=== PATIENT | female | born 1955 | race Caucasian/White ===

== ENCOUNTER → 2016-10-31 | Outpatient (REF) | payer OTHER ==
[2016-10-31 15:37] LABS: PERCENT SATURATION 25.9 % (13.2-37.4)
== END ==
LOC: M LAB REF 13:13
PROVIDERS: ATTEND Internal Medicine Medical Oncology
DX: D75.1 Secondary polycythemia (principal)

== ENCOUNTER → 2016-12-07 | Outpatient (CLI) | payer OTHER ==
[2016-12-07 09:41] LABS: ALBUMIN 3.9 GM/DL (3.2-5.2); ALBUMIN/GLOBULIN RATIO 1.15 (1.00-1.93); ALKALINE PHOSPHATASE 108 U/L (45-117); ALT/SGPT 27 U/L (12-78); ANION GAP 7 MEQ/L (8-16); AST/SGOT 15 U/L (15-37); BILIRUBIN,TOTAL 0.3 MG/DL (0.2-1.0); BLOOD UREA NITROGEN 10 MG/DL (7-18); CARBON DIOXIDE LEVEL 31 MEQ/L (21-32); CHLORIDE LEVEL 102 MEQ/L (98-107); CHOLESTEROL LEVEL 214 MG/DL (<200); CREATININE FOR GFR 0.57 MG/DL (0.55-1.02); GLOMERULAR FILTRATION RATE > 60.0 (>45); GLUCOSE, FASTING 114 MG/DL (80-110); POTASSIUM SERUM 4.5 MEQ/L (3.5-5.1); SODIUM LEVEL 140 MEQ/L (136-145); TOTAL PROTEIN 7.3 GM/DL (6.4-8.2); TRIGLYCERIDES LEVEL 45 MG/DL (<150)
[2016-12-07 09:43] LABS: MEAN CORPUSCULAR HEMOGLOBIN 29.7 pg (27.0-33.0); MEAN CORPUSCULAR HGB CONC 32.4 g/dl (32.0-36.5); MEAN CORPUSCULAR VOLUME 91.9 fl (80.0-96.0); RED CELL DISTRIBUTION WIDTH 13.2 % (11.5-14.5); WHITE BLOOD COUNT 6.8 K/mm3 (4.0-10.0)
== END ==
LOC: M WUC 08:09
PROVIDERS: ATTEND Nurse Practitioner Family
DX: I10 Essential (primary) hypertension (principal)

== ENCOUNTER → 2017-01-31 | Outpatient (REF) | payer OTHER ==
[2017-01-31 13:59] LABS: PERCENT SATURATION 16.5 % (13.2-37.4)
== END ==
LOC: M LAB REF 13:22
PROVIDERS: ATTEND Internal Medicine Medical Oncology
DX: D75.1 Secondary polycythemia (principal)

== ENCOUNTER → 2017-05-02 | Outpatient (REF) | payer OTHER ==
[2017-05-02 14:05] LABS: PERCENT SATURATION 18.3 % (13.2-45.0)
== END ==
LOC: M LAB REF 10:44
PROVIDERS: ATTEND Internal Medicine Medical Oncology
DX: D75.1 Secondary polycythemia (principal)

== ENCOUNTER → 2017-06-08 | Outpatient (CLI) | payer OTHER ==
[2017-06-08 09:30] LABS: MEAN CORPUSCULAR HEMOGLOBIN 29.5 pg (27.0-33.0); MEAN CORPUSCULAR HGB CONC 32.5 g/dl (32.0-36.5); MEAN CORPUSCULAR VOLUME 90.8 fl (80.0-96.0); RED CELL DISTRIBUTION WIDTH 13.8 % (11.5-14.5); WHITE BLOOD COUNT 7.6 10^3/uL (4.0-10.0)
[2017-06-08 09:47] LABS: ALBUMIN 3.9 GM/DL (3.2-5.2); ALBUMIN/GLOBULIN RATIO 1.15 (1.00-1.93); ALKALINE PHOSPHATASE 87 U/L (45-117); ALT/SGPT 27 U/L (12-78); ANION GAP 5 MEQ/L (8-16); AST/SGOT 18 U/L (15-37); BILIRUBIN,TOTAL 0.4 MG/DL (0.2-1.0); BLOOD UREA NITROGEN 9 MG/DL (7-18); CALCIUM LEVEL 9.5 MG/DL (8.8-10.2); CARBON DIOXIDE LEVEL 33 MEQ/L (21-32); CHLORIDE LEVEL 101 MEQ/L (98-107); CHOLESTEROL LEVEL 226 MG/DL (<200); CREATININE FOR GFR 0.55 MG/DL (0.55-1.02); GLOMERULAR FILTRATION RATE > 60.0 (>45); GLUCOSE, FASTING 115 MG/DL (80-110); POTASSIUM SERUM 4.4 MEQ/L (3.5-5.1); SODIUM LEVEL 139 MEQ/L (136-145); TOTAL PROTEIN 7.3 GM/DL (6.4-8.2); TRIGLYCERIDES LEVEL 59 MG/DL (<150)
== END ==
LOC: M WUC 08:16
PROVIDERS: ATTEND Nurse Practitioner Family
DX: I10 Essential (primary) hypertension (principal)

== ENCOUNTER → 2018-01-18 | Outpatient (CLI) | payer MEDICARE ==
[2018-01-18 12:26] LABS: BASO # 0.1 10^3/uL (0.0-0.2); BASO % 0.8 % (0.0-1.0); EOS # 0.1 10^3/uL (0.0-0.50); EOS % 1.5 % (0.0-3.0); HEMATOCRIT 41.5 % (36.0-47.0); HEMOGLOBIN 13.7 g/dl (12.0-15.5); IMMATURE GRANULOCYTE % 0.4 % (0-3.0); LYMPH # 1.5 10^3/uL (1.5-4.5); LYMPH % 18.8 % (24.0-44.0); MEAN CORPUSCULAR HEMOGLOBIN 29.5 pg (27.0-33.0); MEAN CORPUSCULAR VOLUME 89.2 fl (80.0-96.0); MONO # 0.6 10^3/uL (0.0-0.8); MONO % 7.8 % (0.0-5.0); NEUTROPHILS # 5.5 10^3/uL (1.8-7.7); NEUTROPHILS % 70.7 % (36.0-66.0); PLATELET COUNT, AUTOMATED 245 10^3/uL (150-450); RED BLOOD COUNT 4.65 10^6/uL (4.00-5.40); RED CELL DISTRIBUTION WIDTH 13.7 % (11.5-14.5); WHITE BLOOD COUNT 7.8 10^3/uL (4.0-10.0)
[2018-01-18 12:43] LABS: TOTAL 25(OH) VITAMIN D 15.1 NG/ML (30.0-100.0)
[2018-01-18 13:03] LABS: ALBUMIN 3.8 GM/DL (3.2-5.2); ALBUMIN/GLOBULIN RATIO 0.97 (1.00-1.93); ALKALINE PHOSPHATASE 106 U/L (45-117); ALT/SGPT 40 U/L (12-78); ANION GAP 5 MEQ/L (8-16); AST/SGOT 25 U/L (7-37); BILIRUBIN,TOTAL 0.4 MG/DL (0.2-1.0); BLOOD UREA NITROGEN 8 MG/DL (7-18); CALCIUM LEVEL 9.2 MG/DL (8.8-10.2); CARBON DIOXIDE LEVEL 32 MEQ/L (21-32); CHLORIDE LEVEL 101 MEQ/L (98-107); CHOLESTEROL LEVEL 219 MG/DL (<200); CHOLESTEROL RISK RATIO 1.738 (<5); FREE T4 1.06 NG/DL (0.76-1.46); GLOMERULAR FILTRATION RATE > 60.0 (>45); GLUCOSE, FASTING 129 MG/DL (70-100); HDL CHOLESTEROL 126 MG/DL (>40); LDL CHOLESTEROL 82.2 MG/DL (<100); NON-HDL-C 93 MG/DL; POTASSIUM SERUM 4.5 MEQ/L (3.5-5.1); SODIUM LEVEL 138 MEQ/L (136-145); TOTAL PROTEIN 7.7 GM/DL (6.4-8.2); TRIGLYCERIDES LEVEL 54 MG/DL (<150)
[2018-01-18 13:04] LABS: ESTIMATED AVERAGE GLUCOSE 117 MG/DL (60-110); HEMOGLOBIN A1c 5.7 %
== END ==
LOC: M WUC 08:44
DX: D75.1 Secondary polycythemia (principal); I10 Essential (primary) hypertension; E78.00 Pure hypercholesterolemia, unspecified; R73.9 Hyperglycemia, unspecified; Z99.81 Dependence on supplemental oxygen
CPT/HCPCS: 84443

== ENCOUNTER → 2018-07-20 | Outpatient (CLI) | payer MEDICARE, OTHER ==
[2018-07-20 09:50] LABS: BASO # 0.1 10^3/uL (0.0-0.2); BASO % 0.5 % (0.0-1.0); EOS # 0.1 10^3/uL (0.0-0.50); EOS % 1.5 % (0.0-3.0); HEMATOCRIT 44.1 % (36.0-47.0); HEMOGLOBIN 14.3 g/dl (12.0-15.5); LYMPH # 1.9 10^3/uL (1.5-4.5); LYMPH % 20.2 % (24.0-44.0); MEAN CORPUSCULAR HEMOGLOBIN 29.7 pg (27.0-33.0); MEAN CORPUSCULAR HGB CONC 32.4 g/dl (32.0-36.5); MEAN CORPUSCULAR VOLUME 91.5 fl (80.0-96.0); MONO # 0.8 10^3/uL (0.0-0.8); NEUTROPHILS # 6.6 10^3/uL (1.8-7.7); NEUTROPHILS % 69.6 % (36.0-66.0); PLATELET COUNT, AUTOMATED 248 10^3/uL (150-450); RED BLOOD COUNT 4.82 10^6/uL (4.00-5.40); WHITE BLOOD COUNT 9.5 10^3/uL (4.0-10.0)
[2018-07-20 10:43] LABS: HEMOGLOBIN A1c 5.8 %
[2018-07-20 10:55] LABS: ALBUMIN 3.8 GM/DL (3.2-5.2); ALT/SGPT 28 U/L (12-78); BILIRUBIN,TOTAL 0.4 MG/DL (0.2-1.0); BLOOD UREA NITROGEN 7 MG/DL (7-18); CALCIUM LEVEL 8.8 MG/DL (8.8-10.2); CARBON DIOXIDE LEVEL 31 MEQ/L (21-32); CHLORIDE LEVEL 102 MEQ/L (98-107); CHOLESTEROL LEVEL 211 MG/DL (<200); CHOLESTEROL RISK RATIO 1.701 (<5); CREATININE FOR GFR 0.61 MG/DL (0.55-1.30); FREE T4 1.01 NG/DL (0.76-1.46); GLOMERULAR FILTRATION RATE > 60.0 (>45); GLUCOSE, FASTING 125 MG/DL (70-100); HDL CHOLESTEROL 124 MG/DL (>40); LDL CHOLESTEROL 75 MG/DL (<100); NON-HDL-C 87 MG/DL; POTASSIUM SERUM 4.6 MEQ/L (3.5-5.1); SODIUM LEVEL 140 MEQ/L (136-145); THYROID STIMULATING HORMONE 0.477 uIU/ML (0.358-3.740); TOTAL 25(OH) VITAMIN D 21.6 NG/ML (30.0-100.0); TOTAL PROTEIN 7.6 GM/DL (6.4-8.2); TRIGLYCERIDES LEVEL 61 MG/DL (<150)
== END ==
LOC: M WUC 08:08
PROVIDERS: ATTEND Physician Assistant Medical
DX: Z51.81 Encounter for therapeutic drug level monitoring (principal); Z79.899 Other long term (current) drug therapy; R53.83 Other fatigue; E55.9 Vitamin D deficiency, unspecified; I10 Essential (primary) hypertension; E78.2 Mixed hyperlipidemia; D75.1 Secondary polycythemia

== ENCOUNTER → 2018-11-02 | Outpatient (CLI) | payer MEDICARE, OTHER ==
--- NOTE | 2018-11-02 10:18 | REP ---
Duplex extremity venous ultrasound: Bilateral lower extremity. History: Painful calf swelling bilaterally. Rule out DVT cal Findings: The deep veins are anechoic and fully compressible from the groin to the popliteal fossa in the left and right lower extremity. Color flow imaging is homogeneous. Spectral Doppler interrogation demonstrates intact respiratory variation in flow and normal manual augmentation of flow. There is no evidence of deep vein thrombosis. Impression: Negative bilateral lower extremity duplex venous ultrasound. No evidence of deep vein thrombosis. Electronically Signed by Raymond Hay MD 11/02/2018 10:10 A
== END ==
LOC: M RAD 09:27
PROVIDERS: ATTEND Physician Assistant Medical
DX: M79.89 Other specified soft tissue disorders (principal)

== ENCOUNTER 2019-02-18 02:02 | Inpatient (IN) | payer OTHER ==
[2019-02-18] VITALS (14 sets, daily range): BP systolic 104–138; BP diastolic 56–71
[~2019-02-18] VITALS: Ht 160 cm; Wt 81.7 kg
[2019-02-18] MEDS ORDERED: BISO10TA6 PO (02:27)
[2019-02-18] MEDS ORDERED: ASPI325T22 PO (02:27)
[2019-02-18] MEDS ORDERED: AMLO10TA PO (02:27)
[2019-02-18] MEDS ORDERED: ARNU1INH3 INH (02:27)
[2019-02-18] MEDS ORDERED: ANOR1AER INH (02:27)
[2019-02-18] MEDS ORDERED: PLAV1TAB2 PO (02:27)
[2019-02-18] MEDS ORDERED: CRES20TA2 PO (02:27)
[2019-02-18] MEDS ORDERED: ALBU1.25 INH (02:27)
[2019-02-18] MEDS ORDERED: dexameTHASONE 20 MG/5 ML VIAL (J1100) IV ONE (02:45)
[2019-02-18] MEDS ORDERED: MAG SULF 1GM/100ML (MAG RUN) 1 GM in APPROPRIATE DILUENT 1 EA IV ONE ×6 (02:45)
[2019-02-18 02:58] LABS: BASO # 0.1 10^3/uL (0.0-0.2); BASO % 0.6 % (0.0-1.0); EOS % 0.3 % (0.0-3.0); HEMATOCRIT 38.7 % (36.0-47.0); HEMOGLOBIN 12.6 g/dl (12.0-15.5); LYMPH % 9.5 % (24.0-44.0); MEAN CORPUSCULAR HEMOGLOBIN 27.9 pg (27.0-33.0); MEAN CORPUSCULAR HGB CONC 32.6 g/dl (32.0-36.5); MEAN CORPUSCULAR VOLUME 85.8 fl (80.0-96.0); MONO # 0.7 10^3/uL (0.0-0.8); MONO % 6.8 % (0.0-5.0); NEUTROPHILS # 8.8 10^3/uL (1.8-7.7); NEUTROPHILS % 82.5 % (36.0-66.0); PLATELET COUNT, AUTOMATED 227 10^3/uL (150-450); RED BLOOD COUNT 4.51 10^6/uL (4.00-5.40); VENOUS BASE EXCESS -1.7 (-2.0-2.0); VENOUS HCO3 27.3 MEQ/L (23.0-27.0); VENOUS O2 SATURATION 70.8 % (60.0-80.0); VENOUS PARTIAL PRESSURE CO2 66.4 mmHg (38.0-50.0); VENOUS PARTIAL PRESSURE O2 40.6 mmHg (30.0-50.0); VENOUS PH 7.232 UNITS (7.330-7.430); VENOUS STANDARD HCO3 22.5 MEQ/L; VENOUS TOTAL CO2 29.3 MEQ/L (24.0-28.0); WHITE BLOOD COUNT 10.6 10^3/uL (4.0-10.0)
[2019-02-18] MEDS: IPRATROPIUM 0.5MG/ALBUTEROL 2.5MG INH SOL UD 3ML (DUONEB)(J7620) NEB SCH ×2 (03:11→03:57)
[2019-02-18] MEDS ORDERED: VITA50005 PO (03:14)
[2019-02-18] MEDS ORDERED: cefTRIAXone SOD 1 GM in D5W MINI-BAG PLUS 50 ML IV ONE (03:15)
[2019-02-18] MEDS ORDERED: ONDANSETRON 4MG/2ML VIAL (J2405) IV ONE (03:15)
[2019-02-18] MEDS ORDERED: IPRA0.00 INH (03:15)
[2019-02-18 03:32] LABS: BLOOD UREA NITROGEN 11 MG/DL (7-18); CALCIUM LEVEL 8.6 MG/DL (8.8-10.2); CARBON DIOXIDE LEVEL 29 MEQ/L (21-32); CHLORIDE LEVEL 90 MEQ/L (98-107); CPK CREATINE PHOSPHOKINASE 50 U/L (26-192); CREATININE FOR GFR 0.54 MG/DL (0.55-1.30); GLOMERULAR FILTRATION RATE > 60.0 (>45); GLUCOSE, FASTING 127 MG/DL (70-100); NT-PRO BNP 2810 PG/ML (<125); SODIUM LEVEL 129 MEQ/L (136-145); TROPONIN I < 0.02 NG/ML (< 0.10)
--- NOTE | 2019-02-18 03:58 | REP ---
Clinical: Dyspnea. Technique: Portable upright AP view. Comparison: 12/03/2010. Findings: Cardiomegaly suggested along with bibasilar opacities (right greater than left) and suspected moderate right pleural effusion. Element of pulmonary vascular congestion and interstitial edema cannot be excluded. No pneumothorax. Skeletal structures are intact. Impression: Bibasilar opacities with moderate right pleural effusion. Differential diagnosis includes multifocal pneumonia and pulmonary vascular congestion/edema. Electronically Signed by Beingno Arias MD 02/18/2019 03:49 A
[2019-02-18] MEDS ORDERED: MAGNESIUM SULFATE IV ONE ×2 (04:00)
[2019-02-18] MEDS ORDERED: D5W IV ONE (04:00)
[2019-02-18] MEDS ORDERED: NS IV ONE (04:00)
[2019-02-18] MEDS ORDERED: FUROSEMIDE 100 MG/10 ML VIAL (J1940) IV ONE (04:15)
[2019-02-18] MEDS ORDERED: LORazepam 2 MG/ML VIAL (J2060) IV STA (06:06)
[2019-02-18] MEDS ORDERED: MAALOX 30 ML SUSP *UDC PO PRN (06:15)
[2019-02-18] MEDS ORDERED: MOM 30ML SUSPENSION UDC PO PRN (06:15)
[2019-02-18 06:21] LABS: ETHYL ALCOHOL (ETHANOL) 0.003 % (0.000-0.010)
--- NOTE | 2019-02-18 06:22 | HPEPDOC ---
General Date of Admission 02/18/19 Date of Service: Feb 18, 2019 Chief Complaint The patient is a 63-year-old female admitted with a reason for visit of SOB. Source: Patient, RN/, Old records History of Present Illness 63 year old female with PMH of COPD with chronic respiratory failure with hypoxia, secondary erythrocytosis requiring intermittent phlebotomy, hypertension, hyperlipidemia, smoker presented to the ED with several days h/o increasing shortness of breath and coughing. On arrival to ED she was hypoxic to 82% with 6 liters of oxygen , She was tripoding with silent chest unable to talk, very anxious. She was give nebs, decadron, lasix 100 mg and magnesium. CXR showed Bibasilar opacities with moderate right pleural effusion. Differential diagnosis includes multifocal pneumonia and pulmonary vascular congestion/edema. She was also noted to be in A fib with rvr. On my interview she said she was feeling much better She still continues to have SOB but better than before, she is having persistent coughing with phlegm production and also chest tightness but that is getting better. She denied having any fever or chills at home. She did have one episode of vomiting her in the ed. Home Medications Scheduled Amlodipine Besylate (Norvasc) 10 Mg Tablet, 10 MG PO DAILY, (Reported) Aspirin (Aspirin) 325 Mg Tablet, 325 MG PO DAILY, (Reported) Bisoprolol Fumarate (Bisoprolol Fumarate) 10 Mg Tablet, 10 MG PO DAILY, (Reported) Clopidogrel Bisulfate (Plavix) 75 Mg Tablet, 75 MG PO DAILY, (Reported) Ergocalciferol (Vitamin D2) (Vitamin D2) 50,000 Unit Capsule, 50,000 UNIT PO QWEEK, (Reported) SUNDAYS Fluticasone Furoate (Arnuity Ellipta) 200 Mcg Blst.w.dev, 200 MCG INH QPM, (Reported) Rosuvastatin Calcium (Crestor) 20 Mg Tablet, 20 MG PO QPM, (Reported) Umeclidinium Brm/Vilanterol Tr (Anoro Ellipta 62.5-25 Mcg INH) 1 Each Blst.w.dev, 1 PUFF INH QPM, (Reported) Scheduled PRN Albuterol Sulfate (Albuterol Sulfate) 1.25 Mg/3 Ml Vial.neb, 3 MG INH Q4H PRN for SOB/WHEEZING, (Reported) PT NOT CERTAIN WHICH NEB TREATMENT SHE IS USING Ipratropium/Albuterol Sulfate (Iprat-Albut 0.5-3(2.5) mg/3 ml) 3 Ml Ampul.neb, 3 ML INH Q4H PRN for SOB/WHEEZING, (Reported) PT NOT CERTAIN WHICH NEB TREATMENT SHE IS USING Allergies Coded Allergies: No Known Allergies (Unverified , 02/18/19) Past Medical History Medical History COPD with chronic respiratory failure with hypoxia, secondary polycythemia/ erythrocytosis requiring intermittent phlebotomy, hypertension, hyperlipidemia , atrial fibrillation, h/o ovarian cancer Surgical History Total abdominal hysterectomy Family History Significant Family History: COPD, Hypertension Social History * Smoker: current smoker Alcohol: heavy (drinks about 4 times per week 4 to 5 beers each time) Drugs: denies A-FIB/CHADSVASC A-FIB History Current/History of A-Fib/PAF?: Yes Current PO Anticoag Therapy: No Review of Systems Constitutional: Denies: Chills, Fever, Night Sweats Eyes: Denies: Pain, Vision change ENT: Denies: Head Aches, Ear Pain, Dysphagia Skin: Reports: Itching, Dry Pulmonary: Reports: Dyspnea, Cough Cardiovascular: Reports: Chest Pain, Palpitations, Orthopnea, Edema Gastrointestinal: Reports: Vomiting; Denies: Nausea, Abdominal Pain, Diarrhea, Constipation Genitourinary: Denies: Dysuria, Frequency, Incontinence, Retention Hematologic: Denies: Bruising, Bleeding Excessively Musculoskeletal: Denies: Neck Pain, Back Pain, Joint Pain, Muscle Pain, Spasms Physical Examination General Exam: Positive: Alert, Cooperative, Moderate Distress Eye Exam: Positive: PERRLA, Conjunctiva & lids normal, EOMI; Negative: Sclera icteric ENT Exam: Positive: Atraumatic, Mucous membr. moist/pink, Pharynx Normal Neck Exam: Positive: Supple, JVD; Negative: thyromegaly, Lymphadenopathy Chest Exam: Positive: Rales (at both the bases right > left), Wheezing (on deep expiration), Diminished Heart Exam: Positive: Tachycardic, Irregular Rhythm, Normal S1, Normal S2; Negative: Gallops, Murmurs, Rubs Telemetry: Positive: Atrial fibrillation Abdomen Exam: Positive: Normal bowel sounds, Soft; Negative: Tenderness, Hepatospenomegaly Extremity Exam: Positive: Edema, Swelling Skin Exam: Positive: Other skin issue (chronic venous stasis changes with stasis dermatitis.) Psych Exam: Positive: Anxiety, Memory Intact, Oriented x 3 Vital Signs Vital Signs Date Time Temp Pulse Resp B/P (MAP) Pulse Ox O2 Delivery O2 Flow Rate FiO2 02/18/19 04:37 113 22 122/61 (81) 88 Nasal Cannula 4.0 02/18/19 02:36 98.0 02/18/19 02:09 83 Laboratory Data Labs 24H Laboratory Tests 2 02/18/19 02:50: Immature Granulocyte % (Auto) 0.3, White Blood Count 10.6H, Red Blood Count 4.51, Hemoglobin 12.6, Hematocrit 38.7, Mean Corpuscular Volume 85.8, Mean Corpuscular Hemoglobin 27.9, Mean Corpuscular Hemoglobin Concent 32.6, Red Cell Distribution Width 14.1, Platelet Count 227, Neutrophils (%) (Auto) 82.5H, Lymphocytes (%) (Auto) 9.5L, Monocytes (%) (Auto) 6.8H, Eosinophils (%) (Auto) 0.3, Basophils (%) (Auto) 0.6, Neutrophils # (Auto) 8.8H, Lymphocytes # (Auto) 1.0L, Monocytes # (Auto) 0.7, Eosinophils # (Auto) 0.0, Basophils # (Auto) 0.1, Nucleated Red Blood Cells % (auto) 0.0, Blood Gas Bicarbonate Standard 22.5, Venous Blood pH 7.232L, Venous Blood Partial Pressure CO2 66.4H, Venous Blood Partial Pressure O2 40.6, Venous Blood Total Carbon Dioxide 29.3H, Venous Blood HCO3 27.3H, Venous Blood Oxygen Saturation 70.8, Venous Blood Base Excess -1.7, Anion Gap 10, Glomerular Filtration Rate > 60.0, Blood Urea Nitrogen 11, Creatinine 0.54L, Sodium Level 129L, Potassium Level 4.0, Chloride Level 90L, Carbon Dioxide Level 29, Calcium Level 8.6L, Total Creatine Kinase 50, Creatine Kinase MB 2.0, Creatine Kinase MB Relative Index 4.00, Troponin I < 0.02, ZX-Smu-F-Type Natriuretic Peptide 2810H CBC/BMP Laboratory Tests 02/18/19 02:50 Red Blood Count 4.51, Mean Corpuscular Volume 85.8, Mean Corpuscular Hemoglobin 27.9, Mean Corpuscular Hemoglobin Concent 32.6, Red Cell Distribution Width 14.1, Neutrophils (%) (Auto) 82.5 H, Lymphocytes (%) (Auto) 9.5 L, Monocytes (%) (Auto) 6.8 H, Eosinophils (%) (Auto) 0.3, Basophils (%) (Auto) 0.6, Neutrophils # (Auto) 8.8 H, Lymphocytes # (Auto) 1.0 L, Monocytes # (Auto) 0.7, Eosinophils # (Auto) 0.0, Basophils # (Auto) 0.1, Calcium Level 8.6 L, Total Creatine Kinase 50 Microbiology Microbiology 02/18/19 Blood Culture, Received Pending Assessment/Plan 63 year old female with PMH of COPD with chronic respiratory failure with hypoxia, secondary erythrocytosis requiring intermittent phlebotomy, hypertension, hyperlipidemia, smoker presented to the ED with several days h/o increasing shortness of breath and coughing. On arrival to ED she was hypoxic to 82% with 6 liters of oxygen , She was tripoding with silent chest unable to talk, very anxious. She was give nebs, decadron, lasix 100 mg and magnesium. CXR showed Bibasilar opacities with moderate right pleural effusion. Differential diagnosis includes multifocal pneumonia and pulmonary vascular congestion/edema. She was also noted to be in A fib with rvr. She was admitted for COPD exacerbation with acute on chronic respiratory failure with hypoxia and hypercarbia and CHF exacerbation. Acute on chronic respiratory failure with hypoxia and hypercarbia due to chf exacerbation and COPD exacerbation ABG will manage copd and chf as below COPD exacerbation She gold stage IV COPD with emphysema for several years continues to smoke continue with nebs, steroids, expectorants Possible pneumonia CXR with pleural effusion and possibly infiltrates Will get CT chest without contrast.for better picture Pateint very claustrophobic will give 0.5 mg of ativan prior to the test will give ceftriaxone and azithromycin. CHF exacerbation unknown type possibly has severe pulmonary hypertension and corpulmonale will get echo Lasix bid Afib with rvr newly diagnosed no h/o of a fib before probably due to copd exacerbation will have to discuss about anticoagulation. continue betablocker. Secondary Polycythemia due to COPD , smoking Used to need phlebotomy last one more than year ago. Now HH in good range. Smoker counselled abot quitting says has some down to about 5 cigarettes / day. nicotine patch if requested. Hyponatremia due to lung disease and beer drinking possibly has SIADH Lasix should improve. along with fluid restriction. Hypertension continue amlodipine and bisoprolol. Plan / VTE VTE Prophylaxis Ordered?: Yes DELMA CROWE MD Feb 18, 2019 05:10
[2019-02-18 06:38] LABS: ABG BASE EXCESS -2.3 (-2.0-2.0); ABG O2 SATURATION 90.4 % (95.0-99.0); ABG PARTIAL PRESSURE O2 70.7 mmHg (75.0-100.0); ABG STANDARD HCO3 22.4 MEQ/L (22.0-26.0)
[2019-02-18 06:46] LABS: ABG PARTIAL PRESSURE CO2 68.3 mmHg (35.0-45.0); ABG pH (ARTERIAL) 7.214 UNITS (7.350-7.450)
--- NOTE | 2019-02-18 07:13 | ECGEPIP ---
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
[2019-02-18] MEDS: SYMBICORT 160/4.5MCG INHALER 6GM INH SCH ×2 (07:42→21:51)
--- NOTE | 2019-02-18 08:28 | REPVR ---
EXAM: CT Chest Without Contrast EXAM DATE/TIME: 02/18/2019 6:38 AM CLINICAL HISTORY: 63 years old, female; Dyspnea; Additional info: Dysp TECHNIQUE: Imaging protocol: Axial computed tomography images of the chest without intravenous contrast. Coronal and sagittal reformatted images were created and reviewed. 3D rendering: MIP reconstructed images were created and reviewed. Radiation optimization: All CT scans at this facility use at least one of these dose optimization techniques: automated exposure control; mA and/or kV adjustment per patient size (includes targeted exams where dose is matched to clinical indication); or iterative reconstruction. COMPARISON: CT ANGIO CHEST 11/04/2015 3:16 PM FINDINGS: Thyroid: Stable coarse calcification within the left lobe of the thyroid gland. Lungs: The central airways are patent. There is diffuse interstitial prominence with peripheral septal thickening and heterogeneous attenuation of the lung parenchyma, consistent with interstitial edema. There is underlying centrilobular emphysema. There are patchy airspace opacities and consolidation within the right lower lobe as well as consolidation within the inferior right middle lobe. There are mild patchy airspace opacities and consolidation within the anterobasal right upper lobe as well as within the lingula and left lower lobe. Pleural space: Moderate right and small left pleural effusions. No pneumothorax. Heart: Cardiomegaly with biatrial dilatation. Coronary artery calcification. No pericardial effusion. Aorta: Atherosclerosis of the thoracic aorta. No evidence of aneurysm. There is atherosclerosis of the great vessels, upper abdominal aorta and its branches. Lymph nodes: Few small mediastinal lymph nodes. No significant adenopathy. Bones/joints: No acute bony abnormalities. Osteopenia and degenerative changes. Soft tissues: Posterior dependent soft tissue edema and along the lateral right flank. Intraperitoneal space: Small amount of perihepatic free fluid within the upper abdomen. IMPRESSION: 1. Cardiomegaly and interstitial edema consistent with CHF. 2. Moderate right and small left pleural effusions. 3. Multifocal patchy airspace opacities and consolidation, most pronounced involving the right lower lobe, likely secondary to compressive and subsegmental atelectasis. Superimposed pneumonia cannot be excluded. 4. Small amount of perihepatic free fluid within the upper abdomen. 5. Additional non-emergent findings, as discussed above. Electronically signed by: Benigno Flanagan On 02/18/2019 08:27:39 AM
[2019-02-18] MEDS: IPRATROPIUM 0.5MG/ALBUTEROL 2.5MG INH SOL UD 3ML (DUONEB)(J7620) NEB PRN ×2 (08:34→12:27)
[2019-02-18] MEDS: FUROSEMIDE 40 MG/4 ML VIAL (J1940) IV SCH ×2 (09:00→17:25)
[2019-02-18 09:42] LABS: ABG STANDARD HCO3 24.3 MEQ/L (22.0-26.0)
[2019-02-18 09:43] LABS: ABG HCO3 29.1 MEQ/L (22.0-26.0); ABG O2 SATURATION 88.4 % (95.0-99.0); ABG PARTIAL PRESSURE O2 63.2 mmHg (75.0-100.0); ABG TOTAL CO2 31.2 MEQ/L (23.0-31.0)
[2019-02-18 09:46] LABS: ABG PARTIAL PRESSURE CO2 69.1 mmHg (35.0-45.0); ABG pH (ARTERIAL) 7.242 UNITS (7.350-7.450)
[2019-02-18] MEDS: CLOPIDOGREL 75 MG TAB PO SCH (09:56)
[2019-02-18] MEDS: DOCUSATE SODIUM 100 MG CAP PO SCH ×2 (09:56→20:11)
[2019-02-18] MEDS: ENOXAPARIN 40 MG/0.4 ML SYRINGE (J1650) SC SCH (09:56)
[2019-02-18] MEDS: AZITHROMYCIN 250 MG TAB PO SCH (09:56)
[2019-02-18] MEDS: ASPIRIN 325 MG TAB PO SCH (09:56)
[2019-02-18] MEDS: amLODIPine 10 MG TAB PO SCH (09:57)
[2019-02-18] MEDS: methylPREDNISolone INJ 125 MG/2 ML VIAL (J2930) IV SCH ×2 (09:57→17:24)
[2019-02-18] MEDS: BISOPROLOL FUMARATE 10 MG TAB PO SCH (12:48)
[2019-02-18 16:15] LABS: ABG BASE EXCESS 5.4 (-2.0-2.0); ABG O2 SATURATION 88.9 % (95.0-99.0); ABG PARTIAL PRESSURE CO2 62.9 mmHg (35.0-45.0); ABG PARTIAL PRESSURE O2 61.6 mmHg (75.0-100.0); ABG STANDARD HCO3 29.1 MEQ/L (22.0-26.0); ABG pH (ARTERIAL) 7.338 UNITS (7.350-7.450)
[2019-02-18] MEDS: cefTRIAXone SOD 1 GM in D5W MINI-BAG PLUS 50 ML IV SCH (17:25)
[2019-02-18] MEDS: ROSUVASTATIN 10 MG TAB (CRESTOR) PO SCH (20:11)
--- NOTE | 2019-02-18 21:22 | ECHO ---
DATE OF PROCEDURE: 02/18/2019 REFERRING PHYSICIAN: Dr. Emily Baker INDICATION: Heart failure unspecified. HEIGHT: 160 cm WEIGHT: 83 kg 2D MEASUREMENTS: Left atrium: 4.5 cm Left atrial volume index: 47 Aortic annulus: 2.0 cm Aortic root: 2.8 cm Left ventricle diastole: 4.8 cm Ventricular septum: 0.96 cm Posterior wall: 0.98 cm Inferior vena cava: 2.5 cm DOPPLER MEASUREMENTS: No aortic stenosis. No aortic regurgitation. Aortic valve velocity: 125 cm/s LVOT velocity: 105 cm/s LVOT VTI: 18.1 cm Very mild mitral regurgitation. No mitral stenosis. Moderate tricuspid regurgitation. Estimated right ventricle systolic pressure: 62 mmHg assuming a pressure of 20 mmHg. DESCRIPTION: Rhythm was atrial fibrillation with rapid ventricular response. This was a moderately technically difficult echocardiogram. This was a 2D, M-mode, color flow Doppler and pulse wave Doppler examination and included mitral annular tissue Doppler. CONCLUSIONS: 1. Normal left ventricle internal dimensions and wall thickness. Hyperdynamic left ventricular (LV) systolic function. Left ventricular ejection fraction (LVEF) 75% by visual estimate. Unable to determine LV diastolic function in the setting of atrial fibrillation with rapid ventricular response. 2. Severe left atrial dilatation by left atrial volume index. 3. Moderate aortic valve sclerosis of a 3-cusp aortic valve. No aortic stenosis or regurgitation. 4. Moderate mitral annular calcification. No mitral stenosis. Very mild mitral regurgitation. 5. Suggestive of severe elevation of estimated right ventricle systolic pressure (at least 62 mmHg) assuming a right atrial pressure of at least 20 mmHg. Normal right ventricle size with presence of right ventricle hypertrophy. Prominent moderator band of the right ventricle. Moderate tricuspid regurgitation. Moderate right atrial dilatation. 6. 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 Suggestive of elevated central venous pressure of at least 20 mmHg. 7. No pericardial effusion.
[2019-02-18] MEDS ORDERED: LORazepam 0.5 MG TAB PO PRN (22:45)
[2019-02-19] VITALS (14 sets, daily range): BP systolic 100–121; BP diastolic 56–74
[2019-02-19] MEDS: methylPREDNISolone INJ 125 MG/2 ML VIAL (J2930) IV SCH ×3 (02:15→17:21)
[2019-02-19] MEDS: cefTRIAXone SOD 1 GM in D5W MINI-BAG PLUS 50 ML IV SCH ×2 (04:21→16:43)
[2019-02-19 05:03] LABS: EOS % 0.2 % (0.0-3.0); HEMATOCRIT 36.3 % (36.0-47.0); HEMOGLOBIN 11.8 g/dl (12.0-15.5); LYMPH # 0.3 10^3/uL (1.5-4.5); LYMPH % 4.1 % (24.0-44.0); MEAN CORPUSCULAR HGB CONC 32.5 g/dl (32.0-36.5); MEAN CORPUSCULAR VOLUME 86.2 fl (80.0-96.0); MONO # 0.1 10^3/uL (0.0-0.8); NEUTROPHILS % 93.4 % (36.0-66.0); PLATELET COUNT, AUTOMATED 176 10^3/uL (150-450); RED BLOOD COUNT 4.21 10^6/uL (4.00-5.40); WHITE BLOOD COUNT 6.4 10^3/uL (4.0-10.0)
[2019-02-19 05:25] LABS: BLOOD UREA NITROGEN 18 MG/DL (7-18); CALCIUM LEVEL 8.4 MG/DL (8.8-10.2); CARBON DIOXIDE LEVEL 33 MEQ/L (21-32); CHLORIDE LEVEL 93 MEQ/L (98-107); CREATININE FOR GFR 0.56 MG/DL (0.55-1.30); GLOMERULAR FILTRATION RATE > 60.0 (>45); GLUCOSE, FASTING 171 MG/DL (70-100); POTASSIUM SERUM 4.4 MEQ/L (3.5-5.1); SODIUM LEVEL 131 MEQ/L (136-145)
[2019-02-19] MEDS: SYMBICORT 160/4.5MCG INHALER 6GM INH SCH ×2 (07:59→20:02)
[2019-02-19] MEDS: DOCUSATE SODIUM 100 MG CAP PO SCH ×2 (09:00→20:05)
[2019-02-19] MEDS: amLODIPine 10 MG TAB PO SCH (09:27)
[2019-02-19] MEDS: CLOPIDOGREL 75 MG TAB PO SCH (09:27)
[2019-02-19] MEDS: ASPIRIN 325 MG TAB PO SCH (09:28)
[2019-02-19] MEDS: BISOPROLOL FUMARATE 10 MG TAB PO SCH (09:28)
[2019-02-19] MEDS: AZITHROMYCIN 250 MG TAB PO SCH (09:29)
[2019-02-19] MEDS: ENOXAPARIN 40 MG/0.4 ML SYRINGE (J1650) SC SCH (09:30)
[2019-02-19] MEDS: FUROSEMIDE 40 MG/4 ML VIAL (J1940) IV SCH ×2 (09:30→16:42)
--- NOTE | 2019-02-19 10:14 | IPNPDOC ---
Subjective Date Seen The patient was seen on 02/19/19. Subjective Chief Complaint/HPI Patient feels better, is able to able to breathe without any severe shortness of breath sitting by age of the bed with oxygen support . No chest pain, no nausea, vomiting, no fever, etc. but still has shortness of breath on minimal exertion General: Denies: ROS Unobtainable, Chills, Night Sweats, Fatigue, Malaise, Normal Appetite, Other Symptoms Constitutional: Denies: Chills, Fever, Malaise, Night Sweats, Weakness, Fatigue, Weight Loss, Lethargy, Other Eyes: Denies: Pain, Vision change, Conjunctivae inflammation, Eyelid inflammation, Redness, Other ENT: Denies: Head Aches, Ear Pain, Dysphagia, Sinus Congestion, Post Nasal Drip, Sore Throat, Epistaxis, Other Symptoms Skin: Denies: Rash, Lesions, Jaundice, Bruising, Itching, Dry, Breakdown, Nail Changes, Other Pulmonary: Reports: Dyspnea Cardiovascular: Denies: Chest Pain, Palpitations, Orthopnea, Paroxysmal Noc. Dyspnea, Edema, Lt Headedness, Other Symptoms Gastrointestinal: Denies: Nausea, Vomiting, Abdominal Pain, Diarrhea, Constipation, Melena, Hematochezia, Other Symptoms Genitourinary: Denies: Dysuria, Frequency, Incontinence, Hematuria, Retention, Other Symptoms Hematologic: Denies: Bruising, Bleeding Excessively, Petecchia, Purpura, Enlarged Lymph Nodes, Other Hematologic Endocrine: Denies: Polydipsia, Polyphagia, Polyuria, Heat Intolerance, Cold Intolerance, Other Endocrine Sx Musculoskeletal: Denies: Neck Pain, Back Pain, Shoulder Pain, Arm Pain, Hand Pain, Leg Pain, Foot Pain, Joint Pain, Muscle Pain, Spasms, Other Symptoms Neurological: Denies: Weakness, Numbness, Incoordination, Change in speech, Confusion, Seizures, Other Symptoms Psych: Denies: Mood Normal, Anxiety, Depression, Memory Issues, Thoughts of Self Harm, Anger, Thoughts of Harming Other, Other Psych Objective Physical Examination General Exam: Positive: Alert, Cooperative, Moderate Distress Eye Exam: Positive: PERRLA, Conjunctiva & lids normal, EOMI; Negative: Sclera icteric ENT Exam: Positive: Atraumatic, Mucous membr. moist/pink, Pharynx Normal Neck Exam: Positive: Supple, JVD; Negative: thyromegaly, Lymphadenopathy Chest Exam: Positive: Rales (at both the bases right > left), Wheezing (on deep expiration), Diminished Heart Exam: Positive: Tachycardic, Irregular Rhythm, Normal S1, Normal S2; Negative: Gallops, Murmurs, Rubs Telemetry: Positive: Atrial fibrillation Abdomen Exam: Positive: Normal bowel sounds, Soft; Negative: Tenderness, Hepatospenomegaly Extremity Exam: Positive: Edema, Swelling Skin Exam: Positive: Other skin issue (chronic venous stasis changes with stasis dermatitis.) Psych Exam: Positive: Anxiety, Memory Intact, Oriented x 3 Assessment /Plan Problems (1) Cor pulmonale Status: Chronic Response to Treatment: Improving, Controlled Problem Text: Patient diuresed very well about 1 L last night Continue IV diuresis with Lasix Strict I and O's Echo report: 1. Normal left ventricle internal dimensions and wall thickness. Hyperdynamic left ventricular (LV) systolic function. Left ventricular ejection fraction (LVEF) 75% by visual estimate. Unable to determine LV diastolic function in the setting of atrial fibrillation with rapid ventricular response. 2. Severe left atrial dilatation by left atrial volume index. 3. Moderate aortic valve sclerosis of a 3-cusp aortic valve. No aortic stenosis or regurgitation. 4. Moderate mitral annular calcification. No mitral stenosis. Very mild mitral regurgitation. 5. Suggestive of severe elevation of estimated right ventricle systolic pressure (at least 62 mmHg) assuming a right atrial pressure of at least 20 mmHg. Normal right ventricle size with presence of right ventricle hypertrophy. Prominent moderator band of the right ventricle. Moderate tricuspid regurgitation. Moderate right atrial dilatation. 6. 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 Suggestive of elevated central venous pressure of at least 20 mmHg. 7. No pericardial effusion. (2) Acute respiratory failure with hypoxia and hypercapnia Status: Acute Response to Treatment: Improving Problem Text: Multi-factorial in nature secondary to congestive heart failure secondary to cor pulmonale and exacerbation of COPD secondary to active smoking. Also possibility of community-acquired pneumonia Continue oxygen support with Vapotherm Continue IV steroids such as Solu-Medrol as per orders Continue nebulizer treatment as per orders Continue IV Rocephin and by mouth Zithromax as per orders A.m. level work Continue care in ICU. In the meantime for close observation (3) Afib Status: Chronic Problem Text: Ventricular rate is under control Continue home meds (4) Pneumonia Status: Acute Problem Text: As above Plan/VTE VTE Prophylaxis Ordered?: Yes VS, I&O, 24H, Fishbone Vital Signs/I&O Vital Signs Date Time Temp Pulse Resp B/P (MAP) Pulse Ox O2 Delivery O2 Flow Rate FiO2 02/19/19 09:28 104 118/63 02/19/19 08:06 94 28.0 60 02/19/19 04:00 97.9 20 02/18/19 08:29 Nasal Cannula I&O- Last 24 Hours up to 6 AM 02/19/19 06:00 Intake Total 440 ml Output Total 1560 ml Balance -1120 ml Laboratory Data 24H LABS Laboratory Tests 2 02/18/19 16:00: Blood Gas Bicarbonate Standard 29.1H, Arterial Blood pH 7.338L, Arterial Blood Partial Pressure CO2 62.9*H, Arterial Blood Partial Pressure O2 61.6L, Arterial Blood Total CO2 35.0H, Arterial Blood HCO3 33.0H, Arterial Blood Base Excess 5.4H, Arterial Blood Oxygen Saturation 88.9L 02/19/19 04:52: Immature Granulocyte % (Auto) 0.3, White Blood Count 6.4, Red Blood Count 4.21, Hemoglobin 11.8L, Hematocrit 36.3, Mean Corpuscular Volume 86.2, Mean Corpuscular Hemoglobin 28.0, Mean Corpuscular Hemoglobin Concent 32.5, Red Cell Distribution Width 14.4, Platelet Count 176, Neutrophils (%) (Auto) 93.4H, Lymphocytes (%) (Auto) 4.1L, Monocytes (%) (Auto) 2.0, Eosinophils (%) (Auto) 0.2, Basophils (%) (Auto) 0.0, Neutrophils # (Auto) 6.0, Lymphocytes # (Auto) 0.3L, Monocytes # (Auto) 0.1, Eosinophils # (Auto) 0.0, Basophils # (Auto) 0.0, Nucleated Red Blood Cells % (auto) 0.0, Anion Gap 5L, Glomerular Filtration Rate > 60.0, Blood Urea Nitrogen 18#, Creatinine 0.56, Sodium Level 131L, Potassium Level 4.4, Chloride Level 93L, Carbon Dioxide Level 33H, Calcium Level 8.4L CBC/BMP Laboratory Tests 02/19/19 04:52 Red Blood Count 4.21, Mean Corpuscular Volume 86.2, Mean Corpuscular Hemoglobin 28.0, Mean Corpuscular Hemoglobin Concent 32.5, Red Cell Distribution Width 14.4, Neutrophils (%) (Auto) 93.4 H, Lymphocytes (%) (Auto) 4.1 L, Monocytes (%) (Auto) 2.0, Eosinophils (%) (Auto) 0.2, Basophils (%) (Auto) 0.0, Neutrophils # (Auto) 6.0, Lymphocytes # (Auto) 0.3 L, Monocytes # (Auto) 0.1, Eosinophils # (Auto) 0.0, Basophils # (Auto) 0.0, Calcium Level 8.4 L Microbiology Microbiology 02/18/19 Blood Culture - Preliminary, Resulted No growth after 24 hours . All specim... CHERRY BERGMAN MD Feb 19, 2019 10:14
[2019-02-19] MEDS: ACETAMINOPHEN TAB 650MG DOSE (2X325MG) PO PRN ×2 (16:04→22:11)
--- NOTE | 2019-02-19 16:15 | REP ---
Clinical: CHF. Comparison: 02/18/2019. Findings: Large right pleural effusion along with cephalization, indistinct pulmonary vasculature and increased interstitial markings consistent with CHF. Lower lobe atelectasis cannot be excluded. No pneumothorax. Stable cardiomegaly. Impression: CHF including large right pleural effusion and lower lobe atelectasis. Electronically Signed by Benigno Arias MD 02/19/2019 04:07 P
[2019-02-19] MEDS: ROSUVASTATIN 10 MG TAB (CRESTOR) PO SCH (20:05)
[2019-02-20] VITALS (7 sets, daily range): BP systolic 104–118; BP diastolic 54–64
[2019-02-20] MEDS: IPRATROPIUM 0.5MG/ALBUTEROL 2.5MG INH SOL UD 3ML (DUONEB)(J7620) NEB PRN (00:35)
[2019-02-20] MEDS: methylPREDNISolone INJ 125 MG/2 ML VIAL (J2930) IV SCH ×3 (01:42→17:30)
[2019-02-20 04:20] LABS: HEMATOCRIT 32.7 % (36.0-47.0); HEMOGLOBIN 10.8 g/dl (12.0-15.5); LYMPH # 0.3 10^3/uL (1.5-4.5); LYMPH % 2.3 % (24.0-44.0); MEAN CORPUSCULAR HEMOGLOBIN 27.9 pg (27.0-33.0); MEAN CORPUSCULAR VOLUME 84.5 fl (80.0-96.0); MONO # 0.3 10^3/uL (0.0-0.8); MONO % 2.9 % (0.0-5.0); NEUTROPHILS # 10.3 10^3/uL (1.8-7.7); NEUTROPHILS % 94.4 % (36.0-66.0); PLATELET COUNT, AUTOMATED 192 10^3/uL (150-450); RED BLOOD COUNT 3.87 10^6/uL (4.00-5.40); WHITE BLOOD COUNT 10.9 10^3/uL (4.0-10.0)
[2019-02-20] MEDS: cefTRIAXone SOD 1 GM in D5W MINI-BAG PLUS 50 ML IV SCH ×2 (04:23→17:29)
[2019-02-20] MEDS: ACETAMINOPHEN TAB 650MG DOSE (2X325MG) PO PRN ×3 (04:24→21:25)
[2019-02-20 04:50] LABS: ALBUMIN 3.1 GM/DL (3.2-5.2); ALT/SGPT 41 U/L (12-78); BILIRUBIN,TOTAL 0.3 MG/DL (0.2-1.0); BLOOD UREA NITROGEN 28 MG/DL (7-18); CALCIUM LEVEL 8.2 MG/DL (8.8-10.2); CARBON DIOXIDE LEVEL 39 MEQ/L (21-32); CHLORIDE LEVEL 93 MEQ/L (98-107); CREATININE FOR GFR 0.53 MG/DL (0.55-1.30); GLOMERULAR FILTRATION RATE > 60.0 (>45); GLUCOSE, FASTING 159 MG/DL (70-100); POTASSIUM SERUM 3.7 MEQ/L (3.5-5.1); SODIUM LEVEL 136 MEQ/L (136-145); TOTAL PROTEIN 6.6 GM/DL (6.4-8.2)
[2019-02-20] MEDS: SYMBICORT 160/4.5MCG INHALER 6GM INH SCH ×2 (07:54→19:40)
[2019-02-20] MEDS: ASPIRIN 325 MG TAB PO SCH (08:10)
[2019-02-20] MEDS: AZITHROMYCIN 250 MG TAB PO SCH (08:10)
[2019-02-20] MEDS: DOCUSATE SODIUM 100 MG CAP PO SCH ×2 (08:11→21:24)
[2019-02-20] MEDS: CLOPIDOGREL 75 MG TAB PO SCH (08:11)
[2019-02-20] MEDS: amLODIPine 10 MG TAB PO SCH (08:12)
[2019-02-20] MEDS: BISOPROLOL FUMARATE 10 MG TAB PO SCH (08:12)
[2019-02-20] MEDS: ENOXAPARIN 40 MG/0.4 ML SYRINGE (J1650) SC SCH (08:13)
[2019-02-20] MEDS: FUROSEMIDE 40 MG/4 ML VIAL (J1940) IV SCH ×2 (08:14→17:30)
[2019-02-20] MEDS: ROSUVASTATIN 10 MG TAB (CRESTOR) PO SCH (21:24)
[2019-02-21] VITALS (8 sets, daily range): BP systolic 104–143; BP diastolic 55–82; O2SAT 93
[2019-02-21] MEDS: methylPREDNISolone INJ 125 MG/2 ML VIAL (J2930) IV SCH ×3 (01:14→19:41)
[2019-02-21] MEDS: cefTRIAXone SOD 1 GM in D5W MINI-BAG PLUS 50 ML IV SCH (04:19)
[2019-02-21 05:22] LABS: EOS % 0.1 % (0.0-3.0); HEMATOCRIT 32.7 % (36.0-47.0); HEMOGLOBIN 10.7 g/dl (12.0-15.5); LYMPH # 0.3 10^3/uL (1.5-4.5); LYMPH % 2.8 % (24.0-44.0); MEAN CORPUSCULAR HGB CONC 32.7 g/dl (32.0-36.5); MEAN CORPUSCULAR VOLUME 82.6 fl (80.0-96.0); MONO # 0.3 10^3/uL (0.0-0.8); MONO % 2.8 % (0.0-5.0); NEUTROPHILS # 8.6 10^3/uL (1.8-7.7); NEUTROPHILS % 93.5 % (36.0-66.0); PLATELET COUNT, AUTOMATED 203 10^3/uL (150-450); RED BLOOD COUNT 3.96 10^6/uL (4.00-5.40); WHITE BLOOD COUNT 9.2 10^3/uL (4.0-10.0)
[2019-02-21 05:57] LABS: BLOOD UREA NITROGEN 26 MG/DL (7-18); CALCIUM LEVEL 7.9 MG/DL (8.8-10.2); CARBON DIOXIDE LEVEL 41 MEQ/L (21-32); CHLORIDE LEVEL 90 MEQ/L (98-107); CREATININE FOR GFR 0.54 MG/DL (0.55-1.30); GLOMERULAR FILTRATION RATE > 60.0 (>45); GLUCOSE, FASTING 153 MG/DL (70-100); POTASSIUM SERUM 2.8 MEQ/L (3.5-5.1); SODIUM LEVEL 135 MEQ/L (136-145)
[2019-02-21 06:32] LABS: MAGNESIUM LEVEL 2.5 MG/DL (1.8-2.4)
[2019-02-21] MEDS: POTASSIUM CHLORIDE 10 MEQ SR TABLET PO SCH ×2 (07:35→20:46)
[2019-02-21] MEDS: ACETAMINOPHEN TAB 650MG DOSE (2X325MG) PO PRN (07:36)
[2019-02-21] MEDS: DOCUSATE SODIUM 100 MG CAP PO SCH (08:28)
[2019-02-21] MEDS: CLOPIDOGREL 75 MG TAB PO SCH (08:28)
[2019-02-21] MEDS: ASPIRIN 325 MG TAB PO SCH (08:28)
[2019-02-21] MEDS: BISOPROLOL FUMARATE 10 MG TAB PO SCH (08:29)
[2019-02-21] MEDS: ENOXAPARIN 40 MG/0.4 ML SYRINGE (J1650) SC SCH (08:30)
[2019-02-21] MEDS: FUROSEMIDE 40 MG/4 ML VIAL (J1940) IV SCH (08:30)
[2019-02-21] MEDS: amLODIPine 10 MG TAB PO SCH (08:32)
[2019-02-21] MEDS: SYMBICORT 160/4.5MCG INHALER 6GM INH SCH ×2 (09:00→20:11)
--- NOTE | 2019-02-21 10:48 | IPNPDOC ---
Subjective Date Seen The patient was seen on 02/21/19. Subjective Chief Complaint/HPI Patient feels much better, able to ambulate without shortness of breath, no chest pains, no nausea, vomiting General: Denies: ROS Unobtainable, Chills, Night Sweats, Fatigue, Malaise, Normal Appetite, Other Symptoms Constitutional: Denies: Chills, Fever, Malaise, Night Sweats, Weakness, Fatigue, Weight Loss, Lethargy, Other Eyes: Denies: Pain, Vision change, Conjunctivae inflammation, Eyelid inflammation, Redness, Other ENT: Denies: Head Aches, Ear Pain, Dysphagia, Sinus Congestion, Post Nasal Drip, Sore Throat, Epistaxis, Other Symptoms Skin: Denies: Rash, Lesions, Jaundice, Bruising, Itching, Dry, Breakdown, Nail Changes, Other Pulmonary: Reports: Dyspnea; Denies: Cough, Pleuritic Chest Pain, Other Symptoms Cardiovascular: Denies: Chest Pain, Palpitations, Orthopnea, Paroxysmal Noc. Dyspnea, Edema, Lt Headedness, Other Symptoms Gastrointestinal: Denies: Nausea, Vomiting, Abdominal Pain, Diarrhea, Constipation, Melena, Hematochezia, Other Symptoms Musculoskeletal: Denies: Neck Pain, Back Pain, Shoulder Pain, Arm Pain, Hand Pain, Leg Pain, Foot Pain, Joint Pain, Muscle Pain, Spasms, Other Symptoms Neurological: Denies: Weakness, Numbness, Incoordination, Change in speech, Confusion, Seizures, Other Symptoms Psych: Denies: Mood Normal, Anxiety, Depression, Memory Issues, Thoughts of Self Harm, Anger, Thoughts of Harming Other, Other Psych Objective Physical Examination General Exam: Positive: Alert, Cooperative, Moderate Distress Eye Exam: Positive: PERRLA, Conjunctiva & lids normal, EOMI; Negative: Sclera icteric ENT Exam: Positive: Atraumatic, Mucous membr. moist/pink, Pharynx Normal Neck Exam: Positive: Supple, JVD; Negative: thyromegaly, Lymphadenopathy Chest Exam: Positive: Diminished, Other (. Bilateral basal crackles but no r honchi or wheezing) Heart Exam: Positive: Tachycardic, Irregular Rhythm, Normal S1, Normal S2; Negative: Gallops, Murmurs, Rubs Telemetry: Positive: Atrial fibrillation Abdomen Exam: Positive: Normal bowel sounds, Soft; Negative: Tenderness, Hepatospenomegaly Extremity Exam: Positive: Edema, Swelling Skin Exam: Positive: Other skin issue (chronic venous stasis changes with stasis dermatitis.) Psych Exam: Positive: Anxiety, Memory Intact, Oriented x 3 Assessment /Plan Problems (1) Cor pulmonale Status: Chronic Response to Treatment: Improving, Controlled Problem Text: Total diagnoses about 6 L since admission Will change Lasix to by mouth Continue intake and output Potassium supplementation for hypokalemia DC Love catheter as patient is ambulatory now and does not get short of breath on ambulation Repeat chest x-ray in a.m. Repeat level work in a.m. Continue oxygen support and slowly titrated to decrease O2 need Echo report: 1. Normal left ventricle internal dimensions and wall thickness. Hyperdynamic left ventricular (LV) systolic function. Left ventricular ejection fraction (LVEF) 75% by visual estimate. Unable to determine LV diastolic function in the setting of atrial fibrillation with rapid ventricular response. 2. Severe left atrial dilatation by left atrial volume index. 3. Moderate aortic valve sclerosis of a 3-cusp aortic valve. No aortic stenosis or regurgitation. 4. Moderate mitral annular calcification. No mitral stenosis. Very mild mitral regurgitation. 5. Suggestive of severe elevation of estimated right ventricle systolic pressure (at least 62 mmHg) assuming a right atrial pressure of at least 20 mmHg. Normal right ventricle size with presence of right ventricle hypertrophy. Prominent moderator band of the right ventricle. Moderate tricuspid regurgitation. Moderate right atrial dilatation. 6. 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 Suggestive of elevated central venous pressure of at least 20 mmHg. 7. No pericardial effusion. (2) Acute respiratory failure with hypoxia and hypercapnia Status: Acute Response to Treatment: Improving Problem Text: Multi-factorial in nature secondary to congestive heart failure secondary to cor pulmonale and exacerbation of COPD secondary to active smoking. Also possibility of community-acquired pneumonia Continue oxygen support with Vapotherm Continue IV steroids such as Solu-Medrol as per orders Continue nebulizer treatment as per orders IV Zithromax and Rocephin will be DC'd as there is no evidence of infection and pro calcitonin is essentially within normal limits. Patient is afebrile without any Can be transferred to medical floor with telemetry monitoring (3) Afib Status: Chronic Problem Text: Ventricular rate is mostly under control but sometimes fluctuates to rapid ventricular rate Continue gambling monitor Continue home meds (4) Pneumonia Status: Acute Problem Text: Pneumonia has ruled out as there is no clinical evidence of infection WBC count is normal, so is a pro-calcitonin level Patient is clinically does not show any significant symptoms of pneumonia IV antibiotics has been DC'd and will monitor closely Plan/VTE VTE Prophylaxis Ordered?: Yes VS, I&O, 24H, Fishbone Vital Signs/I&O Vital Signs Date Time Temp Pulse Resp B/P (MAP) Pulse Ox O2 Delivery O2 Flow Rate FiO2 02/21/19 10:11 93 18.0 40 02/21/19 08:32 115 118/64 02/21/19 08:00 98.7 20 02/18/19 08:29 Nasal Cannula I&O- Last 24 Hours up to 6 AM 02/21/19 06:00 Intake Total 1195 ml Output Total 4200 ml Balance -3005 ml Laboratory Data 24H LABS Laboratory Tests 2 02/21/19 04:47: Immature Granulocyte % (Auto) 0.8, White Blood Count 9.2, Red Blood Count 3.96L, Hemoglobin 10.7L, Hematocrit 32.7L, Mean Corpuscular Volume 82.6, Mean Corpuscular Hemoglobin 27.0, Mean Corpuscular Hemoglobin Concent 32.7, Red Cell Distribution Width 14.3, Platelet Count 203, Neutrophils (%) (Auto) 93.5H, Lymphocytes (%) (Auto) 2.8L, Monocytes (%) (Auto) 2.8, Eosinophils (%) (Auto) 0.1, Basophils (%) (Auto) 0.0, Neutrophils # (Auto) 8.6H, Lymphocytes # (Auto) 0.3L, Monocytes # (Auto) 0.3, Eosinophils # (Auto) 0.0, Basophils # (Auto) 0.0, Nucleated Red Blood Cells % (auto) 0.0, Anion Gap 4L, Glomerular Filtration Rate > 60.0, Blood Urea Nitrogen 26H, Creatinine 0.54L, Sodium Level 135L, Potassium Level 2.8#*L, Chloride Level 90L, Carbon Dioxide Level 41H, Calcium Level 7.9L, Magnesium Level 2.5H CBC/BMP Laboratory Tests 02/21/19 04:47 Red Blood Count 3.96 L, Mean Corpuscular Volume 82.6, Mean Corpuscular Hemoglobin 27.0, Mean Corpuscular Hemoglobin Concent 32.7, Red Cell Distribution Width 14.3, Neutrophils (%) (Auto) 93.5 H, Lymphocytes (%) (Auto) 2.8 L, Monoc ytes (%) (Auto) 2.8, Eosinophils (%) (Auto) 0.1, Basophils (%) (Auto) 0.0, Neutrophils # (Auto) 8.6 H, Lymphocytes # (Auto) 0.3 L, Monocytes # (Auto) 0.3, Eosinophils # (Auto) 0.0, Basophils # (Auto) 0.0, Calcium Level 7.9 L Microbiology Microbiology 02/18/19 Blood Culture - Preliminary, Resulted No Growth after 72 hours. All specime... CHERRY BERGMAN MD Feb 21, 2019 10:48
[2019-02-21] MEDS ORDERED: POTASSIUM CHLORIDE 10 MEQ SR TABLET PO ONE (11:15)
[2019-02-21] MEDS: PANTOPRAZOLE 40MG TAB (PROTONIX) PO SCH (13:35)
[2019-02-21] MEDS ORDERED: LOPERAMIDE 2 MG CAP PO ONE (15:00)
[2019-02-21] MEDS: FUROSEMIDE 40 MG TAB PO SCH (16:00)
[2019-02-21] MEDS: ROSUVASTATIN 10 MG TAB (CRESTOR) PO SCH (20:45)
[2019-02-22] MEDS: methylPREDNISolone INJ 125 MG/2 ML VIAL (J2930) IV SCH ×2 (02:30→09:09)
[2019-02-22 06:00] VITALS: BP 115/61
[2019-02-22 06:51] LABS: HEMOGLOBIN 10.5 g/dl (12.0-15.5); LYMPH # 0.4 10^3/uL (1.5-4.5); LYMPH % 4.3 % (24.0-44.0); MEAN CORPUSCULAR HEMOGLOBIN 27.3 pg (27.0-33.0); MEAN CORPUSCULAR HGB CONC 32.8 g/dl (32.0-36.5); MEAN CORPUSCULAR VOLUME 83.1 fl (80.0-96.0); MONO # 0.4 10^3/uL (0.0-0.8); MONO % 4.2 % (0.0-5.0); NEUTROPHILS # 8.3 10^3/uL (1.8-7.7); NEUTROPHILS % 91.1 % (36.0-66.0); PLATELET COUNT, AUTOMATED 225 10^3/uL (150-450); RED BLOOD COUNT 3.85 10^6/uL (4.00-5.40); WHITE BLOOD COUNT 9.1 10^3/uL (4.0-10.0)
[2019-02-22 07:17] LABS: BLOOD UREA NITROGEN 28 MG/DL (7-18); CALCIUM LEVEL 8.3 MG/DL (8.8-10.2); CARBON DIOXIDE LEVEL 40 MEQ/L (21-32); CHLORIDE LEVEL 94 MEQ/L (98-107); CREATININE FOR GFR 0.58 MG/DL (0.55-1.30); GLOMERULAR FILTRATION RATE > 60.0 (>45); GLUCOSE, FASTING 123 MG/DL (70-100); POTASSIUM SERUM 3.4 MEQ/L (3.5-5.1); SODIUM LEVEL 139 MEQ/L (136-145)
[2019-02-22] MEDS: SYMBICORT 160/4.5MCG INHALER 6GM INH SCH ×2 (08:07→20:33)
[2019-02-22] MEDS: predniSONE 20 MG TAB PO SCH (09:00)
[2019-02-22] MEDS: BISOPROLOL FUMARATE 10 MG TAB PO SCH (09:13)
[2019-02-22] MEDS: amLODIPine 10 MG TAB PO SCH (09:13)
[2019-02-22] MEDS: FUROSEMIDE 40 MG TAB PO SCH ×2 (09:14→16:46)
[2019-02-22] MEDS: PANTOPRAZOLE 40MG TAB (PROTONIX) PO SCH (09:14)
[2019-02-22] MEDS ORDERED: POTASSIUM CHLORIDE 10 MEQ SR TABLET PO ONE (11:00)
--- NOTE | 2019-02-22 11:10 | IPNPDOC ---
Subjective Date Seen The patient was seen on 02/22/19. Subjective Chief Complaint/HPI Patient is clinically improved a lot, decreased shortness of breath. Offers no new complaints General: Denies: ROS Unobtainable, Chills, Night Sweats, Fatigue, Malaise, Normal Appetite, Other Symptoms Eyes: Denies: Pain, Vision change, Conjunctivae inflammation, Eyelid inflammation, Redness, Other ENT: Denies: Head Aches, Ear Pain, Dysphagia, Sinus Congestion, Post Nasal Drip, Sore Throat, Epistaxis, Other Symptoms Skin: Denies: Rash, Lesions, Jaundice, Bruising, Itching, Dry, Breakdown, Nail Changes, Other Pulmonary: Reports: Dyspnea Cardiovascular: Denies: Chest Pain, Palpitations, Orthopnea, Paroxysmal Noc. Dyspnea, Edema, Lt Headedness, Other Symptoms Gastrointestinal: Denies: Nausea, Vomiting, Abdominal Pain, Diarrhea, Constipation, Melena, Hematochezia, Other Symptoms Musculoskeletal: Denies: Neck Pain, Back Pain, Shoulder Pain, Arm Pain, Hand Pain, Leg Pain, Foot Pain, Joint Pain, Muscle Pain, Spasms, Other Symptoms Neurological: Denies: Weakness, Numbness, Incoordination, Change in speech, Confusion, Seizures, Other Symptoms Psych: Denies: Mood Normal, Anxiety, Depression, Memory Issues, Thoughts of Self Harm, Anger, Thoughts of Harming Other, Other Psych Objective Physical Examination General Exam: Positive: Alert, Cooperative, Moderate Distress Eye Exam: Positive: PERRLA, Conjunctiva & lids normal, EOMI; Negative: Sclera icteric ENT Exam: Positive: Atraumatic, Mucous membr. moist/pink, Pharynx Normal Neck Exam: Positive: Supple, JVD; Negative: thyromegaly, Lymphadenopathy Chest Exam: Positive: Diminished, Other (. Bilateral basal crackles but no rhonchi or wheezing) Heart Exam: Positive: Tachycardic, Irregular Rhythm, Normal S1, Normal S2; Negative: Gallops, Murmurs, Rubs Telemetry: Positive: Atrial fibrillation Abdomen Exam: Positive: Normal bowel sounds, Soft; Negative: Tenderness, Hepatospenomegaly Extremity Exam: Positive: Edema, Swelling Skin Exam: Positive: Other skin issue (chronic venous stasis changes with stasis dermatitis.) Psych Exam: Positive: Anxiety, Memory Intact, Oriented x 3 Assessment /Plan Problems (1) Cor pulmonale Status: Chronic Response to Treatment: Improving, Controlled Problem Text: Total diagnoses about 6 L since admission Will change Lasix to by mouth Continue intake and output Potassium supplementation for hypokalemia DC Love catheter as patient is ambulatory now and does not get short of breath on ambulation Repeat chest x-ray today Continue O2 support Possible discharge in a.m. Echo report: 1. Normal left ventricle internal dimensions and wall thickness. Hyperdynamic left ventricular (LV) systolic function. Left ventricular ejection fraction (LVEF) 75% by visual estimate. Unable to determine LV diastolic function in the setting of atrial fibrillation with rapid ventricular response. 2. Severe left atrial dilatation by left atrial volume index. 3. Moderate aortic valve sclerosis of a 3-cusp aortic valve. No aortic stenosis or regurgitation. 4. Moderate mitral annular calcification. No mitral stenosis. Very mild mitral regurgitation. 5. Suggestive of severe elevation of estimated right ventricle systolic pressure (at least 62 mmHg) assuming a right atrial pressure of at least 20 mmHg. Normal right ventricle size with presence of right ventricle hypertrophy. Prominent moderator band of the right ventricle. Moderate tricuspid regurgitation. Moderate right atrial dilatation. 6. 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 Suggestive of elevated central venous pressure of at least 20 mmHg. 7. No pericardial effusion. (2) Acute respiratory failure with hypoxia and hypercapnia Status: Acute Response to Treatment: Improving Problem Text: Multi-factorial in nature secondary to congestive heart failure secondary to cor pulmonale and exacerbation of COPD secondary to active smoking. Also possibility of community-acquired pneumonia Continue oxygen support with nasal cannula Will change Solu-Medrol to by mouth prednisone today and monitor on oral dose of prednisone Continue nebulizer treatment as per orders IV Zithromax and Rocephin will be DC'd as there is no evidence of infection and pro calcitonin is essentially within normal limits. 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 (4) Pneumonia Status: Acute Problem Text: Pneumonia has ruled out as there is no clinical evidence of infection WBC count is normal, so is a pro-calcitonin level Patient is clinically does not show any significant symptoms of pneumonia IV antibiotics has been DC'd and will monitor closely Plan/VTE VTE Prophylaxis Ordered?: Yes VS, I&O, 24H, Fishbone Vital Signs/I&O Vital Signs Date Time Temp Pulse Resp B/P (MAP) Pulse Ox O2 Delivery O2 Flow Rate FiO2 02/22/19 09:13 113 120/71 02/22/19 09:00 3.0 02/22/19 06:00 97.6 20 94 02/21/19 16:20 Nasal Cannula 02/21/19 16:00 35 I&O- Last 24 Hours up to 6 AM 02/22/19 05:59 Intake Total 1150 ml Output Total 1400 ml Balance -250 ml Laboratory Data 24H LABS Laboratory Tests 2 02/22/19 06:05: Immature Granulocyte % (Auto) 0.4, White Blood Count 9.1, Red Blood Count 3.85L, Hemoglobin 10.5L, Hematocrit 32.0L, Mean Corpuscular Volume 83.1, Mean Corpuscular Hemoglobin 27.3, Mean Corpuscular Hemoglobin Concent 32.8, Red Cell Distribution Width 14.4, Platelet Count 225, Neutrophils (%) (Auto) 91.1H, Lymphocytes (%) (Auto) 4.3L, Monocytes (%) (Auto) 4.2, Eosinophils (%) (Auto) 0.0, Basophils (%) (Auto) 0.0, Neutrophils # (Auto) 8.3H, Lymphocytes # (Auto) 0.4L, Monocytes # (Auto) 0.4, Eosinophils # (Auto) 0.0, Basophils # (Auto) 0.0, Nucleated Red Blood Cells % (auto) 0.0, Anion Gap 5L, Glomerular Filtration Rate > 60.0, Blood Urea Nitrogen 28H, Creatinine 0.58, Sodium Level 139, Potassium Le abel 3.4#L, Chloride Level 94L, Carbon Dioxide Level 40H, Calcium Level 8.3L CBC/BMP Laboratory Tests 02/22/19 06:05 Red Blood Count 3.85 L, Mean Corpuscular Volume 83.1, Mean Corpuscular Hemoglobin 27.3, Mean Corpuscular Hemoglobin Concent 32.8, Red Cell Distribution Width 14.4, Neutrophils (%) (Auto) 91.1 H, Lymphocytes (%) (Auto) 4.3 L, Monocytes (%) (Auto) 4.2, Eosinophils (%) (Auto) 0.0, Basophils (%) (Auto) 0.0, Neutrophils # (Auto) 8.3 H, Lymphocytes # (Auto) 0.4 L, Monocytes # (Auto) 0.4, Eosinophils # (Auto) 0.0, Basophils # (Auto) 0.0, Calcium Level 8.3 L Microbiology Microbiology 02/18/19 Blood Culture - Preliminary, Resulted No Growth after 72 hours. All specime... 02/21/19 Stool Occult Blood ([facility]) - Final, Complete CHERRY BERGMAN MD Feb 22, 2019 11:10
[2019-02-22 14:00] VITALS: BP 103/60
--- NOTE | 2019-02-22 14:11 | REP ---
Clinical: COPD. Comparison: 02/19/2019. Findings: [id number] right pleural effusion with bibasilar atelectasis and findings to suggest pulmonary vascular congestion again noted and similar to prior examination. No subcutaneous emphysema. Skeletal structures intact. Impression: Right lower lobe consolidation and pleural effusion with pulmonary vascular congestion/interstitial edema essentially unchanged. Electronically Signed by Benigno Arias MD 02/22/2019 02:03 P
[2019-02-22] MEDS: ACETAMINOPHEN TAB 650MG DOSE (2X325MG) PO PRN ×2 (14:44→20:21)
[2019-02-22] MEDS: ROSUVASTATIN 10 MG TAB (CRESTOR) PO SCH (20:21)
[2019-02-23 06:56] LABS: BASO % 0.1 % (0.0-1.0); HEMATOCRIT 33.6 % (36.0-47.0); LYMPH # 0.8 10^3/uL (1.5-4.5); LYMPH % 8.1 % (24.0-44.0); MEAN CORPUSCULAR HEMOGLOBIN 27.9 pg (27.0-33.0); MEAN CORPUSCULAR HGB CONC 32.7 g/dl (32.0-36.5); MEAN CORPUSCULAR VOLUME 85.3 fl (80.0-96.0); MONO # 0.8 10^3/uL (0.0-0.8); NEUTROPHILS % 83.3 % (36.0-66.0); PLATELET COUNT, AUTOMATED 239 10^3/uL (150-450); RED BLOOD COUNT 3.94 10^6/uL (4.00-5.40); WHITE BLOOD COUNT 9.6 10^3/uL (4.0-10.0)
[2019-02-23 07:01] LABS: ALBUMIN 3.4 GM/DL (3.2-5.2); ALT/SGPT 185 U/L (12-78); BILIRUBIN,TOTAL 0.5 MG/DL (0.2-1.0); BLOOD UREA NITROGEN 21 MG/DL (7-18); CALCIUM LEVEL 7.9 MG/DL (8.8-10.2); CARBON DIOXIDE LEVEL 39 MEQ/L (21-32); CHLORIDE LEVEL 93 MEQ/L (98-107); CREATININE FOR GFR 0.48 MG/DL (0.55-1.30); GLOMERULAR FILTRATION RATE > 60.0 (>45); GLUCOSE, FASTING 106 MG/DL (70-100); MAGNESIUM LEVEL 2.6 MG/DL (1.8-2.4); POTASSIUM SERUM 3.4 MEQ/L (3.5-5.1); SODIUM LEVEL 140 MEQ/L (136-145); TOTAL PROTEIN 6.5 GM/DL (6.4-8.2)
[2019-02-23] MEDS: SYMBICORT 160/4.5MCG INHALER 6GM INH SCH (07:18)
[2019-02-23] MEDS ORDERED: POTASSIUM CHLORIDE 10 MEQ SR TABLET PO ONE (08:15)
[2019-02-23] MEDS: BISOPROLOL FUMARATE 10 MG TAB PO SCH (10:38)
[2019-02-23] MEDS: PANTOPRAZOLE 40MG TAB (PROTONIX) PO SCH (10:38)
[2019-02-23] MEDS: FUROSEMIDE 20 MG TAB PO SCH ×2 (10:39→17:06)
[2019-02-23] MEDS: amLODIPine 10 MG TAB PO SCH (10:39)
[2019-02-23] MEDS: predniSONE 20 MG TAB PO SCH (10:39)
--- NOTE | 2019-02-23 11:45 | IPNPDOC ---
Subjective Date Seen The patient was seen on 02/23/19. Subjective Chief Complaint/HPI Patient feeling much better as still has a mild SOB on exertion but overall. There is improvement in her status General: Denies: ROS Unobtainable, Chills, Night Sweats, Fatigue, Malaise, Normal Appetite, Other Symptoms Constitutional: Denies: Chills, Fever, Malaise, Night Sweats, Weakness, Fatigue, Weight Loss, Lethargy, Other Eyes: Denies: Pain, Vision change, Conjunctivae inflammation, Eyelid inflammation, Redness, Other ENT: Denies: Head Aches, Ear Pain, Dysphagia, Sinus Congestion, Post Nasal Drip, Sore Throat, Epistaxis, Other Symptoms Skin: Denies: Rash, Lesions, Jaundice, Bruising, Itching, Dry, Breakdown, Nail Changes, Other Pulmonary: Reports: Dyspnea Cardiovascular: Denies: Chest Pain, Palpitations, Orthopnea, Paroxysmal Noc. Dyspnea, Edema, Lt Headedness, Other Symptoms Gastrointestinal: Denies: Nausea, Vomiting, Abdominal Pain, Diarrhea, Constip ation, Melena, Hematochezia, Other Symptoms Musculoskeletal: Denies: Neck Pain, Back Pain, Shoulder Pain, Arm Pain, Hand Pain, Leg Pain, Foot Pain, Joint Pain, Muscle Pain, Spasms, Other Symptoms Objective Physical Examination General Exam: Positive: Alert, Cooperative, Moderate Distress Eye Exam: Positive: PERRLA, Conjunctiva & lids normal, EOMI; Negative: Sclera icteric ENT Exam: Positive: Atraumatic, Mucous membr. moist/pink, Pharynx Normal Neck Exam: Positive: Supple, JVD; Negative: thyromegaly, Lymphadenopathy Chest Exam: Positive: Diminished, Other (. Bilateral basal crackles but no rhonchi or wheezing) Heart Exam: Positive: Tachycardic, Irregular Rhythm, Normal S1, Normal S2; Negative: Gallops, Murmurs, Rubs Telemetry: Positive: Atrial fibrillation Abdomen Exam: Positive: Normal bowel sounds, Soft; Negative: Tenderness, Hepatospenomegaly Extremity Exam: Positive: Edema, Swelling Skin Exam: Positive: Other skin issue (chronic venous stasis changes with stasis dermatitis.) Psych Exam: Positive: Anxiety, Memory Intact, Oriented x 3 Assessment /Plan Problems (1) Cor pulmonale Status: Chronic Response to Treatment: Improving, Controlled Problem Text: Total diagnoses about 6 L since admission Will change Lasix to by mouth but will decrease the dosage Continue intake and output Potassiumsymptoms supplementation given again for hypokalemia Repeat potassium level and magnesium level in a.m. DC Love catheter as patient is ambulatory now and does not get short of breath on ambulation Repeat chest x-ray still shows vascular congestion . We will repeat chest x-ray again tomorrow A.m. level work Continue O2 support Possible discharge in day or 2 Echo report: 1. Normal left ventricle internal dimensions and wall thickness. Hyperdynamic left ventricular (LV) systolic function. Left ventricular ejection fraction (LVEF) 75% by visual estimate. Unable to determine LV diastolic function in the setting of atrial fibrillation with rapid ventricular response. 2. Severe left atrial dilatation by left atrial volume index. 3. Moderate aortic valve sclerosis of a 3-cusp aortic valve. No aortic stenosis or regurgitation. 4. Moderate mitral annular calcification. No mitral stenosis. Very mild mitral regurgitation. 5. Suggestive of severe elevation of estimated right ventricle systolic pressure (at least 62 mmHg) assuming a right atrial pressure of at least 20 mmHg. Normal right ventricle size with presence of right ventricle hypertrophy. Prominent moderator band of the right ventricle. Moderate tricuspid regurgitation. Moderate right atrial dilatation. 6. 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 Suggestive of elevated central venous pressure of at least 20 mmHg. 7. No pericardial effusion. (2) Acute respiratory failure with hypoxia and hypercapnia Status: Acute Response to Treatment: Improving Problem Text: Multi-factorial in nature secondary to congestive heart failure secondary to cor pulmonale and exacerbation of COPD secondary to active smoking. Also possibility of community-acquired pneumonia Continue oxygen support with nasal cannula Will change Solu-Medrol to by mouth prednisone today and monitor on oral dose of prednisone Continue nebulizer treatment as per orders IV Zithromax and Rocephin will be DC'd as there is no evidence of infection and pro calcitonin is essentially within normal limits. Patient is afebrile without any And was transferred to medical floor (3) Afib Status: Chronic Problem Text: Ventricular rate is mostly under control but sometimes fluctuates to rapid ventricular rate Continue cat and dog bather Not on anticoagulation, but she was on aspirin and Plavix, which is on hold secondary to possible GI bleed, which is resolved now Will possibly start aspirin and Plavix again in a.m. Continue home meds (4) Pneumonia Status: Acute Problem Text: Pneumonia has ruled out as there is no clinical evidence of infection WBC count is normal, so is a pro-calcitonin level Patient is clinically does not show any significant symptoms of pneumonia IV antibiotics has been DC'd and will monitor closely Plan/VTE VTE Prophylaxis Ordered?: Yes VS, I&O, 24H, Fishbone Vital Signs/I&O Vital Signs Date Time Temp Pulse Resp B/P (MAP) Pulse Ox O2 Delivery O2 Flow Rate FiO2 02/22/19 20:20 3.0 02/22/19 20:00 16 3 02/22/19 14:00 97.9 82 103/60 (74) 02/21/19 16:20 Nasal Cannula 02/21/19 16:00 35 I&O- Last 24 Hours up to 6 AM 02/23/19 06:00 Intake Total 860 ml Output Total 2450 ml Balance -1590 ml Laboratory Data 24H LABS Laboratory Tests 2 02/23/19 06:13: Immature Granulocyte % (Auto) 0.5, White Blood Count 9.6, Red Blood Count 3.94L, Hemoglobin 11.0L, Hematocrit 33.6L, Mean Corpuscular Volume 85.3, Mean Corpuscular Hemoglobin 27.9, Mean Corpuscular Hemoglobin Concent 32.7, Red Cell Distribution Width 14.6H, Platelet Count 239, Neutrophils (%) (Auto) 83.3H, Lymphocytes (%) (Auto) 8.1L, Monocytes (%) (Auto) 8.0H, Eosinophils (%) (Auto) 0.0, Basophils (%) (Auto) 0.1, Neutrophils # (Auto) 8.0H, Lymphocytes # (Auto) 0 .8L, Monocytes # (Auto) 0.8, Eosinophils # (Auto) 0.0, Basophils # (Auto) 0.0, Nucleated Red Blood Cells % (auto) 0.0, Anion Gap 8, Glomerular Filtration Rate > 60.0, Blood Urea Nitrogen 21H, Creatinine 0.48L, Sodium Level 140, Potassium Level 3.4L, Chloride Level 93L, Carbon Dioxide Level 39H, Calcium Level 7.9L, Aspartate Amino Transf (AST/SGOT) 129H, Alanine Aminotransferase (ALT/SGPT) 185H, Alkaline Phosphatase 127H, Total Bilirubin 0.5, Total Protein 6.5, Albumin 3.4, Magnesium Level 2.6H, Albumin/Globulin Ratio 1.10 CBC/BMP Laboratory Tests 02/23/19 06:13 Red Blood Count 3.94 L, Mean Corpuscular Volume 85.3, Mean Corpuscular Hemoglobin 27.9, Mean Corpuscular Hemoglobin Concent 32.7, Red Cell Distribution Width 14.6 H, Neutrophils (%) (Auto) 83.3 H, Lymphocytes (%) (Auto) 8.1 L, Monocytes (%) (Auto) 8.0 H, Eosinophils (%) (Auto) 0.0, Basophils (%) (Auto) 0.1, Neutrophils # (Auto) 8.0 H, Lymphocytes # (Auto) 0.8 L, Monocytes # (Auto) 0.8, Eosinophils # (Auto) 0.0, Basophils # (Auto) 0.0, Calcium Level 7.9 L, Aspartate Amino Transf (AST/SGOT) 129 H, Alanine Aminotransferase (ALT/SGPT) 185 H, Alkaline Phosphatase 127 H, Total Bilirubin 0.5, Total Protein 6.5, Albumin 3.4 Microbiology Microbiology 02/18/19 Blood Culture - Final, Complete NO GROWTH AFTER 5 DAYS 02/21/19 Stool Occult Blood ([facility]) - Final, Complete CHERRY BERGMAN MD Feb 23, 2019 11:45
[2019-02-23] MEDS: ROSUVASTATIN 10 MG TAB (CRESTOR) PO SCH (20:06)
[2019-02-23] MEDS: ACETAMINOPHEN TAB 650MG DOSE (2X325MG) PO PRN (20:08)
[2019-02-23 22:00] VITALS: BP 124/70
[2019-02-24] MEDS: SYMBICORT 160/4.5MCG INHALER 6GM INH SCH ×3 (02:37→20:11)
[2019-02-24 06:00] VITALS: BP 116/68
[2019-02-24 06:11] LABS: BASO % 0.1 % (0.0-1.0); EOS % 0.1 % (0.0-3.0); HEMOGLOBIN 10.8 g/dl (12.0-15.5); LYMPH # 1.4 10^3/uL (1.5-4.5); LYMPH % 13.5 % (24.0-44.0); MEAN CORPUSCULAR HGB CONC 32.7 g/dl (32.0-36.5); MEAN CORPUSCULAR VOLUME 85.5 fl (80.0-96.0); MONO % 9.2 % (0.0-5.0); NEUTROPHILS # 8.2 10^3/uL (1.8-7.7); NEUTROPHILS % 76.5 % (36.0-66.0); PLATELET COUNT, AUTOMATED 190 10^3/uL (150-450); RED BLOOD COUNT 3.86 10^6/uL (4.00-5.40); WHITE BLOOD COUNT 10.7 10^3/uL (4.0-10.0)
[2019-02-24 06:33] LABS: BLOOD UREA NITROGEN 21 MG/DL (7-18); CALCIUM LEVEL 8.3 MG/DL (8.8-10.2); CARBON DIOXIDE LEVEL 38 MEQ/L (21-32); CHLORIDE LEVEL 96 MEQ/L (98-107); CREATININE FOR GFR 0.62 MG/DL (0.55-1.30); GLOMERULAR FILTRATION RATE > 60.0 (>45); GLUCOSE, FASTING 94 MG/DL (70-100); POTASSIUM SERUM 3.6 MEQ/L (3.5-5.1); SODIUM LEVEL 137 MEQ/L (136-145)
--- NOTE | 2019-02-24 07:23 | REP ---
Clinical: Shortness of breath. Comparison: 02/22/2019. Findings: Moderate right lower lobe consolidation/atelectasis and moderate pleural effusion along with left basilar atelectasis appear improved compared to prior examination. No new acute process. No pneumothorax. Mediastinum and cardiac silhouette are stable. Impression: Improved aeration. Continued moderate right pleural effusion with consolidation/atelectasis and minimal left basilar atelectasis. Electronically Signed by Benigno Arias MD 02/24/2019 07:14 A
[2019-02-24] MEDS: BISOPROLOL FUMARATE 10 MG TAB PO SCH (09:00)
[2019-02-24] MEDS: predniSONE 20 MG TAB PO SCH (10:23)
[2019-02-24] MEDS: amLODIPine 10 MG TAB PO SCH (10:23)
[2019-02-24] MEDS: PANTOPRAZOLE 40MG TAB (PROTONIX) PO SCH (10:24)
[2019-02-24] MEDS: FUROSEMIDE 20 MG TAB PO SCH ×2 (10:25→17:08)
--- NOTE | 2019-02-24 11:04 | IPNPDOC ---
Subjective Date Seen The patient was seen on 02/24/19. Subjective Chief Complaint/HPI Patient feels much better. No more shortness of breath reluctant to go home secondary to the weekend as patient lives alone and needs home services General: Denies: ROS Unobtainable, Chills, Night Sweats, Fatigue, Malaise, Normal Appetite, Other Symptoms Constitutional: Denies: Chills, Fever, Malaise, Night Sweats, Weakness, Fatigue, Weight Loss, Lethargy, Other Eyes: Denies: Pain, Vision change, Conjunctivae inflammation, Eyelid inflammation, Redness, Other ENT: Denies: Head Aches, Ear Pain, Dysphagia, Sinus Congestion, Post Nasal Drip, Sore Throat, Epistaxis, Other Symptoms Skin: Denies: Rash, Lesions, Jaundice, Bruising, Itching, Dry, Breakdown, Nail Changes, Other Pulmonary: Denies: Dyspnea, Cough, Pleuritic Chest Pain, Other Symptoms Cardiovascular: Denies: Chest Pain, Palpitations, Orthopnea, Paroxysmal Noc. Dyspnea, Edema, Lt Headedness, Other Symptoms Gastrointestinal: Denies: Nausea, Vomiting, Abdominal Pain, Diarrhea, Constipation, Melena, Hematochezia, Other Symptoms Musculoskeletal: Denies: Neck Pain, Back Pain, Shoulder Pain, Arm Pain, Hand Pain, Leg Pain, Foot Pain, Joint Pain, Muscle Pain, Spasms, Other Symptoms Neurological: Denies: Weakness, Numbness, Incoordination, Change in speech, Confusion, Seizures, Other Symptoms Objective Physical Examination General Exam: Positive: Alert, Cooperative, Moderate Distress Eye Exam: Positive: PERRLA, Conjunctiva & lids normal, EOMI; Negative: Sclera icteric ENT Exam: Positive: Atraumatic, Mucous membr. moist/pink, Pharynx Normal Neck Exam: Positive: Supple, JVD; Negative: thyromegaly, Lymphadenopathy Chest Exam: Positive: Normal air movement, Diminished Heart Exam: Positive: Tachycardic, Irregular Rhythm, Normal S1, Normal S2; Negative: Gallops, Murmurs, Rubs Telemetry: Positive: Atrial fibrillation Abdomen Exam: Positive: Normal bowel sounds, Soft; Negative: Tenderness, Hepatospenomegaly Extremity Exam: Positive: Edema, Swelling Skin Exam: Positive: Other skin issue (chronic venous stasis changes with stasis dermatitis.) Psych Exam: Positive: Anxiety, Memory Intact, Oriented x 3 Assessment /Plan Problems (1) Cor pulmonale Status: Chronic Response to Treatment: Improving, Controlled Problem Text: Total diagnoses about 6 L since admission Will change Lasix to by mouth but will decrease the dosage Continue intake and output Potassiumsymptoms supplementation given again for hypokalemia Repeat potassium level and magnesium level in a.m. DC Love catheter as patient is ambulatory now and does not get short of breath on ambulation The chest x-ray shows good air entry bilaterally Patient. Blood work is essentially within normal limits Continue O2 support And a possible discharge in a.m. Echo report: 1. Normal left ventricle internal dimensions and wall thickness. Hyperdynamic left ventricular (LV) systolic function. Left ventricular ejection fraction (LVEF) 75% by visual estimate. Unable to determine LV diastolic function in the setting of atrial fibrillation with rapid ventricular response. 2. Severe left atrial dilatation by left atrial volume index. 3. Moderate aortic valve sclerosis of a 3-cusp aortic valve. No aortic stenosis or regurgitation. 4. Moderate mitral annular calcification. No mitral stenosis. Very mild mitral regurgitation. 5. Suggestive of severe elevation of estimated right ventricle systolic pressure (at least 62 mmHg) assuming a right atrial pressure of at least 20 mmHg. Normal right ventricle size with presence of right ventricle hypertrophy. Prominent moderator band of the right ventricle. Moderate tricuspid regurgitation. Moderate right atrial dilatation. 6. 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 Suggestive of elevated central venous pressure of at least 20 mmHg. 7. No pericardial effusion. (2) Acute respiratory failure with hypoxia and hypercapnia Status: Acute Response to Treatment: Improving Problem Text: Multi-factorial in nature secondary to congestive heart failure secondary to cor pulmonale and exacerbation of COPD secondary to active smoking. Also possibility of community-acquired pneumonia Continue oxygen support with nasal cannula Will change Solu-Medrol to by mouth prednisone today and monitor on oral dose of prednisone Continue nebulizer treatment as per orders IV Zithromax and Rocephin will be DC'd as there is no evidence of infection and pro calcitonin is essentially within normal limits. Patient is afebrile without any And was transferred to medical floor (3) Afib Status: Chronic Problem Text: Ventricular rate is mostly under control but sometimes fluctuates to rapid ventricular rate Continue child monitor Not on anticoagulation, but she was on aspirin and Plavix, which is on hold secondary to possible GI bleed, which is resolved now Restart aspirin as per home dose Patient will follow with her PCP regarding restarting her Plavix as it was recently started 3 months ago. She is not aware about the indication of starting Plavix but she will discuss with her PCP before restarting it (4) Pneumonia Status: Acute Problem Text: Pneumonia has ruled out as there is no clinical evidence of infection WBC count is normal, so is a pro-calcitonin level Patient is clinically does not show any significant symptoms of pneumonia IV antibiotics has been DC'd and will monitor closely Plan/VTE VTE Prophylaxis Ordered?: Yes VS, I&O, 24H, Fishbone Vital Signs/I&O Vital Signs Date Time Temp Pulse Resp B/P (MAP) Pulse Ox O2 Delivery O2 Flow Rate FiO2 02/24/19 06:00 97.3 83 18 116/68 (84) 97 3.0 02/21/19 16:20 Nasal Cannula 02/21/19 16:00 35 I&O- Last 24 Hours up to 6 AM 02/24/19 05:59 Intake Total 1300 ml Output Total 1800 ml Balance -500 ml Laboratory Data 24H LABS Laboratory Tests 2 02/24/19 05:30: Immature Granulocyte % (Auto) 0.6, White Blood Count 10.7H, Red Blood Count 3.86L, Hemoglobin 10.8L, Hematocrit 33.0L, Mean Corpuscular Volume 85.5, Mean Corpuscular Hemoglobin 28.0, Mean Corpuscular Hemoglobin Concent 32.7, Red Cell Distribution Width 14.7H, Platelet Count 190, Neutrophils (%) (Auto) 76.5H, Lymphocytes (%) (Auto) 13.5L, Monocytes (%) (Auto) 9.2H, Eosinophils (%) (Auto) 0.1, Basophils (%) (Auto) 0.1, Neutrophils # (Auto) 8.2H, Lymphocytes # (Auto) 1.4L, Monocytes # (Auto) 1.0H, Eosinophils # (Auto) 0.0, Basophils # (Auto) 0.0, Nucleated Red Blood Cells % (auto) 0.0, Anion Gap 3L, Glomerular Filtration Rate > 60.0, Blood Urea Nitrogen 21H, Creatinine 0.62, Sodium Level 137, Potassium Level 3.6, Chloride Level 96L, Carbon Dioxide Level 38H, Calcium Level 8.3L CBC/BMP Laboratory Tests 02/24/19 05:30 Red Blood Count 3.86 L, Mean Corpuscular Volume 85.5, Mean Corpuscular Hemoglobin 28.0, Mean Corpuscular Hemoglobin Concent 32.7, Red Cell Distribution Width 14.7 H, Neutrophils (%) (Auto) 76.5 H, Lymphocytes (%) (Auto) 13.5 L, Monocytes (%) (Auto) 9.2 H, Eosinophils (%) (Auto) 0.1, Basophils (%) (Auto) 0.1, Neutrophils # (Auto) 8.2 H, Lymphocytes # (Auto) 1.4 L, Monocytes # (Auto) 1.0 H, Eosinophils # (Auto) 0.0, Basophils # (Auto) 0.0, Calcium Level 8.3 L Microbiology Microbiology 02/18/19 Blood Culture - Final, Complete NO GROWTH AFTER 5 DAYS 02/21/19 Stool Occult Blood (YVETTE) - Final, Complete CHERRY BERGMAN MD Feb 24, 2019 11:04
[2019-02-24 14:00] VITALS: BP 100/65
[2019-02-24] MEDS: ACETAMINOPHEN TAB 650MG DOSE (2X325MG) PO PRN (20:32)
[2019-02-24] MEDS: ROSUVASTATIN 10 MG TAB (CRESTOR) PO SCH (20:32)
[2019-02-24 22:00] VITALS: BP 110/63
[2019-02-25 05:51] LABS: BASO % 0.1 % (0.0-1.0); EOS % 0.1 % (0.0-3.0); HEMATOCRIT 34.2 % (36.0-47.0); HEMOGLOBIN 11.2 g/dl (12.0-15.5); LYMPH # 1.5 10^3/uL (1.5-4.5); LYMPH % 11.4 % (24.0-44.0); MEAN CORPUSCULAR HEMOGLOBIN 27.7 pg (27.0-33.0); MEAN CORPUSCULAR HGB CONC 32.7 g/dl (32.0-36.5); MEAN CORPUSCULAR VOLUME 84.4 fl (80.0-96.0); MONO # 1.1 10^3/uL (0.0-0.8); MONO % 8.2 % (0.0-5.0); NEUTROPHILS # 10.7 10^3/uL (1.8-7.7); NEUTROPHILS % 79.8 % (36.0-66.0); PLATELET COUNT, AUTOMATED 236 10^3/uL (150-450); RED BLOOD COUNT 4.05 10^6/uL (4.00-5.40); WHITE BLOOD COUNT 13.4 10^3/uL (4.0-10.0)
[2019-02-25 06:13] LABS: BLOOD UREA NITROGEN 22 MG/DL (7-18); CALCIUM LEVEL 8.1 MG/DL (8.8-10.2); CARBON DIOXIDE LEVEL 38 MEQ/L (21-32); CHLORIDE LEVEL 95 MEQ/L (98-107); CREATININE FOR GFR 0.65 MG/DL (0.55-1.30); GLOMERULAR FILTRATION RATE > 60.0 (>45); GLUCOSE, FASTING 89 MG/DL (70-100); POTASSIUM SERUM 3.4 MEQ/L (3.5-5.1); SODIUM LEVEL 137 MEQ/L (136-145)
[2019-02-25] MEDS: SYMBICORT 160/4.5MCG INHALER 6GM INH SCH (08:02)
[2019-02-25] MEDS: predniSONE 20 MG TAB PO SCH (08:18)
[2019-02-25] MEDS: amLODIPine 10 MG TAB PO SCH (08:19)
[2019-02-25] MEDS: PANTOPRAZOLE 40MG TAB (PROTONIX) PO SCH (08:19)
[2019-02-25] MEDS: FUROSEMIDE 20 MG TAB PO SCH (08:19)
[2019-02-25 08:20] VITALS: BP 114/62
[2019-02-25] MEDS: BISOPROLOL FUMARATE 10 MG TAB PO SCH (08:20)
[2019-02-25] MEDS ORDERED: POTA20TA6 PO (11:29)
[2019-02-25] MEDS ORDERED: LASI40TA9 PO (11:29)
--- NOTE | 2019-02-25 11:57 | DS.PDOC ---
Discharge Summary General Date of Admission Feb 18, 2019 at 06:07 Date of Discharge 02/25/2019 Attending Physician: CHERRY BERGMAN MD Discharge Summary PROCEDURES PERFORMED DURING STAY: None. ADMITTING DIAGNOSES: 1. Acute on chronic respiratory failure with hypoxia, pulmonary vascular edema, exacerbation of COPD, hypertension, cor pulmonale, atrial fibrillation DISCHARGE DIAGNOSES: 1. Acute on chronic respiratory failure with hypoxia, pulmonary vascular congestion/edema, cor pulmonale, exacerbation of COPD, hypertension, atrial fibrillation COMPLICATIONS/CHIEF COMPLAINT: Acute Respiratory Failure W Hypoxia. HISTORY OF PRESENT ILLNESS: 63 year old female with PMH of COPD with chronic respiratory failure with hypoxia, secondary erythrocytosis requiring intermittent phlebotomy, hypertension, hyperlipidemia, smoker presented to the ED with several days h/o increasing shortness of breath and coughing. On arrival to ED she was hypoxic to 82% with 6 liters of oxygen , She was tripoding with silent chest unable to talk, very anxious. She was give nebs, decadron, lasix 100 mg and magnesium. CXR showed Bibasilar opacities with moderate right pleural effusion. Differential diagnosis includes multifocal pneumonia and pulmonary vascular congestion/edema. She was also noted to be in A fib with rvr. On my interview she said she was feeling much better She still continues to have SOB but better than before, she is having persistent coughing with phlegm production and also chest tightness but that is getting better. She denied having any fever or chills at home. She did have one episode of vomiting her in the ed.. HOSPITAL COURSE: Patient had a lengthy stay in the hospital this time secondary to increased pulmonary congestion. Patient also had exacerbation of COPD as well as acute on chronic respiratory failure with hypoxia secondary to multifactorial reasons including COPD, vascular congestion, and cor pulmonale. Patient was started on IV Lasix 40 mg IV every 12 hours, which she responded very well with good diuresis and improving oxygen saturation and clinical condition. Patient was also started on DuoNeb as well as IV steroids, but antibiotics were stopped as there was no evidence of pneumonia as pro calcitonin was negative and the agent was afebrile with normal WBC and other lab work. Patient also had an episode of dark stools which were guaiac positive but with resolved spontaneously. She was on aspirin and Plavix which were placed on hold. Patient is not aware why she is on Plavix and unable to determine the reason for Plavix so I am holding Plavix. 2. She talks to her PCP regarding the indication for that medication, but she will continue taking aspirin for her atrial fibrillation. Will not start patient on anticoagulation with a new anticoagulant meds are Coumadin secondary to history of GI bleed and recent GI episode of GI bleed. She can be continued on by mouth aspirin for anticoagulation secondary to atrial fibrillation. Patient's rate remained under control and she was continued on all her home medications. Patient's pulmonary condition has completely resolved with IV diuresis that on she was switched to by mouth diuresis with Lasix and she will be discharged home on Lasix 40 mg by mouth daily along with KCl 20 mEq by mouth daily Patient will follow with her PCP and bridge rigger as outpatient in one week . DISCHARGE MEDICATIONS: Please see below. ALLERGIES: Please see below. PHYSICAL EXAMINATION ON DISCHARGE: VITAL SIGNS: Please see below. GENERAL: Within normal limits HEENT: PERRLA NECK: Supple CARDIOVASCULAR EXAMINATION: S1, S2, regular RESPIRATORY EXAMINATION: Clear to A&P ABDOMINAL EXAMINATION: , Soft, nontender, bowel sounds are present EXTREMITIES: No clubbing, cyanosis, edema SKIN: Normal NEUROLOGICAL EXAMINATION: . No focal motor sensory deficit PSYCHIATRIC EXAMINATION: Normal LABORATORY DATA: Please see below. IMAGING: Chest x-ray: Improved bilateral aeration and decreased vascular congestion PROGNOSIS: Fair ACTIVITY: As tolerated. DIET: Low salt DISCHARGE PLAN: Follow with your PCP and pulmonary in one week DISPOSITION: . Home DISCHARGE INSTRUCTIONS: 1. As above. ITEMS TO FOLLOWUP ON ON OUTPATIENT: 1. Follow with bridge rigger in 1 week. DISCHARGE CONDITION: Stable. TIME SPENT ON DISCHARGE: 40 minutes. Vital Signs/I&Os Vital Signs Date Time Temp Pulse Resp B/P (MAP) Pulse Ox O2 Delivery O2 Flow Rate FiO2 02/25/19 09:00 3.0 02/25/19 08:20 84 114/62 02/24/19 22:00 97.0 18 93 02/21/19 16:20 Nasal Cannula 02/21/19 16:00 35 I&O- Last 24 Hours up to 6 AM 02/25/19 06:00 Intake Total 720 ml Output Total 1075 ml Balance -355 ml Laboratory Data Labs 24H Laboratory Tests 2 02/25/19 05:33: Immature Granulocyte % (Auto) 0.4, White Blood Count 13.4H, Red Blood Count 4.05, Hemoglobin 11.2L, Hematocrit 34.2L, Mean Corpuscular Volume 84.4, Mean Corpuscular Hemoglobin 27.7, Mean Corpuscular Hemoglobin Concent 32.7, Red Cell Distribution Width 14.7H, Platelet Count 236, Neutrophils (%) (Auto) 79.8H, L ymphocytes (%) (Auto) 11.4L, Monocytes (%) (Auto) 8.2H, Eosinophils (%) (Auto) 0.1, Basophils (%) (Auto) 0.1, Neutrophils # (Auto) 10.7H, Lymphocytes # (Auto) 1.5, Monocytes # (Auto) 1.1H, Eosinophils # (Auto) 0.0, Basophils # (Auto) 0.0, Nucleated Red Blood Cells % (auto) 0.0, Anion Gap 4L, Glomerular Filtration Rate > 60.0, Blood Urea Nitrogen 22H, Creatinine 0.65, Sodium Level 137, Potassium [place] 3.4L, Chloride Level 95L, Carbon Dioxide Level 38H, Calcium Level 8.1L CBC/BMP Laboratory Tests 02/25/19 05:33 Red Blood Count 4.05, Mean Corpuscular Volume 84.4, Mean Corpuscular Hemoglobin 27.7, Mean Corpuscular Hemoglobin Concent 32.7, Red Cell Distribution Width 14.7 H, Neutrophils (%) (Auto) 79.8 H, Lymphocytes (%) (Auto) 11.4 L, Monocytes (%) (Auto) 8.2 H, Eosinophils (%) (Auto) 0.1, Basophils (%) (Auto) 0.1, Neutrophils # (Auto) 10.7 H, Lymphocytes # (Auto) 1.5, Monocytes # (Auto) 1.1 H, Eosinophils # (Auto) 0.0, Basophils # (Auto) 0.0, Calcium Level 8.1 L Microbiology Microbiology 02/18/19 Blood Culture - Final, Complete NO GROWTH AFTER 5 DAYS 02/21/19 Stool Occult Blood (YVETTE) - Final, Complete Discharge Medications Scheduled Amlodipine Besylate (Norvasc) 10 Mg Tablet, 10 MG PO DAILY, (Reported) Aspirin (Aspirin) 325 Mg Tablet, 325 MG PO DAILY, (Reported) Bisoprolol Fumarate (Bisoprolol Fumarate) 10 Mg Tablet, 10 MG PO DAILY, (Reported) Ergocalciferol (Vitamin D2) (Vitamin D2) 50,000 Unit Capsule, 50,000 UNIT PO QWEEK, (Reported) SUNDAYS Fluticasone Furoate (Arnuity Ellipta) 200 Mcg Blst.w.dev, 200 MCG INH QPM, (Reported) Furosemide (Lasix) 40 Mg Tablet, 40 MG PO DAILY Potassium Chloride (Potassium Chloride) 20 Meq Tab.er.prt, 1 TAB PO DAILY Rosuvastatin Calcium (Crestor) 20 Mg Tablet, 20 MG PO QPM, (Reported) Umeclidinium Brm/Vilanterol Tr (Anoro Ellipta 62.5-25 Mcg INH) 1 Each Blst.w.dev, 1 PUFF INH QPM, (Reported) Scheduled PRN Albuterol Sulfate (Albuterol Sulfate) 1.25 Mg/3 Ml Vial.neb, 3 MG INH Q4H PRN for SOB/WHEEZING, (Reported) PT NOT CERTAIN WHICH NEB TREATMENT SHE IS USING Ipratropium/Albuterol Sulfate (Iprat-Albut 0.5-3(2.5) mg/3 ml) 3 Ml Ampul.neb, 3 ML INH Q4H PRN for SOB/WHEEZING, (Reported) PT NOT CERTAIN WHICH NEB TREATMENT SHE IS USING Allergies Coded Allergies: No Known Allergies (Unverified , 02/18/19) CHERRY BERGMAN MD Feb 25, 2019 11:57
== END 2019-02-25 12:20 | disposition home or self-care (01) | DRG 133 ==
LOC: M ED 02:02 → M ED INP 06:07 → M ICU 08:51 → M MSPAV 02-21 18:00
PROVIDERS: ADMIT Internal Medicine Nephrology; ATTEND Internal Medicine
DX: J96.21 Acute and chronic respiratory failure with hypoxia (principal); I27.81 Cor pulmonale (chronic); I11.0 Hypertensive heart disease with heart failure; D75.1 Secondary polycythemia; E87.1 Hypo-osmolality and hyponatremia; I50.9 Heart failure, unspecified; J44.1 Chronic obstructive pulmonary disease with (acute) exacerbation; I48.91 Unspecified atrial fibrillation; E78.5 Hyperlipidemia, unspecified; F17.200 Nicotine dependence, unspecified, uncomplicated; Z79.82 Long term (current) use of aspirin; Z79.899 Other long term (current) drug therapy; J96.22 Acute and chronic respiratory failure with hypercapnia

== ENCOUNTER 2019-03-24 07:48 | Inpatient (IN) | payer OTHER ==
[~2019-03-24] VITALS: Ht 157.5 cm; Wt 76.1 kg
[~2019-03-24 07:48] MED LIST: ALBU1.25 INH; AMLO10TA PO; ANOR1AER INH; ARNU1INH3 INH; ASPI325T56 PO; BISO10TA10 PO; CRES20TA2 PO; IPRA0.00 INH; LASI40TA9 PO; PLAV1TAB2 PO; POTA20TA6 PO; VITA50005 PO
[2019-03-24] MEDS ORDERED: BISO10TA4 PO (08:05)
[2019-03-24] MEDS ORDERED: METOPROLOL TART 25 MG TABLET PO ONE ×2 (08:30→11:15)
[2019-03-24] MEDS: METOPROLOL 5 MG/5 ML VIAL IV SCH ×6 (08:40→09:53)
[2019-03-24 08:45] LABS: BASO # 0.1 10^3/uL (0.0-0.2); BASO % 0.4 % (0.0-1.0); EOS % 0.2 % (0.0-3.0); HEMATOCRIT 34.3 % (36.0-47.0); HEMOGLOBIN 11.4 g/dl (12.0-15.5); LYMPH # 1.1 10^3/uL (1.5-4.5); LYMPH % 8.9 % (24.0-44.0); MEAN CORPUSCULAR HEMOGLOBIN 28.8 pg (27.0-33.0); MEAN CORPUSCULAR HGB CONC 33.2 g/dl (32.0-36.5); MEAN CORPUSCULAR VOLUME 86.6 fl (80.0-96.0); MONO # 0.7 10^3/uL (0.0-0.8); MONO % 6.2 % (0.0-5.0); NEUTROPHILS # 9.9 10^3/uL (1.8-7.7); NEUTROPHILS % 83.9 % (36.0-66.0); PLATELET COUNT, AUTOMATED 331 10^3/uL (150-450); RED BLOOD COUNT 3.96 10^6/uL (4.00-5.40); WHITE BLOOD COUNT 11.9 10^3/uL (4.0-10.0)
[2019-03-24 09:09] LABS: BLOOD UREA NITROGEN 7 MG/DL (7-18); CALCIUM LEVEL 8.9 MG/DL (8.8-10.2); CARBON DIOXIDE LEVEL 31 MEQ/L (21-32); CHLORIDE LEVEL 99 MEQ/L (98-107); CK-MB VALUE MASS < 1.0 NG/ML (<3.6); CPK CREATINE PHOSPHOKINASE 30 U/L (26-192); CREATININE FOR GFR 0.62 MG/DL (0.55-1.30); GLOMERULAR FILTRATION RATE > 60.0 (>45); GLUCOSE, FASTING 133 MG/DL (70-100); MB/CK RELATIVE INDEX 3.33 (< OR =4); NT-PRO BNP 2083 PG/ML (<125); POTASSIUM SERUM 4.2 MEQ/L (3.5-5.1); SODIUM LEVEL 138 MEQ/L (136-145); TROPONIN I < 0.02 NG/ML (< 0.10)
[2019-03-24 12:38] LABS: CK-MB VALUE MASS < 1.0 NG/ML (<3.6); CPK CREATINE PHOSPHOKINASE 29 U/L (26-192); MB/CK RELATIVE INDEX 3.45 (< OR =4); TROPONIN I < 0.02 NG/ML (< 0.10)
[2019-03-24] MEDS ORDERED: IPRA0.00 NEB (13:33)
[2019-03-24] MEDS ORDERED: POTA20TA6 PO (13:33)
[2019-03-24] MEDS ORDERED: CALC600T18 PO (13:33)
[2019-03-24] MEDS ORDERED: FURO40TA2 PO (13:33)
[2019-03-24] MEDS ORDERED: ACETAMINOPHEN TAB 650MG DOSE (2X325MG) PO PRN (13:45)
[2019-03-24] MEDS ORDERED: IPRATROPIUM 0.5MG/ALBUTEROL 2.5MG INH SOL UD 3ML (DUONEB)(J7620) NEB PRN (13:45)
--- NOTE | 2019-03-24 14:45 | HPEPDOC ---
General Date of Admission Mar 24, 2019 at 07:49 Date of Service: Mar 24, 2019 Chief Complaint The patient is a 63-year-old female admitted with a reason for visit of Atrial Fibrillation With Rvr. History of Present Illness 63-year-old female past medical history of COPD on 3 L of oxygen chronically, hy pertension, dyslipidemia, and recently diagnosed diastolic congestive heart failure and atrial fibrillation not on anticoagulation presents to the ER with a chief complaint of palpitations and shortness of breath. The patient states that she woke up at 5:45 AM this morning and started to feel palpitations. She denied any lightheadedness, dizziness, chest pain, abdominal pain, or any nausea/vomiting/diarrhea. She states that she took a nebulizer treatment but this did not help, and she came to the ER for further evaluation. She denies any complaints of fevers, chills, cough, congestion. In the ER, patient was noted to be in atrial fibrillation with rapid ventricular rate. She will be admitted under the hospitalist service for further evaluation and management. Home Medications Scheduled Amlodipine Besylate (Norvasc) 10 Mg Tablet, 10 MG PO DAILY, (Reported) Aspirin (Aspirin) 325 Mg Tablet, 325 MG PO DAILY, (Reported) Bisoprolol/Hydrochlorothiazide (Bisoprolol-Hctz 10-6.25 mg Tab) 1 Each Tablet, 1 TAB PO DAILY, (Reported) Calcium Carbonate/Vitamin D3 (Calcium 600-Vit D3 400 Tablet) 1 Each Tablet, 1 TAB PO DAILY, (Reported) Ergocalciferol (Vitamin D2) (Vitamin D2) 50,000 Unit Capsule, 50,000 UNIT PO QWEEK, (Reported) SUNDAYS Fluticasone Furoate (Arnuity Ellipta) 200 Mcg Blst.w.dev, 1 PUFF INH QPM, (Reported) Furosemide (Furosemide) 40 Mg Tablet, 40 MG PO DAILY, (Reported) Potassium Chloride (Potassium Chloride) 20 Meq Tab.er.prt, 20 MEQ PO DAILY, (Reported) Rosuvastatin Calcium (Crestor) 20 Mg Tablet, 20 MG PO QPM, (Reported) Umeclidinium Brm/Vilanterol Tr (Anoro Ellipta 62.5-25 Mcg INH) 1 Each Blst.w.dev, 1 PUFF INH QPM, (Reported) Scheduled PRN Ipratropium/Albuterol Sulfate (Iprat-Albut 0.5-3(2.5) mg/3 ml) 3 Ml Ampul.neb, 1 VIAL NEB Q4H PRN for SHORTNESS OF BREATH, (Reported) Allergies Coded Allergies: No Known Allergies (Unverified , 03/24/19) Past Medical History Medical History As noted in HPI. Surgical History Total abdominal hysterectomy, salpingo-oophorectomy Social History * Smoker: former Smoker (patient states that she smoked an average of 2 packs per day for 40 years, quit since her last hospitalization on February 18.) Alcohol: occationally Drugs: denies Review of Systems Other systems 10 point review of systems negative unless otherwise specified in the HPI. Physical Examination General Exam: Positive: Alert, Cooperative, No Acute Distress ENT Exam: Positive: Atraumatic, Mucous membr. moist/pink Chest Exam: Positive: Diminished Heart Exam: Positive: Tachycardic, Irregular Rhythm Telemetry: Positive: Atrial fibrillation Abdomen Exam: Positive: Soft; Negative: Tenderness Extremity Exam: Positive: Edema (2+ pitting edema noted in the lower extremities bilaterally); Negative: Tenderness Psych Exam: Positive: Oriented x 3 Vital Signs Vital Signs Date Time Temp Pulse Resp B/P (MAP) Pulse Ox O2 Delivery O2 Flow Rate FiO2 03/24/19 13:55 134/63 (86) 03/24/19 13:45 112 95 03/24/19 13:00 Nasal Cannula 3.0 03/24/19 07:51 98.5 24 Laboratory Data Labs 24H Laboratory Tests 2 03/24/19 08:27: Immature Granulocyte % (Auto) 0.4, White Blood Count 11.9H, Red Blood Count 3.96L, Hemoglobin 11.4L, Hematocrit 34.3L, Mean Corpuscular Volume 86.6, Mean Corpuscular Hemoglobin 28.8, Mean Corpuscular Hemoglobin Concent 33.2, Red Cell Distribution Width 17.2H, Platelet Count 331, Neutrophils (%) (Auto) 83.9H, Lymphocytes (%) (Auto) 8.9L, Monocytes (%) (Auto) 6.2H, Eosinophils (%) (Auto) 0.2, Basophils (%) (Auto) 0.4, Neutrophils # (Auto) 9.9H, Lymphocytes # (Auto) 1.1L, Monocytes # (Auto) 0.7, Eosinophils # (Auto) 0.0, Basophils # (Auto) 0.1, Nucleated Red Blood Cells % (auto) 0.0, Anion Gap 8, Glomerular Filtration Rate > 60.0, Blood Urea Nitrogen 7, Creatinine 0.62, Sodium Level 138, Potassium Level 4.2, Chloride Level 99, Carbon Dioxide Level 31, Calcium Level 8.9, Total Creatine Kinase 30, Creatine Kinase MB < 1.0, Creatine Kinase MB Relative Index 3.33, Troponin I < 0.02, TN-Kgf-D-Type Natriuretic Peptide 2083H 03/24/19 12:03: Total Creatine Kinase 29, Creatine Kinase MB < 1.0, Creatine Kinase MB Relative Index 3.45, Troponin I < 0.02 CBC/BMP Laboratory Tests 03/24/19 08:27 Red Blood Count 3.96 L, Mean Corpuscular Volume 86.6, Mean Corpuscular Hemoglobin 28.8, Mean Corpuscular Hemoglobin Concent 33.2, Red Cell Distribution Width 17.2 H, Neutrophils (%) (Auto) 83.9 H, Lymphocytes (%) (Auto) 8.9 L, Monocytes (%) (Auto) 6.2 H, Eosinophils (%) (Auto) 0.2, Basophils (%) (Auto) 0.4, Neutrophils # (Auto) 9.9 H, Lymphocytes # (Auto) 1.1 L, Monocytes # (Auto) 0.7, Eosinophils # (Auto) 0.0, Basophils # (Auto) 0.1, Calcium Level 8.9, Total Creatine Kinase 30 Plan / VTE VTE Prophylaxis Ordered?: Yes Plan Plan Atrial Fibrillation with RVR Patient's HR improved with Metoprolol in the ER, Blood Pressure stable 2D ECHO from hospitalization from 02/18-02/25 revealed preserved LVEF with severe left atrial dilatation Anticoagulation was deferred given Hx of GI Bleed with dark colored stools during last admissions while on ASA, Plavix She was scheduled to see Dr. Martinez in the outpatient setting for the first time for further evaluation Dr. Martinez was already contacted by the ER physician here. We will continue the patient on Metoprolol Tartrate q6h, and monitor on Telemetry We will follow up with Cardiology recmmendations Decompensated Diastolic CHF The patient does appear to be clinically and radiographically fluid overloaded IV Lasix 40mg BID ordered Daily Weights, Fluid Restriction, and Strict I/O's ordered We will cont to volume optimize the patient as tolerated COPD not in exacerbation Cont Nebs prn Chronic Hypoxic Respiratory Failure Currently on 3L which is her baseline HTN Cont Norvasc Dyslipidemia Cont Statin Obesity BMI of 32 noted Complicating Medical Care Hx of Ovarian Ca s/p Hysterectomy, salpingo-oophorectomy f/u as outpatient DVT Prophylaxis Already On Full Dose ASA--Hx of GI Bleed, will avoid AC (SCDs/TEDs ordered) YANET SLOAN MD Mar 24, 2019 14:45
[2019-03-24 15:00] VITALS: BP 130/64
[2019-03-24] MEDS ORDERED: SLF 3 ML SYR IV PRN (15:30)
[2019-03-24] MEDS: ASPIRIN 325 MG TAB PO SCH (15:45)
[2019-03-24] MEDS: POTASSIUM CHLORIDE 10 MEQ SR TABLET PO SCH (15:45)
[2019-03-24] MEDS: amLODIPine 10 MG TAB PO SCH (15:45)
[2019-03-24 16:00] VITALS: BP 122/58
[2019-03-24] MEDS: IPRATROPIUM 0.5MG/ALBUTEROL 2.5MG INH SOL UD 3ML (DUONEB)(J7620) NEB SCH ×2 (16:02→20:15)
[2019-03-24] MEDS ORDERED: FUROSEMIDE 40 MG/4 ML VIAL (J1940) IV SCH (17:00)
[2019-03-24] MEDS: METOPROLOL TART 25 MG TABLET PO SCH (17:03)
[2019-03-24 20:00] VITALS: BP 130/72
[2019-03-24] MEDS: ROSUVASTATIN 10 MG TAB (CRESTOR) PO SCH (20:37)
--- NOTE | 2019-03-24 21:25 | ECGEPIP ---
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
--- NOTE | 2019-03-24 21:29 | ECGEPIP ---
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
[2019-03-24] MEDS: SLF 3 ML SYR IV SCH (22:37)
[2019-03-25] VITALS (8 sets, daily range): BP systolic 125–139; BP diastolic 60–73; O2SAT 97
[2019-03-25] MEDS: METOPROLOL TART 25 MG TABLET PO SCH ×4 (00:50→18:05)
[2019-03-25] MEDS: IPRATROPIUM 0.5MG/ALBUTEROL 2.5MG INH SOL UD 3ML (DUONEB)(J7620) NEB SCH ×4 (01:39→19:33)
[2019-03-25 05:59] LABS: HEMATOCRIT 32.1 % (36.0-47.0); HEMOGLOBIN 10.5 g/dl (12.0-15.5); MEAN CORPUSCULAR HEMOGLOBIN 27.5 pg (27.0-33.0); MEAN CORPUSCULAR HGB CONC 32.7 g/dl (32.0-36.5); PLATELET COUNT, AUTOMATED 304 10^3/uL (150-450); RED BLOOD COUNT 3.82 10^6/uL (4.00-5.40); WHITE BLOOD COUNT 9.7 10^3/uL (4.0-10.0)
[2019-03-25] MEDS: SLF 3 ML SYR IV SCH ×3 (06:11→21:01)
[2019-03-25 06:27] LABS: BLOOD UREA NITROGEN 12 MG/DL (7-18); CALCIUM LEVEL 9.6 MG/DL (8.8-10.2); CARBON DIOXIDE LEVEL 31 MEQ/L (21-32); CHLORIDE LEVEL 100 MEQ/L (98-107); CREATININE FOR GFR 0.64 MG/DL (0.55-1.30); GLOMERULAR FILTRATION RATE > 60.0 (>45); GLUCOSE, FASTING 155 MG/DL (70-100); MAGNESIUM LEVEL 2.5 MG/DL (1.8-2.4); POTASSIUM SERUM 3.6 MEQ/L (3.5-5.1); SODIUM LEVEL 137 MEQ/L (136-145)
[2019-03-25] MEDS ORDERED: POTASSIUM CHLORIDE 10 MEQ SR TABLET PO ONE (08:00)
[2019-03-25] MEDS: ASPIRIN 325 MG TAB PO SCH (09:09)
[2019-03-25] MEDS: FUROSEMIDE 40 MG/4 ML VIAL (J1940) IV SCH ×2 (09:09→18:05)
[2019-03-25] MEDS: amLODIPine 10 MG TAB PO SCH (09:10)
[2019-03-25] MEDS: POTASSIUM CHLORIDE 10 MEQ SR TABLET PO SCH (10:22)
--- NOTE | 2019-03-25 10:23 | IPNPDOC ---
Subjective Date Seen The patient was seen on 03/25/19. Subjective Chief Complaint/HPI Patient seen and examined at the bedside. Reports that she has not felt any palpitations since being admitted to the hospital. Denies any complaints of chest pain or shortness of breath. Her heart rate has remained in the 100-110s since being admitted. Objective Physical Examination General Exam: Positive: Alert, Cooperative, No Acute Distress ENT Exam: Positive: Atraumatic, Mucous membr. moist/pink Chest Exam: Positive: Diminished Heart Exam: Positive: Tachycardic, Irregular Rhythm Telemetry: Positive: Atrial fibrillation Abdomen Exam: Positive: Soft; Negative: Tenderness Extremity Exam: Positive: Edema (2+ pitting edema noted in the lower extremities bilaterally); Negative: Tenderness Psych Exam: Positive: Oriented x 3 Assessment /Plan Plan/VTE VTE Prophylaxis Ordered?: Yes Plan Atrial Fibrillation with RVR Patient's HR improved with Metoprolol, Blood Pressure stable 2D ECHO from hospitalization from 02/18-02/25 revealed preserved LVEF with severe left atrial dilatation Anticoagulation was deferred given Hx of GI Bleed with dark colored stools during last admissions while on ASA, Plavix She was scheduled to see Dr. Martinez in the outpatient setting for the first time for further evaluation Dr. Martinez was already contacted by the ER physician here. We will continue the patient on Metoprolol Tartrate q6h, and monitor on Telemetry Decompensated Diastolic CHF The patient does appear to be clinically and radiographically fluid overloaded IV Lasix 40mg q8h ordered Daily Weights, Fluid Restriction, and Strict I/O's ordered We will cont to volume optimize the patient as tolerated COPD not in exacerbation Cont Nebs prn Chronic Hypoxic Respiratory Failure Currently on 3L which is her baseline HTN Cont Norvasc Dyslipidemia Cont Statin Obesity BMI of 32 noted Complicating Medical Care Hx of Ovarian Ca s/p Hysterectomy, salpingo-oophorectomy f/u as outpatient DVT Prophylaxis Already On Full Dose ASA--Hx of GI Bleed, will avoid AC (SCDs/TEDs ordered) VS, I&O, 24H, Fishbone Vital Signs/I&O Vital Signs Date Time Temp Pulse Resp B/P (MAP) Pulse Ox O2 Delivery O2 Flow Rate FiO2 03/25/19 09:10 110 127/60 03/25/19 08:11 97 Nasal Cannula 3.0 03/25/19 08:00 97.0 18 I&O- Last 24 Hours up to 6 AM 03/25/19 06:00 Intake Total 540 ml Output Total 850 ml Balance -310 ml Laboratory Data 24H LABS Laboratory Tests 2 03/24/19 12:03: Total Creatine Kinase 29, Creatine Kinase MB < 1.0, Creatine Kinase MB Relative Index 3.45, Troponin I < 0.02 03/25/19 05:41: Nucleated Red Blood Cells % (auto) 0.0, Anion Gap 6L, Glomerular Filtration Rate > 60.0, Blood Urea Nitrogen 12#, Creatinine 0.64, Sodium Level 137, Potassium Level 3.6, Chloride Level 100, Carbon Dioxide Level 31, Calcium Level 9.6, Magnesium Level 2.5H CBC/BMP Laboratory Tests 03/25/19 05:41 Red Blood Count 3.82 L, Mean Corpuscular Volume 84.0, Mean Corpuscular Hemoglobin 27.5, Mean Corpuscular Hemoglobin Concent 32.7, Red Cell Distribution Width 17.4 H, Calcium Level 9.6 YANET SLOAN MD Mar 25, 2019 10:23
[2019-03-25] MEDS: ROSUVASTATIN 10 MG TAB (CRESTOR) PO SCH (21:01)
[2019-03-26] MEDS: METOPROLOL TART 25 MG TABLET PO SCH ×4 (00:39→18:12)
[2019-03-26] MEDS: FUROSEMIDE 40 MG/4 ML VIAL (J1940) IV SCH ×3 (00:39→17:00)
[2019-03-26] MEDS: IPRATROPIUM 0.5MG/ALBUTEROL 2.5MG INH SOL UD 3ML (DUONEB)(J7620) NEB SCH ×4 (01:54→20:21)
[2019-03-26 04:00] VITALS: BP 109/70
[2019-03-26] MEDS: SLF 3 ML SYR IV SCH ×3 (06:07→21:46)
[2019-03-26 08:00] VITALS: BP 107/54
[2019-03-26] MEDS: POTASSIUM CHLORIDE 10 MEQ SR TABLET PO SCH (08:43)
[2019-03-26] MEDS: ASPIRIN 325 MG TAB PO SCH (08:44)
[2019-03-26] MEDS: amLODIPine 10 MG TAB PO SCH (08:46)
[2019-03-26 11:35] LABS: HEMOGLOBIN 11.1 g/dl (12.0-15.5); MEAN CORPUSCULAR HEMOGLOBIN 27.4 pg (27.0-33.0); MEAN CORPUSCULAR HGB CONC 32.6 g/dl (32.0-36.5); PLATELET COUNT, AUTOMATED 350 10^3/uL (150-450); RED BLOOD COUNT 4.05 10^6/uL (4.00-5.40); WHITE BLOOD COUNT 14.2 10^3/uL (4.0-10.0)
[2019-03-26 12:00] VITALS: BP 112/56
[2019-03-26 12:22] LABS: BLOOD UREA NITROGEN 15 MG/DL (7-18); CALCIUM LEVEL 9.2 MG/DL (8.8-10.2); CARBON DIOXIDE LEVEL 35 MEQ/L (21-32); CHLORIDE LEVEL 97 MEQ/L (98-107); CREATININE FOR GFR 0.68 MG/DL (0.55-1.30); GLOMERULAR FILTRATION RATE > 60.0 (>45); GLUCOSE, FASTING 95 MG/DL (70-100); MAGNESIUM LEVEL 2.5 MG/DL (1.8-2.4); SODIUM LEVEL 138 MEQ/L (136-145)
--- NOTE | 2019-03-26 15:13 | REP ---
Portable chest, 08:41 a.m., single AP view with the patient upright: Comparisons are the portable chest dated [birth year]1929 teen, chest CT dated 02/18/2019 and PA and lateral chest of 12/03/2010. The right lower lobe infiltrate and right pleural effusion are unchanged from 02/18/2019 and 02/24/2019. The right upper lobe is clear and unchanged. There is a small left pleural effusion, also unchanged from 02/18/2019 and 02/24/2019 . The left lung is otherwise clear and unchanged. There is cardiomegaly, unchanged from 02/18/2019 and 02/24/2019. The vinicius, mediastinum, skeletal structures are unremarkable. Impression: Right lower lobe infiltrate, right pleural effusion, small left pleural effusion. Cardiomegaly. All unchanged from 02/18/2019 and 02/24/2019. Electronically Signed by Benedict Suárez MD 03/24/2019 09:10 A
[2019-03-26 16:00] VITALS: BP 117/59
--- NOTE | 2019-03-26 17:49 | IPNPDOC ---
Text Note Date of Service The patient was seen on 03/26/19. NOTE S: Patient states she has been off anticoagulation since discharged from hospital in January. She had GI bleed with ASA /Plavix. She states had "cologuard" done but never had colonoscopy or egd for GI Bleed. Her "GI Bleed" during January hospitalization was heme positive dark stools but no significant drop in H/H. She states occasional palpitations/fluttering feeling with fast heart rate but notices more SOB/KRISHNAMURTHY with RVR. currently no CP, no SOB, no N, no V O: Vitals as below General: pleasant, NAD AAOX3 Heart - irreg/irreg 106-110, LCTA no W/R/R Abdomen : soft NT ND NABS Ext: trace to 1+ pitting edema (MARYLOU ornelas intact) A/P: 1) Atrial Fibrillation with RVR - on metoprolol with intermittent improvement; TSH pending; cardiology consulted and case discussed with Dr Martinez. Serial troponin negative. ECHO from hospitalization from 02/18-02/25 revealed preserved LVEF with severe left atrial dilatation Anticoagulation was deferred given Hx of GI Bleed with dark colored stools during last admissions while on ASA, Plavix; Patient needs outpatient colonoscopy and EGD She was scheduled to see Dr. Martinez in the outpatient setting for the first time for further evaluation; Dr. Martinez was already contacted by the ER physician here. 2) Decompensated Diastolic CHF - improved with IV Lasix. will decrease dosing tomorrow. Daily Weights, Fluid Restriction, and Strict I/O's ordered 3) COPD not in exacerbation - Cont Nebs prn; no need for steroids at this time. Albuterol may be contributing to afib/tachycardia 4) Chronic Hypoxic Respiratory Failure - Currently on 3L which is her baseline 5) HTN - on metoprolol and norvasc 6) Dyslipidemia on statin 7) Hx of Ovarian Ca s/p Hysterectomy, salpingo-oophorectomy f/u as outpatient DVT Prophylaxis: MARYLOU ornelas, SCD ; not on NOAC,Warfarin, lovenox due to heme + stools VS,Fishbone, I+O VS, Fishbone, I+O Laboratory Tests 03/26/19 11:24 Red Blood Count 4.05, Mean Corpuscular Volume 84.0, Mean Corpuscular Hemoglobin 27.4, Mean Corpuscular Hemoglobin Concent 32.6, Red Cell Distribution Width 17.9 H, Calcium Level 9.2 Vital Signs Date Time Temp Pulse Resp B/P (MAP) Pulse Ox O2 Delivery O2 Flow Rate FiO2 03/26/19 16:00 96.7 107 18 117/59 (78) 95 3.0 03/25/19 08:11 Nasal Cannula I&O- Last 24 Hours up to 6 AM 03/26/19 06:00 Intake Total 1140 ml Output Total 4400 ml Balance -3260 ml NIKKO MANJARREZ DO Mar 26, 2019 17:49
--- NOTE | 2019-03-26 21:38 | CR ---
DATE OF CONSULTATION: 03/26/2019 REFERRING PHYSICIAN: Dr. Peter INDICATION: Atrial fibrillation with rapid ventricular response. HISTORY OF PRESENT ILLNESS Mrs. Guardado is previously unknown to me. She is a very pleasant 63-year-old female who was hospitalized in our facility in January of this year with congestive heart failure and atrial fibrillation with rapid ventricular response. Talking to the patient and reviewing the records from the computer it appears that she was anticoagulated but had single bowel movement that was positive for occult blood and consequently the anticoagulation was discontinued. She was discharged home on 10 mg of bisoprolol as a controlling agent. I do not know whether she was well rate-controlled upon discharge but she returned to our facility two days ago with worsening heart failure with essentially orthopnea and worsening peripheral edema. She was again found to be in atrial fibrillation with rapid ventricular response and there was evidence for congestive heart failure based on very high BNP, typical chest x-ray and typical physical examination. She has been treated with IV diuretics and metoprolol 25 mg every 6 hours. She tells me that she is feeling better, she is less short of breath and the peripheral edema has improved, but still is quite prominent. The patient does not recall onset of atrial fibrillation. It was diagnosed in January 2019, but at that point was probably already present for quite some time. She does not have any subjective awareness of palpitations. She does have underlying lung disease and has been followed by Dr. Aleman. She has been oxygen dependent for about 4 years and it is her understanding that the chronic obstructive pulmonary disease (COPD) is quite severe. She quit smoking only 1 month ago. She previously smoked heavily until 4 years ago and as of for last 4 years has been smoking eight cigarettes a day. She also carries a history of polycythemia. Her hemoglobin was routinely over 18, but then she was seen by oncology in 2016 when she was already oxygen dependent. She underwent four phlebotomies and her hemoglobin has since been relatively stable around 11 or 12. She does not carry any history of coronary artery disease as such, but her activity is limited by dyspnea. PAST MEDICAL HISTORY 1. Congestive heart failure diagnosed in January 2019. An echocardiogram performed in our facility and interpreted by Dr. Potter revealed severe biatrial enlargement. Normal or hyperdynamic LV systolic function and severe pulmonary hypertension and elevated central venous pressure. 2. History of polycythemia as above. 3. At least one documented episode of guaiac positive stool in January 2019. 4. Arterial hypertension. 5. Dyslipidemia. 6. COPD/emphysema, oxygen dependent since 2015. PAST SURGICAL HISTORY: Positive for hysterectomy and salpingo-oophorectomy. OUTPATIENT MEDICATIONS - amlodipine 10 mg a day - aspirin 325 a day - bisoprolol 10 mg a day - furosemide 40 mg a day - vitamin D2 - fluticasone 1 puff daily - rosuvastatin 20 mg daily - Anoro Ellipta ALLERGIES: No known medication allergies. SOCIAL HISTORY: The patient is single. She does not have any children. Her closest relative is a sister who lives nearby. She smoked until 1 month ago as outlined above. Denies significant alcohol use. 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 FAMILY HISTORY: The patient's father had coronary artery disease in young age. REVIEW OF SYSTEMS: She denies recent fever, chills, nausea or vomiting. She does have [place] [employer] class III dyspnea. She has paroxysmal nocturnal dyspnea (PND) and orthopnea. No chest pain and only very rare occasional palpitations. No history of syncope. No history of bleeding other than one episode in January. No abdominal pain. No genitourinary symptoms. She has had significant peripheral edema for a long time. PHYSICAL EXAMINATION: Mrs. Guardado is a very pleasant female. She appears older than her calendar age. Last set of vital signs: Blood pressure 117/61, heart rate has been fluctuating from 90s to 120s. She has been afebrile. Saturation is 95% on 3 liters of oxygen by nasal cannula. Weight today was documented at 80 kg. She has had negative balance yesterday of 1800 mL and she already is 1900 mL negative today. Her JVP is somewhat difficult to assess due to body habitus but does not appear grossly elevated by me. Lungs reveal very poor air movement. There are diminished breath sounds over both lung kohli at least one-third up with occasional wheezes above, but dominated by very poor air movement. Heart: Exam reveals irregular tachycardia. I do not appreciate any murmur or gallop. Abdomen is obese but soft. No shifting dullness. I do not appreciate hepatosplenomegaly. Extremities: Have about 3+ edema to her knees. Neurologically she is alert and oriented and appropriate. Does not appear to be in any distress and I do not appreciate any focal signs. LABORATORY As of today, hemoglobin 11.1, hematocrit 34.0, platelet count 350. Her MCV is 84. WBC count is 14,000. Basic metabolic panel is essentially normal. Sodium 138, potassium 4.0, BUN 15, creatinine 0.7, glucose 95, magnesium 2.5, TSH 1.2. Admission pro BNP was 2100. She had two sets of cardiac enzymes that have been negative. Chest x-ray is consistent with bilateral pleural effusions, cardiomegaly and congestive heart failure. It was described as representing infiltrate in right lower lobe, which I do not personally appreciate. Several ECGs all revealed atrial fibrillation with rapid ventricular response and right axis deviation suggestive of pulmonary hypertension. An echocardiogram in January as per history of present illness. ASSESSMENT/PLAN Mrs. Guardado is a 63-year-old female who has probably very advanced emphysema with likely secondary pulmonary hypertension. She presented with atrial fibrillation with RVR in January and simultaneously has evidence for more right than left-sided heart failure. Her management is certainly challenging and there are several problems. 1. As far as the rate control is concerned, I am going to advance the dose of metoprolol to 50 mg every 6 hours with holding parameters. If this should not be successful in controlling how her heart rate can tentatively add digoxin, but I would go slow, she seems to be tolerating tachycardia relatively well. 2. Anticoagulation. She has very high stroke risk because she is female, she has history of hypertension and has congestive heart failure. Consequently, she should be anticoagulated, but there is a history of guaiac-positive stool a month ago when she is mildly anemic. I am going to obtain iron studies and she tentatively should be scheduled for colonoscopy, but because she is in the hospital I will give her a trial of Lovenox initially and slightly subtherapeutic dose of 60 mg twice a day. We will monitor her blood count daily and if tolerated will probably give her Eliquis. If she has GI bleeding this has to be discontinued and she should undergo colonoscopy very urgently after her congestive heart failure is better controlled. 3. The cause for atrial fibrillation is likely secondary to cor pulmonale. The fact that she has severe pulmonary hypertension is particularly worrisome. Tentatively will reevaluate after she is euvolemic, but in the interim we will try to accomplish diuresis as much as possible. She is already on a reasonable dose of furosemide and I am going to add spironolactone initially just 25 mg daily. 4. Her additional issue is a possibility of underlying coronary artery disease. She does not have any anginal symptoms but if we can accomplish better compensation this is something to contemplate on outpatient basis. She is certainly very ill and I do assume that she will stay in hospital at least 4 or 5 additional days. MTDD
[2019-03-26] MEDS: ROSUVASTATIN 10 MG TAB (CRESTOR) PO SCH (21:46)
[2019-03-26 23:59] VITALS: BP 120/68
[2019-03-27] VITALS (10 sets, daily range): BP systolic 111–133; BP diastolic 58–90; PULSE 105–112
[2019-03-27] MEDS: FUROSEMIDE 40 MG/4 ML VIAL (J1940) IV SCH ×3 (00:36→22:39)
[2019-03-27] MEDS: METOPROLOL TART 50 MG TAB PO SCH ×4 (00:36→17:12)
[2019-03-27] MEDS: IPRATROPIUM 0.5MG/ALBUTEROL 2.5MG INH SOL UD 3ML (DUONEB)(J7620) NEB SCH ×4 (02:46→20:00)
[2019-03-27] MEDS ORDERED: NITROGLYCERIN 0.4 MG SUBL TABLET SL STA ×2 (05:03→05:28)
[2019-03-27] MEDS ORDERED: GI COCKTAIL 50ML BTL(HYOSCYAMINE/MAALOX/LIDOCAINE VISCOUS)(1:3:1) PO ONE (05:15)
[2019-03-27] MEDS: SLF 3 ML SYR IV SCH ×3 (06:50→22:39)
[2019-03-27 06:58] LABS: BLOOD UREA NITROGEN 14 MG/DL (7-18); CARBON DIOXIDE LEVEL 34 MEQ/L (21-32); CHLORIDE LEVEL 98 MEQ/L (98-107); CREATININE FOR GFR 0.69 MG/DL (0.55-1.30); GLOMERULAR FILTRATION RATE > 60.0 (>45); GLUCOSE, FASTING 88 MG/DL (70-100); IRON (FE) 56 UG/DL (50-170); NT-PRO BNP 1673 PG/ML (<125); PERCENT SATURATION 11.8 % (13.2-45.0); POTASSIUM SERUM 3.5 MEQ/L (3.5-5.1); SODIUM LEVEL 138 MEQ/L (136-145); TOTAL IRON BINDING CAPACITY 476 UG/DL (250-450)
[2019-03-27] MEDS: ENOXAPARIN 60 MG/0.6 ML SYR (J1650) SC SCH ×2 (08:16→22:38)
[2019-03-27] MEDS: POTASSIUM CHLORIDE 10 MEQ SR TABLET PO SCH (08:16)
[2019-03-27] MEDS ORDERED: SPIRONOLACTONE 25 MG TAB PO SCH (09:00)
[2019-03-27] MEDS: ADVAIR HFA 230/21MCG INHALER INH SCH ×2 (11:19→20:04)
[2019-03-27] MEDS: TIOTROPIUM INHALER/CAPSULE (SPIRIVA) INH SCH (11:19)
--- NOTE | 2019-03-27 11:25 | CR ---
DATE OF CONSULTATION: 03/27/2019 Pulmonary team was asked by hospitalist to see Ms. Sara Guardado for pulmonary hypertension. Ms. Guardado is a very pleasant 63-year-old female who was admitted with atrial fibrillation with rapid ventricular response (RVR) on 03/24/2019. The patient has a history of atrial fibrillation as well as congestive heart failure. She was hospitalized with respiratory failure secondary to congestive heart failure about a month ago. At that time, she had an echocardiogram done on 02/18/2019 that showed an left ventricular ejection fraction (LVEF) 75% along with left atrial dilatation suggestive of left-sided cardiac disease. The patient also had diastolic dysfunction noted. There is also suggestion of elevation of right ventricular pressure and elevation of central venous pressure. The patient also had was noted to have atrial fibrillation at that time. She states that she was not anticoagulated at that time due to black stools. She was being scheduled to followup with r and d lab technician as an outpatient but developed some increasing shortness of breath and chest pressure last weekend for which she came in the emergency room and was admitted with atrial fibrillation with RVR. Given her history of pulmonary hypertension, the hospitalist asked pulmonary team to consult on the patient. Additionally, she has been seen by cardiology. Dr. Martinez saw the patient and believes that the atrial fibrillation is likely secondary to cor pulmonale. He started her on Lopressor. He is treating her congestive heart failure with Lasix and Aldactone. Dr. Martinez has also started her on Lovenox 60 subcu every 12 with plans to eventually change to an oral anticoagulation. The patient states that this past weekend she developed some increasing shortness of breath and chest pressure. She came to the emergency department and was admitted. She reports that she is slowly feeling a little better but still does have episodes of chest tightness and pressure. She denies any current chest pain. She denies any infectious symptoms. Denies fevers or chills. She does have a history of emphysema GOLD stage IV and is on supplemental oxygen at 3 liters. She is currently on 3 liters. She states that her breathing is overall been about the same. She is on Anoro and Arnuity at home. She is currently not on any respiratory inhalers other than DuoNebs. She is uncertain if there has been much of a difference since being off the Anoro and Arnuity since hospitalization started. She is a former smoker who smoked for 40 years but quit during her hospitalization last month. She has been smoke free for about a month. She denies dizziness or syncope. She denies headaches. She denies iritis symptoms eye pain. She denies any rashes. She denies joint pain. The patient denies any recent respiratory infections. Denies any productive cough. REVIEW OF SYSTEMS: General: The patient denies fevers, chills, night sweats, unexplained weight loss. HEENT: The patient denies eye pain, headaches, epistaxis. No vision impairment other than wearing glasses. She denies hearing impairment. PULMONARY: The patient does note shortness of breath at baseline. Denies any productive cough. Denies hemoptysis. CARDIAC: The patient notes some chest pressure. She denies palpitations. See above. GASTROINTESTINAL (GI): The patient denies nausea, vomiting, diarrhea, constipation, abdominal pain. The patient denies any bright red blood per rectum or black tarry stools. The patient denies hematemesis. HEME: The patient denies any bleeding issues. The patient does have a history of polycythemia. GENITOURINARY (): The patient denies any dysuria or hematuria. MUSCULOSKELETAL: The patient denies any joint pain or joint swelling. NEURO: Patient denies any dizziness or syncope. ENDOCRINE: The patient denies any history of diabetes or thyroid disease. SKIN: Patient denies any rashes. PAST MEDICAL HISTORY: History of atrial fibrillation. Congestive heart failure, diastolic dysfunction. Emphysema GOLD stage IV. Hypertension. Dyslipidemia. Polycythemia. History of smoking. Quit 1 month ago. Smoked at least a pack a day for 40 years but had a couple years of two packs a day. History of hysterectomy 20 years ago. MEDICATIONS: Home Medicines: - amlodipine 10 mg daily - aspirin 325 mg daily - bisoprolol/hydrochlorothiazide 10/6.25 mg daily - calcium with vitamin D daily - vitamin D daily - Arnuity daily - furosemide 40 mg by mouth daily - KCI 20 mEq by mouth daily - Crestor 20 mg daily - Anoro - DuoNebs as needed. Hospital Medications: - acetaminophen 650 mg by mouth every 4 hours pain or fever - potassium chloride 20 mEq by mouth daily - Crestor 20 mg by mouth daily - DuoNebs every 6 hours - DuoNebs every 2 hours as needed - Lasix 40 mg IV every 8 - Lopressor of 50 mg by mouth every 6 hours - spironolactone 25 mg by mouth daily - Lovenox 60 mg subcu every 12 hours ALLERGIES: No known drug allergies. SOCIAL HISTORY: The patient is a former smoker who quit a month ago after smoking at least pack a day for 40 years. Rare alcohol use. No drug use. 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. She lives alone. FAMILY MEDICAL HISTORY: Mother , emphysema. Father , heart disease. PHYSICAL EXAMINATION: VITALS: Temperature 97.5, pulse 111, respiratory rate 18, blood pressure 117/71, pulse ox 94% on 3 liters. GENERAL: The patient is alert and oriented times three. She is sitting up in her hospital bed. She is able to stand. She speaks in complete sentences. HEENT: Head is normocephalic, atraumatic. Eyes: Pupils are equal and reactive to light. Moist mucous membranes. The patient is an almost completely edentulous. She does have several teeth on the bottom but no upper teeth. Tongue is midline. NECK: Neck is supple. No cervical lymphadenopathy. No jugular venous distention (JVD) . Trachea is midline. PULMONARY: Diminished breath sounds in all kohli. No wheezes, rales, rhonchi or crackles. No dullness to percussion. No accessory muscle use. HEART: Irregular. No murmurs appreciated. ABDOMEN: Positive bowel sounds, soft, nontender. No rebound or guarding. No obvious hepatosplenomegaly. EXTREMITIES: The patient does have 1-2+ pitting edema to the tibia bilaterally. SKIN: Skin is warm and dry. NEURO: Nonfocal grossly. LABS: WBC 14.2, hemoglobin 11.1, hematocrit 34.0, platelets 350. Sodium 138, potassium 2.5, chloride 98, carbon dioxide 34, BUN 14, creatinine 0.69, glucose 88, calcium 9.0, iron 56, TIBC 476, transferrin percent saturation 11.8. BNP 1673. Chest x-ray was reviewed by Dr. Aleman and myself. Does show cardiomegaly. Bilateral pleural effusions. Increased vascular markings. EKG shows atrial fibrillation. ASSESSMENT/PLAN: 1. Pulmonary hypertension: Pulmonary hypertension likely is secondary to cor pulmonale and diastolic dysfunction. Dr. Martinez from cardiology is following the patient and has started the patient on anticoagulation with Lovenox. Pulmonary hypertension is likely class II to class III due to the patient's left-sided heart disease and lung disease. Agree with the initiation of anticoagulation. Pulmonary embolus (PE) cannot be ruled out but the patient is being anticoagulated. She is continued on oxygen. She would be a candidate for pulmonary rehab. Would consider ordering pulmonary rehab at the time of discharge. She should followup with pulmonary as an outpatient as well. The echocardiogram from 02/18/2019 was reviewed by myself and Dr. Aleman. Echocardiograms can both overestimate an underestimate the degree of pulmonary hypertension. 2. Emphysema GOLD stage IV: The patient was on respiratory inhalers as an outpatient. She had been on Anoro and Arnuity. We will place her on Advair and Spiriva while she is in the hospital but once she is discharged, she can go back to her Anoro and Arnuity. She can continue with Nebs. She has recently quit smoking and is applauded for that effort. She should followup with pulmonary as an outpatient. 3. Atrial fibrillation: Cardiology is following the patient's atrial fibrillation. 4. Congestive heart failure and diastolic dysfunction: Cardiology is following and addressing diuretic therapy.
--- NOTE | 2019-03-27 14:20 | IPNPDOC ---
Text Note Date of Service The patient was seen on 03/27/19. NOTE S: patient seen and examined with sister present. patient states episode of chest pressure this AM , resolved with NTG. states no associated SOB, palpitations or dizziness or nausea. Currently CP free. She is not keeping legs elevated or wearing MARYLOU hose because "I have to run to the bathroom alot". O: Vitals as below General: pleasant, NAD AAOx3 Heart - irreg/irreg between 70-110 LCTA with bibase rales Ext: 1+ edema A/P: 1) Afib with RVR - improved with increased dose of metoprolol. Dr Martinez consult greatly appreciated and started on therapeutic lovenox. Will need colonoscopy urgently as outpatient before starting oral anticoagulants because of heme + stool (with stable H/H). 2) Afib secondary cor pulmonale - management by cardiology; corpulmonale and afib secondary to severe pulmonary HTN 3) severe pulm HTN - pulmonology consulted for optimization; add spironolactone 4) Tobacco dependence (quit tobacco within past month) 5) Decompensated Diastolic CHF - improved with IV Lasix. Daily Weights, Fluid Restriction, and Strict I/O's ordered 6) COPD not in exacerbation - Cont Nebs prn; no need for steroids at this time. Albuterol may be contributing to afib/tachycardia 7) Chronic Hypoxic Respiratory Failure - Currently on 3L which is her baseline 8) HTN - on metoprolol ; norvasc discontinued by cardiology 9) Dyslipidemia on statin 10) Hx of Ovarian Ca s/p Hysterectomy, salpingo-oophorectomy f/u as outpatient Current Medications Medications (Trade) Dose Ordered Sig/Mateo Route PRN Reason Start Time Stop Time Status Last Admin Dose Admin Acetaminophen (Tylenol Tab) 650 mg Q4H PRN PO PAIN OR FEVER 03/24/19 13:45 Albuterol/ Ipratropium (Duoneb (Ipr 0.5mg/Alb 2.5mg)) 3 ml Q2HP PRN NEB SOB/WHEEZING 03/24/19 13:45 Albuterol/ Ipratropium (Duoneb (Ipr 0.5mg/Alb 2.5mg)) 3 ml RQ6H NEB 03/24/19 14:00 03/27/19 13:58 Amlodipine Besylate (Norvasc) 10 mg DAILY PO 03/24/19 09:00 03/26/19 20:01 DC 03/26/19 08:46 Aspirin (Aspirin) 325 mg DAILY PO 03/24/19 09:00 03/26/19 20:01 DC 03/26/19 08:44 Enoxaparin Sodium (Lovenox) 60 mg Q12H SC 03/27/19 09:00 03/27/19 08:16 Furosemide (LASIX injection) 40 mg BID@09,17 IV 03/24/19 17:00 03/25/19 08:46 DC 03/24/19 16:41 Furosemide (LASIX injection) 40 mg Q8H IV 03/25/19 09:00 03/27/19 08:16 Home Med (Med Rec Complete!) ASDIRECTED XX 03/24/19 13:45 03/24/19 13:45 DC Metoprolol Tartrate (Lopressor) 5 mg Q5M IV 03/24/19 08:30 03/24/19 09:19 DC 03/24/19 08:54 Metoprolol Tartrate (Lopressor) 5 mg Q5M IV 03/24/19 09:30 03/24/19 13:37 DC 03/24/19 09:53 Metoprolol Tartrate (Lopressor) 25 mg Q6H PO 03/24/19 18:00 03/26/19 20:01 DC 03/26/19 18:12 Metoprolol Tartrate (Lopressor) 50 mg Q6H PO 03/27/19 00:00 03/27/19 12:44 Nitroglycerin (Nitrostat (1/ 150)) 0.4 mg STAT STAT SL 03/27/19 05:03 03/27/19 05:08 DC 03/27/19 05:14 Nitroglycerin (Nitrostat (1/ 150)) 0.4 mg STAT STAT SL 03/27/19 05:28 03/27/19 05:29 DC 03/27/19 05:19 Potassium Chloride (Micro-K Extencaps) 20 meq DAILY PO 03/24/19 09:00 03/27/19 08:16 Rosuvastatin Calcium (Crestor) 20 mg QPM PO 03/24/19 21:00 03/26/19 21:46 Salmeterol Xinafoate/ Fluticasone (Advair Hfa 230/ 21) 2 puff BID INH 03/27/19 09:00 03/27/19 11:19 Sodium Chloride (Saline Lock Flush) 2 ml ASDIRECTED PRN IV SEE LABEL COMMENTS 03/24/19 15:30 Sodium Chloride (Saline Lock Flush) 2 ml SLF IV 03/24/19 22:00 03/27/19 06:50 Spironolactone (Aldactone) 25 mg QAM PO 03/27/19 09:00 03/27/19 08:12 Tiotropium Beason (Spiriva Handihaler) 1 inhalation DAILY@08 INH 03/27/19 08:00 03/27/19 11:19 VS,Rosioe, I+O VS, Denizbone, I+O Laboratory Tests 03/27/19 05:43 Calcium Level 9.0 Vital Signs Date Time Temp Pulse Resp B/P (MAP) Pulse Ox O2 Delivery O2 Flow Rate FiO2 03/27/19 08:00 97.5 111 18 117/71 (86) 94 3.0 03/27/19 05:37 Nasal Cannula I&O- Last 24 Hours up to 6 AM 03/27/19 06:00 Intake Total 1080 ml Output Total 2400 ml Balance -1320 ml NIKKO MANJARREZ DO Mar 27, 2019 11:26
[2019-03-27] MEDS ORDERED: DIGOXIN 0.25 MG TAB PO ONE (19:00)
--- NOTE | 2019-03-27 19:27 | IPN ---
DATE: Ms. Guardado is not much better today than she was yesterday. This morning she woke up with a sensation of severe dyspnea and discomfort behind her chest. It was eventually relieved by GI cocktail and later sublingual nitroglycerin. She believes that the duration was approximately 30 minutes. For the rest of the day, she was back to her baseline. On telemetry, she remains in atrial fibrillation with rapid ventricular response, if anything her heart rate is actually a little bit higher than it was previous the day before. She has been receiving her metoprolol looking at the chart and none of the doses were held. Her peripheral edema feels about the same or slightly improved. Vital signs: Blood pressure 110/60, heart rate typically around 110-120, atrial fibrillation. Saturation 96% on 3 liters of oxygen. She is afebrile. Fluid balance yesterday was recorded as 2 liters negative, today she is about a liter negative so far. Weight was down to 77.7 kg which is approximately 5 kg down since admission. She is alert and oriented and appropriate. 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 Lung exam is still unchanged. She has very diminished breath sounds over both bases and I suspect fairly large bilateral pleural effusions. I do not appreciate any crackles. There is poor air movement in upper lobes. Heart exam reveals irregular tachycardia without obvious gallop, rub or murmur. Abdomen is obese, but I do not appreciate evidence for ascites by physical examination. She still has 2 to 3+ peripheral edema to her knees. LABORATORY BENJAMIN: Basic metabolic panel this morning remains normal. Sodium is 138, potassium 3.5, BUN 14, creatinine 0.7, glucose 88. Her iron 56 with saturation only 11.8% and BNP was drawn today and is approximately 1670 which is approximately 20% decline since admission. TSH is 1.2. CBC reveals hemoglobin 11.1, hematocrit 34 and platelet count within normal limits. ASSESSMENT/PLAN: Ms. Guardado is a 63-year-old female who has advanced chronic obstructive pulmonary disease (COPD) and presents with atrial fibrillation with RVR and predominantly right-sided congestive heart failure based on echocardiogram performed during her prior admission a month ago. She has preserved left ventricular systolic function. As far as the management of atrial fibrillation is concerned, I started her on somewhat subtherapeutic dose of Lovenox today. Will watch her blood count; and hopefully if there is no change, we will be able to switch her Lovenox for Eliquis in full dose. As far as the rate is concerned, she remains tachycardiac even on 200 mg of metoprolol daily. Consequently, I am going to start adding digoxin. I will give her half a mg tonight and quarter mg tomorrow and then we can adjust the dose depending on response. In the long horizon, she will need evaluation for coronary artery disease. Unfortunately, presence of severe pulmonary hypertension is typically harming her for outcome. I will keep following the patient with you.
[2019-03-27] MEDS: ROSUVASTATIN 10 MG TAB (CRESTOR) PO SCH (22:37)
[2019-03-28] VITALS (7 sets, daily range): BP systolic 116–134; BP diastolic 56–74
[2019-03-28] MEDS: METOPROLOL TART 50 MG TAB PO SCH ×4 (00:23→17:31)
[2019-03-28] MEDS: IPRATROPIUM 0.5MG/ALBUTEROL 2.5MG INH SOL UD 3ML (DUONEB)(J7620) NEB SCH ×4 (01:54→20:00)
[2019-03-28 04:29] LABS: HEMATOCRIT 34.2 % (36.0-47.0); HEMOGLOBIN 11.3 g/dl (12.0-15.5); MEAN CORPUSCULAR HEMOGLOBIN 27.8 pg (27.0-33.0); MEAN CORPUSCULAR VOLUME 84.2 fl (80.0-96.0); PLATELET COUNT, AUTOMATED 293 10^3/uL (150-450); RED BLOOD COUNT 4.06 10^6/uL (4.00-5.40); WHITE BLOOD COUNT 9.4 10^3/uL (4.0-10.0)
[2019-03-28 05:05] LABS: ALBUMIN 3.2 GM/DL (3.2-5.2); ALT/SGPT 45 U/L (12-78); BILIRUBIN,TOTAL 0.5 MG/DL (0.2-1.0); BLOOD UREA NITROGEN 16 MG/DL (7-18); CALCIUM LEVEL 8.9 MG/DL (8.8-10.2); CARBON DIOXIDE LEVEL 38 MEQ/L (21-32); CHLORIDE LEVEL 98 MEQ/L (98-107); CK-MB VALUE MASS < 1.0 NG/ML (<3.6); CPK CREATINE PHOSPHOKINASE 22 U/L (26-192); GLOMERULAR FILTRATION RATE > 60.0 (>45); GLUCOSE, FASTING 91 MG/DL (70-100); MB/CK RELATIVE INDEX 4.55 (< OR =4); POTASSIUM SERUM 3.6 MEQ/L (3.5-5.1); SODIUM LEVEL 141 MEQ/L (136-145); TOTAL PROTEIN 6.6 GM/DL (6.4-8.2); TROPONIN I < 0.02 NG/ML (< 0.10)
[2019-03-28] MEDS: SLF 3 ML SYR IV SCH ×3 (06:29→20:19)
[2019-03-28] MEDS: TIOTROPIUM INHALER/CAPSULE (SPIRIVA) INH SCH (07:36)
[2019-03-28] MEDS: ADVAIR HFA 230/21MCG INHALER INH SCH ×2 (07:36→20:03)
[2019-03-28] MEDS ORDERED: DIGOXIN 0.25 MG TAB PO ONE (08:00)
--- NOTE | 2019-03-28 08:34 | IPN ---
DATE: 03/28/2019 Mrs. Guardado tells me that she had a good night. She was able to sleep comfortably and did not have any paroxysmal nocturnal dyspnea. She feels a lot better since admission. Does not have any sensation of palpitations and did not have any episodes of chest discomfort. Vital signs: Blood pressure 118/68, heart rate was documented at 116, but reviewing telemetry overnight her heart rate hovered around 100 beats per minute. There were no bradycardic events. She is afebrile. Saturation is 92% on 3 liters of oxygen. Fluid balance yesterday was negative 1600. Weight is documented 76.3 kg. 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 Lungs still reveal diminished breath sounds over both bases at least one third up. There are occasional crackles above. The air movement seems to be much improved compared to days before. Heart exam reveals irregular tachycardia but slower than before. Abdomen: Soft, nontender. No obvious shifting dullness. She still has peripheral edema to her knees but improved compared to yesterday. Neurologically intact. LABORATORY Hemoglobin 11.3, hematocrit 34.2 and platelet count 203,000. Basic metabolic panel: Sodium 141, potassium 3.6, BUN 16, creatinine 0.7 and glucose 91. ASSESSMENT/PLAN Mrs. Guardado is a 63-year-old female who has advanced chronic obstructive pulmonary disease (COPD) who presents with atrial fibrillation with rapid ventricular response and associated diastolic congestive heart failure. She had similar hospitalization in January but now comes with relapse. As far as the atrial fibrillation is concerned, she has been difficult to rate control and currently on top of taking 200 mg of metoprolol I added digoxin. She received single dose of 0.5 mg yesterday evening, I give her 0.25 mg today and another 0.25 mg tomorrow, then depending on the response the maintenance dose should be instituted. The second problem related to atrial fibrillation is anticoagulation. She has a history of single episode of guaiac-positive stools in January. Consequently, I gave her reduced dose of Lovenox as 60 mg twice a day. So far she has been tolerating it well. Her stools were guaiac negative this times around and her hemoglobin remained stable. Should there be no change in hemoglobin tomorrow, I suggest to change her to Eliquis 5 mg twice a day with ongoing monitoring. I had a talk to the patient and explained that she has to be watching her bowel movements and look for signs of bleeding in the form of blood but also melena. The second issue is congestive heart failure. She came grossly volume overloaded. So far she has had good diuretic response and her weight has come down from 82.9-76.3 kg. She still has in my opinion at least 3 or 4 kg to lose. There is ongoing peripheral edema and she still has pleural effusions by physical examination. I do expect that it will take several more days to accomplish euvolemic status. She is receiving IV furosemide and because she remained borderline hypokalemic, I increase the dose of spironolactone to 50 mg daily. I do foresee that she will stay in hospital for several more days. This is my last day before leaving for vacation and Dr. Cisneros will cover her service tomorrow.
--- NOTE | 2019-03-28 08:36 | REP ---
Clinical: CHF. Technique: PA and lateral. Comparison: 03/24/2019. Findings: Cardiomegaly and evidence for CHF including cephalization, indistinct pulmonary vasculature, bibasilar atelectasis, and small to moderate pleural effusions (right greater than left) similar to prior examination. No pneumothorax. Skeletal structures intact. Atherosclerotic changes to the aorta noted. Impression: Cardiomegaly and moderate CHF. Electronically Signed by Benigno Arias MD 03/28/2019 08:27 A
[2019-03-28] MEDS: IRON POLYSAC (NIFEREX) 150 MG CAP PO SCH ×2 (08:42→20:18)
[2019-03-28] MEDS: SPIRONOLACTONE 50 MG TAB PO SCH (08:43)
[2019-03-28] MEDS: FUROSEMIDE 40 MG/4 ML VIAL (J1940) IV SCH ×2 (08:43→20:19)
[2019-03-28] MEDS: ENOXAPARIN 60 MG/0.6 ML SYR (J1650) SC SCH ×2 (08:43→20:19)
[2019-03-28] MEDS: POTASSIUM CHLORIDE 10 MEQ SR TABLET PO SCH (08:43)
--- NOTE | 2019-03-28 16:42 | IPNPDOC ---
Text Note Date of Service The patient was seen on 03/28/19. NOTE S: patient states feels better. less SOB, minimal KRISHNAMURTHY and ambulating to bathr oom. Wearing MARYLOU hose. no CP, still with leg edema O: Vitals as below General: pleasant, NAD AAOx3 Heart - irreg/irreg between 70-110 LCTA with bibase rales Ext: 1+ edema A/P: 1) Afib with RVR - improved with increased dose of metoprolol. Dr Martinez consult greatly appreciated and started on therapeutic lovenox. Hemeoccults negative. If no drop in H/H, will change to eliquis 5mg BID tomorrow Will need colonoscopy as outpatient Ambulate in halls to see if rate continues to be controlled 2) Afib secondary cor pulmonale - management by cardiology; cor pulmonale and afib secondary to severe pulmonary HTN 3) severe pulm HTN - pulmonology consulted for optimization; on spironolactone 4) Decompensated Diastolic CHF - improved with IV Lasix. Down 6 KG with diuresis. Continue beta kristen. Cardiology increased spironolactone 5) Tobacco dependence (quit tobacco within past month) 6) COPD not in exacerbation - Cont Nebs prn; no need for steroids at this time. Albuterol may be contributing to afib/tachycardia 7) Chronic Hypoxic Respiratory Failure - Currently on 3L which is her baseline 8) HTN - on metoprolol ; norvasc discontinued by cardiology 9) Dyslipidemia on statin 10) Hx of Ovarian Ca s/p Hysterectomy, salpingo-oophorectomy f/u as outpatient VS,Laurent, I+O VS, Laurent, I+O Laboratory Tests 03/28/19 04:09 Red Blood Count 4.06, Mean Corpuscular Volume 84.2, Mean Corpuscular Hemoglobin 27.8, Mean Corpuscular Hemoglobin Concent 33.0, Red Cell Distribution Width 17.5 H, Calcium Level 8.9, Aspartate Amino Transf (AST/SGOT) 29, Alanine Aminotransferase (ALT/SGPT) 45, Total Creatine Kinase 22 L, Alkaline Phosphatase 141 H, Total Bilirubin 0.5, Total Protein 6.6, Albumin 3.2 Vital Signs Date Time Temp Pulse Resp B/P (MAP) Pulse Ox O2 Delivery O2 Flow Rate FiO2 03/28/19 13:21 108 115/58 03/28/19 12:00 3.0 03/28/19 08:00 97.3 20 97 03/27/19 05:37 Nasal Cannula I&O- Last 24 Hours up to 6 AM 03/28/19 06:00 Intake Total 1490 ml Output Total 2990 ml Balance -1500 ml NIKKO MANJARREZ DO Mar 28, 2019 16:42
[2019-03-28] MEDS: ROSUVASTATIN 10 MG TAB (CRESTOR) PO SCH (20:18)
[2019-03-29] VITALS (7 sets, daily range): BP systolic 102–124; BP diastolic 55–60
[2019-03-29] MEDS: METOPROLOL TART 50 MG TAB PO SCH ×4 (00:24→17:53)
[2019-03-29] MEDS: IPRATROPIUM 0.5MG/ALBUTEROL 2.5MG INH SOL UD 3ML (DUONEB)(J7620) NEB SCH ×4 (02:00→20:00)
[2019-03-29 05:06] LABS: BLOOD UREA NITROGEN 19 MG/DL (7-18); CALCIUM LEVEL 8.8 MG/DL (8.8-10.2); CARBON DIOXIDE LEVEL 35 MEQ/L (21-32); CHLORIDE LEVEL 100 MEQ/L (98-107); GLOMERULAR FILTRATION RATE > 60.0 (>45); GLUCOSE, FASTING 108 MG/DL (70-100); POTASSIUM SERUM 3.5 MEQ/L (3.5-5.1); SODIUM LEVEL 141 MEQ/L (136-145)
[2019-03-29] MEDS: SLF 3 ML SYR IV SCH ×3 (05:55→21:20)
[2019-03-29] MEDS: ADVAIR HFA 230/21MCG INHALER INH SCH ×2 (07:27→20:43)
[2019-03-29] MEDS: TIOTROPIUM INHALER/CAPSULE (SPIRIVA) INH SCH (07:27)
[2019-03-29] MEDS: IRON POLYSAC (NIFEREX) 150 MG CAP PO SCH ×2 (08:29→21:20)
[2019-03-29] MEDS: ENOXAPARIN 60 MG/0.6 ML SYR (J1650) SC SCH (08:30)
[2019-03-29] MEDS: FUROSEMIDE 40 MG/4 ML VIAL (J1940) IV SCH ×2 (08:31→21:00)
[2019-03-29] MEDS: SPIRONOLACTONE 50 MG TAB PO SCH (08:31)
[2019-03-29] MEDS ORDERED: DIGOXIN 0.25 MG TAB PO ONE (09:00)
[2019-03-29] MEDS ORDERED: POTASSIUM CHLORIDE 10 MEQ SR TABLET PO ONE ×2 (10:00→19:30)
--- NOTE | 2019-03-29 11:32 | IPNPDOC ---
Text Note Date of Service The patient was seen on 03/29/19. NOTE S: patient states ambulating in room but not halls. no CP, no palpitaitons. i ntermittent KRISHNAMURTHY/SOB. no cough; no orthopnea. Lasix this AM held due to cardiology parameters on diastolic pressure. O: Vitals as below General: pleasant, NAD AAOx3 Heart - irreg/irreg rate controlled at rest, no JVD LCTA with bibase rales Ext: 1+ edema/rm hose intact A/P: 1) Afib with RVR - improved with increased dose of metoprolol. Dr Martinez consult greatly appreciated and started on therapeutic lovenox. Hemeoccults negative. start eloquis 5mg BID today Will need colonoscopy as outpatient Ambulate in halls to see if rate continues to be controlled 2) Afib secondary cor pulmonale - management by cardiology; cor pulmonale and afib secondary to severe pulmonary HTN 3) severe pulm HTN - pulmonology consulted for optimization; on spironolactone 4) Decompensated Diastolic CHF - hold IV Lasix per cardiology parameters Continue beta kristen. Cardiology increased spironolactone 5) Tobacco dependence (quit tobacco within past month) 6) COPD not in exacerbation - Cont Nebs prn; no need for steroids at this time. Albuterol may be contributing to afib/tachycardia 7) Chronic Hypoxic Respiratory Failure - Currently on 3L which is her baseline 8) HTN - on metoprolol ; norvasc discontinued by cardiology 9) Dyslipidemia on statin 10) Hx of Ovarian Ca s/p Hysterectomy, salpingo-oophorectomy f/u as outpatient VS,Laurent, I+O VS, Laurent, I+O Laboratory Tests 03/29/19 04:12 Calcium Level 8.8 Vital Signs Date Time Temp Pulse Resp B/P (MAP) Pulse Ox O2 Delivery O2 Flow Rate FiO2 03/29/19 08:31 82 03/29/19 08:00 97.3 18 118/59 (78) 98 3.0 03/27/19 05:37 Nasal Cannula I&O- Last 24 Hours up to 6 AM 03/29/19 06:00 Intake Total 1100 ml Output Total 1975 ml Balance -875 ml NIKKO MANJARREZ DO Mar 29, 2019 11:32
--- NOTE | 2019-03-29 21:01 | IPN ---
CARDIOLOGY PROGRESS NOTE DATE OF SERVICE: 03/29/2019 Mrs. Sara Guardado ws seen earlier this morning and today. She is feeling much better, she stated she feels stronger. She is looking forward to go home. She denies any chest pain and her shortness of breath has improved significantly as well as her pedal edema. She denies any dizziness or lightheadedness. She has no focal manifestation. There is no report of bleeding. PHYSICAL EXAMINATION The patient is alert and oriented, in no acute distress. Very pleasant. Her vital signs this evening revealed a blood pressure of 111/56 and this morning it was of 118/59 with a pulse of varies between 80 and 110 beats per minute, respiration 18 to 20 and her maximum temperature is 97.9 degrees Fahrenheit with an oxygen saturation of 98% on room 3 liters nasal cannula. She had a negative fluid balance of 1.5 liters on 03/28/2019. Head: Atraumatic. Neck: Neck is supple and no jugular venous distention (JVD) appreciated. The lungs did not reveal any wheezing or crackles but decreased breath sounds at the bases. Heart examination revealed an irregular heart sounds without gallops. The point of maximal impulse (PMI) is nondisplaced. There is no rub. Abdomen is soft and nontender. Extremities reveal bilateral lower leg edema. Neurological examination grossly is negative for focal deficit. LABORATORY DATA: BMP done today revealed a sodium of 141, potassium 3.5, chloride 100, CO2 35, BUN 19, creatinine 0.7, GFR more than 60. Fasting glucose 108 and calcium 8.8. A CBC done today revealed a WBC of 9.4, hemoglobin 11.3, hematocrit 34.2 and platelet 293,000. Chest x-ray done yesterday, 03/28/2019, revealed cardiomegaly and manifestation of heart failure. Atherosclerotic changes noted in the aorta. Bilateral pleural effusion was noted, mild the right greater than the left. IMPRESSION 1. Atrial fibrillation and heart rate is under better control, but to continue to be fast at times for 2 days. I will continue the beta kristen and she was started today on the Eliquis and will continue the same. I, however, will add a small dose of calcium channel kristen with short acting Cardizem and will continue to monitor on telemetry. By controlling her heart rate, her heart failure will improve significantly, same as pleural effusion. We will stay away from digoxin for now, it does not seem that it is working well for her. 2. Congestive heart failure, diastolic in nature, and most likely related to the underlying atrial fibrillation with uncontrolled ventricular rate. We will control her atrial fibrillation and will continue with the Lasix. Will need to monitor closely her BUN, creatinine and serum potassium. She should be able to do well once her ventricular rate/her atrial fibrillation is under control. 3. Hypertension. Better control needed to prevent hypertension with the addition of the calcium channel kristen, I have decreased the spironolactone. 4. History of chronic obstructive pulmonary disease (COPD) and pulmonary hypertension. The patient has been on home oxygen therapy continuously for about 3-4 years. She does have a long history of smoking, but has not been smoking she stated for about 1-2 months. 5. Hyperlipidemia, on a statin. She needs to be treated aggressively. It was a pleasure to participate in the care of Mrs. Sara Guardado for her underlying cardiac condition. I will continue to monitor her along with you while in the hospital. Dr. Potter will be covering over the weekend and he will be seeing her only as needed. Please do not hesitate to call if any questions. Upon reviewing her labs, I have noted that her potassium is on the low side and I will give her one dose of KCl supplement tonight. ORBLES
[2019-03-29] MEDS: ROSUVASTATIN 10 MG TAB (CRESTOR) PO SCH (21:20)
[2019-03-29] MEDS: APIXABAN 5 MG TAB (ELIQUIS) PO SCH (21:20)
[2019-03-30] VITALS (7 sets, daily range): BP systolic 104–135; BP diastolic 55–60
[2019-03-30] MEDS: IPRATROPIUM 0.5MG/ALBUTEROL 2.5MG INH SOL UD 3ML (DUONEB)(J7620) NEB SCH ×4 (02:38→20:00)
[2019-03-30] MEDS: SLF 3 ML SYR IV SCH ×3 (05:37→21:15)
[2019-03-30] MEDS: METOPROLOL TART 50 MG TAB PO SCH ×4 (05:37→18:22)
[2019-03-30 05:57] LABS: BLOOD UREA NITROGEN 15 MG/DL (7-18); CALCIUM LEVEL 9.1 MG/DL (8.8-10.2); CARBON DIOXIDE LEVEL 33 MEQ/L (21-32); CHLORIDE LEVEL 103 MEQ/L (98-107); CREATININE FOR GFR 0.64 MG/DL (0.55-1.30); GLOMERULAR FILTRATION RATE > 60.0 (>45); GLUCOSE, FASTING 112 MG/DL (70-100); NT-PRO BNP 2727 PG/ML (<125); POTASSIUM SERUM 4.1 MEQ/L (3.5-5.1); SODIUM LEVEL 139 MEQ/L (136-145)
[2019-03-30] MEDS: TIOTROPIUM INHALER/CAPSULE (SPIRIVA) INH SCH (07:39)
[2019-03-30] MEDS: ADVAIR HFA 230/21MCG INHALER INH SCH ×2 (07:39→20:49)
--- NOTE | 2019-03-30 08:13 | REP ---
Clinical: Shortness of breath. CHF. Technique: PA and lateral. Comparison: 03/28/2019. Findings: Cardiomegaly with CHF remains relatively stable. Findings include cephalization, prominent pulmonary vasculature with increased interstitial markings, bibasilar infiltrate/atelectasis, and small pleural effusions (right greater than left). No pneumothorax. Skeletal structures intact. Impression: Stable findings related to CHF as detailed above. Electronically Signed by Benigno Arias MD 03/30/2019 08:05 A
[2019-03-30] MEDS: POTASSIUM CHLORIDE 10 MEQ SR TABLET PO SCH (08:59)
[2019-03-30] MEDS: APIXABAN 5 MG TAB (ELIQUIS) PO SCH ×2 (08:59→21:14)
[2019-03-30] MEDS: FUROSEMIDE 40 MG/4 ML VIAL (J1940) IV SCH ×2 (09:00→21:15)
[2019-03-30] MEDS: IRON POLYSAC (NIFEREX) 150 MG CAP PO SCH ×2 (09:00→21:15)
[2019-03-30] MEDS: SPIRONOLACTONE 25 MG TAB PO SCH (13:38)
--- NOTE | 2019-03-30 16:23 | IPNPDOC ---
Text Note Date of Service The patient was seen on 03/30/19. NOTE S: patient feeling better. ambulating in room. Tele monitor removed during ni ght despite renewal order. Patient has not yet ambulated in halls to determine rate control. States no CP, no SOB, minimal KRISHNAMURTHY. no N, no V O: Vitals as below General: pleasant, NAD AAOx3, sitting on couch reading book Heart - irreg/irreg 70-90, no murmur LCTA with minimal bibase rales Ext: trace edema A/P: 1) Afib with RVR - improved with increased dose of metoprolol and addition of cardizem HEmocults negative and tolerating eliquis 5mg BID Will need colonoscopy as outpatient Ambulate in halls to see if rate continues to be controlled Anticipate discharge in 36-48 hours 2) Afib secondary cor pulmonale - management by cardiology; cor pulmonale and afib secondary to severe pulmonary HTN 3) severe pulm HTN - pulmonology consulted for optimization; on spironolactone 4) Decompensated Diastolic CHF - continue betablocker, spironolactone 5) Tobacco dependence (quit tobacco within past month) 6) COPD not in exacerbation - Cont Nebs prn; no need for steroids at this time. 7) Chronic Hypoxic Respiratory Failure - Currently on 3L which is her baseline 8) HTN - on metoprolol ; norvasc discontinued by cardiology, Cardizem started. 9) Dyslipidemia on statin 10) Hx of Ovarian Ca s/p Hysterectomy, salpingo-oophorectomy f/u as outpatient Current Medications Medications (Trade) Dose Ordered Sig/Mateo Route PRN Reason Start Time Stop Time Status Last Admin Dose Admin Acetaminophen (Tylenol Tab) 650 mg Q4H PRN PO PAIN OR FEVER 03/24/19 13:45 Albuterol/ Ipratropium (Duoneb (Ipr 0.5mg/Alb 2.5mg)) 3 ml Q2HP PRN NEB SOB/WHEEZING 03/24/19 13:45 Albuterol/ Ipratropium (Duoneb (Ipr 0.5mg/Alb 2.5mg)) 3 ml RQ6H NEB 03/24/19 14:00 03/30/19 14:42 Amlodipine Besylate (Norvasc) 10 mg DAILY PO 03/24/19 09:00 03/26/19 20:01 DC 03/26/19 08:46 Apixaban (Eliquis) 5 mg BID PO 03/29/19 21:00 03/30/19 08:59 Aspirin (Aspirin) 325 mg DAILY PO 03/24/19 09:00 03/26/19 20:01 DC 03/26/19 08:44 Diltiazem HCl (Cardizem) 30 mg BID PO 03/29/19 21:00 03/30/19 08:59 Enoxaparin Sodium (Lovenox) 60 mg Q12H SC 03/27/19 09:00 03/29/19 11:34 DC 03/29/19 08:30 Furosemide (LASIX injection) 40 mg BID@09,17 IV 03/24/19 17:00 03/25/19 08:46 DC 03/24/19 16:41 Furosemide (LASIX injection) 40 mg Q12H IV 03/27/19 21:00 03/30/19 09:00 Furosemide (LASIX injection) 40 mg Q8H IV 03/25/19 09:00 03/27/19 14:21 DC 03/27/19 08:16 Home Med (Med Rec Complete!) ASDIRECTED XX 03/24/19 13:45 03/24/19 13:45 DC Iron (Niferex) 150 mg BID PO 03/28/19 09:00 03/30/19 09:00 Metoprolol Tartrate (Lopressor) 5 mg Q5M IV 03/24/19 08:30 03/24/19 09:19 DC 03/24/19 08:54 Metoprolol Tartrate (Lopressor) 5 mg Q5M IV 03/24/19 09:30 03/24/19 13:37 DC 03/24/19 09:53 Metoprolol Tartrate (Lopressor) 25 mg Q6H PO 03/24/19 18:00 03/26/19 20:01 DC 03/26/19 18:12 Metoprolol Tartrate (Lopressor) 50 mg Q6H PO 03/27/19 00:00 03/30/19 13:38 Nitroglycerin (Nitrostat (1/ 150)) 0.4 mg STAT STAT SL 03/27/19 05:03 03/27/19 05:08 DC 03/27/19 05:14 Nitroglycerin (Nitrostat (1/ 150)) 0.4 mg STAT STAT SL 03/27/19 05:28 03/27/19 05:29 DC 03/27/19 05:19 Potassium Chloride (Micro-K Extencaps) 20 meq DAILY PO 03/24/19 09:00 03/28/19 16:45 DC 03/28/19 08:43 Potassium Chloride (Micro-K Extencaps) 20 meq DAILY PO 03/30/19 09:00 03/30/19 08:59 Rosuvastatin Calcium (Crestor) 20 mg QPM PO 03/24/19 21:00 03/29/19 21:20 Salmeterol Xinafoate/ Fluticasone (Advair Hfa 230/ ) 2 puff BID INH 03/27/19 09:00 03/30/19 07:39 Sodium Chloride (Saline Lock Flush) 2 ml ASDIRECTED PRN IV SEE LABEL COMMENTS 03/24/19 15:30 Sodium Chloride (Saline Lock Flush) 2 ml SLF IV 03/24/19 22:00 03/30/19 05:37 Spironolactone (Aldactone) 25 mg QAM PO 03/27/19 09:00 03/27/19 18:52 DC 03/27/19 08:12 Spironolactone (Aldactone) 25 mg QAM@1200 PO 03/30/19 12:00 03/30/19 13:38 Spironolactone (Aldactone) 50 mg DAILY PO 03/28/19 09:00 03/29/19 19:08 DC 03/29/19 08:31 Tiotropium [place] (Spiriva Handihaler) 1 inhalation DAILY@08 INH 03/27/19 08:00 03/30/19 07:39 VS,Fishbone, I+O VS, Fishbone, I+O Laboratory Tests 03/30/19 05:14 Calcium Level 9.1 Vital Signs Date Time Temp Pulse Resp B/P (MAP) Pulse Ox O2 Delivery O2 Flow Rate FiO2 03/30/19 08:59 105 135/57 03/30/19 08:00 97.5 18 95 3.0 03/27/19 05:37 Nasal Cannula I&O- Last 24 Hours up to 6 AM 8/3/19 06:00 Intake Total 480 ml Output Total 1200 ml Balance -720 ml NIKKO MANJARREZ DO Mar 30, 2019 11:47
[2019-03-30] MEDS: ROSUVASTATIN 10 MG TAB (CRESTOR) PO SCH (21:14)
[2019-03-31] MEDS: IPRATROPIUM 0.5MG/ALBUTEROL 2.5MG INH SOL UD 3ML (DUONEB)(J7620) NEB SCH ×2 (01:24→07:45)
[2019-03-31 04:00] VITALS: BP 126/59
[2019-03-31] MEDS: METOPROLOL TART 50 MG TAB PO SCH ×3 (05:53→12:34)
[2019-03-31] MEDS: SLF 3 ML SYR IV SCH (05:53)
[2019-03-31 06:30] LABS: BLOOD UREA NITROGEN 18 MG/DL (7-18); CALCIUM LEVEL 9.1 MG/DL (8.8-10.2); CARBON DIOXIDE LEVEL 33 MEQ/L (21-32); CHLORIDE LEVEL 103 MEQ/L (98-107); CREATININE FOR GFR 0.71 MG/DL (0.55-1.30); GLOMERULAR FILTRATION RATE > 60.0 (>45); GLUCOSE, FASTING 91 MG/DL (70-100); POTASSIUM SERUM 4.1 MEQ/L (3.5-5.1); SODIUM LEVEL 140 MEQ/L (136-145)
[2019-03-31] MEDS: ADVAIR HFA 230/21MCG INHALER INH SCH (07:43)
[2019-03-31] MEDS: TIOTROPIUM INHALER/CAPSULE (SPIRIVA) INH SCH (07:45)
[2019-03-31 08:00] VITALS: BP 124/59
[2019-03-31] MEDS: POTASSIUM CHLORIDE 10 MEQ SR TABLET PO SCH (08:09)
[2019-03-31] MEDS: IRON POLYSAC (NIFEREX) 150 MG CAP PO SCH (08:09)
[2019-03-31] MEDS: FUROSEMIDE 40 MG/4 ML VIAL (J1940) IV SCH (08:09)
[2019-03-31] MEDS: APIXABAN 5 MG TAB (ELIQUIS) PO SCH (08:10)
[2019-03-31] MEDS ORDERED: ALDA25TA2 PO (11:03)
[2019-03-31] MEDS ORDERED: LOPR1TAB6 PO (11:03)
[2019-03-31] MEDS ORDERED: DILT30TA PO (11:03)
[2019-03-31] MEDS ORDERED: ELIQ5TAB PO (11:03)
--- NOTE | 2019-03-31 11:16 | DS.PDOC ---
Discharge Summary General Date of Admission Mar 24, 2019 at 07:49 Date of Discharge 03/31/19 Primary Care Physician: Kieran Potter Attending Physician: NIKKO MANJARREZ DO Specialist/Consultants Involve: Maddi Martinez MD Specialist/Consultants Involve Dr Aleman Discharge Summary PROCEDURES PERFORMED DURING STAY: none ADMITTING DIAGNOSES: Atrial Fibrillation with RVR History of GI bleed Decompensated Diastolic CHF COPD not in exacerbation Chronic Hypoxic Respiratory Failure HTN Dyslipidemia Obesity - BMI of 32 Hx of Ovarian Cancer DISCHARGE DIAGNOSES: 1) Afib with RVR - 2) Afib secondary cor pulmonale - 3) cor pulmonale and afib secondary to severe pulmonary HTN 3) severe pulm HTN 4) acute Decompensated Diastolic CHF 5) Tobacco dependence 6) COPD not in exacerbation - 7) Chronic Hypoxic Respiratory Failure due to COPD- Currently on 3L which is her baseline 8) ESSENTIAL HTN 9) Dyslipidemia on statin 10) Hx of Ovarian Ca COMPLICATIONS/CHIEF COMPLAINT: Atrial Fibrillation With Rvr. HISTORY OF PRESENT ILLNESS: 63-year-old female past medical history of COPD on 3 L of oxygen chronically, hypertension, dyslipidemia, and recently diagnosed diastolic congestive heart failure and atrial fibrillation not on anticoagulation presents to the ER with a chief complaint of palpitations and shortness of breath. The patient states that she woke up at 5:45 AM this morning and started to feel palpitations. She denied any lightheadedness, dizziness, chest pain, abdominal pain, or any nausea/vomiting/diarrhea. She states that she took a nebulizer treatment but this did not help, and she came to the ER for further evaluation. She denies any complaints of fevers, chills, cough, congestion. In the ER, patient was noted to be in atrial fibrillation with rapid ventricular rate. She will be admitted under the hospitalist service for further evaluation and management. See H&P for details HOSPITAL COURSE: patient admitted, cardiology assisted with adjusting medication for rate control and diuresis. Patient showed continued improvement. She was started on eliquis 5mg BID and had heme negative stools (in past she had heme + stool). Her H/h remained stable. She will need an urgen colonscopy performed for PAST source of bleeding. Currently no bleeding while on eliquis. DISCHARGE MEDICATIONS: Please see below. ALLERGIES: Please see below. PHYSICAL EXAMINATION ON DISCHARGE: VITAL SIGNS: Please see below. General: pleasant NAD AAOx3 Heart - irreg/irreg 65 (with ambulating 115) LCTA no W/R/R Ext : trace edema (rm hosalisa intact) TELE: rate controlled afib 65-110 LABORATORY DATA: Please see below. PROGNOSIS:good ACTIVITY: as tolerated. wear 3 liter oxygen at all time DIET: low salt DISCHARGE PLAN: Discharge home DISCHARGE INSTRUCTIONS: 1. follow up with PCP in 5-7 days to review labs and set up colonsocopy 2. follow up with Dr Martinez in 1 week to check AFIB 3. if weight gain 2 pounds over night or 5 pounds in 1 week; or if persistent heart rate above 120 - call cardiology 4. if bleeding or black stools - call PCP 5. follow up with Dr Aleman as previously scheduled ITEMS TO FOLLOWUP ON ON OUTPATIENT: 1. CBC,BMP in 5 days to be reviewed by PCP 2. Colonscopy to be set up by PCP on an urgent basis DISCHARGE CONDITION: stable TIME SPENT ON DISCHARGE: 45 minutes. Vital Signs/I&Os Vital Signs Date Time Temp Pulse Resp B/P (MAP) Pulse Ox O2 Delivery O2 Flow Rate FiO2 03/31/19 08:09 95 124/59 03/31/19 08:00 97.2 18 99 3.0 03/27/19 05:37 Nasal Cannula I&O- Last 24 Hours up to 6 AM 03/31/19 06:00 Intake Total 780 ml Output Total 1600 ml Balance -820 ml Laboratory Data Labs 24H Laboratory Tests 2 03/31/19 05:17: Anion Gap 4L, Glomerular Filtration Rate > 60.0, Blood Urea Nitrogen 18, Creatinine 0.71, Sodium Level 140, Potassium Level 4.1, Chloride Level 103, Carbon Dioxide Level 33H, Calcium Level 9.1 CBC/BMP Laboratory Tests 03/31/19 05:17 Calcium Level 9.1 Microbiology Microbiology 03/27/19 Stool Occult Blood (YVETTE) - Final, Complete Discharge Medications Scheduled Apixaban (Eliquis) 5 Mg Tablet, 5 MG PO BID Calcium Carbonate/Vitamin D3 (Calcium 600-Vit D3 400 Tablet) 1 Each Tablet, 1 TAB PO DAILY, (Reported) Diltiazem HCl (Diltiazem HCl) 30 Mg Tablet, 30 MG PO BID Ergocalciferol (Vitamin D2) (Vitamin D2) 50,000 Unit Capsule, 50,000 UNIT PO QWEEK, (Reported) SUNDAYS Fluticasone Furoate (Arnuity Ellipta) 200 Mcg Blst.w.dev, 1 PUFF INH QPM, (Reported) Furosemide (Furosemide) 40 Mg Tablet, 40 MG PO DAILY, (Reported) Metoprolol Tartrate (Lopressor) 50 Mg Tablet, 50 MG PO Q6H do not take if heart rate below 55 or Sys blood press below 100 Potassium Chloride (Potassium Chloride) 20 Meq Tab.er.prt, 20 MEQ PO DAILY, (Reported) Rosuvastatin Calcium (Crestor) 20 Mg Tablet, 20 MG PO QPM, (Reported) Spironolactone (Aldactone) 25 Mg Tablet, 25 MG PO QAM@1200 Umeclidinium Brm/Vilanterol Tr (Anoro Ellipta 62.5-25 Mcg INH) 1 Each Blst.w.dev, 1 PUFF INH QPM, (Reported) Scheduled PRN Ipratropium/Albuterol Sulfate (Iprat-Albut 0.5-3(2.5) mg/3 ml) 3 Ml Ampul.neb, 1 VIAL NEB Q4H PRN for SHORTNESS OF BREATH, (Reported) Allergies Coded Allergies: No Known Allergies (Unverified , 03/24/19) NIKKO MANJARREZ DO Mar 31, 2019 11:16
[2019-03-31] MEDS: SPIRONOLACTONE 25 MG TAB PO SCH (12:33)
[2019-03-31 12:34] VITALS: BP 135/74
== END 2019-03-31 11:45 | disposition home or self-care (01) | DRG 308 ==
LOC: M ED 07:48 → EDBD 07:48 → M ED INP 07:49 → M PCU 14:51
PROVIDERS: ADMIT Internal Medicine; ATTEND Internal Medicine
DX: I48.91 Unspecified atrial fibrillation (principal); I50.33 Acute on chronic diastolic (congestive) heart failure; J96.11 Chronic respiratory failure with hypoxia; I27.29 Other secondary pulmonary hypertension; Z99.81 Dependence on supplemental oxygen; J43.9 Emphysema, unspecified; D75.1 Secondary polycythemia; I11.0 Hypertensive heart disease with heart failure; E78.5 Hyperlipidemia, unspecified; Z79.82 Long term (current) use of aspirin; Z79.899 Other long term (current) drug therapy; Z79.891 Long term (current) use of opiate analgesic; E66.9 Obesity, unspecified; Z68.32 Body mass index [BMI] 32.0-32.9, adult; Z85.43 Personal history of malignant neoplasm of ovary; Z90.710 Acquired absence of both cervix and uterus; Z90.721 Acquired absence of ovaries, unilateral

== ENCOUNTER → 2019-06-07 | Outpatient (CLI) | payer OTHER ==
[~2019-06-07] MED LIST changes: +ALDA25TA2 PO; +BISO10TA4 PO; +CALC600T18 PO; +DILT30TA PO; +ELIQ5TAB PO; +FURO40TA2 PO; +IPRA0.00 NEB; +LOPR1TAB6 PO
[2019-06-07 10:05] LABS: BASO # 0.1 10^3/uL (0.0-0.2); BASO % 0.6 % (0.0-1.0); EOS # 0.1 10^3/uL (0.0-0.5); EOS % 0.9 % (0.0-3.0); HEMATOCRIT 42.3 % (36.0-47.0); HEMOGLOBIN 13.9 g/dl (12.0-15.5); LYMPH # 1.8 10^3/uL (1.5-5.0); LYMPH % 22.2 % (24.0-44.0); MEAN CORPUSCULAR HEMOGLOBIN 28.9 pg (27.0-33.0); MEAN CORPUSCULAR HGB CONC 32.9 g/dl (32.0-36.5); MEAN CORPUSCULAR VOLUME 87.9 fl (80.0-96.0); MONO # 0.8 10^3/uL (0.0-0.8); MONO % 9.5 % (0.0-5.0); NEUTROPHILS # 5.4 10^3/uL (1.5-8.5); NEUTROPHILS % 66.6 % (36.0-66.0); PLATELET COUNT, AUTOMATED 296 10^3/uL (150-450); RED BLOOD COUNT 4.81 10^6/uL (4.00-5.40); WHITE BLOOD COUNT 8.1 10^3/uL (4.0-10.0)
[2019-06-07 10:31] LABS: HEMOGLOBIN A1c 6.2 %
[2019-06-07 10:43] LABS: ALT/SGPT 51 U/L (12-78); BILIRUBIN,TOTAL 0.6 MG/DL (0.2-1.0); BLOOD UREA NITROGEN 17 MG/DL (7-18); CALCIUM LEVEL 9.4 MG/DL (8.8-10.2); CARBON DIOXIDE LEVEL 34 MEQ/L (21-32); CHLORIDE LEVEL 97 MEQ/L (98-107); CHOLESTEROL LEVEL 233 MG/DL (<200); CHOLESTEROL RISK RATIO 1.738 (<5); CREATININE FOR GFR 0.72 MG/DL (0.55-1.30); FREE T4 1.07 NG/DL (0.76-1.46); GLOMERULAR FILTRATION RATE > 60.0 (>45); GLUCOSE, FASTING 149 MG/DL (70-100); HDL CHOLESTEROL 134 MG/DL (>40); LDL CHOLESTEROL 85 MG/DL (<100); NON-HDL-C 99 MG/DL; SODIUM LEVEL 136 MEQ/L (136-145); THYROID STIMULATING HORMONE 0.878 uIU/ML (0.358-3.740); TOTAL PROTEIN 7.7 GM/DL (6.4-8.2); TRIGLYCERIDES LEVEL 72 MG/DL (<150)
[2019-06-07 10:47] LABS: TOTAL 25(OH) VITAMIN D 66.9 NG/ML (30.0-100.0)
== END ==
LOC: M WUC 08:11
PROVIDERS: ATTEND Physician Assistant Medical
DX: E78.2 Mixed hyperlipidemia (principal); E11.9 Type 2 diabetes mellitus without complications; I10 Essential (primary) hypertension

== ENCOUNTER → 2020-01-21 | Outpatient (CLI) | payer OTHER ==
[~2020-01-21] MED LIST changes: -BISO10TA10 PO; +BISO10TA14 PO
[2020-01-21 11:39] LABS: BASO # 0.1 10^3/uL (0.0-0.2); BASO % 0.5 % (0.0-1.0); EOS % 0.4 % (0.0-3.0); HEMATOCRIT 40.3 % (36.0-47.0); HEMOGLOBIN 12.9 g/dl (12.0-15.5); LYMPH # 1.5 10^3/uL (1.5-5.0); LYMPH % 16.7 % (24.0-44.0); MEAN CORPUSCULAR VOLUME 93.7 fl (80.0-96.0); MONO # 0.7 10^3/uL (0.0-0.8); MONO % 7.7 % (0.0-5.0); NEUTROPHILS # 6.8 10^3/uL (1.5-8.5); NEUTROPHILS % 74.4 % (36.0-66.0); PLATELET COUNT, AUTOMATED 269 10^3/uL (150-450); WHITE BLOOD COUNT 9.1 10^3/uL (4.0-10.0)
[2020-01-21 12:52] LABS: ALBUMIN 3.6 GM/DL (3.2-5.2); ALT/SGPT 30 U/L (12-78); BILIRUBIN,TOTAL 0.6 MG/DL (0.2-1.0); BLOOD UREA NITROGEN 15 MG/DL (7-18); CALCIUM LEVEL 8.8 MG/DL (8.8-10.2); CARBON DIOXIDE LEVEL 30 MEQ/L (21-32); CHLORIDE LEVEL 99 MEQ/L (98-107); CHOLESTEROL LEVEL 188 MG/DL (<200); CHOLESTEROL RISK RATIO 1.693 (<5); CREATININE FOR GFR 0.82 MG/DL (0.55-1.30); FREE T4 1.19 NG/DL (0.76-1.46); GLOMERULAR FILTRATION RATE > 60.0 (>45); GLUCOSE, FASTING 157 MG/DL (70-100); HDL CHOLESTEROL 111 MG/DL (>40); LDL CHOLESTEROL 64 MG/DL (<100); NON-HDL-C 77 MG/DL; SODIUM LEVEL 138 MEQ/L (136-145); THYROID STIMULATING HORMONE 0.779 uIU/ML (0.358-3.740); TRIGLYCERIDES LEVEL 65 MG/DL (<150)
== END ==
LOC: M WUC 08:05
PROVIDERS: ATTEND Physician Assistant Medical
DX: E78.2 Mixed hyperlipidemia (principal); R53.83 Other fatigue; I10 Essential (primary) hypertension

== ENCOUNTER 2020-02-17 20:37 | Inpatient (IN) | payer OTHER ==
[~2020-02-17] VITALS: Ht 157.5 cm; Wt 89.0 kg
[2020-02-17] MEDS ORDERED: DILT60TA PO ×2 (20:50→23:19)
[2020-02-17] MEDS: ROSUVASTATIN 10 MG TAB (CRESTOR) PO SCH (21:00)
[2020-02-17] MEDS: METOPROLOL TARTRATE 100 MG TAB PO SCH (21:00)
[2020-02-17] MEDS: APIXABAN 5 MG TAB (ELIQUIS) PO SCH (21:00)
[2020-02-17 21:11] LABS: BASO % 0.4 % (0.0-1.0); EOS # 0.1 10^3/uL (0.0-0.5); EOS % 0.5 % (0.0-3.0); HEMATOCRIT 37.3 % (36.0-47.0); HEMOGLOBIN 12.6 g/dl (12.0-15.5); LYMPH # 1.9 10^3/uL (1.5-5.0); MEAN CORPUSCULAR HEMOGLOBIN 30.3 pg (27.0-33.0); MEAN CORPUSCULAR HGB CONC 33.8 g/dl (32.0-36.5); MEAN CORPUSCULAR VOLUME 89.7 fl (80.0-96.0); MONO # 0.6 10^3/uL (0.0-0.8); MONO % 6.6 % (0.0-5.0); NEUTROPHILS # 6.5 10^3/uL (1.5-8.5); NEUTROPHILS % 71.3 % (36.0-66.0); PLATELET COUNT, AUTOMATED 257 10^3/uL (150-450); RED BLOOD COUNT 4.16 10^6/uL (4.00-5.40); WHITE BLOOD COUNT 9.1 10^3/uL (4.0-10.0)
[2020-02-17] MEDS ORDERED: ISOVUE-370 76% 100ML VIAL As Ordered ONE (21:24)
[2020-02-17] MEDS ORDERED: LORazepam 2 MG/ML VIAL IV STA (21:32)
[2020-02-17 21:48] LABS: ALBUMIN 3.6 GM/DL (3.2-5.2); ALT/SGPT 35 U/L (12-78); BILIRUBIN,DIRECT 0.3 MG/DL (0.0-0.2); BILIRUBIN,TOTAL 0.6 MG/DL (0.2-1.0); CK-MB VALUE MASS 1.1 NG/ML (<3.6); CPK CREATINE PHOSPHOKINASE 39 U/L (26-192); MB/CK RELATIVE INDEX 2.82 (< OR =4); NT-PRO BNP 2620 PG/ML (<125); TOTAL PROTEIN 7.4 GM/DL (6.4-8.2); TROPONIN I < 0.02 NG/ML (< 0.10)
--- NOTE | 2020-02-17 22:21 | REPVR ---
PROCEDURE INFORMATION: Exam: CT Angiography Chest With Contrast Exam date and time: 02/17/2020 9:54 PM Age: 64 years old Clinical indication: Shortness of breath; Additional info: SOB TECHNIQUE: Imaging protocol: Computed tomographic angiography of the chest with intravenous contrast. 3D rendering: MIP and/or 3D reconstructed images were created by the technologist. Radiation optimization: All CT scans at this facility use at least one of these dose optimization techniques: automated exposure control; mA and/or kV adjustment per patient size (includes targeted exams where dose is matched to clinical indication); or iterative reconstruction. Contrast material: ISOVUE 370; Contrast volume: 75 ml; Contrast route: INTRAVENOUS (IV); COMPARISON: CT ANGIO CHEST 11/04/2015 3:16 PM FINDINGS: Pulmonary arteries: There are no pulmonary emboli. Aorta: The aorta demonstrates moderate atherosclerotic calcification. There is no aortic dissection or aneurysm. Lungs: Architectural distortion in the upper lung zones consistent with mild centrilobular emphysema. Hazy reticular opacities in the anterior segment of the right upper lobe. Pleural space: Bilateral apical pleural parenchymal scarring. Heart: Cardiomegaly. Biatrial enlargement. Lymph nodes: Unremarkable. No enlarged lymph nodes. Bones/joints: The spine demonstrates mild degenerative changes. Osteoporosis. Soft tissues: Unremarkable. IMPRESSION: 1. Architectural distortion in the upper lung zones consistent with mild centrilobular emphysema. 2. There is no aortic dissection or aneurysm. 3. Cardiomegaly. 4. There are no pulmonary emboli. Electronically signed by: Raul Coppola On 02/17/2020 22:20:32 PM
--- NOTE | 2020-02-17 22:41 | REPVR ---
PROCEDURE INFORMATION: Exam: US Duplex Lower Extremity Veins, Bilateral Exam date and time: 02/17/2020 10:31 PM Age: 64 years old Clinical indication: Edema, localized; Lower extremity, bilateral; Additional info: B/l leg swelling, right > left TECHNIQUE: Imaging protocol: Real-time duplex ultrasound of the extremities with 2-D marcum scale, color Doppler flow and spectral waveform analysis with image documentation. Complete exam focused on the bilateral lower extremity veins. COMPARISON: US Duplex, Ext LOWER veins, bilat BILATERAL 11/02/2018 9:42 AM FINDINGS: Right deep veins: Unremarkable. The common femoral, femoral, proximal profunda femoral and popliteal veins are patent without thrombus. Normal Doppler waveforms. Normal compressibility and/or augmentation response. Right superficial veins: Saphenofemoral junction is patent without thrombus. Left deep veins: Unremarkable. The common femoral, femoral, proximal profunda femoral and popliteal veins are patent without thrombus. Normal Doppler waveforms. Normal compressibility and/or augmentation response. Left superficial veins: Saphenofemoral junction is patent without thrombus. Soft tissues: Bilateral leg edema, right greater than left. IMPRESSION: Bilateral leg edema, right greater than left. No DVT. Electronically signed by: Raul Coppola On 02/17/2020 22:41:26 PM
[2020-02-17] MEDS ORDERED: FUROSEMIDE 40MG/4ML VIAL (J1940) IV ONE (23:15)
[2020-02-17] MEDS ORDERED: ELIQ5TAB PO (23:19)
[2020-02-17] MEDS ORDERED: METO100T5 PO (23:19)
[2020-02-17] MEDS ORDERED: SPIR-10 PO (23:19)
[2020-02-18] MEDS ORDERED: IPRATROPIUM 0.5MG/ALBUTEROL 2.5MG INH SOL UD 3ML (DUONEB) NEB PRN (02:00)
--- NOTE | 2020-02-18 02:00 | HPEPDOC ---
[facility] Medical History & Physical Date of Admission Feb 18, 2020 Date of Service: Feb 18, 2020 Attending Physician: EMERY COX MD History and Physical CHIEF COMPLAINT: Shortness of breath HISTORY OF PRESENT ILLNESS: 64-year-old female with past medical history of congestive heart failure with preserved ejection fraction, atrial fibrillation (on Eliquis), hypertension, hyperlipidemia and COPD (on home oxygen sees presents with shortness of breath. She reports worsening dyspnea for the past 3- 5 days with associated dry cough, chest pressure and bilateral leg swelling. She was previously hospitalized for congestive heart failure over one year ago, follows with Dr. Martinez. She has no other complaints, denies any nausea, vomiting, abdominal pain, diarrhea or constipation. She has no chest pain at this time.] 10 point review of system is negative except for above PAST MEDICAL HISTORY: 1. Congestive heart failure. 2. Atrial fibrillation. 3. Hypertension. 4. Hyperlipidemia 5. COPD PAST SURGICAL HISTORY: 1. Hysterectomy. SOCIAL HISTORY: Previous smoker. Denies alcohol use. Denies drug use FAMILY HISTORY: Father had heart disease ALLERGIES: Please see below. HOME MEDICATIONS: Please see below. PHYSICAL EXAMINATION: VITAL SIGNS: Please see below. GENERAL: No distress, obese HEENT: Normocephalic, atraumatic, moist mucous membranes NECK: Supple CARDIOVASCULAR EXAMINATION: S1, S2 RESPIRATORY EXAMINATION: Poor air movement, scattered rhonchi, diminished in the bases, no wheezing ABDOMINAL EXAMINATION: Soft, nontender, nondistended, positive bowel sounds EXTREMITIES: Bilateral lower extremity pitting edema SKIN: No rash NEUROLOGICAL EXAMINATION: Alert and oriented 3, no focal deficits PSYCHIATRIC EXAMINATION: Calm and cooperative LABORATORY DATA: See below. IMAGING: CTA negative for PE MICROBIOLOGY: Please see below. ASSESSMENT: 64-year-old female with past medical history of congestive heart failure, atrial fibrillation on anticoagulation, hypertension, COPD and hyperlipidemia is being admitted for acute on chronic congestive heart failure. PLAN: 1. Acute on chronic congestive heart failure. Previous echo showing preserved ejection fraction, repeat echo, weigh daily, monitor I's and O's, fluid restriction of 1200 mL per day, Lasix 40 mg IV twice a day. 2. Atrial fibrillation. Continue Eliquis for anticoagulation and metoprolol, Cardizem for rate control. 3. Hypertension. Continue metoprolol, Cardizem and spironolactone 4. COPD Stable, continue home regimen, continue supplemental oxygen as needed to maintain O2 sats between 88-92%. 5. Hyperlipidemia. Continue Crestor DVT prophylaxis: On Eliquis GI prophylaxis: Not needed Vital Signs Vital Signs Date Time Temp Pulse Resp B/P (MAP) Pulse Ox O2 Delivery O2 Flow Rate FiO2 02/17/20 23:21 104 20 137/61 (86) 98 Nasal Cannula 3.0 02/17/20 20:48 98.2 Laboratory Data Labs 24H Laboratory Tests 2 02/17/20 21:00: Immature Granulocyte % (Auto) 0.2, Neutrophils (%) (Auto) 71.3H, Lymphocytes (%) (Auto) 21.0L, Monocytes (%) (Auto) 6.6H, Eosinophils (%) (Auto) 0.5, Basophils (%) (Auto) 0.4, Neutrophils # (Auto) 6.5, Lymphocytes # (Auto) 1.9, Monocytes # (Auto) 0.6, Eosinophils # (Auto) 0.1, Basophils # (Auto) 0.0, Nucleated Red Blood Cells % (auto) 0.0, Total Bilirubin 0.6, Direct Bilirubin 0.3H, Aspartate Amino Transf (AST/SGOT) 26, Alanine Aminotransferase (ALT/SGPT) 35, Alkaline Phosphatase 128H, Total Creatine Kinase 39, Creatine Kinase MB 1.1, Creatine Kinase MB Relative Index 2.82, Troponin I < 0.02, CV-Nbb-I-Type Natriuretic Peptide 2620H, Total Protein 7.4, Albumin 3.6, Albumin/Globulin Ratio 0.9L 02/17/20 21:02: POC Troponin I (Misc) 0.00 02/17/20 21:03: POC Glucose (Misc Panel) 116H, POC Sodium (Misc Panel) 129L, POC Potassium (Misc Panel) 4.0, POC Chloride (Misc Panel) 90L, POC Total CO2 (Misc Panel) 25.0, POC Blood Urea Nitrogen (Misc Panel 16, POC Ionized Calcium (Misc Panel) 4.5, POC Creatinine (Misc Panel) 1.0, POC Hematocrit (Misc Panel) 41.0 CBC/BMP Laboratory Tests 02/17/20 21:00 Home Medications Scheduled Apixaban (Eliquis) 5 Mg Tablet, 5 MG PO BID Diltiazem Hcl (Diltiazem HCl) 60 Mg Tablet, 60 MG PO BID Fluticasone Furoate (Arnuity Ellipta) 200 Mcg Blst.w.dev, 1 PUFF INH QPM Metoprolol Tartrate (Metoprolol Tartrate) 100 Mg Tablet, 100 MG PO BID Rosuvastatin Calcium (Crestor) 20 Mg Tablet, 20 MG PO QPM Spironolactone (Spironolactone) 25 Mg Tablet, 25 MG PO DAILY Umeclidinium Brm/Vilanterol Tr (Anoro Ellipta 62.5-25 Mcg INH) 1 Each Blst.w.dev, 1 PUFF INH QPM Scheduled PRN Ipratropium/Albuterol Sulfate (Iprat-Albut 0.5-3(2.5) mg/3 ml) 3 Ml Ampul.neb, 1 VIAL NEB Q4H PRN for SHORTNESS OF BREATH Allergies Coded Allergies: No Known Allergies (Unverified , 03/24/19) A-FIB/CHADSVASC A-FIB History Current/History of A-Fib/PAF?: Yes Current PO Anticoag Therapy: Yes EMERY COX MD Feb 18, 2020 02:00
[2020-02-18 02:51] VITALS: BP 142/68
[2020-02-18 06:00] VITALS: BP 132/76
--- NOTE | 2020-02-18 07:51 | ECGEPIP ---
[facility] - ED Test Date: 2020-02-17 Pat Name: MICHELLE CONRAD Department: Room: [place] [address] Gender: Female Log Rafter: : 1955 Requested By: Yokasta Hopper Order Number: [id number] Reading MD: Giovanni Buckner Measurements Intervals [place] Rate: 94 P: DE: 0 QRS: 79 QRSD: 81 T: 39 QT: 346 QTc: 435 Interpretive Statements ATRIAL FIBRILLATION BASELINE ARTIFACT AFFECTS INTERPRETATION Electronically Signed on 02-18-2020 7:51:02 EDT by Giovanni Buckner
--- NOTE | 2020-02-18 08:40 | REP ---
Portable chest x-ray: Single view. History: Dyspnea and cough. Comparison chest x-ray: March 30, 2019. Findings: Monitoring electrodes overlie the chest. Oxygen delivery tubing is seen. Moderate cardiac enlargement is seen. Pulmonary vasculature is cephalized. No pleural effusion or ronda pulmonary edema. Impression: Cardiomegaly with cephalization of the vasculature, mild CHF pattern. No evidence of pleural effusion or pulmonary edema. Electronically Signed by Raymond Hay MD 02/18/2020 08:30 A
[2020-02-18] MEDS: METOPROLOL TARTRATE 100 MG TAB PO SCH ×2 (09:40→21:42)
[2020-02-18] MEDS: APIXABAN 5 MG TAB (ELIQUIS) PO SCH ×2 (09:40→21:41)
[2020-02-18] MEDS: FUROSEMIDE 40MG/4ML VIAL (J1940) IV SCH ×2 (09:40→21:42)
[2020-02-18] MEDS: SPIRONOLACTONE 25 MG TAB PO SCH (09:41)
[2020-02-18] MEDS ORDERED: METOPROLOL 5 MG/5 ML VIAL IV ONE (12:00)
[2020-02-18] MEDS: ROSUVASTATIN 10 MG TAB (CRESTOR) PO SCH (21:41)
[2020-02-18 22:00] VITALS: BP 132/72
[2020-02-19 06:00] LABS: HEMATOCRIT 39.1 % (36.0-47.0); HEMOGLOBIN 12.9 g/dl (12.0-15.5); MEAN CORPUSCULAR HEMOGLOBIN 29.9 pg (27.0-33.0); MEAN CORPUSCULAR VOLUME 90.5 fl (80.0-96.0); PLATELET COUNT, AUTOMATED 236 10^3/uL (150-450); RED BLOOD COUNT 4.32 10^6/uL (4.00-5.40); WHITE BLOOD COUNT 7.5 10^3/uL (4.0-10.0)
[2020-02-19 06:40] LABS: ALBUMIN 3.5 GM/DL (3.2-5.2); ALT/SGPT 35 U/L (12-78); BILIRUBIN,TOTAL 1.1 MG/DL (0.2-1.0); BLOOD UREA NITROGEN 18 MG/DL (7-18); CALCIUM LEVEL 9.3 MG/DL (8.8-10.2); CARBON DIOXIDE LEVEL 35 MEQ/L (21-32); CHLORIDE LEVEL 95 MEQ/L (98-107); CREATININE FOR GFR 0.81 MG/DL (0.55-1.30); GLOMERULAR FILTRATION RATE > 60.0 (>45); GLUCOSE, FASTING 100 MG/DL (70-100); MAGNESIUM LEVEL 2.2 MG/DL (1.8-2.4); POTASSIUM SERUM 4.1 MEQ/L (3.5-5.1); SODIUM LEVEL 134 MEQ/L (136-145); TOTAL PROTEIN 6.8 GM/DL (6.4-8.2)
[2020-02-19] MEDS: APIXABAN 5 MG TAB (ELIQUIS) PO SCH (09:00)
[2020-02-19] MEDS: FUROSEMIDE 40MG/4ML VIAL (J1940) IV SCH (09:00)
[2020-02-19] MEDS: SPIRONOLACTONE 25 MG TAB PO SCH (09:00)
[2020-02-19 09:02] VITALS: BP 118/53
[2020-02-19] MEDS: METOPROLOL TARTRATE 100 MG TAB PO SCH (09:02)
[2020-02-19] MEDS ORDERED: POTA8CAP10 PO (11:42)
[2020-02-19] MEDS ORDERED: LASI40TA9 PO (11:42)
--- NOTE | 2020-02-19 12:44 | DS.PDOC ---
Discharge Summary General Date of Admission Feb 18, 2020 at 01:51 Date of Discharge 02/19/2020 Attending Physician: EMERY COX MD Discharge Summary PROCEDURES PERFORMED DURING STAY: None. ADMITTING DIAGNOSES: 1. Acute on chronic diastolic congestive heart failure. DISCHARGE DIAGNOSES: 1. Acute on chronic diastolic congestive heart failure. COMPLICATIONS/CHIEF COMPLAINT: CHF. HISTORY OF PRESENT ILLNESS: 64-year-old female was admitted for acute on chronic diastolic congestive heart failure, likely due to noncompliance with dietary intake. Patient was diuresed with IV Lasix with good clinical response, has been evaluated and cleared by physical therapy. She is close to her baseline volume status, can be discharged home on oral Lasix with outpatient follow-up with a project manager/team coach to assess for prolonged need for diuresis. HOSPITAL COURSE: As above. DISCHARGE MEDICATIONS: Please see below. ALLERGIES: Please see below. PHYSICAL EXAMINATION: VITAL SIGNS: Please see below. GENERAL: No distress, obese HEENT: Normocephalic, atraumatic, moist mucous membranes NECK: Supple CARDIOVASCULAR EXAMINATION: S1, S2 RESPIRATORY EXAMINATION: Poor air movement, diminished in the bases, no wheezing ABDOMINAL EXAMINATION: Soft, nontender, nondistended, positive bowel sounds EXTREMITIES: Bilateral lower extremity pitting edema, improving SKIN: No rash NEUROLOGICAL EXAMINATION: Alert and oriented 3, no focal deficits PSYCHIATRIC EXAMINATION: Calm and cooperative LABORATORY DATA: Please see below. IMAGING: CT chest showing metastatic congestion PROGNOSIS: Fair ACTIVITY: As tolerated. DIET: Cardiac with 1500 mL fluid restriction DISCHARGE PLAN: Follow with PCP and project manager/team coach in 1-2 weeks DISPOSITION: Home. DISCHARGE INSTRUCTIONS: 1. As above. DISCHARGE CONDITION: Stable. TIME SPENT ON DISCHARGE: Greater than 27 minutes. Vital Signs/I&Os Vital Signs Date Time Temp Pulse Resp B/P (MAP) Pulse Ox O2 Delivery O2 Flow Rate FiO2 02/19/20 09:02 95 118/53 02/19/20 09:00 3.0 02/19/20 06:00 98.4 18 97 Nasal Cannula I&O- Last 24 Hours up to 6 AM 02/19/20 06:00 Intake Total 970 ml Output Total 1900 ml Balance -930 ml Laboratory Data Labs 24H Laboratory Tests 2 02/19/20 05:33: Nucleated Red Blood Cells % (auto) 0.0, Anion Gap 4L, Glomerular Filtration Rate > 60.0, Calcium Level 9.3, Magnesium Level 2.2, Total Bilirubin 1.1#H, Aspartate Amino Transf (AST/SGOT) 28, Alanine Aminotransferase (ALT/SGPT) 35, Alkaline Phosphatase 119H, Total Protein 6.8, Albumin 3.5, Albumin/Globulin Ratio 1.1L CBC/BMP Laboratory Tests 02/19/20 05:33 Discharge Medications Scheduled Apixaban (Eliquis) 5 Mg Tablet, 5 MG PO BID, (Reported) Diltiazem Hcl (Diltiazem HCl) 60 Mg Tablet, 60 MG PO BID, (Reported) Fluticasone Furoate (Arnuity Ellipta) 200 Mcg Blst.w.dev, 1 PUFF INH QPM, (Reported) Furosemide (Lasix) 40 Mg Tablet, 1 TAB PO DAILY Metoprolol Tartrate (Metoprolol Tartrate) 100 Mg Tablet, 100 MG PO BID, (Reported) Potassium Chloride (Potassium Chloride) 8 Meq Capsule.er, 1 CAP PO DAILY Rosuvastatin Calcium (Crestor) 20 Mg Tablet, 20 MG PO QPM, (Reported) Spironolactone (Spironolactone) 25 Mg Tablet, 25 MG PO DAILY, (Reported) Umeclidinium Brm/Vilanterol Tr (Anoro Ellipta 62.5-25 Mcg INH) 1 Each Blst.w.de v, 1 PUFF INH QPM, (Reported) Scheduled PRN Ipratropium/Albuterol Sulfate (Iprat-Albut 0.5-3(2.5) mg/3 ml) 3 Ml Ampul.neb, 1 VIAL NEB Q4H PRN for SHORTNESS OF BREATH, (Reported) Allergies Coded Allergies: No Known Allergies (Unverified , 03/24/19) EMERY COX MD Feb 19, 2020 12:44
--- NOTE | 2020-02-20 18:27 | ECGEPIP ---
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 Electronically Signed on 02-20-2020 18:27:33 EDT by Tom Cisneros
--- NOTE | 2020-02-22 14:03 | ECHO ---
DATE OF PROCEDURE: 02/18/2020 REFERRING PHYSICIAN: Dr. Leal INDICATION: Congestive heart failure. Height 157 cm, weight 91 kg. DIMENSIONS : IVS: 1.2 LV: 4.6 LVPW: 1.2 RV: 3.6 Left atrium volume: 51 mL per meter squared IVC: 2.2 FINDINGS: The study is of fair technical quality corresponding to patient's body habitus. The patient is in atrial fibrillation with controlled rate. Left ventricle is normal size and overall normal systolic function. I cannot rule out subtle wall motion abnormalities but it appears unlikely. Overall ejection fraction (EF) estimated around 65%. Right ventricle was relatively poorly visualized but does not appear grossly enlarged. There is severe biatrial enlargement. Aortic valve is mildly sclerotic, but it has preserved mobility. Mitral valve also exhibits degenerative abnormalities with mitral annular calcifications but mobility of mitral leaflets is preserved. Tricuspid valve appears normal. Pulmonic valve was very poorly visualized. Small amount of pericardial fat pad is noted but no effusion. Inferior vena cava is dilated, but it was not well imaged to decide whether it collapses with inspiration. Aortic root is normal. Aortic arch and abdominal aorta were not well seen. Doppler interrogation reveals competent aortic valve without significant stenosis or insufficiency. There is no significant mitral valvular disease. Mild tricuspid insufficiency is seen. Calculated pulmonary artery pressure is around 40 mmHg corresponding to moderate pulmonary hypertension. Evaluation of diastolic function is inconclusive due to underlying atrial fibrillation. CONCLUSIONS: 1. Study is of fair technical quality, the patient is in atrial fibrillation with controlled rate. 2. Normal left ventricular (LV) size with mild left ventricular hypertrophy (LVH) and grossly preserved LV systolic function. 3. Aortic sclerosis but no significant stenosis or insufficiency. 4. Mild tricuspid insufficiency. 5. Elevated central venous pressure and likely moderate pulmonary hypertension. 6. Severe biatrial enlargement. [facility]
== END 2020-02-19 14:06 | disposition home or self-care (01) | DRG 293 ==
LOC: M ED 20:37 → M ED INP 02-18 01:51 → ENRESERV 02-18 02:21 → M MSPAV 02-18 02:51
PROVIDERS: ADMIT Internal Medicine; ATTEND Internal Medicine
DX: I11.0 Hypertensive heart disease with heart failure (principal); Z91.19 Patient's noncompliance with other medical treatment and regimen; Z79.899 Other long term (current) drug therapy; I50.33 Acute on chronic diastolic (congestive) heart failure; I48.91 Unspecified atrial fibrillation; E78.5 Hyperlipidemia, unspecified; J44.9 Chronic obstructive pulmonary disease, unspecified

== ENCOUNTER → 2020-04-17 | Outpatient (REF) | payer OTHER ==
[~2020-04-17] MED LIST changes: +DILT60TA PO; +METO100T5 PO; +POTA8CAP10 PO; +SPIR-10 PO
[2020-04-17 11:14] LABS: BASO # 0.1 10^3/uL (0.0-0.2); BASO % 0.6 % (0.0-1.0); EOS # 0.1 10^3/uL (0.0-0.5); EOS % 0.6 % (0.0-3.0); HEMATOCRIT 41.4 % (36.0-47.0); HEMOGLOBIN 13.1 g/dl (12.0-15.5); LYMPH # 1.9 10^3/uL (1.5-5.0); LYMPH % 18.3 % (24.0-44.0); MEAN CORPUSCULAR HEMOGLOBIN 29.4 pg (27.0-33.0); MEAN CORPUSCULAR HGB CONC 31.6 g/dl (32.0-36.5); MEAN CORPUSCULAR VOLUME 92.8 fl (80.0-96.0); MONO # 0.9 10^3/uL (0.0-0.8); MONO % 8.3 % (0.0-5.0); NEUTROPHILS # 7.4 10^3/uL (1.5-8.5); NEUTROPHILS % 71.8 % (36.0-66.0); PLATELET COUNT, AUTOMATED 312 10^3/uL (150-450); RED BLOOD COUNT 4.46 10^6/uL (4.00-5.40); WHITE BLOOD COUNT 10.3 10^3/uL (4.0-10.0)
[2020-04-17 11:51] LABS: ALBUMIN 3.8 GM/DL (3.2-5.2); ALT/SGPT 33 U/L (12-78); BILIRUBIN,TOTAL 0.6 MG/DL (0.2-1.0); BLOOD UREA NITROGEN 14 MG/DL (7-18); CALCIUM LEVEL 9.1 MG/DL (8.8-10.2); CARBON DIOXIDE LEVEL 33 MEQ/L (21-32); CHLORIDE LEVEL 97 MEQ/L (98-107); CHOLESTEROL LEVEL 197 MG/DL (<200); CHOLESTEROL RISK RATIO 1.774 (<5); CREATININE FOR GFR 0.87 MG/DL (0.55-1.30); FREE T4 1.15 NG/DL (0.76-1.46); GLOMERULAR FILTRATION RATE > 60.0 (>45); GLUCOSE, FASTING 150 MG/DL (70-100); HDL CHOLESTEROL 111 MG/DL (>40); LDL CHOLESTEROL 71 MG/DL (<100); NON-HDL-C 86 MG/DL; POTASSIUM SERUM 4.4 MEQ/L (3.5-5.1); SODIUM LEVEL 136 MEQ/L (136-145); TOTAL PROTEIN 7.4 GM/DL (6.4-8.2); TRIGLYCERIDES LEVEL 76 MG/DL (<150)
== END ==
LOC: M WUC 09:31
PROVIDERS: ATTEND Physician Assistant Medical
DX: R53.83 Other fatigue (principal); I10 Essential (primary) hypertension; E11.9 Type 2 diabetes mellitus without complications; E78.9 Disorder of lipoprotein metabolism, unspecified

== ENCOUNTER → 2020-07-15 | Outpatient (CLI) | payer OTHER ==
[2020-07-15 11:00] LABS: BASO # 0.1 10^3/uL (0.0-0.2); BASO % 0.6 % (0.0-1.0); EOS % 0.5 % (0.0-3.0); HEMATOCRIT 39.5 % (36.0-47.0); HEMOGLOBIN 12.5 g/dl (12.0-15.5); LYMPH # 1.4 10^3/uL (1.5-5.0); LYMPH % 16.5 % (24.0-44.0); MEAN CORPUSCULAR HEMOGLOBIN 29.1 pg (27.0-33.0); MEAN CORPUSCULAR HGB CONC 31.6 g/dl (32.0-36.5); MEAN CORPUSCULAR VOLUME 92.1 fl (80.0-96.0); MONO # 0.7 10^3/uL (0.0-0.8); MONO % 7.7 % (0.0-5.0); NEUTROPHILS # 6.4 10^3/uL (1.5-8.5); NEUTROPHILS % 74.5 % (36.0-66.0); PLATELET COUNT, AUTOMATED 287 10^3/uL (150-450); RED BLOOD COUNT 4.29 10^6/uL (4.00-5.40); WHITE BLOOD COUNT 8.7 10^3/uL (4.0-10.0)
[2020-07-15 11:08] LABS: INR 1.36; PROTHROMBIN TIME 17.1 SECONDS (12.5-14.3)
[2020-07-15 11:09] LABS: PARTIAL THROMBOPLASTIN TIME 32.6 SECONDS (24.2-38.5)
[2020-07-15 11:21] LABS: ERYTHROCYTE SEDIMENTATION RATE 28 mm/hr (0-30)
== END ==
LOC: M WUC 08:34
PROVIDERS: ATTEND Physician Assistant
DX: Z79.01 Long term (current) use of anticoagulants (principal)

== ENCOUNTER → 2020-07-27 | Outpatient (CLI) | payer OTHER ==
--- NOTE | 2020-07-27 11:14 | REP ---
INDICATION: RETINAL ARTERY BRANCH OCCLUSION, RIGHT EYE COMPARISON: Comparison prior carotid sonography 24 October 2014.. TECHNIQUE: Real-time ultrasound evaluation and duplex Doppler interrogation of the extracranial carotid vasculature is performed. FINDINGS: Antegrade flow is observed in both vertebral arteries. Right carotid: The right common carotid artery shows diffuse intimal thickening but is otherwise unremarkable. There mild to moderate mixed plaquing in the right carotid bulb and proximal ICA on two-dimensional scanning. Color flow and spectral Doppler interrogation are unremarkable on the right. Velocity chart right carotid: Right CCA PSV: 111 cm/S Right ICA PSV: 90.4 cm/S Right ICA EDV: 17.5 cm/S Right ECA PSV: 112 cm/S Right ICA/CCA ratio: 0.8 Left carotid: The left common carotid artery shows diffuse intimal thickening but is otherwise unremarkable. There is [id number] mixed plaquing in the left carotid bulb and proximal ICA on two-dimensional scanning. Color flow and spectral Doppler interrogation are unremarkable on the left. Velocity chart left carotid: Left CCA PSV: 72.4 cm/S Left ICA PSV: 101 cm/S Left ICA EDV: 20.4 cm/S Left ECA PSV: 101 cm/S Left ICA/CCA ratio: 1.3 IMPRESSION: Less than 50% category narrowing in the right internal carotid artery by Doppler velocity criteria. Less than 50% category narrowing in the left ICA by Doppler velocity criteria. <Electronically signed by Lavelle Hay > 07/27/20 0241
== END ==
LOC: M RAD 09:50
PROVIDERS: ATTEND Physician Assistant
DX: H34.231 Retinal artery branch occlusion, right eye (principal)

== ENCOUNTER → 2020-11-05 | Outpatient (CLI) | payer OTHER ==
[2020-11-05 09:55] LABS: BASO # 0.1 10^3/uL (0.0-0.2); BASO % 0.6 % (0.0-1.0); EOS # 0.1 10^3/uL (0.0-0.5); EOS % 0.6 % (0.0-3.0); HEMATOCRIT 40.2 % (36.0-47.0); HEMOGLOBIN 13.1 g/dl (12.0-15.5); LYMPH # 1.4 10^3/uL (1.5-5.0); LYMPH % 16.3 % (24.0-44.0); MEAN CORPUSCULAR HEMOGLOBIN 29.2 pg (27.0-33.0); MEAN CORPUSCULAR HGB CONC 32.6 g/dl (32.0-36.5); MEAN CORPUSCULAR VOLUME 89.5 fl (80.0-96.0); MONO # 0.7 10^3/uL (0.0-0.8); MONO % 7.9 % (2.0-8.0); NEUTROPHILS # 6.4 10^3/uL (1.5-8.5); NEUTROPHILS % 74.1 % (36.0-66.0); PLATELET COUNT, AUTOMATED 279 10^3/uL (150-450); RED BLOOD COUNT 4.49 10^6/uL (4.00-5.40); WHITE BLOOD COUNT 8.6 10^3/uL (4.0-10.0)
[2020-11-05 10:45] LABS: ALBUMIN 3.7 GM/DL (3.2-5.2); ALT/SGPT 32 U/L (12-78); BILIRUBIN,TOTAL 0.8 MG/DL (0.2-1.0); BLOOD UREA NITROGEN 11 MG/DL (7-18); CALCIUM LEVEL 9.4 MG/DL (8.8-10.2); CARBON DIOXIDE LEVEL 32 MEQ/L (21-32); CHLORIDE LEVEL 91 MEQ/L (98-107); CHOLESTEROL LEVEL 194 MG/DL (<200); CHOLESTEROL RISK RATIO 1.658 (<5); CREATININE FOR GFR 0.84 MG/DL (0.55-1.30); FREE T4 1.14 NG/DL (0.76-1.46); GLOMERULAR FILTRATION RATE > 60.0 (>45); GLUCOSE, FASTING 122 MG/DL (70-100); HDL CHOLESTEROL 117 MG/DL (>40); LDL CHOLESTEROL 62 MG/DL (<100); NON-HDL-C 77 MG/DL; POTASSIUM SERUM 4.7 MEQ/L (3.5-5.1); SODIUM LEVEL 131 MEQ/L (136-145); TOTAL PROTEIN 7.4 GM/DL (6.4-8.2); TRIGLYCERIDES LEVEL 76 MG/DL (<150)
[2020-11-05 11:06] LABS: HEMOGLOBIN A1c 6.1 %
== END ==
LOC: M WUC 08:10
PROVIDERS: ATTEND Physician Assistant Medical
DX: R53.83 Other fatigue (principal); I10 Essential (primary) hypertension; E78.2 Mixed hyperlipidemia; E11.9 Type 2 diabetes mellitus without complications

== ENCOUNTER 2022-02-23 11:53 | Inpatient (IN) | payer MEDICARE, OTHER ==
[~2022-02-23] VITALS: Ht 160 cm; Wt 81.9 kg
[~2022-02-23 11:53] MED LIST changes: -BISO10TA4 PO; +BISO1TAB19 PO; +POTA-151 PO; -POTA20TA6 PO
[2022-02-23] MEDS ORDERED: diazePAM 10MG/2ML SYRINGE (J3360 PER 5MG) IV ONE ×2 (12:25→15:05)
[2022-02-23 12:45] LABS: BASO # 0.1 10^3/uL (0.0-0.2); BASO % 0.5 % (0.0-1.0); EOS % 0.2 % (0.0-3.0); HEMATOCRIT 40.7 % (36.0-47.0); HEMOGLOBIN 13.5 g/dl (12.0-15.5); LYMPH # 1.1 10^3/uL (1.5-5.0); LYMPH % 9.8 % (24.0-44.0); MEAN CORPUSCULAR HEMOGLOBIN 29.9 pg (27.0-33.0); MEAN CORPUSCULAR HGB CONC 33.2 g/dl (32.0-36.5); MONO # 0.7 10^3/uL (0.0-0.8); MONO % 6.5 % (2.0-8.0); NEUTROPHILS # 9.1 10^3/uL (1.5-8.5); NEUTROPHILS % 82.7 % (36.0-66.0); PLATELET COUNT, AUTOMATED 300 10^3/uL (150-450); RED BLOOD COUNT 4.52 10^6/uL (4.00-5.40)
[2022-02-23 12:58] LABS: INR 1.7; PARTIAL THROMBOPLASTIN TIME 34.2 SECONDS (25.9-37.0); PROTHROMBIN TIME 20.4 SECONDS (12.7-14.5)
[2022-02-23 13:15] LABS: MB/CK RELATIVE INDEX 1.49 (< OR =4)
[2022-02-23 13:28] LABS: CALCIUM LEVEL 9.4 MG/DL (8.8-10.2); CREATININE FOR GFR 1.46 MG/DL (0.55-1.30); FREE T4 1.56 NG/DL (0.76-1.46); GLOMERULAR FILTRATION RATE 38.2 (>45); MAGNESIUM LEVEL 2.4 MG/DL (1.8-2.4); POTASSIUM SERUM 4.3 MEQ/L (3.5-5.1); THYROID STIMULATING HORMONE 0.673 uIU/ML (0.358-3.740)
[2022-02-23 13:37] LABS: RSV AMPLIFICATION NEGATIVE (NEGATIVE)
[2022-02-23] MEDS ORDERED: NS 1,000 ML IV SCH (14:30)
[2022-02-23] MEDS ORDERED: NS 500 ML IV ONE (14:30)
[2022-02-23] MEDS ORDERED: ALBU2.5V10 INH (15:25)
[2022-02-23] MEDS ORDERED: POTA1TAB21 PO (15:25)
[2022-02-23] MEDS ORDERED: FURO40TA2 PO (15:26)
[2022-02-23] MEDS ORDERED: HOME MED LIST COMPLETE! XX SCH (15:30)
[2022-02-23] MEDS ORDERED: ALBUTEROL SULFATE 2.5 MG/0.5 ML INH NEB SOLN INH PRN (16:20)
[2022-02-23] MEDS: FLUTICASONE HFA 220 MCG 12 GM INHALER (FLOVENT) INH SCH (19:31)
[2022-02-23 19:54] VITALS: BP 128/62
[2022-02-23] MEDS: ROSUVASTATIN 10 MG TAB (CRESTOR) PO SCH (20:53)
[2022-02-23] MEDS: APIXABAN 5 MG TAB (ELIQUIS) PO SCH (20:53)
[2022-02-23] MEDS: FUROSEMIDE 40MG/4ML VIAL (J1940) IV SCH (20:54)
[2022-02-23] MEDS: METOPROLOL TARTRATE 100MG TAB PO SCH (20:54)
[2022-02-24 04:46] LABS: OSMOLALITY URINE 311 MOSM/KG (50-1400); SODIUM,RANDOM URINE 94 MEQ/L
[2022-02-24 06:00] VITALS: BP 117/66
[2022-02-24 06:33] LABS: HEMATOCRIT 37.5 % (36.0-47.0); HEMOGLOBIN 12.4 g/dl (12.0-15.5); MEAN CORPUSCULAR HEMOGLOBIN 29.7 pg (27.0-33.0); MEAN CORPUSCULAR HGB CONC 33.1 g/dl (32.0-36.5); MEAN CORPUSCULAR VOLUME 89.9 fl (80.0-96.0); PLATELET COUNT, AUTOMATED 245 10^3/uL (150-450); RED BLOOD COUNT 4.17 10^6/uL (4.00-5.40)
[2022-02-24 07:03] LABS: ALBUMIN 3.4 GM/DL (3.2-5.2); BILIRUBIN,TOTAL 0.8 MG/DL (0.2-1.0); CALCIUM LEVEL 9.3 MG/DL (8.8-10.2); CREATININE FOR GFR 1.34 MG/DL (0.55-1.30); GLOMERULAR FILTRATION RATE 42.1 (>45); POTASSIUM SERUM 3.7 MEQ/L (3.5-5.1); TOTAL PROTEIN 6.3 GM/DL (6.4-8.2)
[2022-02-24] MEDS: FLUTICASONE HFA 220 MCG 12 GM INHALER (FLOVENT) INH SCH ×2 (07:23→19:51)
[2022-02-24] MEDS: TIOTROPIUM INHALER/CAPSULE (SPIRIVA) INH SCH (07:23)
[2022-02-24] MEDS: POTASSIUM CHLORIDE 10% LIQ 20 MEQ/15 ML UDC PO SCH (08:53)
[2022-02-24] MEDS: APIXABAN 5 MG TAB (ELIQUIS) PO SCH ×2 (08:54→20:19)
[2022-02-24] MEDS: METOPROLOL TARTRATE 100MG TAB PO SCH ×2 (08:59→20:19)
[2022-02-24] MEDS: FUROSEMIDE 40MG/4ML VIAL (J1940) IV SCH ×2 (09:00→20:18)
[2022-02-24] MEDS: SPIRONOLACTONE 25 MG TAB PO SCH (15:02)
[2022-02-24 19:41] VITALS: BP 139/69
[2022-02-24] MEDS: ROSUVASTATIN 10 MG TAB (CRESTOR) PO SCH (20:19)
[2022-02-25 05:09] VITALS: BP 139/70
[2022-02-25 06:12] LABS: HEMOGLOBIN 13.7 g/dl (12.0-15.5); MEAN CORPUSCULAR HGB CONC 32.6 g/dl (32.0-36.5); MEAN CORPUSCULAR VOLUME 88.8 fl (80.0-96.0); PLATELET COUNT, AUTOMATED 292 10^3/uL (150-450); RED BLOOD COUNT 4.73 10^6/uL (4.00-5.40); WHITE BLOOD COUNT 12.7 10^3/uL (4.0-10.0)
[2022-02-25 06:44] LABS: ALBUMIN 3.5 GM/DL (3.2-5.2); BILIRUBIN,TOTAL 0.7 MG/DL (0.2-1.0); CALCIUM LEVEL 9.6 MG/DL (8.8-10.2); CREATININE FOR GFR 1.46 MG/DL (0.55-1.30); GLOMERULAR FILTRATION RATE 38.2 (>45); POTASSIUM SERUM 3.5 MEQ/L (3.5-5.1); TOTAL PROTEIN 7.4 GM/DL (6.4-8.2)
[2022-02-25] MEDS ORDERED: FURO40TA2 PO (07:49)
[2022-02-25] MEDS ORDERED: MEDR4PAK PO (07:49)
[2022-02-25] MEDS: TIOTROPIUM INHALER/CAPSULE (SPIRIVA) INH SCH (08:00)
[2022-02-25] MEDS: FLUTICASONE HFA 220 MCG 12 GM INHALER (FLOVENT) INH SCH (08:00)
[2022-02-25 09:00] VITALS: BP 110/60
[2022-02-25] MEDS: METOPROLOL TARTRATE 100MG TAB PO SCH (09:00)
[2022-02-25] MEDS: POTASSIUM CHLORIDE 10% LIQ 20 MEQ/15 ML UDC PO SCH (09:33)
[2022-02-25] MEDS: APIXABAN 5 MG TAB (ELIQUIS) PO SCH (09:33)
[2022-02-25] MEDS: SPIRONOLACTONE 25 MG TAB PO SCH (09:33)
[2022-02-25] MEDS: FUROSEMIDE 40MG/4ML VIAL (J1940) IV SCH (09:34)
== END 2022-02-25 14:40 | disposition home health service (06) | DRG 555 ==
LOC: M ED 11:53 → M ED INP 16:20 → M MSPAV 19:25
PROVIDERS: ADMIT Internal Medicine; ATTEND Internal Medicine
DX: M62.81 Muscle weakness (generalized) (principal); I50.33 Acute on chronic diastolic (congestive) heart failure; J96.11 Chronic respiratory failure with hypoxia; N17.9 Acute kidney failure, unspecified; E87.1 Hypo-osmolality and hyponatremia; I13.0 Hypertensive heart and chronic kidney disease with heart failure and stage 1 through stage 4 chronic kidney disease, or unspecified chronic kidney disease; J44.9 Chronic obstructive pulmonary disease, unspecified; E78.5 Hyperlipidemia, unspecified; N18.30 Chronic kidney disease, stage 3 unspecified; I48.91 Unspecified atrial fibrillation; E87.6 Hypokalemia; R20.0 Anesthesia of skin; I27.20 Pulmonary hypertension, unspecified; Z87.891 Personal history of nicotine dependence; Z99.81 Dependence on supplemental oxygen; Z79.01 Long term (current) use of anticoagulants; Z79.899 Other long term (current) drug therapy

== ENCOUNTER 2022-03-16 13:51 | Inpatient (IN) | payer MEDICARE, OTHER ==
[~2022-03-16] VITALS: Ht 160 cm; Wt 80.2 kg
[~2022-03-16 13:51] MED LIST changes: +ALBU2.5V10 INH; +MEDR4PAK PO; +POTA1TAB21 PO
[2022-03-16 14:39] LABS: VENOUS BASE EXCESS 1.8 (-2.0-2.0); VENOUS HCO3 28.7 MEQ/L (23.0-27.0); VENOUS O2 SATURATION 59.8 % (60.0-80.0); VENOUS PARTIAL PRESSURE CO2 53.5 mmHg (38.0-50.0); VENOUS PARTIAL PRESSURE O2 31.6 mmHg (30.0-50.0); VENOUS PH 7.348 UNITS (7.330-7.430); VENOUS TOTAL CO2 30.4 MEQ/L (24.0-28.0)
[2022-03-16 14:49] LABS: BASO % 0.3 % (0.0-1.0); EOS % 0.2 % (0.0-3.0); HEMATOCRIT 47.4 % (36.0-47.0); HEMOGLOBIN 15.4 g/dl (12.0-15.5); LYMPH # 1.3 10^3/uL (1.5-5.0); LYMPH % 10.7 % (24.0-44.0); MEAN CORPUSCULAR HEMOGLOBIN 29.1 pg (27.0-33.0); MEAN CORPUSCULAR HGB CONC 32.5 g/dl (32.0-36.5); MEAN CORPUSCULAR VOLUME 89.4 fl (80.0-96.0); MONO # 0.6 10^3/uL (0.0-0.8); MONO % 4.6 % (2.0-8.0); NEUTROPHILS % 83.9 % (36.0-66.0); PLATELET COUNT, AUTOMATED 192 10^3/uL (150-450); WHITE BLOOD COUNT 11.9 10^3/uL (4.0-10.0)
[2022-03-16 15:30] LABS: RSV AMPLIFICATION NEGATIVE (NEGATIVE)
[2022-03-16 15:58] LABS: ALBUMIN 3.6 GM/DL (3.2-5.2); BILIRUBIN,DIRECT 0.2 MG/DL (0.0-0.2); BILIRUBIN,TOTAL 0.7 MG/DL (0.2-1.0); CALCIUM LEVEL 10.2 MG/DL (8.8-10.2); CREATININE FOR GFR 2.81 MG/DL (0.55-1.30); GLOMERULAR FILTRATION RATE 17.9 (>45); POTASSIUM SERUM 3.6 MEQ/L (3.5-5.1); THYROID STIMULATING HORMONE 0.468 uIU/ML (0.358-3.740); TOTAL PROTEIN 7.4 GM/DL (6.4-8.2)
[2022-03-16] MEDS ORDERED: NS 1,000 ML IV ONE (17:50)
[2022-03-16] MEDS ORDERED: FURO40TA2 PO (18:02)
[2022-03-16] MEDS ORDERED: OYST1TAB PO (18:02)
[2022-03-16] MEDS ORDERED: HOME MED LIST COMPLETE! XX SCH (18:05)
[2022-03-16] MEDS ORDERED: ALBUTEROL SULFATE 2.5 MG/0.5 ML INH NEB SOLN INH PRN (19:05)
[2022-03-16 20:50] VITALS: BP 131/75
[2022-03-16] MEDS: APIXABAN 5 MG TAB (ELIQUIS) PO SCH (21:26)
[2022-03-16] MEDS: ROSUVASTATIN 10 MG TAB (CRESTOR) PO SCH (21:26)
[2022-03-16] MEDS: METOPROLOL TARTRATE 100MG TAB PO SCH (21:26)
[2022-03-16] MEDS: NS 1,000 ML IV SCH (21:27)
[2022-03-17 06:00] VITALS: BP 122/65
[2022-03-17] MEDS: NS 1,000 ML IV SCH ×3 (07:51→20:07)
[2022-03-17] MEDS: cefTRIAXone SOD 1 GM in D5W MINI-BAG PLUS 50 ML IV SCH (08:11)
[2022-03-17] MEDS: APIXABAN 5 MG TAB (ELIQUIS) PO SCH ×2 (08:11→20:05)
[2022-03-17] MEDS: LACTOBACILLUS ACIDOPHILUS CAP (BACID) PO SCH ×2 (08:12→17:04)
[2022-03-17] MEDS: OYSTER SHELL CALCIUM 500 MG TAB PO SCH (08:12)
[2022-03-17] MEDS: METOPROLOL TARTRATE 100MG TAB PO SCH ×2 (08:14→20:06)
[2022-03-17 09:00] LABS: BASO % 0.4 % (0.0-1.0); HEMATOCRIT 43.5 % (36.0-47.0); HEMOGLOBIN 13.9 g/dl (12.0-15.5); LYMPH # 1.1 10^3/uL (1.5-5.0); LYMPH % 9.9 % (24.0-44.0); MEAN CORPUSCULAR HEMOGLOBIN 29.1 pg (27.0-33.0); MONO # 0.5 10^3/uL (0.0-0.8); MONO % 4.6 % (2.0-8.0); NEUTROPHILS % 84.8 % (36.0-66.0); PLATELET COUNT, AUTOMATED 159 10^3/uL (150-450); RED BLOOD COUNT 4.78 10^6/uL (4.00-5.40); WHITE BLOOD COUNT 10.7 10^3/uL (4.0-10.0)
[2022-03-17 09:43] LABS: CALCIUM LEVEL 8.5 MG/DL (8.8-10.2); CREATININE FOR GFR 2.16 MG/DL (0.55-1.30); GLOMERULAR FILTRATION RATE 24.3 (>45); POTASSIUM SERUM 3.1 MEQ/L (3.5-5.1)
[2022-03-17] MEDS ORDERED: POTASSIUM CHLORIDE 10MEQ SR TABLET PO ONE (12:35)
[2022-03-17 14:00] VITALS: BP 104/51
[2022-03-17] MEDS: ROSUVASTATIN 10 MG TAB (CRESTOR) PO SCH (20:05)
[2022-03-17 22:00] VITALS: BP 119/73
[2022-03-18 05:11] VITALS: BP 127/63
[2022-03-18] MEDS: NS 1,000 ML IV SCH ×2 (06:03→17:05)
[2022-03-18 08:35] LABS: BASO % 0.3 % (0.0-1.0); EOS % 0.3 % (0.0-3.0); HEMOGLOBIN 13.3 g/dl (12.0-15.5); LYMPH # 1.2 10^3/uL (1.5-5.0); LYMPH % 10.3 % (24.0-44.0); MEAN CORPUSCULAR HGB CONC 31.7 g/dl (32.0-36.5); MEAN CORPUSCULAR VOLUME 91.5 fl (80.0-96.0); MONO # 0.7 10^3/uL (0.0-0.8); NEUTROPHILS # 9.3 10^3/uL (1.5-8.5); NEUTROPHILS % 82.8 % (36.0-66.0); PLATELET COUNT, AUTOMATED 149 10^3/uL (150-450); RED BLOOD COUNT 4.59 10^6/uL (4.00-5.40); WHITE BLOOD COUNT 11.3 10^3/uL (4.0-10.0)
[2022-03-18] MEDS: APIXABAN 5 MG TAB (ELIQUIS) PO SCH ×2 (09:51→20:41)
[2022-03-18] MEDS: OYSTER SHELL CALCIUM 500 MG TAB PO SCH (09:51)
[2022-03-18] MEDS: LACTOBACILLUS ACIDOPHILUS CAP (BACID) PO SCH ×2 (09:51→17:05)
[2022-03-18] MEDS: METOPROLOL TARTRATE 100MG TAB PO SCH ×2 (09:52→20:42)
[2022-03-18] MEDS: cefTRIAXone SOD 1 GM in D5W MINI-BAG PLUS 50 ML IV SCH (10:40)
[2022-03-18 11:11] LABS: CALCIUM LEVEL 8.4 MG/DL (8.8-10.2); CREATININE FOR GFR 2.05 MG/DL (0.55-1.30); GLOMERULAR FILTRATION RATE 25.8 (>45); POTASSIUM SERUM 3.4 MEQ/L (3.5-5.1)
[2022-03-18] MEDS: VANCOMYCIN HCL 750 MG, VIAL MATE ADAPTER 1 EACH in NS 250 ML IV SCH ×2 (12:15→13:27)
[2022-03-18 14:00] VITALS: BP 128/72
[2022-03-18] MEDS ORDERED: PROMETHAZINE 25MG/ML 1ML VIAL IV PRN (18:45)
[2022-03-18 20:40] VITALS: BP 140/75
[2022-03-18] MEDS: ROSUVASTATIN 10 MG TAB (CRESTOR) PO SCH (20:41)
[2022-03-18] MEDS ORDERED: VANCOMYCIN HCL 750 MG, VIAL MATE ADAPTER 1 EACH in D5W 250 ML IV SCH (21:00)
[2022-03-19 06:13] LABS: HEMATOCRIT 36.5 % (36.0-47.0); HEMOGLOBIN 11.7 g/dl (12.0-15.5); MEAN CORPUSCULAR HGB CONC 32.1 g/dl (32.0-36.5); MEAN CORPUSCULAR VOLUME 93.6 fl (80.0-96.0); PLATELET COUNT, AUTOMATED 124 10^3/uL (150-450); WHITE BLOOD COUNT 9.4 10^3/uL (4.0-10.0)
[2022-03-19 06:23] VITALS: BP 143/76
[2022-03-19] MEDS: NS 1,000 ML IV SCH ×3 (06:28→20:09)
[2022-03-19 06:37] LABS: CALCIUM LEVEL 8.4 MG/DL (8.8-10.2); CREATININE FOR GFR 1.65 MG/DL (0.55-1.30); GLOMERULAR FILTRATION RATE 33.1 (>45); POTASSIUM SERUM 3.4 MEQ/L (3.5-5.1)
[2022-03-19 08:17] VITALS: BP 144/88
[2022-03-19] MEDS: APIXABAN 5 MG TAB (ELIQUIS) PO SCH ×2 (08:19→20:08)
[2022-03-19] MEDS: OYSTER SHELL CALCIUM 500 MG TAB PO SCH (08:19)
[2022-03-19] MEDS: METOPROLOL TARTRATE 100MG TAB PO SCH ×2 (08:19→20:08)
[2022-03-19] MEDS: LACTOBACILLUS ACIDOPHILUS CAP (BACID) PO SCH ×4 (08:20→20:07)
[2022-03-19] MEDS ORDERED: POTASSIUM CHLORIDE 10MEQ SR TABLET PO ONE (09:00)
[2022-03-19 10:01] LABS: ERYTHROCYTE SEDIMENTATION RATE 21 mm/hr (0-30)
[2022-03-19] MEDS: ceFAZolin SOD 2 GM in IV 1 EA IV SCH ×2 (10:09→20:09)
[2022-03-19 10:36] LABS: C REACTIVE PROTEIN QUANTITATIV 0.46 MG/DL (0.00-0.30)
[2022-03-19 14:00] VITALS: BP 129/69
[2022-03-19 17:19] LABS: CALCIUM LEVEL 8.9 MG/DL (8.8-10.2); CREATININE FOR GFR 1.74 MG/DL (0.55-1.30); GLOMERULAR FILTRATION RATE 31.2 (>45)
[2022-03-19 19:49] VITALS: BP 148/75
[2022-03-19] MEDS: ROSUVASTATIN 10 MG TAB (CRESTOR) PO SCH (20:07)
[2022-03-20 06:07] VITALS: BP 146/80
[2022-03-20 06:08] LABS: HEMATOCRIT 38.3 % (36.0-47.0); HEMOGLOBIN 12.1 g/dl (12.0-15.5); MEAN CORPUSCULAR HEMOGLOBIN 29.5 pg (27.0-33.0); MEAN CORPUSCULAR HGB CONC 31.6 g/dl (32.0-36.5); MEAN CORPUSCULAR VOLUME 93.4 fl (80.0-96.0); PLATELET COUNT, AUTOMATED 136 10^3/uL (150-450); WHITE BLOOD COUNT 9.2 10^3/uL (4.0-10.0)
[2022-03-20 06:26] LABS: CALCIUM LEVEL 8.6 MG/DL (8.8-10.2); CREATININE FOR GFR 1.64 MG/DL (0.55-1.30); GLOMERULAR FILTRATION RATE 33.4 (>45); POTASSIUM SERUM 3.8 MEQ/L (3.5-5.1)
[2022-03-20] MEDS ORDERED: NS 0.45% 1,000 ML IV ONE (08:00)
[2022-03-20] MEDS: OYSTER SHELL CALCIUM 500 MG TAB PO SCH (08:52)
[2022-03-20] MEDS: APIXABAN 5 MG TAB (ELIQUIS) PO SCH ×2 (08:52→20:13)
[2022-03-20] MEDS: LACTOBACILLUS ACIDOPHILUS CAP (BACID) PO SCH ×4 (08:53→20:12)
[2022-03-20] MEDS: METOPROLOL TARTRATE 100MG TAB PO SCH ×2 (08:57→20:13)
[2022-03-20] MEDS: ceFAZolin SOD 2 GM in IV 1 EA IV SCH ×2 (09:00→20:13)
[2022-03-20 14:00] VITALS: BP 130/65
[2022-03-20 14:28] LABS: C REACTIVE PROTEIN QUANTITATIV 0.8 MG/DL (0.00-0.30); CALCIUM LEVEL 8.7 MG/DL (8.8-10.2); CREATININE FOR GFR 1.58 MG/DL (0.55-1.30); GLOMERULAR FILTRATION RATE 34.8 (>45); POTASSIUM SERUM 3.5 MEQ/L (3.5-5.1)
[2022-03-20 20:10] VITALS: BP 131/68
[2022-03-20] MEDS: ROSUVASTATIN 10 MG TAB (CRESTOR) PO SCH (20:12)
[2022-03-21 06:00] VITALS: BP 131/68
[2022-03-21 06:11] LABS: HEMATOCRIT 37.7 % (36.0-47.0); MEAN CORPUSCULAR HEMOGLOBIN 29.6 pg (27.0-33.0); MEAN CORPUSCULAR HGB CONC 31.8 g/dl (32.0-36.5); MEAN CORPUSCULAR VOLUME 92.9 fl (80.0-96.0); PLATELET COUNT, AUTOMATED 149 10^3/uL (150-450); RED BLOOD COUNT 4.06 10^6/uL (4.00-5.40); WHITE BLOOD COUNT 8.5 10^3/uL (4.0-10.0)
[2022-03-21 06:39] LABS: CALCIUM LEVEL 8.8 MG/DL (8.8-10.2); CREATININE FOR GFR 1.73 MG/DL (0.55-1.30); GLOMERULAR FILTRATION RATE 31.4 (>45); POTASSIUM SERUM 3.6 MEQ/L (3.5-5.1)
[2022-03-21] MEDS: PENICILLIN V POTASSIUM 500 MG TAB PO SCH ×4 (08:18→20:01)
[2022-03-21] MEDS: LACTOBACILLUS ACIDOPHILUS CAP (BACID) PO SCH ×4 (08:18→20:01)
[2022-03-21] MEDS: OYSTER SHELL CALCIUM 500 MG TAB PO SCH (08:19)
[2022-03-21] MEDS: APIXABAN 5 MG TAB (ELIQUIS) PO SCH ×2 (08:19→20:02)
[2022-03-21] MEDS: METOPROLOL TARTRATE 100MG TAB PO SCH ×2 (08:24→20:03)
[2022-03-21 14:00] VITALS: BP 109/55
[2022-03-21] MEDS: ROSUVASTATIN 10 MG TAB (CRESTOR) PO SCH (20:02)
[2022-03-22 05:33] VITALS: BP 132/75
[2022-03-22 06:14] LABS: HEMATOCRIT 36.7 % (36.0-47.0); HEMOGLOBIN 11.7 g/dl (12.0-15.5); MEAN CORPUSCULAR HEMOGLOBIN 29.6 pg (27.0-33.0); MEAN CORPUSCULAR HGB CONC 31.9 g/dl (32.0-36.5); MEAN CORPUSCULAR VOLUME 92.9 fl (80.0-96.0); PLATELET COUNT, AUTOMATED 176 10^3/uL (150-450); RED BLOOD COUNT 3.95 10^6/uL (4.00-5.40); WHITE BLOOD COUNT 8.1 10^3/uL (4.0-10.0)
[2022-03-22 07:16] LABS: CREATININE FOR GFR 1.57 MG/DL (0.55-1.30); GLOMERULAR FILTRATION RATE 35.1 (>45)
[2022-03-22 07:17] LABS: POTASSIUM SERUM 3.6 MEQ/L (3.5-5.1)
[2022-03-22] MEDS: OYSTER SHELL CALCIUM 500 MG TAB PO SCH (08:23)
[2022-03-22] MEDS: LACTOBACILLUS ACIDOPHILUS CAP (BACID) PO SCH ×4 (08:23→20:14)
[2022-03-22] MEDS: APIXABAN 5 MG TAB (ELIQUIS) PO SCH ×2 (08:23→20:14)
[2022-03-22] MEDS: PENICILLIN V POTASSIUM 500 MG TAB PO SCH ×4 (08:23→20:14)
[2022-03-22] MEDS: METOPROLOL TARTRATE 100MG TAB PO SCH ×2 (08:24→20:15)
[2022-03-22] MEDS ORDERED: MIRALAX *UNIT DOSE* 17GM PACKET PO PRN (16:50)
[2022-03-22] MEDS: FUROSEMIDE 40MG/4ML VIAL (J1940) IV SCH (17:04)
[2022-03-22] MEDS: ROSUVASTATIN 10 MG TAB (CRESTOR) PO SCH (20:15)
[2022-03-23 06:00] VITALS: BP 133/77
[2022-03-23 06:08] LABS: HEMATOCRIT 36.3 % (36.0-47.0); MEAN CORPUSCULAR HEMOGLOBIN 29.6 pg (27.0-33.0); MEAN CORPUSCULAR HGB CONC 33.1 g/dl (32.0-36.5); MEAN CORPUSCULAR VOLUME 89.6 fl (80.0-96.0); PLATELET COUNT, AUTOMATED 185 10^3/uL (150-450); RED BLOOD COUNT 4.05 10^6/uL (4.00-5.40); WHITE BLOOD COUNT 7.9 10^3/uL (4.0-10.0)
[2022-03-23 06:36] LABS: CALCIUM LEVEL 8.9 MG/DL (8.8-10.2); CREATININE FOR GFR 1.66 MG/DL (0.55-1.30); GLOMERULAR FILTRATION RATE 32.9 (>45); POTASSIUM SERUM 2.8 MEQ/L (3.5-5.1)
[2022-03-23] MEDS ORDERED: KCL 10MEQ/100ML SWI (KRUN) 10 MEQ in IV 1 EA IV ONE (07:00)
[2022-03-23] MEDS ORDERED: POTASSIUM CHLORIDE 10% LIQ 20 MEQ/15 ML UDC PO ONE (07:00)
[2022-03-23 07:42] LABS: MAGNESIUM LEVEL 1.6 MG/DL (1.8-2.4)
[2022-03-23] MEDS: FUROSEMIDE 40MG/4ML VIAL (J1940) IV SCH (09:17)
[2022-03-23] MEDS: METOPROLOL TARTRATE 100MG TAB PO SCH ×2 (09:17→20:56)
[2022-03-23] MEDS: OYSTER SHELL CALCIUM 500 MG TAB PO SCH (09:18)
[2022-03-23] MEDS: APIXABAN 5 MG TAB (ELIQUIS) PO SCH ×2 (09:18→20:54)
[2022-03-23] MEDS: SENNA 8.6 MG TAB (SENOKOT) PO SCH (09:18)
[2022-03-23] MEDS: LACTOBACILLUS ACIDOPHILUS CAP (BACID) PO SCH ×4 (09:18→20:55)
[2022-03-23] MEDS: PENICILLIN V POTASSIUM 500 MG TAB PO SCH ×4 (09:18→20:55)
[2022-03-23] MEDS ORDERED: POTASSIUM CHLORIDE 10MEQ SR TABLET PO ONE (15:10)
[2022-03-23] MEDS: KCL 10MEQ/100ML SWI (KRUN) 10 MEQ in IV 1 EA IV SCH ×2 (16:17→17:18)
[2022-03-23] MEDS: ROSUVASTATIN 10 MG TAB (CRESTOR) PO SCH (20:54)
[2022-03-23 21:12] LABS: CALCIUM LEVEL 8.9 MG/DL (8.8-10.2); CREATININE FOR GFR 1.75 MG/DL (0.55-1.30); POTASSIUM SERUM 3.7 MEQ/L (3.5-5.1)
[2022-03-24 05:11] VITALS: BP 117/66
[2022-03-24 06:20] LABS: HEMATOCRIT 35.9 % (36.0-47.0); HEMOGLOBIN 11.5 g/dl (12.0-15.5); MEAN CORPUSCULAR HEMOGLOBIN 29.4 pg (27.0-33.0); MEAN CORPUSCULAR VOLUME 91.8 fl (80.0-96.0); PLATELET COUNT, AUTOMATED 214 10^3/uL (150-450); RED BLOOD COUNT 3.91 10^6/uL (4.00-5.40); WHITE BLOOD COUNT 7.2 10^3/uL (4.0-10.0)
[2022-03-24 07:22] LABS: CALCIUM LEVEL 8.9 MG/DL (8.8-10.2); CREATININE FOR GFR 1.61 MG/DL (0.55-1.30); GLOMERULAR FILTRATION RATE 34.1 (>45)
[2022-03-24] MEDS: POTASSIUM CHLORIDE 10% LIQ 20 MEQ/15 ML UDC PO SCH ×2 (08:34→20:31)
[2022-03-24] MEDS: FUROSEMIDE 40MG/4ML VIAL (J1940) IV SCH (08:38)
[2022-03-24] MEDS: KCL 10MEQ/100ML SWI (KRUN) 10 MEQ in IV 1 EA IV SCH ×3 (08:38→10:57)
[2022-03-24] MEDS: PENICILLIN V POTASSIUM 500 MG TAB PO SCH ×4 (08:38→20:32)
[2022-03-24] MEDS: METOPROLOL TARTRATE 100MG TAB PO SCH ×2 (08:39→20:33)
[2022-03-24] MEDS: SENNA 8.6 MG TAB (SENOKOT) PO SCH (08:39)
[2022-03-24] MEDS: APIXABAN 5 MG TAB (ELIQUIS) PO SCH ×2 (08:39→20:32)
[2022-03-24] MEDS: MAGNESIUM OXIDE 400MG TAB (MAG-OX) PO SCH ×2 (08:39→20:32)
[2022-03-24] MEDS: LACTOBACILLUS ACIDOPHILUS CAP (BACID) PO SCH ×4 (08:39→20:32)
[2022-03-24] MEDS: OYSTER SHELL CALCIUM 500 MG TAB PO SCH (08:39)
[2022-03-24] MEDS: ROSUVASTATIN 10 MG TAB (CRESTOR) PO SCH (20:32)
[2022-03-24 22:00] VITALS: BP 131/67
[2022-03-25 06:00] VITALS: BP 118/64
[2022-03-25 07:27] LABS: HEMATOCRIT 36.4 % (36.0-47.0); HEMOGLOBIN 11.8 g/dl (12.0-15.5); MEAN CORPUSCULAR HEMOGLOBIN 29.9 pg (27.0-33.0); MEAN CORPUSCULAR HGB CONC 32.4 g/dl (32.0-36.5); MEAN CORPUSCULAR VOLUME 92.2 fl (80.0-96.0); PLATELET COUNT, AUTOMATED 221 10^3/uL (150-450); RED BLOOD COUNT 3.95 10^6/uL (4.00-5.40); WHITE BLOOD COUNT 7.2 10^3/uL (4.0-10.0)
[2022-03-25] MEDS: APIXABAN 5 MG TAB (ELIQUIS) PO SCH ×2 (08:06→20:12)
[2022-03-25] MEDS: LACTOBACILLUS ACIDOPHILUS CAP (BACID) PO SCH ×4 (08:06→20:11)
[2022-03-25] MEDS: POTASSIUM CHLORIDE 10% LIQ 20 MEQ/15 ML UDC PO SCH ×2 (08:06→20:12)
[2022-03-25] MEDS: SENNA 8.6 MG TAB (SENOKOT) PO SCH (08:06)
[2022-03-25] MEDS: FUROSEMIDE 40MG/4ML VIAL (J1940) IV SCH (08:06)
[2022-03-25] MEDS: PENICILLIN V POTASSIUM 500 MG TAB PO SCH ×4 (08:06→20:12)
[2022-03-25] MEDS: MAGNESIUM OXIDE 400MG TAB (MAG-OX) PO SCH ×2 (08:07→20:12)
[2022-03-25] MEDS: OYSTER SHELL CALCIUM 500 MG TAB PO SCH (08:07)
[2022-03-25] MEDS: METOPROLOL TARTRATE 100MG TAB PO SCH ×2 (08:09→20:12)
[2022-03-25 08:14] LABS: CALCIUM LEVEL 9.3 MG/DL (8.8-10.2); CREATININE FOR GFR 1.47 MG/DL (0.55-1.30); GLOMERULAR FILTRATION RATE 37.9 (>45); MAGNESIUM LEVEL 1.8 MG/DL (1.8-2.4); POTASSIUM SERUM 3.4 MEQ/L (3.5-5.1)
[2022-03-25 09:00] VITALS: BP 119/67
[2022-03-25] MEDS: ROSUVASTATIN 10 MG TAB (CRESTOR) PO SCH (20:11)
[2022-03-25 22:00] VITALS: BP 156/66
[2022-03-26 06:00] VITALS: BP 156/66
[2022-03-26] MEDS: MAGNESIUM OXIDE 400MG TAB (MAG-OX) PO SCH ×2 (08:18→19:32)
[2022-03-26] MEDS: OYSTER SHELL CALCIUM 500 MG TAB PO SCH (08:18)
[2022-03-26] MEDS: PENICILLIN V POTASSIUM 500 MG TAB PO SCH ×4 (08:18→19:32)
[2022-03-26] MEDS: LACTOBACILLUS ACIDOPHILUS CAP (BACID) PO SCH ×4 (08:18→19:34)
[2022-03-26] MEDS: SENNA 8.6 MG TAB (SENOKOT) PO SCH (08:18)
[2022-03-26] MEDS: POTASSIUM CHLORIDE 10% LIQ 20 MEQ/15 ML UDC PO SCH ×2 (08:19→09:00)
[2022-03-26] MEDS: APIXABAN 5 MG TAB (ELIQUIS) PO SCH ×2 (08:19→19:31)
[2022-03-26] MEDS: METOPROLOL TARTRATE 100MG TAB PO SCH ×2 (08:20→19:31)
[2022-03-26] MEDS: ROSUVASTATIN 10 MG TAB (CRESTOR) PO SCH (19:32)
[2022-03-26] MEDS: POTASSIUM CHLORIDE 10MEQ SR TABLET PO SCH (19:33)
[2022-03-26 21:34] VITALS: BP 121/68
[2022-03-27 05:37] VITALS: BP 130/75
[2022-03-27] MEDS: MAGNESIUM OXIDE 400MG TAB (MAG-OX) PO SCH ×2 (08:09→20:49)
[2022-03-27] MEDS: PENICILLIN V POTASSIUM 500 MG TAB PO SCH ×4 (08:09→20:49)
[2022-03-27] MEDS: LACTOBACILLUS ACIDOPHILUS CAP (BACID) PO SCH ×4 (08:09→20:49)
[2022-03-27] MEDS: SENNA 8.6 MG TAB (SENOKOT) PO SCH (08:09)
[2022-03-27] MEDS: OYSTER SHELL CALCIUM 500 MG TAB PO SCH (08:09)
[2022-03-27] MEDS: POTASSIUM CHLORIDE 10MEQ SR TABLET PO SCH ×2 (08:10→20:49)
[2022-03-27] MEDS: APIXABAN 5 MG TAB (ELIQUIS) PO SCH ×2 (08:11→20:49)
[2022-03-27] MEDS: METOPROLOL TARTRATE 100MG TAB PO SCH ×2 (08:11→20:50)
[2022-03-27] MEDS: FUROSEMIDE 40 MG TAB PO SCH (10:22)
[2022-03-27 20:44] VITALS: BP 129/80
[2022-03-27] MEDS: ROSUVASTATIN 10 MG TAB (CRESTOR) PO SCH (20:50)
[2022-03-28 05:30] VITALS: BP 127/78
[2022-03-28 07:12] LABS: HEMATOCRIT 40.4 % (36.0-47.0); HEMOGLOBIN 12.6 g/dl (12.0-15.5); MEAN CORPUSCULAR HGB CONC 31.2 g/dl (32.0-36.5); MEAN CORPUSCULAR VOLUME 93.1 fl (80.0-96.0); PLATELET COUNT, AUTOMATED 307 10^3/uL (150-450); RED BLOOD COUNT 4.34 10^6/uL (4.00-5.40); WHITE BLOOD COUNT 7.8 10^3/uL (4.0-10.0)
[2022-03-28 07:33] LABS: CALCIUM LEVEL 9.2 MG/DL (8.8-10.2); CREATININE FOR GFR 1.6 MG/DL (0.55-1.30); GLOMERULAR FILTRATION RATE 34.3 (>45); MAGNESIUM LEVEL 2.4 MG/DL (1.8-2.4); PHOSPHORUS LEVEL 1.9 MG/DL (2.5-4.9); POTASSIUM SERUM 3.6 MEQ/L (3.5-5.1)
[2022-03-28] MEDS: OYSTER SHELL CALCIUM 500 MG TAB PO SCH (08:14)
[2022-03-28] MEDS: LACTOBACILLUS ACIDOPHILUS CAP (BACID) PO SCH ×4 (08:14→21:11)
[2022-03-28] MEDS: APIXABAN 5 MG TAB (ELIQUIS) PO SCH ×2 (08:14→21:11)
[2022-03-28] MEDS: SENNA 8.6 MG TAB (SENOKOT) PO SCH (08:14)
[2022-03-28] MEDS: POTASSIUM CHLORIDE 10MEQ SR TABLET PO SCH ×2 (08:14→21:10)
[2022-03-28] MEDS: FUROSEMIDE 40 MG TAB PO SCH (08:15)
[2022-03-28] MEDS: MAGNESIUM OXIDE 400MG TAB (MAG-OX) PO SCH ×2 (08:15→21:11)
[2022-03-28] MEDS: METOPROLOL TARTRATE 100MG TAB PO SCH ×2 (08:15→21:11)
[2022-03-28 14:00] VITALS: BP 120/68
[2022-03-28] MEDS: ROSUVASTATIN 10 MG TAB (CRESTOR) PO SCH (21:09)
[2022-03-28 21:10] VITALS: BP 133/74
[2022-03-28 21:48] VITALS: BP 120/67
[2022-03-29 05:04] VITALS: BP 119/66
[2022-03-29] MEDS: MAGNESIUM OXIDE 400MG TAB (MAG-OX) PO SCH (08:37)
[2022-03-29] MEDS: FUROSEMIDE 40 MG TAB PO SCH (08:37)
[2022-03-29] MEDS: APIXABAN 5 MG TAB (ELIQUIS) PO SCH (08:37)
[2022-03-29] MEDS: POTASSIUM CHLORIDE 10MEQ SR TABLET PO SCH (08:37)
[2022-03-29] MEDS: LACTOBACILLUS ACIDOPHILUS CAP (BACID) PO SCH ×2 (08:37→12:48)
[2022-03-29 08:38] VITALS: BP 120/62
[2022-03-29] MEDS: SENNA 8.6 MG TAB (SENOKOT) PO SCH (08:38)
[2022-03-29] MEDS: METOPROLOL TARTRATE 100MG TAB PO SCH (08:38)
[2022-03-29] MEDS: OYSTER SHELL CALCIUM 500 MG TAB PO SCH (08:38)
== END 2022-03-29 13:31 | DRG 683 ==
LOC: EDBD 13:51 → M ED 13:51 → M ED INP 17:47 → ENRESERV 19:39 → M MSPAV 20:46
PROVIDERS: ADMIT General Practice; ATTEND Student in an Organized Health Care Education/Training Program
DX: N17.9 Acute kidney failure, unspecified (principal); I50.32 Chronic diastolic (congestive) heart failure; J96.11 Chronic respiratory failure with hypoxia; I13.0 Hypertensive heart and chronic kidney disease with heart failure and stage 1 through stage 4 chronic kidney disease, or unspecified chronic kidney disease; I48.20 Chronic atrial fibrillation, unspecified; E87.0 Hyperosmolality and hypernatremia; I36.1 Nonrheumatic tricuspid (valve) insufficiency; J44.9 Chronic obstructive pulmonary disease, unspecified; I27.20 Pulmonary hypertension, unspecified; Z99.81 Dependence on supplemental oxygen; K59.00 Constipation, unspecified; N18.4 Chronic kidney disease, stage 4 (severe); R53.1 Weakness; Z87.891 Personal history of nicotine dependence; E78.5 Hyperlipidemia, unspecified; E87.6 Hypokalemia; E86.0 Dehydration; E87.8 Other disorders of electrolyte and fluid balance, not elsewhere classified; I16.0 Hypertensive urgency; Z74.1 Need for assistance with personal care; Z20.822 Contact with and (suspected) exposure to COVID-19; Z79.899 Other long term (current) drug therapy; Z79.01 Long term (current) use of anticoagulants

== ENCOUNTER 2022-06-01 10:10 | Inpatient (IN) | payer MEDICARE, OTHER ==
[~2022-06-01] VITALS: Ht 160 cm; Wt 78.2 kg
[~2022-06-01 10:10] MED LIST changes: +OYST1TAB PO
[2022-06-01 10:41] LABS: BASO # 0.1 10^3/uL (0.0-0.2); BASO % 0.6 % (0.0-1.0); EOS # 0.1 10^3/uL (0.0-0.5); EOS % 0.8 % (0.0-3.0); HEMATOCRIT 39.8 % (36.0-47.0); HEMOGLOBIN 12.8 g/dl (12.0-15.5); LYMPH # 0.7 10^3/uL (1.5-5.0); LYMPH % 4.9 % (24.0-44.0); MEAN CORPUSCULAR HEMOGLOBIN 28.4 pg (27.0-33.0); MEAN CORPUSCULAR HGB CONC 32.2 g/dl (32.0-36.5); MEAN CORPUSCULAR VOLUME 88.2 fl (80.0-96.0); MONO % 7.3 % (2.0-8.0); NEUTROPHILS # 11.8 10^3/uL (1.5-8.5); PLATELET COUNT, AUTOMATED 317 10^3/uL (150-450); RED BLOOD COUNT 4.51 10^6/uL (4.00-5.40); WHITE BLOOD COUNT 13.7 10^3/uL (4.0-10.0)
[2022-06-01] MEDS: NS 1,000 ML IV SCH ×2 (10:55→21:41)
[2022-06-01 11:27] LABS: RSV AMPLIFICATION NEGATIVE (NEGATIVE)
[2022-06-01 11:55] LABS: ALBUMIN 3.2 GM/DL (3.2-5.2); BILIRUBIN,DIRECT 0.5 MG/DL (0.0-0.2); CALCIUM LEVEL 9.8 MG/DL (8.8-10.2); CREATININE FOR GFR 2.79 MG/DL (0.55-1.30); GLOMERULAR FILTRATION RATE 18.1 (>45); POTASSIUM SERUM 3.7 MEQ/L (3.5-5.1); THYROID STIMULATING HORMONE 0.952 uIU/ML (0.358-3.740); TOTAL PROTEIN 7.8 GM/DL (6.4-8.2)
[2022-06-01] MEDS ORDERED: diphenhydrAMINE 50MG/ML VIAL (J1200) IV STA (13:03)
[2022-06-01 13:46] LABS: MAGNESIUM LEVEL 1.2 MG/DL (1.8-2.4)
[2022-06-01 15:05] LABS: OSMOLALITY URINE 258 MOSM/KG (50-1400)
[2022-06-01] MEDS ORDERED: HOME MED LIST COMPLETE! XX SCH (15:10)
[2022-06-01 15:13] LABS: CREATININE,RANDOM URINE 28.2 MG/DL; POTASSIUM RANDOM URINE 20.3 MEQ/L; SODIUM,RANDOM URINE 70 MEQ/L
[2022-06-01] MEDS ORDERED: ALBUTEROL SULFATE 2.5 MG/0.5 ML INH NEB SOLN INH PRN (15:40)
[2022-06-01 15:45] LABS: PROTEIN, URINE MANUAL 1+ mg/dL (NEGATIVE)
[2022-06-01] MEDS: MAG SULF 1GM/100ML (MAG RUN) 1 GM in IV 1 EA IV SCH ×2 (15:59→17:07)
[2022-06-01 16:00] VITALS: BP 120/62
[2022-06-01 16:48] LABS: SQUAMOUS EPITHELIAL CELL URINE MOD AMOUNT /hpf (SMALL AMT)
[2022-06-01 16:49] LABS: BACTERIA, URINE SMALL AMOUNT; RBC, URINE 0-1 /hpf (0-3); TRANSITIONAL EPI CELLS, URINE SMALL AMOUNT /hpf
[2022-06-01] MEDS: OYSTER SHELL CALCIUM 500 MG TAB PO SCH (17:07)
[2022-06-01 20:39] VITALS: BP 122/65
[2022-06-01] MEDS: APIXABAN 5 MG TAB (ELIQUIS) PO SCH (21:39)
[2022-06-01] MEDS: SPIRONOLACTONE 25 MG TAB PO SCH (21:39)
[2022-06-01] MEDS: ROSUVASTATIN 10 MG TAB (CRESTOR) PO SCH (21:39)
[2022-06-01] MEDS: METOPROLOL TARTRATE 100MG TAB PO SCH (21:39)
[2022-06-01] MEDS: NYSTATIN 100,000 UNITS/GM TOPICAL PWD 15 GM TOP SCH (23:42)
[2022-06-02 05:57] LABS: HEMATOCRIT 34.1 % (36.0-47.0); HEMOGLOBIN 10.9 g/dl (12.0-15.5); MEAN CORPUSCULAR HEMOGLOBIN 28.5 pg (27.0-33.0); MEAN CORPUSCULAR VOLUME 89.3 fl (80.0-96.0); PLATELET COUNT, AUTOMATED 281 10^3/uL (150-450); RED BLOOD COUNT 3.82 10^6/uL (4.00-5.40); WHITE BLOOD COUNT 11.9 10^3/uL (4.0-10.0)
[2022-06-02] MEDS: NS 1,000 ML IV SCH ×2 (06:22→16:13)
[2022-06-02 06:32] LABS: CALCIUM LEVEL 8.9 MG/DL (8.8-10.2); CREATININE FOR GFR 2.35 MG/DL (0.55-1.30); POTASSIUM SERUM 3.2 MEQ/L (3.5-5.1)
[2022-06-02 06:44] VITALS: BP 120/62
[2022-06-02] MEDS ORDERED: POTASSIUM CHLORIDE 10MEQ SR TABLET PO ONE (07:25)
[2022-06-02] MEDS: OYSTER SHELL CALCIUM 500 MG TAB PO SCH (08:29)
[2022-06-02] MEDS: NYSTATIN 100,000 UNITS/GM TOPICAL PWD 15 GM TOP SCH ×2 (08:29→21:01)
[2022-06-02] MEDS: METOPROLOL TARTRATE 100MG TAB PO SCH ×2 (08:29→21:00)
[2022-06-02] MEDS: APIXABAN 5 MG TAB (ELIQUIS) PO SCH ×2 (08:29→21:00)
[2022-06-02 14:00] VITALS: BP 113/69
[2022-06-02] MEDS: SPIRONOLACTONE 25 MG TAB PO SCH (21:00)
[2022-06-02] MEDS: ROSUVASTATIN 10 MG TAB (CRESTOR) PO SCH (21:00)
[2022-06-02 21:05] VITALS: BP 123/74
[2022-06-03] MEDS: NS 1,000 ML IV SCH ×3 (02:22→20:47)
[2022-06-03] MEDS ORDERED: BISACODYL 5 MG TAB PO PRN (02:40)
[2022-06-03] MEDS: DOCUSATE SODIUM 100MG CAPSULE PO SCH ×3 (02:51→20:43)
[2022-06-03 05:15] VITALS: BP 116/59
[2022-06-03 06:44] LABS: HEMATOCRIT 33.2 % (36.0-47.0); HEMOGLOBIN 10.4 g/dl (12.0-15.5); MEAN CORPUSCULAR HEMOGLOBIN 28.4 pg (27.0-33.0); MEAN CORPUSCULAR HGB CONC 31.3 g/dl (32.0-36.5); MEAN CORPUSCULAR VOLUME 90.7 fl (80.0-96.0); PLATELET COUNT, AUTOMATED 270 10^3/uL (150-450); RED BLOOD COUNT 3.66 10^6/uL (4.00-5.40); WHITE BLOOD COUNT 10.6 10^3/uL (4.0-10.0)
[2022-06-03 07:08] LABS: CALCIUM LEVEL 8.5 MG/DL (8.8-10.2); CREATININE FOR GFR 1.91 MG/DL (0.55-1.30); POTASSIUM SERUM 3.3 MEQ/L (3.5-5.1)
[2022-06-03] MEDS: OYSTER SHELL CALCIUM 500 MG TAB PO SCH (08:38)
[2022-06-03] MEDS: METOPROLOL TARTRATE 100MG TAB PO SCH ×2 (08:38→20:43)
[2022-06-03] MEDS: MIRALAX *UNIT DOSE* 17GM PACKET PO SCH (08:38)
[2022-06-03] MEDS: APIXABAN 5 MG TAB (ELIQUIS) PO SCH ×2 (08:38→20:43)
[2022-06-03] MEDS: NYSTATIN 100,000 UNITS/GM TOPICAL PWD 15 GM TOP SCH ×2 (08:38→20:44)
[2022-06-03] MEDS ORDERED: FUROSEMIDE 40MG/4ML VIAL (J1940) IV ONE (11:30)
[2022-06-03 14:00] VITALS: BP 129/79
[2022-06-03 20:41] VITALS: BP 126/72
[2022-06-03] MEDS: SPIRONOLACTONE 25 MG TAB PO SCH (20:43)
[2022-06-03] MEDS: ROSUVASTATIN 10 MG TAB (CRESTOR) PO SCH (20:43)
[2022-06-04] MEDS: ONDANSETRON 4MG 2ML VIAL IV PRN ×2 (00:02→23:25)
[2022-06-04 04:20] VITALS: BP 116/60
[2022-06-04 06:11] LABS: HEMATOCRIT 32.2 % (36.0-47.0); HEMOGLOBIN 10.1 g/dl (12.0-15.5); MEAN CORPUSCULAR HEMOGLOBIN 28.6 pg (27.0-33.0); MEAN CORPUSCULAR HGB CONC 31.4 g/dl (32.0-36.5); MEAN CORPUSCULAR VOLUME 91.2 fl (80.0-96.0); PLATELET COUNT, AUTOMATED 270 10^3/uL (150-450); RED BLOOD COUNT 3.53 10^6/uL (4.00-5.40); WHITE BLOOD COUNT 10.7 10^3/uL (4.0-10.0)
[2022-06-04 07:19] LABS: CALCIUM LEVEL 8.6 MG/DL (8.8-10.2); CREATININE FOR GFR 1.74 MG/DL (0.55-1.30); GLOMERULAR FILTRATION RATE 31.2 (>45); MAGNESIUM LEVEL 2.3 MG/DL (1.8-2.4)
[2022-06-04] MEDS: APIXABAN 5 MG TAB (ELIQUIS) PO SCH ×2 (09:26→21:06)
[2022-06-04] MEDS: METOPROLOL TARTRATE 100MG TAB PO SCH ×2 (09:26→21:07)
[2022-06-04] MEDS: DOCUSATE SODIUM 100MG CAPSULE PO SCH ×2 (09:26→21:06)
[2022-06-04] MEDS: OYSTER SHELL CALCIUM 500 MG TAB PO SCH (09:26)
[2022-06-04] MEDS: NYSTATIN 100,000 UNITS/GM TOPICAL PWD 15 GM TOP SCH ×2 (09:27→21:08)
[2022-06-04] MEDS: FUROSEMIDE 40 MG TAB PO SCH (09:29)
[2022-06-04] MEDS: MIRALAX *UNIT DOSE* 17GM PACKET PO SCH (09:29)
[2022-06-04 14:00] VITALS: BP 119/59
[2022-06-04 21:00] VITALS: BP 118/67
[2022-06-04] MEDS: ROSUVASTATIN 10 MG TAB (CRESTOR) PO SCH (21:07)
[2022-06-04] MEDS: SPIRONOLACTONE 25 MG TAB PO SCH (21:07)
[2022-06-05 04:10] VITALS: BP 104/66
[2022-06-05 06:45] LABS: HEMATOCRIT 33.6 % (36.0-47.0); HEMOGLOBIN 10.7 g/dl (12.0-15.5); MEAN CORPUSCULAR HEMOGLOBIN 28.5 pg (27.0-33.0); MEAN CORPUSCULAR HGB CONC 31.8 g/dl (32.0-36.5); MEAN CORPUSCULAR VOLUME 89.6 fl (80.0-96.0); PLATELET COUNT, AUTOMATED 300 10^3/uL (150-450); RED BLOOD COUNT 3.75 10^6/uL (4.00-5.40); WHITE BLOOD COUNT 11.8 10^3/uL (4.0-10.0)
[2022-06-05 07:19] LABS: CALCIUM LEVEL 9.4 MG/DL (8.8-10.2); CREATININE FOR GFR 1.94 MG/DL (0.55-1.30); GLOMERULAR FILTRATION RATE 27.5 (>45); MAGNESIUM LEVEL 2.2 MG/DL (1.8-2.4)
[2022-06-05] MEDS: DOCUSATE SODIUM 100MG CAPSULE PO SCH (08:51)
[2022-06-05] MEDS: OYSTER SHELL CALCIUM 500 MG TAB PO SCH (08:51)
[2022-06-05 08:52] VITALS: BP 104/66
[2022-06-05] MEDS: FUROSEMIDE 40 MG TAB PO SCH (08:52)
[2022-06-05] MEDS: METOPROLOL TARTRATE 100MG TAB PO SCH (08:52)
[2022-06-05] MEDS: APIXABAN 5 MG TAB (ELIQUIS) PO SCH (08:52)
[2022-06-05] MEDS: NYSTATIN 100,000 UNITS/GM TOPICAL PWD 15 GM TOP SCH (08:53)
[2022-06-05] MEDS: MIRALAX *UNIT DOSE* 17GM PACKET PO SCH (08:53)
[2022-06-05] MEDS ORDERED: K-TA10TA PO (09:15)
[2022-06-05] MEDS ORDERED: POTASSIUM CHLORIDE 10MEQ SR TABLET PO ONE (09:20)
== END 2022-06-05 10:29 | disposition home or self-care (01) | DRG 682 ==
LOC: EDBD 10:10 → M ED 10:10 → M ED INP 15:30 → M MSPAV 16:41
PROVIDERS: ADMIT Internal Medicine; ATTEND Family Medicine
DX: N17.9 Acute kidney failure, unspecified (principal); I50.33 Acute on chronic diastolic (congestive) heart failure; J96.11 Chronic respiratory failure with hypoxia; I70.1 Atherosclerosis of renal artery; J44.9 Chronic obstructive pulmonary disease, unspecified; I11.0 Hypertensive heart disease with heart failure; E78.5 Hyperlipidemia, unspecified; I48.91 Unspecified atrial fibrillation; E87.6 Hypokalemia; I27.20 Pulmonary hypertension, unspecified; E83.42 Hypomagnesemia; Z99.81 Dependence on supplemental oxygen; Z87.891 Personal history of nicotine dependence; Z79.01 Long term (current) use of anticoagulants; Z79.899 Other long term (current) drug therapy; Z20.822 Contact with and (suspected) exposure to COVID-19

== ENCOUNTER 2022-07-04 16:44 | Inpatient (IN) | payer MEDICARE, OTHER ==
[~2022-07-04] VITALS: Ht 160 cm; Wt 69.5 kg
[~2022-07-04 16:44] MED LIST changes: +CLOP75TA99 PO; +K-TA10TA PO; -PLAV1TAB2 PO
[2022-07-04 18:43] LABS: BASO % 0.4 % (0.0-1.0); EOS # 0.1 10^3/uL (0.0-0.5); EOS % 0.6 % (0.0-3.0); HEMATOCRIT 40.7 % (36.0-47.0); HEMOGLOBIN 12.9 g/dl (12.0-15.5); LYMPH # 0.9 10^3/uL (1.5-5.0); LYMPH % 10.5 % (24.0-44.0); MEAN CORPUSCULAR HEMOGLOBIN 27.6 pg (27.0-33.0); MEAN CORPUSCULAR HGB CONC 31.7 g/dl (32.0-36.5); MEAN CORPUSCULAR VOLUME 87.2 fl (80.0-96.0); MONO # 0.9 10^3/uL (0.0-0.8); MONO % 9.9 % (2.0-8.0); NEUTROPHILS % 78.5 % (36.0-66.0); PLATELET COUNT, AUTOMATED 237 10^3/uL (150-450); RED BLOOD COUNT 4.67 10^6/uL (4.00-5.40); WHITE BLOOD COUNT 8.9 10^3/uL (4.0-10.0)
[2022-07-04 18:55] LABS: INR 2.3; PARTIAL THROMBOPLASTIN TIME 39.3 SECONDS (24.8-34.2); PROTHROMBIN TIME 25.7 SECONDS (12.5-14.5)
[2022-07-04 19:50] LABS: ALBUMIN 2.8 GM/DL (3.2-5.2); ALT/SGPT 33 U/L (12-78); BILIRUBIN,DIRECT < 0.1 MG/DL (0.0-0.2); BILIRUBIN,TOTAL 0.9 MG/DL (0.2-1.0); BLOOD UREA NITROGEN 43 MG/DL (7-18); CALCIUM LEVEL 9.1 MG/DL (8.8-10.2); CARBON DIOXIDE LEVEL 27 MEQ/L (21-32); CHLORIDE LEVEL 96 MEQ/L (98-107); CREATININE FOR GFR 4.46 MG/DL (0.55-1.30); FREE T4 1.51 NG/DL (0.76-1.46); GLOMERULAR FILTRATION RATE 10.5 (>45); GLUCOSE, FASTING 102 MG/DL (70-100); LIPASE 209 U/L (73-393); POTASSIUM SERUM 4.6 MEQ/L (3.5-5.1); SODIUM LEVEL 132 MEQ/L (136-145); THYROID STIMULATING HORMONE 0.836 uIU/ML (0.358-3.740); TOTAL PROTEIN 6.9 GM/DL (6.4-8.2)
[2022-07-04] MEDS ORDERED: LORazepam 2 MG/ML VIAL IV STA (20:19)
[2022-07-04] MEDS ORDERED: ONDA-195 PO (22:42)
[2022-07-04] MEDS ORDERED: POTA8CAP10 PO (22:42)
[2022-07-04] MEDS ORDERED: ALEV220T22 PO (22:42)
[2022-07-04] MEDS ORDERED: HOME MED LIST COMPLETE! XX SCH (22:45)
[2022-07-05] MEDS ORDERED: ALBUTEROL SULFATE 2.5 MG/0.5 ML INH NEB SOLN NEB PRN (02:30)
[2022-07-05] MEDS ORDERED: ACETAMINOPHEN TAB 650MG DOSE (2X325MG) PO PRN (02:30)
[2022-07-05] MEDS: NS 1,000 ML IV SCH ×2 (02:30→17:01)
[2022-07-05 05:28] LABS: CALCIUM LEVEL 9.3 MG/DL (8.8-10.2); CREATININE FOR GFR 4.35 MG/DL (0.55-1.30); GLOMERULAR FILTRATION RATE 10.8 (>45)
[2022-07-05] MEDS: IPRATROPIUM 0.5MG/ALBUTEROL 2.5MG INH SOL UD 3ML (DUONEB) NEB SCH ×3 (09:39→20:39)
[2022-07-05] MEDS: APIXABAN 5 MG TAB (ELIQUIS) PO SCH ×2 (09:39→21:51)
[2022-07-05] MEDS: METOPROLOL TARTRATE 100MG TAB PO SCH ×2 (09:39→21:49)
[2022-07-05] MEDS: DOCUSATE SODIUM 100MG CAPSULE PO SCH ×2 (09:41→21:48)
[2022-07-05] MEDS ORDERED: POTASSIUM CHLORIDE 10MEQ SR TABLET PO ONE (14:10)
[2022-07-05] MEDS: CYPROHEPTADINE 4 MG TAB PO SCH (22:47)
[2022-07-06] MEDS: IPRATROPIUM 0.5MG/ALBUTEROL 2.5MG INH SOL UD 3ML (DUONEB) NEB SCH ×3 (02:58→19:07)
[2022-07-06] MEDS: NS 1,000 ML IV SCH ×4 (03:01→22:21)
[2022-07-06 08:58] LABS: BASO % 0.5 % (0.0-1.0); EOS % 0.5 % (0.0-3.0); HEMATOCRIT 42.2 % (36.0-47.0); HEMOGLOBIN 12.9 g/dl (12.0-15.5); LYMPH # 0.8 10^3/uL (1.5-5.0); LYMPH % 9.3 % (24.0-44.0); MEAN CORPUSCULAR HEMOGLOBIN 27.2 pg (27.0-33.0); MEAN CORPUSCULAR HGB CONC 30.6 g/dl (32.0-36.5); MEAN CORPUSCULAR VOLUME 88.8 fl (80.0-96.0); MONO # 0.8 10^3/uL (0.0-0.8); MONO % 9.3 % (2.0-8.0); NEUTROPHILS # 6.7 10^3/uL (1.5-8.5); NEUTROPHILS % 80.3 % (36.0-66.0); PLATELET COUNT, AUTOMATED 209 10^3/uL (150-450); RED BLOOD COUNT 4.75 10^6/uL (4.00-5.40); WHITE BLOOD COUNT 8.4 10^3/uL (4.0-10.0)
[2022-07-06] MEDS: APIXABAN 5 MG TAB (ELIQUIS) PO SCH ×2 (09:12→21:43)
[2022-07-06] MEDS: DOCUSATE SODIUM 100MG CAPSULE PO SCH ×2 (09:12→21:43)
[2022-07-06] MEDS: METOPROLOL TARTRATE 100MG TAB PO SCH ×2 (09:12→21:00)
[2022-07-06 09:41] LABS: ALBUMIN 2.8 GM/DL (3.2-5.2); BILIRUBIN,TOTAL 0.8 MG/DL (0.2-1.0); CALCIUM LEVEL 9.1 MG/DL (8.8-10.2); CREATININE FOR GFR 3.73 MG/DL (0.55-1.30); GLOMERULAR FILTRATION RATE 12.9 (>45); POTASSIUM SERUM 3.1 MEQ/L (3.5-5.1); TOTAL PROTEIN 6.6 GM/DL (6.4-8.2)
[2022-07-06 15:15] VITALS: BP 113/61
[2022-07-06] MEDS: CYPROHEPTADINE 4 MG TAB PO SCH (21:43)
[2022-07-06 22:00] VITALS: BP 107/68
[2022-07-07] MEDS: IPRATROPIUM 0.5MG/ALBUTEROL 2.5MG INH SOL UD 3ML (DUONEB) NEB SCH ×3 (01:43→13:28)
[2022-07-07 06:00] VITALS: BP 123/67
[2022-07-07 06:10] LABS: BASO % 0.5 % (0.0-1.0); EOS # 0.1 10^3/uL (0.0-0.5); EOS % 0.8 % (0.0-3.0); HEMATOCRIT 38.2 % (36.0-47.0); HEMOGLOBIN 12.1 g/dl (12.0-15.5); LYMPH % 12.3 % (24.0-44.0); MEAN CORPUSCULAR HEMOGLOBIN 28.2 pg (27.0-33.0); MEAN CORPUSCULAR HGB CONC 31.7 g/dl (32.0-36.5); MONO # 0.9 10^3/uL (0.0-0.8); MONO % 10.8 % (2.0-8.0); NEUTROPHILS % 75.3 % (36.0-66.0); PLATELET COUNT, AUTOMATED 195 10^3/uL (150-450); RED BLOOD COUNT 4.29 10^6/uL (4.00-5.40)
[2022-07-07 06:36] LABS: CREATININE FOR GFR 3.28 MG/DL (0.55-1.30)
[2022-07-07] MEDS ORDERED: POTASSIUM CHLORIDE 10MEQ SR TABLET PO ONE (07:15)
[2022-07-07 08:52] VITALS: BP 128/58
[2022-07-07] MEDS: DOCUSATE SODIUM 100MG CAPSULE PO SCH (08:52)
[2022-07-07] MEDS: METOPROLOL TARTRATE 100MG TAB PO SCH (08:53)
[2022-07-07] MEDS: APIXABAN 5 MG TAB (ELIQUIS) PO SCH (08:53)
[2022-07-07 10:23] LABS: HEMOGLOBIN A1c 5.9 %
[2022-07-07] MEDS ORDERED: NS 1,000 ML IV SCH (10:55)
[2022-07-07 16:31] LABS: CALCIUM LEVEL 8.9 MG/DL (8.8-10.2); CREATININE FOR GFR 2.89 MG/DL (0.55-1.30); GLOMERULAR FILTRATION RATE 17.4 (>45); POTASSIUM SERUM 3.8 MEQ/L (3.5-5.1)
== END 2022-07-07 13:55 | DRG 683 ==
LOC: M ED 17:48 → M ED INP 07-05 02:28 → ENRESERV 07-06 13:57 → M MSPAV 07-06 15:16
PROVIDERS: ADMIT Internal Medicine; ATTEND Internal Medicine
DX: N17.9 Acute kidney failure, unspecified (principal); I50.32 Chronic diastolic (congestive) heart failure; J96.10 Chronic respiratory failure, unspecified whether with hypoxia or hypercapnia; Z66 Do not resuscitate; Z90.79 Acquired absence of other genital organ(s); J44.9 Chronic obstructive pulmonary disease, unspecified; J84.10 Pulmonary fibrosis, unspecified; Z99.81 Dependence on supplemental oxygen; I27.29 Other secondary pulmonary hypertension; I48.91 Unspecified atrial fibrillation; Z79.01 Long term (current) use of anticoagulants; Z79.899 Other long term (current) drug therapy; N18.9 Chronic kidney disease, unspecified; R63.0 Anorexia; Z20.822 Contact with and (suspected) exposure to COVID-19

== ENCOUNTER 2022-07-07 12:48 | Inpatient (IN) | payer MEDICARE, OTHER ==
[~2022-07-07] VITALS: Ht 160 cm; Wt 71.4 kg
[~2022-07-07 12:48] MED LIST changes: +ALEV220T22 PO; +ONDA-195 PO
[2022-07-07 14:00] VITALS: BP 132/84
[2022-07-07] MEDS ORDERED: MIRALAX *UNIT DOSE* 17GM PACKET PO PRN (15:15)
[2022-07-07] MEDS ORDERED: ONDANSETRON 4MG TAB PO PRN (15:15)
[2022-07-07] MEDS: REMEDY PHYTOPLEX Z-GUARD PASTE 113GM TUBE (FROM STOREROOM PRODUCT) TOP SCH ×2 (16:00→20:30)
[2022-07-07] MEDS: NS 1,000 ML IV SCH (16:58)
[2022-07-07 18:00] VITALS: BP 139/66
[2022-07-07] MEDS: DOCUSATE SODIUM 100MG CAPSULE PO SCH (20:28)
[2022-07-07] MEDS: PANTOPRAZOLE 40MG TAB (PROTONIX) PO SCH (20:28)
[2022-07-07] MEDS: CYPROHEPTADINE 4 MG TAB PO SCH (20:28)
[2022-07-07] MEDS: APIXABAN 5 MG TAB (ELIQUIS) PO SCH (20:28)
[2022-07-07] MEDS: SENNA 8.6 MG TAB (SENOKOT) PO SCH (20:28)
[2022-07-07] MEDS: METOPROLOL TARTRATE 100MG TAB PO SCH (20:29)
[2022-07-07] MEDS: ROSUVASTATIN 10 MG TAB (CRESTOR) PO SCH (20:29)
[2022-07-07] MEDS: COMBIVENT RESPIMAT 100-20MCG INHALER 4GM INH SCH (21:22)
[2022-07-08] MEDS: NS 1,000 ML IV SCH (03:55)
[2022-07-08 05:53] LABS: BASO # 0.1 10^3/uL (0.0-0.2); BASO % 0.6 % (0.0-1.0); EOS # 0.1 10^3/uL (0.0-0.5); EOS % 1.1 % (0.0-3.0); HEMATOCRIT 37.1 % (36.0-47.0); HEMOGLOBIN 11.4 g/dl (12.0-15.5); LYMPH % 12.4 % (24.0-44.0); MEAN CORPUSCULAR HEMOGLOBIN 27.7 pg (27.0-33.0); MEAN CORPUSCULAR HGB CONC 30.7 g/dl (32.0-36.5); MEAN CORPUSCULAR VOLUME 90.3 fl (80.0-96.0); MONO # 0.8 10^3/uL (0.0-0.8); NEUTROPHILS # 6.4 10^3/uL (1.5-8.5); NEUTROPHILS % 75.8 % (36.0-66.0); PLATELET COUNT, AUTOMATED 201 10^3/uL (150-450); RED BLOOD COUNT 4.11 10^6/uL (4.00-5.40); WHITE BLOOD COUNT 8.4 10^3/uL (4.0-10.0)
[2022-07-08 06:00] VITALS: BP 132/68
[2022-07-08 06:30] LABS: ALBUMIN 2.3 GM/DL (3.2-5.2); BILIRUBIN,TOTAL 0.7 MG/DL (0.2-1.0); CALCIUM LEVEL 8.4 MG/DL (8.8-10.2); CREATININE FOR GFR 2.51 MG/DL (0.55-1.30); GLOMERULAR FILTRATION RATE 20.4 (>45); POTASSIUM SERUM 3.4 MEQ/L (3.5-5.1); TOTAL PROTEIN 5.6 GM/DL (6.4-8.2)
[2022-07-08] MEDS: COMBIVENT RESPIMAT 100-20MCG INHALER 4GM INH SCH ×3 (07:13→21:29)
[2022-07-08] MEDS: REMEDY PHYTOPLEX Z-GUARD PASTE 113GM TUBE (FROM STOREROOM PRODUCT) TOP SCH ×3 (09:00→21:27)
[2022-07-08] MEDS: POTASSIUM CHLORIDE 10MEQ SR TABLET PO SCH (09:27)
[2022-07-08] MEDS: DOCUSATE SODIUM 100MG CAPSULE PO SCH ×2 (09:27→21:26)
[2022-07-08] MEDS: APIXABAN 5 MG TAB (ELIQUIS) PO SCH ×2 (09:27→21:27)
[2022-07-08] MEDS: PANTOPRAZOLE 40MG TAB (PROTONIX) PO SCH ×2 (09:27→21:26)
[2022-07-08] MEDS: METOPROLOL TARTRATE 100MG TAB PO SCH ×2 (09:29→21:27)
[2022-07-08] MEDS ORDERED: POTASSIUM CHLORIDE 10MEQ SR TABLET PO ONE (12:00)
[2022-07-08 16:33] VITALS: BP 114/67
[2022-07-08 20:00] VITALS: BP 133/60
[2022-07-08] MEDS: ROSUVASTATIN 10 MG TAB (CRESTOR) PO SCH (21:26)
[2022-07-08] MEDS: SENNA 8.6 MG TAB (SENOKOT) PO SCH (21:26)
[2022-07-08] MEDS: CYPROHEPTADINE 4 MG TAB PO SCH (21:27)
[2022-07-09 06:00] VITALS: BP 108/68
[2022-07-09] MEDS: COMBIVENT RESPIMAT 100-20MCG INHALER 4GM INH SCH ×3 (07:19→20:58)
[2022-07-09] MEDS ORDERED: HOME MED LIST COMPLETE! XX SCH (07:45)
[2022-07-09] MEDS: PANTOPRAZOLE 40MG TAB (PROTONIX) PO SCH ×2 (08:23→21:46)
[2022-07-09] MEDS: POTASSIUM CHLORIDE 10MEQ SR TABLET PO SCH (08:24)
[2022-07-09] MEDS: METOPROLOL TARTRATE 100MG TAB PO SCH ×2 (08:24→21:46)
[2022-07-09] MEDS: APIXABAN 5 MG TAB (ELIQUIS) PO SCH ×2 (08:25→21:46)
[2022-07-09] MEDS: DOCUSATE SODIUM 100MG CAPSULE PO SCH ×3 (08:25→21:45)
[2022-07-09] MEDS: REMEDY PHYTOPLEX Z-GUARD PASTE 113GM TUBE (FROM STOREROOM PRODUCT) TOP SCH ×3 (08:25→21:00)
[2022-07-09 20:00] VITALS: BP 111/65
[2022-07-09] MEDS: SENNA 8.6 MG TAB (SENOKOT) PO SCH ×2 (21:00→21:46)
[2022-07-09] MEDS: CYPROHEPTADINE 4 MG TAB PO SCH (21:45)
[2022-07-09] MEDS: ROSUVASTATIN 10 MG TAB (CRESTOR) PO SCH (21:46)
[2022-07-10 06:00] VITALS: BP 103/61
[2022-07-10 06:47] LABS: HEMATOCRIT 36.3 % (36.0-47.0); HEMOGLOBIN 10.9 g/dl (12.0-15.5); MEAN CORPUSCULAR HEMOGLOBIN 27.7 pg (27.0-33.0); MEAN CORPUSCULAR VOLUME 92.1 fl (80.0-96.0); PLATELET COUNT, AUTOMATED 213 10^3/uL (150-450); RED BLOOD COUNT 3.94 10^6/uL (4.00-5.40); WHITE BLOOD COUNT 7.9 10^3/uL (4.0-10.0)
[2022-07-10] MEDS: COMBIVENT RESPIMAT 100-20MCG INHALER 4GM INH SCH ×3 (07:16→20:20)
[2022-07-10 07:24] LABS: CALCIUM LEVEL 8.6 MG/DL (8.8-10.2); CREATININE FOR GFR 2.33 MG/DL (0.55-1.30); GLOMERULAR FILTRATION RATE 22.2 (>45); POTASSIUM SERUM 4.8 MEQ/L (3.5-5.1)
[2022-07-10] MEDS: APIXABAN 5 MG TAB (ELIQUIS) PO SCH ×2 (08:30→21:22)
[2022-07-10] MEDS: PANTOPRAZOLE 40MG TAB (PROTONIX) PO SCH ×2 (08:31→21:22)
[2022-07-10] MEDS: POTASSIUM CHLORIDE 10MEQ SR TABLET PO SCH (08:31)
[2022-07-10] MEDS: METOPROLOL TARTRATE 100MG TAB PO SCH ×2 (08:31→21:22)
[2022-07-10] MEDS: DOCUSATE SODIUM 100MG CAPSULE PO SCH ×2 (08:32→21:23)
[2022-07-10] MEDS: REMEDY PHYTOPLEX Z-GUARD PASTE 113GM TUBE (FROM STOREROOM PRODUCT) TOP SCH ×3 (08:32→21:25)
[2022-07-10] MEDS: FUROSEMIDE 40 MG TAB PO SCH (10:07)
[2022-07-10 14:00] VITALS: BP 108/57
[2022-07-10 20:00] VITALS: BP 110/70
[2022-07-10] MEDS: SENNA 8.6 MG TAB (SENOKOT) PO SCH (21:22)
[2022-07-10] MEDS: ROSUVASTATIN 10 MG TAB (CRESTOR) PO SCH (21:23)
[2022-07-10] MEDS: CYPROHEPTADINE 4 MG TAB PO SCH (21:24)
[2022-07-11 06:00] VITALS: BP 102/54
[2022-07-11] MEDS: DOCUSATE SODIUM 100MG CAPSULE PO SCH ×2 (09:00→20:35)
[2022-07-11] MEDS: METOPROLOL TARTRATE 100MG TAB PO SCH ×2 (09:00→20:32)
[2022-07-11] MEDS: REMEDY PHYTOPLEX Z-GUARD PASTE 113GM TUBE (FROM STOREROOM PRODUCT) TOP SCH ×3 (09:00→20:34)
[2022-07-11] MEDS: COMBIVENT RESPIMAT 100-20MCG INHALER 4GM INH SCH ×3 (09:03→21:15)
[2022-07-11] MEDS: FUROSEMIDE 40 MG TAB PO SCH (09:12)
[2022-07-11] MEDS: POTASSIUM CHLORIDE 10MEQ SR TABLET PO SCH (09:12)
[2022-07-11] MEDS: PANTOPRAZOLE 40MG TAB (PROTONIX) PO SCH ×2 (09:12→20:32)
[2022-07-11] MEDS: APIXABAN 5 MG TAB (ELIQUIS) PO SCH ×2 (09:12→20:32)
[2022-07-11 10:21] LABS: BASO # 0.1 10^3/uL (0.0-0.2); BASO % 0.8 % (0.0-1.0); EOS % 0.1 % (0.0-3.0); HEMATOCRIT 41.7 % (36.0-47.0); HEMOGLOBIN 12.4 g/dl (12.0-15.5); LYMPH # 1.2 10^3/uL (1.5-5.0); LYMPH % 14.4 % (24.0-44.0); MEAN CORPUSCULAR HEMOGLOBIN 27.3 pg (27.0-33.0); MEAN CORPUSCULAR HGB CONC 29.7 g/dl (32.0-36.5); MEAN CORPUSCULAR VOLUME 91.9 fl (80.0-96.0); MONO # 0.6 10^3/uL (0.0-0.8); MONO % 6.8 % (2.0-8.0); NEUTROPHILS # 6.5 10^3/uL (1.5-8.5); NEUTROPHILS % 77.7 % (36.0-66.0); PLATELET COUNT, AUTOMATED 222 10^3/uL (150-450); RED BLOOD COUNT 4.54 10^6/uL (4.00-5.40); WHITE BLOOD COUNT 8.4 10^3/uL (4.0-10.0)
[2022-07-11 10:58] LABS: CALCIUM LEVEL 9.5 MG/DL (8.8-10.2); CREATININE FOR GFR 2.56 MG/DL (0.55-1.30); POTASSIUM SERUM 4.1 MEQ/L (3.5-5.1)
[2022-07-11 14:00] VITALS: BP 131/94
[2022-07-11 20:00] VITALS: BP 110/59
[2022-07-11] MEDS: MIRTAZAPINE 7.5MG PER 1/2 TABLET PO SCH (20:33)
[2022-07-11] MEDS: CYPROHEPTADINE 4 MG TAB PO SCH (20:33)
[2022-07-11] MEDS: ROSUVASTATIN 10 MG TAB (CRESTOR) PO SCH (20:33)
[2022-07-11] MEDS: SENNA 8.6 MG TAB (SENOKOT) PO SCH (20:35)
[2022-07-12] VITALS (8 sets, daily range): BP systolic 96–129; BP diastolic 52–69
[2022-07-12] MEDS: METOPROLOL TARTRATE 100MG TAB PO SCH ×2 (07:27→21:12)
[2022-07-12] MEDS: DOCUSATE SODIUM 100MG CAPSULE PO SCH ×2 (07:27→21:00)
[2022-07-12] MEDS: POTASSIUM CHLORIDE 10MEQ SR TABLET PO SCH (07:33)
[2022-07-12] MEDS: REMEDY PHYTOPLEX Z-GUARD PASTE 113GM TUBE (FROM STOREROOM PRODUCT) TOP SCH ×3 (07:33→21:00)
[2022-07-12] MEDS: APIXABAN 5 MG TAB (ELIQUIS) PO SCH ×2 (07:33→21:13)
[2022-07-12] MEDS: PANTOPRAZOLE 40MG TAB (PROTONIX) PO SCH ×2 (07:33→21:13)
[2022-07-12] MEDS: COMBIVENT RESPIMAT 100-20MCG INHALER 4GM INH SCH (08:00)
[2022-07-12] MEDS: FUROSEMIDE 40 MG TAB PO SCH (09:00)
[2022-07-12] MEDS: NYSTATIN 100,000 UNITS/GM TOPICAL PWD 15GM TOP SCH ×2 (12:36→21:13)
[2022-07-12 13:21] LABS: CK-MB VALUE MASS 3.1 NG/ML (<3.6); MB/CK RELATIVE INDEX 1.05 (< OR =4)
[2022-07-12] MEDS: ADVAIR HFA 115/21MCG INHALER INH SCH ×2 (13:37→20:32)
[2022-07-12] MEDS: TIOTROPIUM INHALER/CAPSULE (SPIRIVA) INH SCH (13:42)
[2022-07-12] MEDS: SENNA 8.6 MG TAB (SENOKOT) PO SCH (21:00)
[2022-07-12] MEDS: MIRTAZAPINE 7.5MG PER 1/2 TABLET PO SCH (21:12)
[2022-07-12] MEDS: CYPROHEPTADINE 4 MG TAB PO SCH (21:12)
[2022-07-12] MEDS: ROSUVASTATIN 10 MG TAB (CRESTOR) PO SCH (21:13)
[2022-07-13 06:00] VITALS: BP 119/66
[2022-07-13 07:25] LABS: ALBUMIN 2.2 G/DL (3.2-5.2); CALCIUM LEVEL 9.2 MG/DL (8.3-10.6); CREATININE FOR GFR 2.27 MG/DL (0.55-1.30); GLOMERULAR FILTRATION RATE 22.9 (>45); PHOSPHORUS LEVEL 2.5 MG/DL (2.4-5.1); POTASSIUM SERUM 4.2 MMOL/L (3.5-5.1)
[2022-07-13] MEDS: ADVAIR HFA 115/21MCG INHALER INH SCH ×2 (08:00→19:37)
[2022-07-13] MEDS: TIOTROPIUM INHALER/CAPSULE (SPIRIVA) INH SCH (08:00)
[2022-07-13] MEDS: REMEDY PHYTOPLEX Z-GUARD PASTE 113GM TUBE (FROM STOREROOM PRODUCT) TOP SCH ×3 (09:00→21:28)
[2022-07-13] MEDS: DOCUSATE SODIUM 100MG CAPSULE PO SCH ×3 (09:00→21:25)
[2022-07-13] MEDS: PANTOPRAZOLE 40MG TAB (PROTONIX) PO SCH ×2 (09:16→21:24)
[2022-07-13] MEDS: POTASSIUM CHLORIDE 10MEQ SR TABLET PO SCH (09:16)
[2022-07-13] MEDS: APIXABAN 5 MG TAB (ELIQUIS) PO SCH ×2 (09:16→21:25)
[2022-07-13] MEDS: METOPROLOL TARTRATE 100MG TAB PO SCH ×2 (09:17→21:00)
[2022-07-13] MEDS: FUROSEMIDE 40 MG TAB PO SCH (09:17)
[2022-07-13] MEDS: NYSTATIN 100,000 UNITS/GM TOPICAL PWD 15GM TOP SCH ×2 (09:18→21:27)
[2022-07-13 14:00] VITALS: BP 101/58
[2022-07-13 20:00] VITALS: BP 102/58
[2022-07-13] MEDS ORDERED: BISACODYL 10 MG SUPP PR PRN (20:25)
[2022-07-13] MEDS: GABAPENTIN 100 MG CAP PO SCH (21:24)
[2022-07-13] MEDS: MIRTAZAPINE 7.5MG PER 1/2 TABLET PO SCH (21:25)
[2022-07-13] MEDS: CYPROHEPTADINE 4 MG TAB PO SCH (21:25)
[2022-07-13] MEDS: SENNA 8.6 MG TAB (SENOKOT) PO SCH (21:25)
[2022-07-13] MEDS: ROSUVASTATIN 10 MG TAB (CRESTOR) PO SCH (21:26)
[2022-07-14] VITALS (9 sets, daily range): BP systolic 95–131; BP diastolic 54–81
[2022-07-14 05:38] LABS: BASO # 0.1 10^3/uL (0.0-0.2); BASO % 0.7 % (0.0-1.0); EOS % 0.4 % (0.0-3.0); HEMATOCRIT 36.1 % (36.0-47.0); LYMPH # 1.6 10^3/uL (1.5-5.0); LYMPH % 18.6 % (24.0-44.0); MEAN CORPUSCULAR HEMOGLOBIN 27.6 pg (27.0-33.0); MEAN CORPUSCULAR HGB CONC 30.5 g/dl (32.0-36.5); MEAN CORPUSCULAR VOLUME 90.7 fl (80.0-96.0); MONO # 0.9 10^3/uL (0.0-0.8); MONO % 10.9 % (2.0-8.0); NEUTROPHILS # 5.8 10^3/uL (1.5-8.5); PLATELET COUNT, AUTOMATED 215 10^3/uL (150-450); RED BLOOD COUNT 3.98 10^6/uL (4.00-5.40); WHITE BLOOD COUNT 8.4 10^3/uL (4.0-10.0)
[2022-07-14] MEDS: ADVAIR HFA 115/21MCG INHALER INH SCH ×2 (08:51→20:52)
[2022-07-14] MEDS: TIOTROPIUM INHALER/CAPSULE (SPIRIVA) INH SCH (08:51)
[2022-07-14] MEDS: MIRALAX *UNIT DOSE* 17GM PACKET PO SCH (09:37)
[2022-07-14] MEDS: APIXABAN 5 MG TAB (ELIQUIS) PO SCH ×2 (09:38→20:37)
[2022-07-14] MEDS: PANTOPRAZOLE 40MG TAB (PROTONIX) PO SCH ×2 (09:38→20:37)
[2022-07-14] MEDS: POTASSIUM CHLORIDE 10MEQ SR TABLET PO SCH (09:38)
[2022-07-14] MEDS: DOCUSATE SODIUM 100MG CAPSULE PO SCH ×2 (09:38→20:38)
[2022-07-14] MEDS: FUROSEMIDE 40 MG TAB PO SCH (09:38)
[2022-07-14] MEDS: METOPROLOL TARTRATE 100MG TAB PO SCH ×2 (09:39→20:37)
[2022-07-14] MEDS: NYSTATIN 100,000 UNITS/GM TOPICAL PWD 15GM TOP SCH ×2 (09:41→20:38)
[2022-07-14] MEDS: REMEDY PHYTOPLEX Z-GUARD PASTE 113GM TUBE (FROM STOREROOM PRODUCT) TOP SCH ×3 (09:41→20:38)
[2022-07-14] MEDS ORDERED: NS 500 ML IV ONE (12:05)
[2022-07-14 13:05] LABS: CK-MB VALUE MASS 2.9 NG/ML (<3.6); MB/CK RELATIVE INDEX 1.07 (< OR =4)
[2022-07-14] MEDS: CYPROHEPTADINE 4 MG TAB PO SCH (20:36)
[2022-07-14] MEDS: MIRTAZAPINE 7.5MG PER 1/2 TABLET PO SCH (20:36)
[2022-07-14] MEDS: ROSUVASTATIN 10 MG TAB (CRESTOR) PO SCH (20:37)
[2022-07-14] MEDS: GABAPENTIN 100 MG CAP PO SCH (20:37)
[2022-07-14] MEDS: SENNA 8.6 MG TAB (SENOKOT) PO SCH (20:38)
[2022-07-15 03:52] VITALS: BP 114/64
[2022-07-15 05:41] LABS: BASO # 0.1 10^3/uL (0.0-0.2); BASO % 0.6 % (0.0-1.0); EOS % 0.4 % (0.0-3.0); HEMATOCRIT 34.5 % (36.0-47.0); HEMOGLOBIN 10.7 g/dl (12.0-15.5); LYMPH # 1.5 10^3/uL (1.5-5.0); LYMPH % 17.8 % (24.0-44.0); MEAN CORPUSCULAR HEMOGLOBIN 27.9 pg (27.0-33.0); MEAN CORPUSCULAR VOLUME 90.1 fl (80.0-96.0); MONO # 0.9 10^3/uL (0.0-0.8); MONO % 11.3 % (2.0-8.0); NEUTROPHILS # 5.7 10^3/uL (1.5-8.5); NEUTROPHILS % 69.7 % (36.0-66.0); PLATELET COUNT, AUTOMATED 219 10^3/uL (150-450); RED BLOOD COUNT 3.83 10^6/uL (4.00-5.40); WHITE BLOOD COUNT 8.2 10^3/uL (4.0-10.0)
[2022-07-15 06:47] LABS: CALCIUM LEVEL 9.3 MG/DL (8.3-10.6); CREATININE FOR GFR 2.2 MG/DL (0.55-1.30); GLOMERULAR FILTRATION RATE 23.8 (>45); POTASSIUM SERUM 3.4 MMOL/L (3.5-5.1)
[2022-07-15 08:00] VITALS: BP 128/71
[2022-07-15] MEDS: ADVAIR HFA 115/21MCG INHALER INH SCH ×3 (08:00→20:12)
[2022-07-15] MEDS: TIOTROPIUM INHALER/CAPSULE (SPIRIVA) INH SCH ×2 (08:00→12:52)
[2022-07-15] MEDS ORDERED: POTASSIUM CHLORIDE 10MEQ SR TABLET PO ONE (08:50)
[2022-07-15] MEDS: DOCUSATE SODIUM 100MG CAPSULE PO SCH ×2 (09:00→20:56)
[2022-07-15] MEDS: MIRALAX *UNIT DOSE* 17GM PACKET PO SCH (09:00)
[2022-07-15] MEDS: APIXABAN 5 MG TAB (ELIQUIS) PO SCH ×2 (09:27→20:50)
[2022-07-15] MEDS: PANTOPRAZOLE 40MG TAB (PROTONIX) PO SCH ×2 (09:28→20:50)
[2022-07-15] MEDS: METOPROLOL TARTRATE 100MG TAB PO SCH ×2 (09:28→20:53)
[2022-07-15] MEDS: REMEDY PHYTOPLEX Z-GUARD PASTE 113GM TUBE (FROM STOREROOM PRODUCT) TOP SCH ×3 (09:31→20:56)
[2022-07-15] MEDS: NYSTATIN 100,000 UNITS/GM TOPICAL PWD 15GM TOP SCH ×2 (09:37→20:55)
[2022-07-15 12:00] VITALS: BP 104/57
[2022-07-15] MEDS: POTASSIUM CHLORIDE 10MEQ SR TABLET PO SCH (13:54)
[2022-07-15 14:00] VITALS: BP 105/53
[2022-07-15 14:33] VITALS: BP 105/53
[2022-07-15 20:00] VITALS: BP 99/52
[2022-07-15] MEDS: CYPROHEPTADINE 4 MG TAB PO SCH (20:49)
[2022-07-15] MEDS: ROSUVASTATIN 10 MG TAB (CRESTOR) PO SCH (20:50)
[2022-07-15] MEDS: MIRTAZAPINE 7.5MG PER 1/2 TABLET PO SCH (20:50)
[2022-07-15] MEDS: GABAPENTIN 100 MG CAP PO SCH (20:50)
[2022-07-15] MEDS: SENNA 8.6 MG TAB (SENOKOT) PO SCH (20:54)
[2022-07-16] VITALS (8 sets, daily range): BP systolic 100–143; BP diastolic 56–78
[2022-07-16] MEDS: ACETAMINOPHEN TAB 650MG DOSE (2X325MG) PO PRN (00:11)
[2022-07-16 08:35] LABS: CALCIUM LEVEL 9.9 MG/DL (8.3-10.6); CREATININE FOR GFR 2.18 MG/DL (0.55-1.30); POTASSIUM SERUM 4.9 MMOL/L (3.5-5.1)
[2022-07-16] MEDS: TIOTROPIUM INHALER/CAPSULE (SPIRIVA) INH SCH (08:39)
[2022-07-16] MEDS: ADVAIR HFA 115/21MCG INHALER INH SCH ×2 (08:39→20:25)
[2022-07-16] MEDS: MIRALAX *UNIT DOSE* 17GM PACKET PO SCH (08:43)
[2022-07-16] MEDS: DOCUSATE SODIUM 100MG CAPSULE PO SCH ×2 (08:43→20:02)
[2022-07-16] MEDS: METOPROLOL TARTRATE 100MG TAB PO SCH ×2 (08:43→20:16)
[2022-07-16] MEDS: PANTOPRAZOLE 40MG TAB (PROTONIX) PO SCH ×2 (08:48→20:16)
[2022-07-16] MEDS: REMEDY PHYTOPLEX Z-GUARD PASTE 113GM TUBE (FROM STOREROOM PRODUCT) TOP SCH ×3 (08:48→20:03)
[2022-07-16] MEDS: APIXABAN 5 MG TAB (ELIQUIS) PO SCH ×2 (08:48→20:17)
[2022-07-16] MEDS: POTASSIUM CHLORIDE 10MEQ SR TABLET PO SCH (08:48)
[2022-07-16] MEDS: NYSTATIN 100,000 UNITS/GM TOPICAL PWD 15GM TOP SCH ×2 (08:48→20:17)
[2022-07-16] MEDS: SENNA 8.6 MG TAB (SENOKOT) PO SCH (20:03)
[2022-07-16] MEDS: CYPROHEPTADINE 4 MG TAB PO SCH (20:16)
[2022-07-16] MEDS: MIRTAZAPINE 7.5MG PER 1/2 TABLET PO SCH (20:17)
[2022-07-16] MEDS: ROSUVASTATIN 10 MG TAB (CRESTOR) PO SCH (20:17)
[2022-07-16] MEDS: GABAPENTIN 100 MG CAP PO SCH (20:17)
[2022-07-17] VITALS (8 sets, daily range): BP systolic 96–134; BP diastolic 52–84
[2022-07-17] MEDS: METOPROLOL TARTRATE 100MG TAB PO SCH ×2 (07:29→20:42)
[2022-07-17] MEDS: DOCUSATE SODIUM 100MG CAPSULE PO SCH ×2 (07:29→20:42)
[2022-07-17] MEDS: MIRALAX *UNIT DOSE* 17GM PACKET PO SCH (07:29)
[2022-07-17] MEDS: NYSTATIN 100,000 UNITS/GM TOPICAL PWD 15GM TOP SCH ×2 (07:42→20:42)
[2022-07-17] MEDS: APIXABAN 5 MG TAB (ELIQUIS) PO SCH ×2 (07:42→20:42)
[2022-07-17] MEDS: REMEDY PHYTOPLEX Z-GUARD PASTE 113GM TUBE (FROM STOREROOM PRODUCT) TOP SCH ×3 (07:42→20:43)
[2022-07-17] MEDS: PANTOPRAZOLE 40MG TAB (PROTONIX) PO SCH ×2 (07:42→20:42)
[2022-07-17] MEDS: FUROSEMIDE 20 MG TAB PO SCH (12:34)
[2022-07-17] MEDS: ADVAIR HFA 115/21MCG INHALER INH SCH ×2 (14:00→20:28)
[2022-07-17] MEDS: TIOTROPIUM INHALER/CAPSULE (SPIRIVA) INH SCH (14:00)
[2022-07-17] MEDS: ROSUVASTATIN 10 MG TAB (CRESTOR) PO SCH (20:41)
[2022-07-17] MEDS: CYPROHEPTADINE 4 MG TAB PO SCH (20:41)
[2022-07-17] MEDS: MIRTAZAPINE 7.5MG PER 1/2 TABLET PO SCH (20:41)
[2022-07-17] MEDS: SENNA 8.6 MG TAB (SENOKOT) PO SCH (20:42)
[2022-07-17] MEDS: GABAPENTIN 100 MG CAP PO SCH (20:42)
[2022-07-17 21:46] LABS: CALCIUM LEVEL 8.9 MG/DL (8.3-10.6); CK-MB VALUE MASS 4.1 NG/ML (<3.6); CREATININE FOR GFR 2.65 MG/DL (0.55-1.30); GLOMERULAR FILTRATION RATE 19.2 (>45); MAGNESIUM LEVEL 1.7 MG/DL (1.8-2.4); MB/CK RELATIVE INDEX 1.07 (< OR =4); POTASSIUM SERUM 4.7 MMOL/L (3.5-5.1)
[2022-07-17] MEDS ORDERED: MAGNESIUM OXIDE 400MG TAB (MAG-OX) PO ONE (23:00)
[2022-07-18 05:47] LABS: BASO # 0.1 10^3/uL (0.0-0.2); EOS # 0.2 10^3/uL (0.0-0.5); EOS % 1.8 % (0.0-3.0); HEMATOCRIT 32.1 % (36.0-47.0); HEMOGLOBIN 9.9 g/dl (12.0-15.5); LYMPH # 1.4 10^3/uL (1.5-5.0); LYMPH % 17.2 % (24.0-44.0); MEAN CORPUSCULAR HEMOGLOBIN 27.7 pg (27.0-33.0); MEAN CORPUSCULAR HGB CONC 30.8 g/dl (32.0-36.5); MEAN CORPUSCULAR VOLUME 89.7 fl (80.0-96.0); MONO # 0.6 10^3/uL (0.0-0.8); MONO % 7.5 % (2.0-8.0); NEUTROPHILS % 72.1 % (36.0-66.0); PLATELET COUNT, AUTOMATED 239 10^3/uL (150-450); RED BLOOD COUNT 3.58 10^6/uL (4.00-5.40); WHITE BLOOD COUNT 8.3 10^3/uL (4.0-10.0)
[2022-07-18 06:22] LABS: CALCIUM LEVEL 8.6 MG/DL (8.3-10.6); CREATININE FOR GFR 2.58 MG/DL (0.55-1.30); GLOMERULAR FILTRATION RATE 19.8 (>45); POTASSIUM SERUM 4.2 MMOL/L (3.5-5.1)
[2022-07-18 07:00] VITALS: BP 120/62
[2022-07-18] MEDS: ADVAIR HFA 115/21MCG INHALER INH SCH ×2 (07:02→20:12)
[2022-07-18] MEDS: TIOTROPIUM INHALER/CAPSULE (SPIRIVA) INH SCH (07:02)
[2022-07-18] MEDS: MIRALAX *UNIT DOSE* 17GM PACKET PO SCH (09:00)
[2022-07-18] MEDS: DOCUSATE SODIUM 100MG CAPSULE PO SCH ×2 (09:00→20:04)
[2022-07-18] MEDS: REMEDY PHYTOPLEX Z-GUARD PASTE 113GM TUBE (FROM STOREROOM PRODUCT) TOP SCH ×3 (09:00→20:06)
[2022-07-18] MEDS: APIXABAN 5 MG TAB (ELIQUIS) PO SCH ×2 (09:26→20:03)
[2022-07-18] MEDS: FUROSEMIDE 20 MG TAB PO SCH (09:26)
[2022-07-18] MEDS: PANTOPRAZOLE 40MG TAB (PROTONIX) PO SCH ×2 (09:26→20:03)
[2022-07-18] MEDS: METOPROLOL TARTRATE 100MG TAB PO SCH ×2 (09:26→20:04)
[2022-07-18] MEDS: NYSTATIN 100,000 UNITS/GM TOPICAL PWD 15GM TOP SCH ×2 (09:27→20:05)
[2022-07-18 10:00] VITALS: BP 129/57
[2022-07-18 14:00] VITALS: BP 94/42
[2022-07-18 20:00] VITALS: BP 98/50
[2022-07-18] MEDS: CYPROHEPTADINE 4 MG TAB PO SCH (20:03)
[2022-07-18] MEDS: GABAPENTIN 100 MG CAP PO SCH (20:03)
[2022-07-18] MEDS: MIRTAZAPINE 7.5MG PER 1/2 TABLET PO SCH (20:03)
[2022-07-18] MEDS: ROSUVASTATIN 10 MG TAB (CRESTOR) PO SCH (20:03)
[2022-07-18] MEDS: SENNA 8.6 MG TAB (SENOKOT) PO SCH (20:05)
[2022-07-19] VITALS: BP 98/56
[2022-07-19 06:00] VITALS: BP 112/60
[2022-07-19] MEDS: APIXABAN 5 MG TAB (ELIQUIS) PO SCH ×2 (07:51→22:02)
[2022-07-19] MEDS: PANTOPRAZOLE 40MG TAB (PROTONIX) PO SCH ×2 (07:51→22:02)
[2022-07-19] MEDS: METOPROLOL TARTRATE 100MG TAB PO SCH ×2 (07:52→22:02)
[2022-07-19] MEDS: MIRALAX *UNIT DOSE* 17GM PACKET PO SCH (07:53)
[2022-07-19] MEDS: DOCUSATE SODIUM 100MG CAPSULE PO SCH ×2 (07:53→22:00)
[2022-07-19] MEDS: FUROSEMIDE 20 MG TAB PO SCH (07:53)
[2022-07-19] MEDS: NYSTATIN 100,000 UNITS/GM TOPICAL PWD 15GM TOP SCH ×2 (07:54→21:59)
[2022-07-19] MEDS: TIOTROPIUM INHALER/CAPSULE (SPIRIVA) INH SCH (08:00)
[2022-07-19] MEDS: ADVAIR HFA 115/21MCG INHALER INH SCH ×2 (08:00→20:34)
[2022-07-19] MEDS: REMEDY PHYTOPLEX Z-GUARD PASTE 113GM TUBE (FROM STOREROOM PRODUCT) TOP SCH ×3 (09:00→22:03)
[2022-07-19 14:00] VITALS: BP 112/62
[2022-07-19 20:00] VITALS: BP 134/60
[2022-07-19] MEDS: SENNA 8.6 MG TAB (SENOKOT) PO SCH (22:00)
[2022-07-19] MEDS: MIRTAZAPINE 7.5MG PER 1/2 TABLET PO SCH (22:01)
[2022-07-19] MEDS: GABAPENTIN 100 MG CAP PO SCH (22:01)
[2022-07-19] MEDS: ROSUVASTATIN 10 MG TAB (CRESTOR) PO SCH (22:02)
[2022-07-19] MEDS: CYPROHEPTADINE 4 MG TAB PO SCH (22:02)
[2022-07-19 23:41] VITALS: BP 123/67
[2022-07-20] VITALS (7 sets, daily range): BP systolic 102–166; BP diastolic 55–75
[2022-07-20] MEDS: ACETAMINOPHEN TAB 650MG DOSE (2X325MG) PO PRN (02:37)
[2022-07-20 06:41] LABS: BASO # 0.1 10^3/uL (0.0-0.2); BASO % 0.6 % (0.0-1.0); EOS # 0.2 10^3/uL (0.0-0.5); EOS % 2.3 % (0.0-3.0); HEMATOCRIT 31.2 % (36.0-47.0); HEMOGLOBIN 9.9 g/dl (12.0-15.5); LYMPH # 1.3 10^3/uL (1.5-5.0); MEAN CORPUSCULAR HEMOGLOBIN 28.7 pg (27.0-33.0); MEAN CORPUSCULAR HGB CONC 31.7 g/dl (32.0-36.5); MEAN CORPUSCULAR VOLUME 90.4 fl (80.0-96.0); MONO # 0.6 10^3/uL (0.0-0.8); MONO % 7.5 % (2.0-8.0); NEUTROPHILS # 5.8 10^3/uL (1.5-8.5); NEUTROPHILS % 73.2 % (36.0-66.0); PLATELET COUNT, AUTOMATED 251 10^3/uL (150-450); RED BLOOD COUNT 3.45 10^6/uL (4.00-5.40); WHITE BLOOD COUNT 7.9 10^3/uL (4.0-10.0)
[2022-07-20] MEDS: TIOTROPIUM INHALER/CAPSULE (SPIRIVA) INH SCH (07:29)
[2022-07-20] MEDS: ADVAIR HFA 115/21MCG INHALER INH SCH ×2 (07:29→20:51)
[2022-07-20] MEDS: APIXABAN 5 MG TAB (ELIQUIS) PO SCH ×2 (07:39→20:05)
[2022-07-20] MEDS: PANTOPRAZOLE 40MG TAB (PROTONIX) PO SCH ×2 (07:39→20:05)
[2022-07-20] MEDS: FUROSEMIDE 20 MG TAB PO SCH (07:40)
[2022-07-20] MEDS: METOPROLOL TARTRATE 100MG TAB PO SCH ×2 (07:40→20:06)
[2022-07-20] MEDS: DOCUSATE SODIUM 100MG CAPSULE PO SCH ×2 (07:40→20:07)
[2022-07-20] MEDS: MIRALAX *UNIT DOSE* 17GM PACKET PO SCH (07:41)
[2022-07-20] MEDS: REMEDY PHYTOPLEX Z-GUARD PASTE 113GM TUBE (FROM STOREROOM PRODUCT) TOP SCH ×3 (07:42→20:07)
[2022-07-20] MEDS: NYSTATIN 100,000 UNITS/GM TOPICAL PWD 15GM TOP SCH ×2 (07:43→20:06)
[2022-07-20 07:55] LABS: CALCIUM LEVEL 9.1 MG/DL (8.3-10.6); CREATININE FOR GFR 2.53 MG/DL (0.55-1.30); GLOMERULAR FILTRATION RATE 20.2 (>45); POTASSIUM SERUM 4.3 MMOL/L (3.5-5.1)
[2022-07-20] MEDS: GABAPENTIN 100 MG CAP PO SCH (20:05)
[2022-07-20] MEDS: MIRTAZAPINE 7.5MG PER 1/2 TABLET PO SCH (20:05)
[2022-07-20] MEDS: CYPROHEPTADINE 4 MG TAB PO SCH (20:05)
[2022-07-20] MEDS: ROSUVASTATIN 10 MG TAB (CRESTOR) PO SCH (20:05)
[2022-07-20] MEDS: SENNA 8.6 MG TAB (SENOKOT) PO SCH (20:06)
[2022-07-21 00:02] VITALS: BP 116/56
[2022-07-21 04:25] VITALS: BP 94/62
[2022-07-21] MEDS: ADVAIR HFA 115/21MCG INHALER INH SCH ×2 (08:07→20:42)
[2022-07-21] MEDS: TIOTROPIUM INHALER/CAPSULE (SPIRIVA) INH SCH (08:07)
[2022-07-21] MEDS: PANTOPRAZOLE 40MG TAB (PROTONIX) PO SCH ×2 (08:22→20:37)
[2022-07-21] MEDS: FUROSEMIDE 20 MG TAB PO SCH (08:23)
[2022-07-21] MEDS: APIXABAN 5 MG TAB (ELIQUIS) PO SCH ×2 (08:23→20:35)
[2022-07-21] MEDS: NYSTATIN 100,000 UNITS/GM TOPICAL PWD 15GM TOP SCH ×2 (08:23→20:37)
[2022-07-21] MEDS: MIRALAX *UNIT DOSE* 17GM PACKET PO SCH (09:00)
[2022-07-21] MEDS: METOPROLOL TARTRATE 100MG TAB PO SCH ×2 (09:00→20:35)
[2022-07-21] MEDS: DOCUSATE SODIUM 100MG CAPSULE PO SCH ×2 (09:00→20:18)
[2022-07-21] MEDS: REMEDY PHYTOPLEX Z-GUARD PASTE 113GM TUBE (FROM STOREROOM PRODUCT) TOP SCH ×3 (09:00→20:18)
[2022-07-21 12:00] VITALS: BP 130/68
[2022-07-21 18:00] VITALS: BP 134/60
[2022-07-21 20:00] VITALS: BP 123/59
[2022-07-21] MEDS: SENNA 8.6 MG TAB (SENOKOT) PO SCH (20:18)
[2022-07-21] MEDS: GABAPENTIN 100 MG CAP PO SCH (20:35)
[2022-07-21] MEDS: CYPROHEPTADINE 4 MG TAB PO SCH (20:35)
[2022-07-21] MEDS: ROSUVASTATIN 10 MG TAB (CRESTOR) PO SCH (20:35)
[2022-07-21] MEDS: MIRTAZAPINE 7.5MG PER 1/2 TABLET PO SCH (20:35)
[2022-07-22] VITALS: BP 108/59
[2022-07-22 04:00] VITALS: BP 132/70
[2022-07-22 07:19] LABS: BASO % 0.5 % (0.0-1.0); EOS # 0.2 10^3/uL (0.0-0.5); EOS % 3.1 % (0.0-3.0); HEMATOCRIT 31.3 % (36.0-47.0); HEMOGLOBIN 9.7 g/dl (12.0-15.5); LYMPH # 1.2 10^3/uL (1.5-5.0); MEAN CORPUSCULAR VOLUME 90.5 fl (80.0-96.0); MONO # 0.7 10^3/uL (0.0-0.8); MONO % 8.5 % (2.0-8.0); NEUTROPHILS # 5.6 10^3/uL (1.5-8.5); NEUTROPHILS % 72.5 % (36.0-66.0); PLATELET COUNT, AUTOMATED 304 10^3/uL (150-450); RED BLOOD COUNT 3.46 10^6/uL (4.00-5.40); WHITE BLOOD COUNT 7.8 10^3/uL (4.0-10.0)
[2022-07-22 07:46] LABS: CALCIUM LEVEL 9.2 MG/DL (8.3-10.6); CREATININE FOR GFR 2.2 MG/DL (0.55-1.30); GLOMERULAR FILTRATION RATE 23.8 (>45); POTASSIUM SERUM 3.6 MMOL/L (3.5-5.1)
[2022-07-22] MEDS: PANTOPRAZOLE 40MG TAB (PROTONIX) PO SCH ×2 (08:42→21:37)
[2022-07-22] MEDS: APIXABAN 5 MG TAB (ELIQUIS) PO SCH ×2 (08:42→21:37)
[2022-07-22] MEDS: FUROSEMIDE 20 MG TAB PO SCH (08:42)
[2022-07-22] MEDS: METOPROLOL TARTRATE 100MG TAB PO SCH ×2 (08:43→21:00)
[2022-07-22] MEDS: DOCUSATE SODIUM 100MG CAPSULE PO SCH ×2 (08:44→21:00)
[2022-07-22] MEDS: MIRALAX *UNIT DOSE* 17GM PACKET PO SCH (08:44)
[2022-07-22] MEDS: NYSTATIN 100,000 UNITS/GM TOPICAL PWD 15GM TOP SCH ×2 (08:45→21:39)
[2022-07-22] MEDS: REMEDY PHYTOPLEX Z-GUARD PASTE 113GM TUBE (FROM STOREROOM PRODUCT) TOP SCH ×3 (08:45→21:00)
[2022-07-22] MEDS: TIOTROPIUM INHALER/CAPSULE (SPIRIVA) INH SCH (09:52)
[2022-07-22] MEDS: ADVAIR HFA 115/21MCG INHALER INH SCH ×2 (09:52→20:21)
[2022-07-22] MEDS ORDERED: FUROSEMIDE 20 MG TAB PO ONE (10:00)
[2022-07-22 14:00] VITALS: BP 139/72
[2022-07-22] MEDS ORDERED: POTASSIUM CHLORIDE 10MEQ SR TABLET PO ONE (17:00)
[2022-07-22 20:00] VITALS: BP 111/57
[2022-07-22] MEDS: SENNA 8.6 MG TAB (SENOKOT) PO SCH (21:00)
[2022-07-22] MEDS: GABAPENTIN 100 MG CAP PO SCH (21:36)
[2022-07-22] MEDS: ROSUVASTATIN 10 MG TAB (CRESTOR) PO SCH (21:36)
[2022-07-22] MEDS: CYPROHEPTADINE 4 MG TAB PO SCH (21:38)
[2022-07-22] MEDS: MIRTAZAPINE 7.5MG PER 1/2 TABLET PO SCH (21:38)
[2022-07-23] VITALS: BP 99/54
[2022-07-23 06:00] VITALS: BP 112/57
[2022-07-23 07:14] LABS: HEMATOCRIT 30.8 % (36.0-47.0); HEMOGLOBIN 9.7 g/dl (12.0-15.5); MEAN CORPUSCULAR HEMOGLOBIN 28.2 pg (27.0-33.0); MEAN CORPUSCULAR HGB CONC 31.5 g/dl (32.0-36.5); MEAN CORPUSCULAR VOLUME 89.5 fl (80.0-96.0); PLATELET COUNT, AUTOMATED 287 10^3/uL (150-450); RED BLOOD COUNT 3.44 10^6/uL (4.00-5.40)
[2022-07-23] MEDS: ADVAIR HFA 115/21MCG INHALER INH SCH ×2 (07:31→20:00)
[2022-07-23] MEDS: TIOTROPIUM INHALER/CAPSULE (SPIRIVA) INH SCH (07:32)
[2022-07-23 07:39] LABS: ALBUMIN 2.7 G/DL (3.2-5.2); CREATININE FOR GFR 2.12 MG/DL (0.55-1.30); GLOMERULAR FILTRATION RATE 24.8 (>45); POTASSIUM SERUM 3.4 MMOL/L (3.5-5.1)
[2022-07-23] MEDS: POTASSIUM CHLORIDE 10MEQ SR TABLET PO SCH (08:33)
[2022-07-23] MEDS: APIXABAN 5 MG TAB (ELIQUIS) PO SCH ×2 (08:33→20:22)
[2022-07-23] MEDS: FUROSEMIDE 40 MG TAB PO SCH (08:33)
[2022-07-23] MEDS: PANTOPRAZOLE 40MG TAB (PROTONIX) PO SCH ×2 (08:33→20:22)
[2022-07-23] MEDS: METOPROLOL TARTRATE 100MG TAB PO SCH ×2 (08:34→20:22)
[2022-07-23] MEDS: DOCUSATE SODIUM 100MG CAPSULE PO SCH ×2 (08:34→20:23)
[2022-07-23] MEDS: MIRALAX *UNIT DOSE* 17GM PACKET PO SCH (08:34)
[2022-07-23] MEDS: REMEDY PHYTOPLEX Z-GUARD PASTE 113GM TUBE (FROM STOREROOM PRODUCT) TOP SCH ×3 (08:35→20:23)
[2022-07-23] MEDS: NYSTATIN 100,000 UNITS/GM TOPICAL PWD 15GM TOP SCH ×2 (08:35→20:23)
[2022-07-23] MEDS ORDERED: ALBUTEROL 90 MCG/ACT 8GM HFA INHALER INH PRN (09:50)
[2022-07-23 14:00] VITALS: BP 109/58
[2022-07-23 20:00] VITALS: BP 120/62
[2022-07-23] MEDS: MIRTAZAPINE 7.5MG PER 1/2 TABLET PO SCH (20:21)
[2022-07-23] MEDS: ROSUVASTATIN 10 MG TAB (CRESTOR) PO SCH (20:22)
[2022-07-23] MEDS: CYPROHEPTADINE 4 MG TAB PO SCH (20:22)
[2022-07-23] MEDS: GABAPENTIN 100 MG CAP PO SCH (20:22)
[2022-07-23] MEDS: SENNA 8.6 MG TAB (SENOKOT) PO SCH (20:23)
[2022-07-23] MEDS: ACETAMINOPHEN TAB 650MG DOSE (2X325MG) PO PRN (23:54)
[2022-07-24] VITALS: BP 117/59
[2022-07-24 06:00] VITALS: BP 104/64
[2022-07-24] MEDS: TIOTROPIUM INHALER/CAPSULE (SPIRIVA) INH SCH (07:21)
[2022-07-24] MEDS: ADVAIR HFA 115/21MCG INHALER INH SCH ×2 (07:21→21:34)
[2022-07-24] MEDS: MIRALAX *UNIT DOSE* 17GM PACKET PO SCH (09:00)
[2022-07-24] MEDS: REMEDY PHYTOPLEX Z-GUARD PASTE 113GM TUBE (FROM STOREROOM PRODUCT) TOP SCH ×3 (09:00→21:00)
[2022-07-24] MEDS: DOCUSATE SODIUM 100MG CAPSULE PO SCH ×2 (09:00→21:00)
[2022-07-24] MEDS: PANTOPRAZOLE 40MG TAB (PROTONIX) PO SCH ×2 (09:13→21:43)
[2022-07-24] MEDS: POTASSIUM CHLORIDE 10MEQ SR TABLET PO SCH (09:14)
[2022-07-24] MEDS: APIXABAN 5 MG TAB (ELIQUIS) PO SCH ×2 (09:14→21:44)
[2022-07-24] MEDS: FUROSEMIDE 40 MG TAB PO SCH (09:14)
[2022-07-24] MEDS: METOPROLOL TARTRATE 100MG TAB PO SCH ×3 (09:15→21:43)
[2022-07-24] MEDS: NYSTATIN 100,000 UNITS/GM TOPICAL PWD 15GM TOP SCH ×2 (09:15→21:44)
[2022-07-24 19:42] VITALS: BP 107/59
[2022-07-24] MEDS: SENNA 8.6 MG TAB (SENOKOT) PO SCH (21:00)
[2022-07-24] MEDS: GABAPENTIN 100 MG CAP PO SCH (21:43)
[2022-07-24] MEDS: CYPROHEPTADINE 4 MG TAB PO SCH (21:43)
[2022-07-24] MEDS: MIRTAZAPINE 7.5MG PER 1/2 TABLET PO SCH (21:44)
[2022-07-24] MEDS: ROSUVASTATIN 10 MG TAB (CRESTOR) PO SCH (21:44)
[2022-07-25 00:15] VITALS: BP_SYST 106; BP_DIAS 62; BP_DIAS 65
[2022-07-25 05:44] VITALS: BP 124/63
[2022-07-25] MEDS: MIRALAX *UNIT DOSE* 17GM PACKET PO SCH (07:30)
[2022-07-25] MEDS: DOCUSATE SODIUM 100MG CAPSULE PO SCH ×2 (07:30→20:34)
[2022-07-25] MEDS: REMEDY PHYTOPLEX Z-GUARD PASTE 113GM TUBE (FROM STOREROOM PRODUCT) TOP SCH ×3 (07:31→20:34)
[2022-07-25] MEDS: APIXABAN 5 MG TAB (ELIQUIS) PO SCH ×2 (07:34→20:35)
[2022-07-25] MEDS: PANTOPRAZOLE 40MG TAB (PROTONIX) PO SCH ×2 (07:34→20:35)
[2022-07-25] MEDS: POTASSIUM CHLORIDE 10MEQ SR TABLET PO SCH (07:34)
[2022-07-25] MEDS: FUROSEMIDE 40 MG TAB PO SCH (07:35)
[2022-07-25] MEDS: METOPROLOL TARTRATE 100MG TAB PO SCH ×2 (07:35→20:35)
[2022-07-25] MEDS: NYSTATIN 100,000 UNITS/GM TOPICAL PWD 15GM TOP SCH ×2 (07:36→20:38)
[2022-07-25] MEDS: TIOTROPIUM INHALER/CAPSULE (SPIRIVA) INH SCH (08:43)
[2022-07-25] MEDS: ADVAIR HFA 115/21MCG INHALER INH SCH ×2 (08:44→19:04)
[2022-07-25 11:20] LABS: BASO # 0.1 10^3/uL (0.0-0.2); BASO % 0.6 % (0.0-1.0); EOS # 0.2 10^3/uL (0.0-0.5); EOS % 2.2 % (0.0-3.0); HEMATOCRIT 33.9 % (36.0-47.0); HEMOGLOBIN 10.3 g/dl (12.0-15.5); LYMPH % 11.1 % (24.0-44.0); MEAN CORPUSCULAR HEMOGLOBIN 27.6 pg (27.0-33.0); MEAN CORPUSCULAR HGB CONC 30.4 g/dl (32.0-36.5); MEAN CORPUSCULAR VOLUME 90.9 fl (80.0-96.0); MONO # 0.6 10^3/uL (0.0-0.8); MONO % 6.8 % (2.0-8.0); NEUTROPHILS # 7.3 10^3/uL (1.5-8.5); NEUTROPHILS % 78.9 % (36.0-66.0); PLATELET COUNT, AUTOMATED 333 10^3/uL (150-450); RED BLOOD COUNT 3.73 10^6/uL (4.00-5.40); WHITE BLOOD COUNT 9.3 10^3/uL (4.0-10.0)
[2022-07-25 11:38] VITALS: BP 110/56
[2022-07-25 13:49] LABS: CALCIUM LEVEL 9.3 MG/DL (8.3-10.6)
[2022-07-25 13:52] LABS: CREATININE FOR GFR 2.12 MG/DL (0.55-1.30); GLOMERULAR FILTRATION RATE 24.8 (>45)
[2022-07-25 13:53] LABS: POTASSIUM SERUM 4.4 MMOL/L (3.5-5.1)
[2022-07-25 13:59] VITALS: BP 129/69
[2022-07-25 17:14] VITALS: BP 125/65
[2022-07-25 20:00] VITALS: BP 114/57
[2022-07-25] MEDS: SENNA 8.6 MG TAB (SENOKOT) PO SCH (20:34)
[2022-07-25] MEDS: GABAPENTIN 100 MG CAP PO SCH (20:35)
[2022-07-25] MEDS: ROSUVASTATIN 10 MG TAB (CRESTOR) PO SCH (20:36)
[2022-07-25] MEDS: MIRTAZAPINE 7.5MG PER 1/2 TABLET PO SCH (20:36)
[2022-07-25] MEDS: CYPROHEPTADINE 4 MG TAB PO SCH (20:36)
[2022-07-26] VITALS: BP 113/66
[2022-07-26 05:00] VITALS: BP 105/55
[2022-07-26 06:10] LABS: CALCIUM LEVEL 8.9 MG/DL (8.3-10.6)
[2022-07-26 06:12] LABS: CREATININE FOR GFR 2.09 MG/DL (0.55-1.30); GLOMERULAR FILTRATION RATE 25.2 (>45)
[2022-07-26 06:14] LABS: POTASSIUM SERUM 3.9 MMOL/L (3.5-5.1)
[2022-07-26] MEDS: ADVAIR HFA 115/21MCG INHALER INH SCH (08:31)
[2022-07-26] MEDS: TIOTROPIUM INHALER/CAPSULE (SPIRIVA) INH SCH (08:31)
[2022-07-26 08:55] VITALS: BP 105/55
[2022-07-26] MEDS: MIRALAX *UNIT DOSE* 17GM PACKET PO SCH (08:55)
[2022-07-26] MEDS: FUROSEMIDE 40 MG TAB PO SCH (08:55)
[2022-07-26] MEDS: PANTOPRAZOLE 40MG TAB (PROTONIX) PO SCH (08:55)
[2022-07-26] MEDS: METOPROLOL TARTRATE 100MG TAB PO SCH (08:55)
[2022-07-26] MEDS: REMEDY PHYTOPLEX Z-GUARD PASTE 113GM TUBE (FROM STOREROOM PRODUCT) TOP SCH (08:55)
[2022-07-26] MEDS: NYSTATIN 100,000 UNITS/GM TOPICAL PWD 15GM TOP SCH (08:56)
[2022-07-26] MEDS: DOCUSATE SODIUM 100MG CAPSULE PO SCH (08:56)
[2022-07-26] MEDS: APIXABAN 5 MG TAB (ELIQUIS) PO SCH (08:56)
[2022-07-26] MEDS ORDERED: GABA-1171 PO (09:48)
[2022-07-26] MEDS ORDERED: ANOR1AER INH (09:48)
[2022-07-26] MEDS ORDERED: MIRT-10 PO (09:48)
[2022-07-26] MEDS ORDERED: FURO40TA2 PO (09:48)
[2022-07-26] MEDS ORDERED: TIOT18INH INH (09:48)
[2022-07-26] MEDS ORDERED: DILT60TA PO (09:48)
[2022-07-26] MEDS ORDERED: CRES20TA2 PO (09:48)
[2022-07-26] MEDS ORDERED: ELIQ5TAB PO (09:48)
[2022-07-26] MEDS ORDERED: CYPR4TA PO (09:48)
[2022-07-26] MEDS ORDERED: ARNU1INH3 INH (09:48)
[2022-07-26] MEDS ORDERED: METO100T5 PO (09:48)
[2022-07-26] MEDS ORDERED: VENTAER INH (09:49)
== END 2022-07-26 11:25 | disposition home health service (06) | DRG 948 ==
LOC: M PM&R 14:00
PROVIDERS: ADMIT Physical Medicine & Rehabilitation; ATTEND Physical Medicine & Rehabilitation
DX: R53.1 Weakness (principal); I50.32 Chronic diastolic (congestive) heart failure; I13.0 Hypertensive heart and chronic kidney disease with heart failure and stage 1 through stage 4 chronic kidney disease, or unspecified chronic kidney disease; E46 Unspecified protein-calorie malnutrition; J96.10 Chronic respiratory failure, unspecified whether with hypoxia or hypercapnia; G62.9 Polyneuropathy, unspecified; J44.9 Chronic obstructive pulmonary disease, unspecified; I27.29 Other secondary pulmonary hypertension; I48.91 Unspecified atrial fibrillation; E78.5 Hyperlipidemia, unspecified; N18.9 Chronic kidney disease, unspecified; Z66 Do not resuscitate; Z99.81 Dependence on supplemental oxygen; M48.061 Spinal stenosis, lumbar region without neurogenic claudication; M51.26 Other intervertebral disc displacement, lumbar region; Z74.09 Other reduced mobility; Z74.1 Need for assistance with personal care; Z79.01 Long term (current) use of anticoagulants; Z79.899 Other long term (current) drug therapy; E87.6 Hypokalemia; D64.9 Anemia, unspecified; J84.10 Pulmonary fibrosis, unspecified; K21.9 Gastro-esophageal reflux disease without esophagitis

== ENCOUNTER → 2022-09-01 | Outpatient (CLI) | payer MEDICARE, OTHER ==
[~2022-09-01] MED LIST changes: +CYPR4TA PO; +GABA-1171 PO; +MIRT-10 PO; +TIOT18INH INH; +VENTAER INH
== END ==
LOC: M RAD 11:04
PROVIDERS: ATTEND Physician Assistant
DX: R60.0 Localized edema (principal)

== ENCOUNTER 2023-01-27 11:12 | Emergency (ER) | payer MEDICARE, OTHER ==
[~2023-01-27] VITALS: Ht 160 cm; Wt 57.3 kg
[2023-01-27 11:13] VITALS: BP 156/77
[2023-01-27 12:04] LABS: BASO # 0.1 10^3/uL (0.0-0.2); BASO % 0.7 % (0.0-1.0); EOS # 0.1 10^3/uL (0.0-0.5); EOS % 0.8 % (0.0-3.0); HEMATOCRIT 41.7 % (36.0-47.0); HEMOGLOBIN 13.3 g/dl (12.0-15.5); LYMPH # 1.6 10^3/uL (1.5-5.0); LYMPH % 16.2 % (24.0-44.0); MEAN CORPUSCULAR HEMOGLOBIN 28.1 pg (27.0-33.0); MEAN CORPUSCULAR HGB CONC 31.9 g/dl (32.0-36.5); MONO # 0.6 10^3/uL (0.0-0.8); MONO % 5.9 % (2.0-8.0); NEUTROPHILS # 7.4 10^3/uL (1.5-8.5); NEUTROPHILS % 76.1 % (36.0-66.0); PLATELET COUNT, AUTOMATED 303 10^3/uL (150-450); RED BLOOD COUNT 4.74 10^6/uL (4.00-5.40); WHITE BLOOD COUNT 9.7 10^3/uL (4.0-10.0)
[2023-01-27 12:26] LABS: ALBUMIN 4.1 G/DL (3.2-5.2); BILIRUBIN,DIRECT 0.3 MG/DL (<0.4); BILIRUBIN,TOTAL 0.7 MG/DL (0.3-1.2); CALCIUM LEVEL 9.8 MG/DL (8.3-10.6); CREATININE FOR GFR 1.57 MG/DL (0.55-1.30); POTASSIUM SERUM 3.8 MMOL/L (3.5-5.1); TOTAL PROTEIN 7.4 G/DL (5.7-8.2)
== END 2023-01-27 15:20 | disposition left against medical advice (07) ==
LOC: M ED 11:12
DX: R10.9 Unspecified abdominal pain (principal); I48.91 Unspecified atrial fibrillation; I50.20 Unspecified systolic (congestive) heart failure; I10 Essential (primary) hypertension; E78.5 Hyperlipidemia, unspecified; N18.9 Chronic kidney disease, unspecified; Z99.81 Dependence on supplemental oxygen; Z79.01 Long term (current) use of anticoagulants; Z79.899 Other long term (current) drug therapy; Z79.51 Long term (current) use of inhaled steroids

== ENCOUNTER → 2023-06-21 | Outpatient (CLI) | payer MEDICARE, OTHER ==
[~2023-06-21] MED LIST changes: -K-TA10TA PO; +POTA-164 PO
== END ==
LOC: M PLAIMG 09:43
PROVIDERS: ATTEND Nurse Practitioner Family
DX: J44.9 Chronic obstructive pulmonary disease, unspecified (principal)

== ENCOUNTER → 2023-07-18 | Outpatient (CLI) | payer MEDICARE, OTHER ==
[2023-07-18 11:23] LABS: BASO # 0.1 10^3/uL (0.0-0.2); BASO % 0.7 % (0.0-1.0); EOS # 0.2 10^3/uL (0.0-0.5); HEMATOCRIT 44.1 % (36.0-47.0); HEMOGLOBIN 13.9 g/dl (12.0-15.5); LYMPH # 2.2 10^3/uL (1.5-5.0); LYMPH % 23.7 % (24.0-44.0); MEAN CORPUSCULAR HEMOGLOBIN 28.8 pg (27.0-33.0); MEAN CORPUSCULAR HGB CONC 31.5 g/dl (32.0-36.5); MEAN CORPUSCULAR VOLUME 91.3 fl (80.0-96.0); MONO # 0.7 10^3/uL (0.0-0.8); MONO % 7.5 % (2.0-8.0); NEUTROPHILS # 6.1 10^3/uL (1.5-8.5); NEUTROPHILS % 65.9 % (36.0-66.0); PLATELET COUNT, AUTOMATED 282 10^3/uL (150-450); RED BLOOD COUNT 4.83 10^6/uL (4.00-5.40); WHITE BLOOD COUNT 9.2 10^3/uL (4.0-10.0)
[2023-07-18 11:55] LABS: FREE T4 1.3 NG/DL (0.89-1.76)
[2023-07-18 11:56] LABS: ALBUMIN 3.7 G/DL (3.2-5.2); BILIRUBIN,TOTAL 0.8 MG/DL (0.3-1.2); CALCIUM LEVEL 10.3 MG/DL (8.3-10.6); CHOLESTEROL RISK RATIO 2.67 (<5); CREATININE FOR GFR 2.08 MG/DL (0.55-1.30); GLOMERULAR FILTRATION RATE 25.3 (>45); HDL CHOLESTEROL 72.8 MG/DL (>40); LDL CHOLESTEROL 99.8 MG/DL (<100); NON-HDL-C 122.2 MG/DL; POTASSIUM SERUM 5.1 MMOL/L (3.5-5.1); THYROID STIMULATING HORMONE 1.436 uIU/ML (0.55-4.78); TOTAL PROTEIN 7.2 G/DL (5.7-8.2)
[2023-07-18 11:58] LABS: TOTAL 25(OH) VITAMIN D 36.4 NG/ML (20.0-100.0)
== END ==
LOC: M PLALAB 07:14
PROVIDERS: ATTEND Nurse Practitioner Adult Health
DX: M54.40 Lumbago with sciatica, unspecified side (principal); I48.0 Paroxysmal atrial fibrillation; R78.5 Finding of other psychotropic drug in blood; I10 Essential (primary) hypertension; R73.03 Prediabetes; E83.51 Hypocalcemia; R53.83 Other fatigue; D72.829 Elevated white blood cell count, unspecified

== ENCOUNTER 2023-09-28 11:23 | Day surgery (SDC) | payer MEDICARE, OTHER ==
[2023-09-13] MEDS: BSS IRRIG/VANCO(10MG)/TOBRA(5MG)/EPINEPH(1:1000-0.5CC)500ML BAG-ORONLY IR ONE (12:49)
[~2023-09-28] VITALS: Ht 160 cm; Wt 55.3 kg
[~2023-09-28 11:23] MED LIST changes: +CYCLOPENTOLATE 1% OPHTH SOLN 2ML BTL OD SCH; +DILT12SRCA PO; +FLUT1BLS8 INH; +LASI20TA3 PO; +LIDOCAINE 3.5 % 1ML OPHTH TOPICAL GEL OU ONE; +MIDAZOLAM INJ 2MG/2ML VIAL As Ordered ONE; +OFLOXACIN 0.3 % (OCUFLOX) OPTH SOL 5ML OD ONE; +PHENYLEPHRINE 10% OPHTH SOL 5ML OD PRN; +PHENYLEPHRINE 2.5% OPHTH SOL 2ML OD SCH; +TROPICAMIDE 1% OPHTH SOLN 15ML OD SCH
[2023-09-28] MEDS: LIDOCAINE 3.5 % 1ML OPHTH TOPICAL GEL OU ONE (11:41)
[2023-09-28] MEDS: PHENYLEPHRINE 2.5% OPHTH SOL 2ML OD SCH (11:41)
[2023-09-28] MEDS: CYCLOPENTOLATE 1% OPHTH SOLN 2ML BTL OD SCH (11:41)
[2023-09-28] MEDS: TROPICAMIDE 1% OPHTH SOLN 15ML OD SCH (11:41)
[2023-09-28] MEDS: OFLOXACIN 0.3 % (OCUFLOX) OPTH SOL 5ML OD ONE (11:41)
[2023-09-28] MEDS: LIDOCAINE 1% SDV 5ML VIAL As Ordered ONE (12:49)
[2023-09-28] MEDS: CEFUROXIME 1MG/0.1ML INTRACAMERAL INJ As Ordered ONE (12:49)
[2023-09-28 13:03] VITALS: BP 140/62; TEMP 96.8; O2SAT 98
== END 2023-09-28 13:25 | disposition home or self-care (01) ==
LOC: M SDC 11:23
PROVIDERS: ATTEND Ophthalmology
DX: H25.11 Age-related nuclear cataract, right eye (principal); I48.91 Unspecified atrial fibrillation; I50.9 Heart failure, unspecified; I11.0 Hypertensive heart disease with heart failure; E78.00 Pure hypercholesterolemia, unspecified; J44.9 Chronic obstructive pulmonary disease, unspecified; Z99.81 Dependence on supplemental oxygen; Z79.899 Other long term (current) drug therapy; Z79.01 Long term (current) use of anticoagulants; Z79.51 Long term (current) use of inhaled steroids
CPT/HCPCS: 66984; J0697; J2250; V2632

== ENCOUNTER 2023-11-16 08:16 | Day surgery (SDC) | payer MEDICARE, OTHER ==
[~2023-11-16] VITALS: Ht 160 cm; Wt 56.6 kg
[~2023-11-16 08:16] MED LIST changes: -CYCLOPENTOLATE 1% OPHTH SOLN 2ML BTL OD SCH; +ELIQ2.5T PO; -OFLOXACIN 0.3 % (OCUFLOX) OPTH SOL 5ML OD ONE; +OLME20TA50 PO; -PHENYLEPHRINE 10% OPHTH SOL 5ML OD PRN; +PHENYLEPHRINE 10% OPHTH SOL 5ML OS PRN; -PHENYLEPHRINE 2.5% OPHTH SOL 2ML OD SCH; -TROPICAMIDE 1% OPHTH SOLN 15ML OD SCH; +fentaNYL 100 MCG/2 ML INJECTION As Ordered ONE
[2023-11-16] MEDS: OFLOXACIN 0.3 % (OCUFLOX) OPTH SOL 5ML OS ONE (09:00)
[2023-11-16] MEDS: ATROPINE SULFATE 1% OPHTH SOLN 2ML BTL OS SCH (09:10)
[2023-11-16] MEDS: PHENYLEPHRINE 2.5% OPHTH SOL 2ML OS SCH (09:10)
[2023-11-16] MEDS: TROPICAMIDE 1% OPHTH SOLN 15ML OS SCH (09:10)
[2023-11-16] MEDS: BSS IRRIG/VANCO(10MG)/TOBRA(5MG)/EPINEPH(1:1000-0.5CC)500ML BAG-ORONLY As Ordered ONE (10:20)
[2023-11-16] MEDS: CEFUROXIME 1MG/0.1ML INTRACAMERAL INJ As Ordered ONE (10:20)
[2023-11-16] MEDS: LIDOCAINE 1% SDV 5ML VIAL As Ordered ONE (10:20)
[2023-11-16 10:30] VITALS: BP 129/57; TEMP 97.1; O2SAT 93
== END 2023-11-16 10:55 | disposition home or self-care (01) ==
LOC: M SDC 08:16
PROVIDERS: ATTEND Ophthalmology
DX: H25.12 Age-related nuclear cataract, left eye (principal); I48.91 Unspecified atrial fibrillation; I12.9 Hypertensive chronic kidney disease with stage 1 through stage 4 chronic kidney disease, or unspecified chronic kidney disease; E78.00 Pure hypercholesterolemia, unspecified; J44.9 Chronic obstructive pulmonary disease, unspecified; N18.9 Chronic kidney disease, unspecified; Z90.711 Acquired absence of uterus with remaining cervical stump; Z79.899 Other long term (current) drug therapy; Z79.01 Long term (current) use of anticoagulants; Z79.51 Long term (current) use of inhaled steroids
CPT/HCPCS: 66984; J0697; J2250; J3010; V2632

== ENCOUNTER 2023-12-12 10:47 | Inpatient (IN) | payer MEDICARE, OTHER ==
[~2023-12-12] VITALS: Ht 160 cm; Wt 61.3 kg
[2023-12-12] MEDS: DOCUSATE SODIUM 100MG CAPSULE PO SCH (09:00)
[~2023-12-12 10:47] MED LIST changes: -LIDOCAINE 3.5 % 1ML OPHTH TOPICAL GEL OU ONE; -MIDAZOLAM INJ 2MG/2ML VIAL As Ordered ONE; -PHENYLEPHRINE 10% OPHTH SOL 5ML OS PRN; -fentaNYL 100 MCG/2 ML INJECTION As Ordered ONE
[2023-12-12 11:30] LABS: BASO # 0.1 10^3/uL (0.0-0.2); BASO % 0.6 % (0.0-1.0); EOS # 0.1 10^3/uL (0.0-0.5); EOS % 0.8 % (0.0-3.0); HEMATOCRIT 34.8 % (36.0-47.0); HEMOGLOBIN 10.9 g/dl (12.0-15.5); LYMPH # 1.3 10^3/uL (1.5-5.0); LYMPH % 10.7 % (24.0-44.0); MEAN CORPUSCULAR HEMOGLOBIN 29.4 pg (27.0-33.0); MEAN CORPUSCULAR HGB CONC 31.3 g/dl (32.0-36.5); MEAN CORPUSCULAR VOLUME 93.8 fl (80.0-96.0); MONO # 0.6 10^3/uL (0.0-0.8); MONO % 5.1 % (2.0-8.0); NEUTROPHILS # 10.3 10^3/uL (1.5-8.5); NEUTROPHILS % 82.4 % (36.0-66.0); PLATELET COUNT, AUTOMATED 230 10^3/uL (150-450); RED BLOOD COUNT 3.71 10^6/uL (4.00-5.40); WHITE BLOOD COUNT 12.5 10^3/uL (4.0-10.0)
[2023-12-12] MEDS ORDERED: POTA1TAB21 PO (11:30)
[2023-12-12 11:48] LABS: INR 1.15; PROTHROMBIN TIME 14.3 SECONDS (12.5-14.5)
[2023-12-12 11:58] LABS: BLOOD UREA NITROGEN 58 MG/DL (9-23); CARBON DIOXIDE LEVEL 29 MMOL/L (20-31); CHLORIDE LEVEL 104 MMOL/L (98-107); CK-MB VALUE MASS < 1.0 NG/ML (<3.6); CPK CREATINE PHOSPHOKINASE 42 U/L (34-145); CREATININE FOR GFR 2.84 MG/DL (0.55-1.30); GLOMERULAR FILTRATION RATE 17.6 (>45); GLUCOSE, FASTING 144 MG/DL (74-106); MB/CK RELATIVE INDEX 2.38 (< OR =4); POTASSIUM SERUM 5.7 MMOL/L (3.5-5.1); SODIUM LEVEL 138 MMOL/L (136-145)
[2023-12-12] MEDS: ONDANSETRON 4MG 2ML VIAL IV ONE (12:06)
[2023-12-12] MEDS: MORPHINE 2 MG/ML 1ML VIAL IV PRN ×2 (12:07→13:40)
[2023-12-12] MEDS: NS 1,000 ML IV SCH ×2 (12:22→13:40)
[2023-12-12] MEDS: PATIROMER SORBITEX CALCIUM 8.4 GM POWDER PACKET (VELTASSA) PO ONE (12:29)
[2023-12-12] MEDS ORDERED: MAALOX 30 ML SUSP *UDC PO PRN (13:30)
[2023-12-12] MEDS ORDERED: MOM 30ML SUSPENSION UDC PO PRN (13:30)
[2023-12-12] MEDS ORDERED: MED REC IN PROGRESS XX SCH (13:40)
[2023-12-12] MEDS: ACETAMINOPHEN TAB 650MG DOSE (2X325MG) PO PRN (14:55)
[2023-12-12] MEDS ORDERED: PREDOPD OS (15:19)
[2023-12-12] MEDS ORDERED: ROSU20TA61 PO (15:19)
[2023-12-12] MEDS ORDERED: HOME MED LIST COMPLETE! XX SCH (15:20)
[2023-12-12] MEDS ORDERED: IPRATROPIUM 0.5MG/ALBUTEROL 2.5MG INH SOL UD 3ML (DUONEB) NEB PRN (15:30)
[2023-12-12 16:42] VITALS: BP 133/85; TEMP 98; O2SAT 90
[2023-12-12] MEDS: prednisoLONE ACET 1% OPHTH SUSP 5ML OS SCH (17:00)
[2023-12-12] MEDS: ADVAIR HFA 230/21MCG INHALER INH SCH (19:21)
[2023-12-12 20:05] VITALS: BP 120/67; TEMP 97.5; O2SAT 97
[2023-12-12] MEDS: ROSUVASTATIN 10 MG TAB (CRESTOR) PO SCH (20:21)
[2023-12-12] MEDS: METOPROLOL TARTRATE 100MG TAB PO SCH (20:22)
[2023-12-12] MEDS: dilTIAZem 120MG **CD** CAPSULE PO SCH (20:22)
[2023-12-12] MEDS: HEPARIN SOD (PORCINE) 5000UNITS/ML 1ML VIAL/SYRINGE SC SCH (20:32)
[2023-12-12 23:31] VITALS: BP 113/56; TEMP 97.1; O2SAT 94
[2023-12-13] VITALS (7 sets, daily range): BP systolic 101–140; BP diastolic 55–79; TEMP 97.3–99.2; O2SAT 93–99
[2023-12-13 05:44] LABS: BASO % 0.4 % (0.0-1.0); EOS % 0.1 % (0.0-3.0); HEMOGLOBIN 9.2 g/dl (12.0-15.5); LYMPH # 0.9 10^3/uL (1.5-5.0); LYMPH % 8.8 % (24.0-44.0); MEAN CORPUSCULAR HEMOGLOBIN 29.8 pg (27.0-33.0); MEAN CORPUSCULAR HGB CONC 31.7 g/dl (32.0-36.5); MEAN CORPUSCULAR VOLUME 93.9 fl (80.0-96.0); MONO # 0.7 10^3/uL (0.0-0.8); MONO % 6.4 % (2.0-8.0); NEUTROPHILS # 8.6 10^3/uL (1.5-8.5); NEUTROPHILS % 84.1 % (36.0-66.0); PLATELET COUNT, AUTOMATED 173 10^3/uL (150-450); RED BLOOD COUNT 3.09 10^6/uL (4.00-5.40); WHITE BLOOD COUNT 10.2 10^3/uL (4.0-10.0)
[2023-12-13 06:06] LABS: CALCIUM LEVEL 9.3 MG/DL (8.3-10.6); CREATININE FOR GFR 2.4 MG/DL (0.55-1.30); GLOMERULAR FILTRATION RATE 21.4 (>45); MAGNESIUM LEVEL 2.1 MG/DL (1.8-2.4); POTASSIUM SERUM 5.6 MMOL/L (3.5-5.1)
[2023-12-13] MEDS: TIOTROPIUM INHALER/CAPSULE (SPIRIVA) INH SCH (07:30)
[2023-12-13] MEDS ORDERED: MIRALAX *UNIT DOSE* 17GM PACKET PO PRN (08:00)
[2023-12-13] MEDS: PATIROMER SORBITEX CALCIUM 8.4 GM POWDER PACKET (VELTASSA) PO ONE (08:26)
[2023-12-13] MEDS: SENOKOT S TAB PO SCH (08:26)
[2023-12-13 20:09] LABS: CALCIUM LEVEL 9.2 MG/DL (8.3-10.6); CREATININE FOR GFR 1.96 MG/DL (0.55-1.30); POTASSIUM SERUM 5.4 MMOL/L (3.5-5.1)
[2023-12-14] VITALS (13 sets, daily range): BP systolic 91–125; BP diastolic 49–62; TEMP 97.7–98.7; O2SAT 88–96
[2023-12-14 05:48] LABS: BASO % 0.4 % (0.0-1.0); EOS % 0.2 % (0.0-3.0); HEMATOCRIT 27.6 % (36.0-47.0); HEMOGLOBIN 8.7 g/dl (12.0-15.5); LYMPH # 0.7 10^3/uL (1.5-5.0); LYMPH % 6.5 % (24.0-44.0); MEAN CORPUSCULAR HEMOGLOBIN 29.7 pg (27.0-33.0); MEAN CORPUSCULAR HGB CONC 31.5 g/dl (32.0-36.5); MEAN CORPUSCULAR VOLUME 94.2 fl (80.0-96.0); MONO # 0.8 10^3/uL (0.0-0.8); MONO % 7.2 % (2.0-8.0); NEUTROPHILS # 8.9 10^3/uL (1.5-8.5); NEUTROPHILS % 85.4 % (36.0-66.0); PLATELET COUNT, AUTOMATED 180 10^3/uL (150-450); RED BLOOD COUNT 2.93 10^6/uL (4.00-5.40); WHITE BLOOD COUNT 10.4 10^3/uL (4.0-10.0)
[2023-12-14 06:11] LABS: CREATININE FOR GFR 1.97 MG/DL (0.55-1.30); GLOMERULAR FILTRATION RATE 26.8 (>45); POTASSIUM SERUM 5.3 MMOL/L (3.5-5.1)
[2023-12-14] MEDS: PATIROMER SORBITEX CALCIUM 8.4 GM POWDER PACKET (VELTASSA) PO ONE (08:49)
[2023-12-14] MEDS ORDERED: fentaNYL 100 MCG/2 ML INJECTION As Ordered ONE (10:55)
[2023-12-14] MEDS: fentaNYL 100 MCG/2 ML INJECTION IV ONE (11:03)
[2023-12-14] MEDS ORDERED: LIDOCAINE 2% 100MG/5ML SDV (FOR ANES.) As Ordered ONE (11:11)
[2023-12-14] MEDS ORDERED: ONDANSETRON 4MG 2ML VIAL As Ordered ONE (11:11)
[2023-12-14] MEDS ORDERED: propofoL 200 MG/20 ML VIAL As Ordered ONE (11:11)
[2023-12-14] MEDS ORDERED: KETOROLAC 60MG 2ML VIAL As Ordered ONE (11:12)
[2023-12-14] MEDS ORDERED: MIDAZOLAM INJ 2MG/2ML VIAL As Ordered ONE (11:13)
[2023-12-14] MEDS: ceFAZolin 1GM VIAL As Ordered ONE (12:00)
[2023-12-14] MEDS ORDERED: oxyCODONE 5MG TAB PO PRN (13:00)
[2023-12-14] MEDS ORDERED: HYDROMORPHONE HCL 0.5 MG/ 0.5 ML SYRINGE IV PRN (13:00)
[2023-12-14] MEDS ORDERED: fentaNYL 100 MCG/2 ML INJECTION IV PRN (13:00)
[2023-12-14] MEDS ORDERED: ONDANSETRON 4MG 2ML VIAL IV PRN (13:00)
[2023-12-14] MEDS: LR 1,000 ML IV SCH (13:00)
[2023-12-14] MEDS: ceFAZolin SOD 2 GM in IV 1 EA IV SCH (18:35)
[2023-12-14] MEDS: NS 1,000 ML IV SCH (22:03)
[2023-12-15] VITALS (11 sets, daily range): BP systolic 104–128; BP diastolic 51–77; TEMP 97.5–98.6; O2SAT 94–97
[2023-12-15 05:53] LABS: BASO % 0.1 % (0.0-1.0); HEMATOCRIT 22.3 % (36.0-47.0); LYMPH # 0.3 10^3/uL (1.5-5.0); LYMPH % 3.4 % (24.0-44.0); MEAN CORPUSCULAR HEMOGLOBIN 29.9 pg (27.0-33.0); MEAN CORPUSCULAR HGB CONC 31.4 g/dl (32.0-36.5); MEAN CORPUSCULAR VOLUME 95.3 fl (80.0-96.0); MONO # 0.4 10^3/uL (0.0-0.8); MONO % 4.7 % (2.0-8.0); NEUTROPHILS # 7.9 10^3/uL (1.5-8.5); NEUTROPHILS % 91.3 % (36.0-66.0); PLATELET COUNT, AUTOMATED 144 10^3/uL (150-450); RED BLOOD COUNT 2.34 10^6/uL (4.00-5.40); WHITE BLOOD COUNT 8.6 10^3/uL (4.0-10.0)
[2023-12-15 06:11] LABS: CALCIUM LEVEL 8.5 MG/DL (8.3-10.6); CREATININE FOR GFR 1.82 MG/DL (0.55-1.30); GLOMERULAR FILTRATION RATE 29.4 (>45); MAGNESIUM LEVEL 2.1 MG/DL (1.8-2.4); POTASSIUM SERUM 4.9 MMOL/L (3.5-5.1)
== END 2023-12-15 17:20 | DRG 481 ==
LOC: M ED 10:47 → M ED INP 13:28 → ENRESERV 16:14 → M PCU 16:30
PROVIDERS: ADMIT Internal Medicine; ATTEND Internal Medicine
PROC: B246ZZZ Ultrasonography of Right and Left Heart (ICD-10-PCS; 2023-12-13)
PROC: 0QS636Z Reposition Right Upper Femur with Intramedullary Internal Fixation Device, Percutaneous Approach (ICD-10-PCS; principal; 2023-12-14 10:30)
PROC: 30233N1 Transfusion of Nonautologous Red Blood Cells into Peripheral Vein, Percutaneous Approach (ICD-10-PCS; 2023-12-15)
DX: S72.144A Nondisplaced intertrochanteric fracture of right femur, initial encounter for closed fracture (principal); I50.32 Chronic diastolic (congestive) heart failure; J96.11 Chronic respiratory failure with hypoxia; I13.0 Hypertensive heart and chronic kidney disease with heart failure and stage 1 through stage 4 chronic kidney disease, or unspecified chronic kidney disease; N17.9 Acute kidney failure, unspecified; D62 Acute posthemorrhagic anemia; I48.91 Unspecified atrial fibrillation; I27.20 Pulmonary hypertension, unspecified; E78.5 Hyperlipidemia, unspecified; J44.9 Chronic obstructive pulmonary disease, unspecified; E87.5 Hyperkalemia; N18.30 Chronic kidney disease, stage 3 unspecified; R55 Syncope and collapse; M54.9 Dorsalgia, unspecified; G89.29 Other chronic pain; Z99.81 Dependence on supplemental oxygen; Z90.79 Acquired absence of other genital organ(s); W01.0XXA Fall on same level from slipping, tripping and stumbling without subsequent striking against object, initial encounter; Y92.009 Unspecified place in unspecified non-institutional (private) residence as the place of occurrence of the external cause; Y93.9 Activity, unspecified; Z79.01 Long term (current) use of anticoagulants; Z79.899 Other long term (current) drug therapy

== ENCOUNTER 2023-12-15 16:02 | Inpatient (IN) | payer MEDICARE, OTHER ==
[~2023-12-15] VITALS: Ht 160 cm; Wt 55.3 kg
[~2023-12-15 16:02] MED LIST changes: +PREDOPD OS; +ROSU20TA61 PO
[2023-12-15] MEDS ORDERED: HEPARIN SOD (PORCINE) 5000UNITS/ML 1ML VIAL/SYRINGE SC SCH (16:35)
[2023-12-15] MEDS ORDERED: IPRATROPIUM 0.5MG/ALBUTEROL 2.5MG INH SOL UD 3ML (DUONEB) NEB PRN (16:40)
[2023-12-15 17:43] VITALS: BP 129/68; TEMP 97.8; O2SAT 94
[2023-12-15] MEDS ORDERED: MIRALAX *UNIT DOSE* 17GM PACKET PO PRN (17:55)
[2023-12-15 18:00] LABS: BASO % 0.1 % (0.0-1.0); HEMATOCRIT 31.2 % (36.0-47.0); LYMPH # 0.4 10^3/uL (1.5-5.0); LYMPH % 3.9 % (24.0-44.0); MEAN CORPUSCULAR HEMOGLOBIN 30.6 pg (27.0-33.0); MEAN CORPUSCULAR VOLUME 92.6 fl (80.0-96.0); MONO # 0.6 10^3/uL (0.0-0.8); MONO % 5.7 % (2.0-8.0); NEUTROPHILS # 9.3 10^3/uL (1.5-8.5); NEUTROPHILS % 89.7 % (36.0-66.0); PLATELET COUNT, AUTOMATED 150 10^3/uL (150-450); RED BLOOD COUNT 3.37 10^6/uL (4.00-5.40); WHITE BLOOD COUNT 10.4 10^3/uL (4.0-10.0)
[2023-12-15 18:10] LABS: HEMOGLOBIN 10.3 g/dl (12.0-15.5)
[2023-12-15] MEDS: prednisoLONE ACET 1% OPHTH SUSP 5ML OS SCH (18:49)
[2023-12-15] MEDS: ADVAIR HFA 230/21MCG INHALER INH SCH (20:12)
[2023-12-15 20:33] VITALS: BP 112/56; TEMP 97.6; O2SAT 93
[2023-12-15] MEDS: METOPROLOL TARTRATE 100MG TAB PO SCH (21:25)
[2023-12-15] MEDS: ROSUVASTATIN 10 MG TAB (CRESTOR) PO SCH (21:26)
[2023-12-15] MEDS: dilTIAZem 120MG **CD** CAPSULE PO SCH (21:26)
[2023-12-15] MEDS: SENOKOT S TAB PO SCH (21:26)
[2023-12-15] MEDS: ACETAMINOPHEN TAB 650MG DOSE (2X325MG) PO PRN (23:31)
[2023-12-16 05:50] VITALS: BP 124/77; TEMP 97.9; O2SAT 94
[2023-12-16] MEDS: PERCOCET 5MG/325MG TAB PO PRN ×2 (06:44→11:59)
[2023-12-16 07:20] LABS: BASO % 0.1 % (0.0-1.0); EOS % 0.3 % (0.0-3.0); HEMATOCRIT 32.9 % (36.0-47.0); HEMOGLOBIN 10.7 g/dl (12.0-15.5); LYMPH # 0.6 10^3/uL (1.5-5.0); LYMPH % 6.2 % (24.0-44.0); MEAN CORPUSCULAR HEMOGLOBIN 30.5 pg (27.0-33.0); MEAN CORPUSCULAR HGB CONC 32.5 g/dl (32.0-36.5); MEAN CORPUSCULAR VOLUME 93.7 fl (80.0-96.0); MONO # 0.5 10^3/uL (0.0-0.8); MONO % 4.6 % (2.0-8.0); NEUTROPHILS # 9.1 10^3/uL (1.5-8.5); NEUTROPHILS % 88.2 % (36.0-66.0); PLATELET COUNT, AUTOMATED 183 10^3/uL (150-450); RED BLOOD COUNT 3.51 10^6/uL (4.00-5.40); WHITE BLOOD COUNT 10.3 10^3/uL (4.0-10.0)
[2023-12-16 07:37] LABS: CALCIUM LEVEL 9.1 MG/DL (8.3-10.6); CREATININE FOR GFR 1.58 MG/DL (0.55-1.30); GLOMERULAR FILTRATION RATE 34.6 (>45); POTASSIUM SERUM 4.5 MMOL/L (3.5-5.1)
[2023-12-16] MEDS: SENOKOT S TAB PO SCH (09:53)
[2023-12-16] MEDS: APIXABAN 2.5 MG TAB (ELIQUIS) PO SCH (09:53)
[2023-12-16] MEDS: FUROSEMIDE 20 MG TAB PO SCH (09:53)
[2023-12-16] MEDS: TIOTROPIUM INHALER/CAPSULE (SPIRIVA) INH SCH (11:57)
[2023-12-16 14:00] VITALS: BP 136/93; TEMP 97.2; O2SAT 96
[2023-12-16 20:00] VITALS: BP 112/55; TEMP 97.5; O2SAT 97
[2023-12-17 06:00] VITALS: BP 111/66; TEMP 97.8; O2SAT 97
[2023-12-17 14:00] VITALS: BP 111/57; TEMP 98.3; O2SAT 97
[2023-12-17 20:14] VITALS: BP 120/62; TEMP 98.4; O2SAT 96
[2023-12-18 05:40] LABS: HEMATOCRIT 32.5 % (36.0-47.0); HEMOGLOBIN 10.6 g/dl (12.0-15.5); MEAN CORPUSCULAR HEMOGLOBIN 30.6 pg (27.0-33.0); MEAN CORPUSCULAR HGB CONC 32.6 g/dl (32.0-36.5); MEAN CORPUSCULAR VOLUME 93.9 fl (80.0-96.0); PLATELET COUNT, AUTOMATED 192 10^3/uL (150-450); RED BLOOD COUNT 3.46 10^6/uL (4.00-5.40); WHITE BLOOD COUNT 9.1 10^3/uL (4.0-10.0)
[2023-12-18 05:50] VITALS: BP 122/57; TEMP 97.9; O2SAT 97
[2023-12-18 06:06] LABS: CALCIUM LEVEL 8.8 MG/DL (8.3-10.6); CREATININE FOR GFR 1.7 MG/DL (0.55-1.30); GLOMERULAR FILTRATION RATE 31.8 (>45); POTASSIUM SERUM 4.4 MMOL/L (3.5-5.1)
[2023-12-18 14:00] VITALS: BP 104/52; TEMP 97.5; O2SAT 98
[2023-12-18 20:18] VITALS: BP 116/58; TEMP 97.6; O2SAT 97
[2023-12-19] VITALS (8 sets, daily range): BP systolic 80–123; BP diastolic 40–71; TEMP 97.6–98.4; O2SAT 95–98
[2023-12-19] MEDS: MOM 30ML SUSPENSION UDC PO PRN (06:46)
[2023-12-19] MEDS: ONDANSETRON 4MG TAB PO PRN (09:58)
[2023-12-19] MEDS: METOPROLOL TART 25 MG TABLET PO SCH (20:02)
[2023-12-19] MEDS: NS 1,000 ML IV ONE (21:02)
[2023-12-19 21:19] LABS: BASO % 0.2 % (0.0-1.0); EOS # 0.2 10^3/uL (0.0-0.5); EOS % 1.9 % (0.0-3.0); HEMATOCRIT 32.4 % (36.0-47.0); HEMOGLOBIN 10.3 g/dl (12.0-15.5); LYMPH # 1.2 10^3/uL (1.5-5.0); LYMPH % 10.3 % (24.0-44.0); MEAN CORPUSCULAR HEMOGLOBIN 30.5 pg (27.0-33.0); MEAN CORPUSCULAR HGB CONC 31.8 g/dl (32.0-36.5); MEAN CORPUSCULAR VOLUME 95.9 fl (80.0-96.0); MONO # 1.1 10^3/uL (0.0-0.8); MONO % 9.3 % (2.0-8.0); NEUTROPHILS # 8.9 10^3/uL (1.5-8.5); NEUTROPHILS % 77.7 % (36.0-66.0); PLATELET COUNT, AUTOMATED 233 10^3/uL (150-450); RED BLOOD COUNT 3.38 10^6/uL (4.00-5.40); WHITE BLOOD COUNT 11.4 10^3/uL (4.0-10.0)
[2023-12-19 21:44] LABS: ALBUMIN 2.6 G/DL (3.2-5.2); ALKALINE PHOSPHATASE 94 U/L (46-116); ALT/SGPT < 9 U/L (7.0-40); AST/SGOT 17 U/L (<34); BLOOD UREA NITROGEN 41 MG/DL (9-23); CALCIUM LEVEL 8.8 MG/DL (8.3-10.6); CARBON DIOXIDE LEVEL 30 MMOL/L (20-31); CHLORIDE LEVEL 102 MMOL/L (98-107); CREATININE FOR GFR 1.74 MG/DL (0.55-1.30); GLUCOSE, FASTING 131 MG/DL (74-106); POTASSIUM SERUM 4.4 MMOL/L (3.5-5.1); SODIUM LEVEL 137 MMOL/L (136-145); TOTAL PROTEIN 5.3 G/DL (5.7-8.2)
[2023-12-19] MEDS: MIRALAX *UNIT DOSE* 17GM PACKET PO ONE (22:43)
[2023-12-20 02:00] VITALS: BP 114/62
[2023-12-20 05:28] VITALS: BP 114/51; TEMP 97.6; O2SAT 89
[2023-12-20] MEDS: BISACODYL 10MG SUPP PR PRN (06:38)
[2023-12-20] MEDS: MIRALAX *UNIT DOSE* 17GM PACKET PO SCH (08:41)
[2023-12-20] MEDS: NS 1,000 ML IV SCH (09:45)
[2023-12-20 14:00] VITALS: BP 110/52; TEMP 97.2; O2SAT 97
[2023-12-20 20:40] VITALS: BP 98/55; TEMP 97.1; O2SAT 97
[2023-12-20 21:45] VITALS: BP 83/53
[2023-12-20] MEDS: NS 1,000 ML IV ONE (21:56)
[2023-12-20] MEDS ORDERED: NS 1,000 ML IV ONE (22:05)
[2023-12-20 22:45] VITALS: BP 105/55
[2023-12-21 06:00] VITALS: BP 122/58; TEMP 97.6; O2SAT 97
[2023-12-21 06:17] LABS: HEMATOCRIT 30.7 % (36.0-47.0); HEMOGLOBIN 9.8 g/dl (12.0-15.5); MEAN CORPUSCULAR HEMOGLOBIN 30.8 pg (27.0-33.0); MEAN CORPUSCULAR HGB CONC 31.9 g/dl (32.0-36.5); MEAN CORPUSCULAR VOLUME 96.5 fl (80.0-96.0); PLATELET COUNT, AUTOMATED 276 10^3/uL (150-450); RED BLOOD COUNT 3.18 10^6/uL (4.00-5.40)
[2023-12-21 06:47] LABS: CALCIUM LEVEL 8.3 MG/DL (8.3-10.6); CREATININE FOR GFR 1.34 MG/DL (0.55-1.30); GLOMERULAR FILTRATION RATE 41.9 (>45); POTASSIUM SERUM 4.3 MMOL/L (3.5-5.1)
[2023-12-21 14:01] VITALS: BP 95/55; TEMP 97.2; O2SAT 97
[2023-12-21 14:50] LABS: MAGNESIUM LEVEL 2.3 MG/DL (1.8-2.4)
[2023-12-21 20:00] VITALS: BP 166/74; TEMP 98.2; O2SAT 95
[2023-12-21] MEDS: METOPROLOL TARTRATE 100MG TAB PO SCH (20:28)
[2023-12-21] MEDS: DIGOXIN 0.25 MG TAB PO SCH (20:29)
[2023-12-22 06:00] VITALS: BP 128/68; TEMP 98.1; O2SAT 98
[2023-12-22 06:31] LABS: CALCIUM LEVEL 8.8 MG/DL (8.3-10.6); CREATININE FOR GFR 1.29 MG/DL (0.55-1.30); GLOMERULAR FILTRATION RATE 43.8 (>45); POTASSIUM SERUM 4.4 MMOL/L (3.5-5.1)
[2023-12-22] MEDS: DIGOXIN 0.125 MG TAB PO ONE (08:21)
[2023-12-22 14:00] VITALS: BP 143/66; TEMP 97.7; O2SAT 95
[2023-12-22 21:34] VITALS: BP 127/59; TEMP 98; O2SAT 96
[2023-12-23 06:16] VITALS: BP 126/59; TEMP 98; O2SAT 99
[2023-12-23 07:37] LABS: CALCIUM LEVEL 8.8 MG/DL (8.3-10.6); CREATININE FOR GFR 1.21 MG/DL (0.55-1.30); GLOMERULAR FILTRATION RATE 47.1 (>45); POTASSIUM SERUM 5.3 MMOL/L (3.5-5.1)
[2023-12-23 14:00] VITALS: BP 117/58; TEMP 98.1; O2SAT 96
[2023-12-23 20:05] VITALS: BP 138/73; TEMP 97.4; O2SAT 98
[2023-12-24 06:11] VITALS: BP 147/68; TEMP 97.4; O2SAT 97
[2023-12-24 07:30] LABS: CALCIUM LEVEL 8.5 MG/DL (8.3-10.6); CREATININE FOR GFR 1.33 MG/DL (0.55-1.30); GLOMERULAR FILTRATION RATE 42.2 (>45); POTASSIUM SERUM 4.3 MMOL/L (3.5-5.1)
[2023-12-24 14:00] VITALS: BP 129/60; TEMP 99; O2SAT 100
[2023-12-24 14:10] VITALS: TEMP 98.4
[2023-12-24 19:25] VITALS: BP 140/61; TEMP 98.6; O2SAT 97
[2023-12-25 05:22] VITALS: BP 145/70; TEMP 97.8; O2SAT 97
[2023-12-25] MEDS: DIGOXIN 0.25 MG TAB PO SCH (08:58)
[2023-12-25] MEDS: FUROSEMIDE 20 MG TAB PO SCH (13:38)
[2023-12-25 14:00] VITALS: BP 130/60; TEMP 97.3; O2SAT 99
[2023-12-25 20:00] VITALS: BP 132/60; TEMP 97.1; O2SAT 99
[2023-12-26 05:53] LABS: HEMATOCRIT 31.5 % (36.0-47.0); HEMOGLOBIN 10.1 g/dl (12.0-15.5); MEAN CORPUSCULAR HEMOGLOBIN 30.2 pg (27.0-33.0); MEAN CORPUSCULAR HGB CONC 32.1 g/dl (32.0-36.5); MEAN CORPUSCULAR VOLUME 94.3 fl (80.0-96.0); PLATELET COUNT, AUTOMATED 356 10^3/uL (150-450); RED BLOOD COUNT 3.34 10^6/uL (4.00-5.40); WHITE BLOOD COUNT 13.7 10^3/uL (4.0-10.0)
[2023-12-26 06:00] VITALS: BP 136/62; TEMP 98.4; O2SAT 100
[2023-12-26 06:11] LABS: CALCIUM LEVEL 8.8 MG/DL (8.3-10.6); CREATININE FOR GFR 1.24 MG/DL (0.55-1.30); GLOMERULAR FILTRATION RATE 45.8 (>45); MAGNESIUM LEVEL 2.1 MG/DL (1.8-2.4); POTASSIUM SERUM 3.9 MMOL/L (3.5-5.1)
[2023-12-26 12:24] LABS: BASO # 0.1 10^3/uL (0.0-0.2); BASO % 0.5 % (0.0-1.0); EOS # 0.1 10^3/uL (0.0-0.5); EOS % 0.5 % (0.0-3.0); HEMATOCRIT 33.1 % (36.0-47.0); HEMOGLOBIN 10.6 g/dl (12.0-15.5); LYMPH # 1.1 10^3/uL (1.5-5.0); LYMPH % 6.5 % (24.0-44.0); MEAN CORPUSCULAR HEMOGLOBIN 30.6 pg (27.0-33.0); MEAN CORPUSCULAR VOLUME 95.7 fl (80.0-96.0); MONO # 0.8 10^3/uL (0.0-0.8); MONO % 4.4 % (2.0-8.0); NEUTROPHILS # 15.4 10^3/uL (1.5-8.5); NEUTROPHILS % 87.6 % (36.0-66.0); PLATELET COUNT, AUTOMATED 392 10^3/uL (150-450); RED BLOOD COUNT 3.46 10^6/uL (4.00-5.40); WHITE BLOOD COUNT 17.6 10^3/uL (4.0-10.0)
[2023-12-26 14:00] VITALS: BP 120/59; TEMP 97.7; O2SAT 98
[2023-12-26 20:12] VITALS: BP 133/61; TEMP 97.7; O2SAT 99
[2023-12-26] MEDS: TAMSULOSIN 0.4 MG CAP PO SCH (20:22)
[2023-12-27 06:03] VITALS: BP 131/60; TEMP 97.1; O2SAT 97
[2023-12-27 06:33] LABS: BASO # 0.1 10^3/uL (0.0-0.2); BASO % 0.7 % (0.0-1.0); EOS # 0.2 10^3/uL (0.0-0.5); EOS % 1.5 % (0.0-3.0); HEMATOCRIT 32.2 % (36.0-47.0); HEMOGLOBIN 10.2 g/dl (12.0-15.5); LYMPH # 1.3 10^3/uL (1.5-5.0); LYMPH % 12.1 % (24.0-44.0); MEAN CORPUSCULAR HGB CONC 31.7 g/dl (32.0-36.5); MEAN CORPUSCULAR VOLUME 94.7 fl (80.0-96.0); MONO # 0.6 10^3/uL (0.0-0.8); MONO % 5.8 % (2.0-8.0); NEUTROPHILS # 8.3 10^3/uL (1.5-8.5); NEUTROPHILS % 79.4 % (36.0-66.0); PLATELET COUNT, AUTOMATED 376 10^3/uL (150-450); WHITE BLOOD COUNT 10.5 10^3/uL (4.0-10.0)
[2023-12-27 06:59] LABS: CALCIUM LEVEL 8.5 MG/DL (8.3-10.6); CREATININE FOR GFR 1.12 MG/DL (0.55-1.30); GLOMERULAR FILTRATION RATE 51.5 (>45); MAGNESIUM LEVEL 2.1 MG/DL (1.8-2.4); POTASSIUM SERUM 3.6 MMOL/L (3.5-5.1)
[2023-12-27 14:00] VITALS: BP 146/75; TEMP 98.2; O2SAT 99
[2023-12-27 20:53] VITALS: BP 122/55; TEMP 96.5; O2SAT 98
[2023-12-28 06:45] VITALS: BP 131/62; TEMP 97.9; O2SAT 98
[2023-12-28 06:49] LABS: HEMATOCRIT 30.6 % (36.0-47.0); HEMOGLOBIN 9.5 g/dl (12.0-15.5); MEAN CORPUSCULAR HEMOGLOBIN 29.7 pg (27.0-33.0); MEAN CORPUSCULAR VOLUME 95.6 fl (80.0-96.0); PLATELET COUNT, AUTOMATED 385 10^3/uL (150-450); WHITE BLOOD COUNT 10.3 10^3/uL (4.0-10.0)
[2023-12-28 07:11] LABS: CALCIUM LEVEL 8.6 MG/DL (8.3-10.6); CREATININE FOR GFR 1.27 MG/DL (0.55-1.30); GLOMERULAR FILTRATION RATE 44.5 (>45)
[2023-12-28] MEDS: CEFDINIR 300 MG CAP (OMNICEF) PO SCH (12:13)
[2023-12-28] MEDS: LACTOBACILLUS ACIDOPHILUS CAP (BACID) PO SCH (12:13)
[2023-12-28] MEDS: FUROSEMIDE 20 MG TAB PO ONE (12:13)
[2023-12-28 14:00] VITALS: BP 106/54; TEMP 98.1; O2SAT 97
[2023-12-28] MEDS ORDERED: FLOM0.4C39 PO (15:08)
[2023-12-28] MEDS ORDERED: ELIQ2.5T PO (15:08)
[2023-12-28] MEDS ORDERED: CEFD300CAP PO (15:08)
[2023-12-28] MEDS ORDERED: MIRA33506 PO (15:08)
[2023-12-28] MEDS ORDERED: PERCOCET PO (15:08)
[2023-12-28] MEDS ORDERED: DIGO0.253 PO (15:08)
[2023-12-28] MEDS ORDERED: FURO20TA2 PO (15:08)
[2023-12-28 20:07] VITALS: BP 119/56; TEMP 97.4; O2SAT 97
[2023-12-28] MEDS ORDERED: NITROFURANTOIN (MACROBID) 100 MG CAP PO SCH (21:00)
[2023-12-28] MEDS: SENOKOT S TAB PO SCH (21:03)
[2023-12-29 06:20] VITALS: BP 145/65; TEMP 98; O2SAT 98
[2023-12-29 09:14] VITALS: BP 137/62
[2024-10-23] MEDS ORDERED: DIGOXIN 0.25 MG TAB PO ONE (08:00)
== END 2023-12-29 13:00 | disposition home health service (06) | DRG 560 ==
LOC: M PM&R 17:30
PROVIDERS: ADMIT Student in an Organized Health Care Education/Training Program; ATTEND Student in an Organized Health Care Education/Training Program
DX: S72.141D Displaced intertrochanteric fracture of right femur, subsequent encounter for closed fracture with routine healing (principal); J96.11 Chronic respiratory failure with hypoxia; I50.32 Chronic diastolic (congestive) heart failure; I13.0 Hypertensive heart and chronic kidney disease with heart failure and stage 1 through stage 4 chronic kidney disease, or unspecified chronic kidney disease; N39.0 Urinary tract infection, site not specified; B96.20 Unspecified Escherichia coli [E. coli] as the cause of diseases classified elsewhere; I48.91 Unspecified atrial fibrillation; I27.20 Pulmonary hypertension, unspecified; Z74.09 Other reduced mobility; Z74.1 Need for assistance with personal care; G89.18 Other acute postprocedural pain; J44.9 Chronic obstructive pulmonary disease, unspecified; E78.5 Hyperlipidemia, unspecified; N18.30 Chronic kidney disease, stage 3 unspecified; D64.9 Anemia, unspecified; M48.061 Spinal stenosis, lumbar region without neurogenic claudication; G62.9 Polyneuropathy, unspecified; Z90.79 Acquired absence of other genital organ(s); Z98.41 Cataract extraction status, right eye; Z98.42 Cataract extraction status, left eye; Z87.891 Personal history of nicotine dependence; Z99.81 Dependence on supplemental oxygen; K59.00 Constipation, unspecified; R33.9 Retention of urine, unspecified; Z79.52 Long term (current) use of systemic steroids; Z79.899 Other long term (current) drug therapy; Z79.01 Long term (current) use of anticoagulants

== ENCOUNTER 2024-01-01 11:02 | Inpatient (IN) | payer MEDICARE, OTHER ==
[~2024-01-01] VITALS: Ht 160 cm; Wt 54.5 kg
[~2024-01-01 11:02] MED LIST changes: +CEFD300CAP PO; +DIGO0.253 PO; +FLOM0.4C39 PO; +FURO20TA2 PO; +MIRA33506 PO; +PERCOCET PO
[2024-01-01 11:37] LABS: BASO # 0.1 10^3/uL (0.0-0.2); BASO % 0.7 % (0.0-1.0); EOS % 0.2 % (0.0-3.0); HEMATOCRIT 35.3 % (36.0-47.0); HEMOGLOBIN 11.2 g/dl (12.0-15.5); LYMPH # 0.8 10^3/uL (1.5-5.0); LYMPH % 6.1 % (24.0-44.0); MEAN CORPUSCULAR HEMOGLOBIN 30.5 pg (27.0-33.0); MEAN CORPUSCULAR HGB CONC 31.7 g/dl (32.0-36.5); MEAN CORPUSCULAR VOLUME 96.2 fl (80.0-96.0); MONO # 0.7 10^3/uL (0.0-0.8); MONO % 5.2 % (2.0-8.0); NEUTROPHILS % 87.4 % (36.0-66.0); PLATELET COUNT, AUTOMATED 402 10^3/uL (150-450); RED BLOOD COUNT 3.67 10^6/uL (4.00-5.40); WHITE BLOOD COUNT 12.6 10^3/uL (4.0-10.0)
[2024-01-01] MEDS ORDERED: ISOVUE-370 76% 100ML VIAL As Ordered ONE (12:37)
[2024-01-01] MEDS: LORazepam 2 MG/ML 1ML VIAL IV STA (13:20)
[2024-01-01] MEDS: ONDANSETRON 4MG 2ML VIAL IV ONE (13:20)
[2024-01-01 16:56] LABS: C REACTIVE PROTEIN QUANTITATIV 3.9 MG/DL (<1.0)
[2024-01-01 16:57] LABS: ALBUMIN 3.1 G/DL (3.2-5.2); BILIRUBIN,TOTAL 1.2 MG/DL (0.3-1.2); CALCIUM LEVEL 8.7 MG/DL (8.3-10.6); CK-MB VALUE MASS 2.4 NG/ML (<3.6); CREATININE FOR GFR 1.14 MG/DL (0.55-1.30); GLOMERULAR FILTRATION RATE 50.5 (>45); MAGNESIUM LEVEL 2.1 MG/DL (1.8-2.4); POTASSIUM SERUM 3.6 MMOL/L (3.5-5.1); TOTAL PROTEIN 5.9 G/DL (5.7-8.2)
[2024-01-01 16:58] LABS: INR 1.31; PROTHROMBIN TIME 15.9 SECONDS (12.5-14.5); THYROID STIMULATING HORMONE 0.757 uIU/ML (0.55-4.78)
[2024-01-01 16:59] LABS: FREE T4 1.63 NG/DL (0.89-1.76)
[2024-01-01 17:01] LABS: MB/CK RELATIVE INDEX 5.21 (< OR =4)
[2024-01-01] MEDS: POTASSIUM CHLORIDE 10MEQ SR TABLET PO ONE (17:30)
[2024-01-01] MEDS: ASPIRIN 81MG CHEW TABLET PO ONE (17:30)
[2024-01-01 18:19] LABS: CK-MB VALUE MASS 2.4 NG/ML (<3.6)
[2024-01-01 18:21] LABS: MB/CK RELATIVE INDEX 6.66 (< OR =4)
[2024-01-01 21:12] LABS: CK-MB VALUE MASS 2.9 NG/ML (<3.6)
[2024-01-01 21:14] LABS: MB/CK RELATIVE INDEX 8.28 (< OR =4)
[2024-01-02] MEDS ORDERED: OXYC1TAB23 PO (00:22)
[2024-01-02] MEDS ORDERED: FLOM0.4C39 PO (00:22)
[2024-01-02] MEDS ORDERED: DIGO0.253 PO (00:23)
[2024-01-02] MEDS ORDERED: CEFD300CAP PO (00:23)
[2024-01-02] MEDS ORDERED: HOME MED LIST COMPLETE! XX SCH (00:25)
[2024-01-02] MEDS: NS 1,000 ML IV SCH (03:06)
[2024-01-02] MEDS: ACETAMINOPHEN TAB 650MG DOSE (2X325MG) PO PRN (03:24)
[2024-01-02 03:25] LABS: HEMATOCRIT 32.1 % (36.0-47.0); HEMOGLOBIN 10.1 g/dl (12.0-15.5); MEAN CORPUSCULAR HEMOGLOBIN 29.7 pg (27.0-33.0); MEAN CORPUSCULAR HGB CONC 31.5 g/dl (32.0-36.5); MEAN CORPUSCULAR VOLUME 94.4 fl (80.0-96.0); PLATELET COUNT, AUTOMATED 370 10^3/uL (150-450); WHITE BLOOD COUNT 11.2 10^3/uL (4.0-10.0)
[2024-01-02 03:52] LABS: ALBUMIN 2.8 G/DL (3.2-5.2); BILIRUBIN,TOTAL 0.9 MG/DL (0.3-1.2); CALCIUM LEVEL 8.4 MG/DL (8.3-10.6); CREATININE FOR GFR 1.22 MG/DL (0.55-1.30); GLOMERULAR FILTRATION RATE 46.7 (>45); POTASSIUM SERUM 3.6 MMOL/L (3.5-5.1); TOTAL PROTEIN 5.5 G/DL (5.7-8.2)
[2024-01-02 05:47] VITALS: BP 138/63; O2SAT 99
[2024-01-02 07:29] LABS: PROCALCITONIN 0.15 ng/ml
[2024-01-02 07:33] VITALS: BP 143/65; TEMP 97.6; O2SAT 100
[2024-01-02] MEDS: DIGOXIN 0.25 MG TAB PO SCH (08:24)
[2024-01-02] MEDS: METOPROLOL TARTRATE 100MG TAB PO SCH (08:24)
[2024-01-02] MEDS: DOCUSATE SODIUM 100MG CAPSULE PO SCH (08:25)
[2024-01-02] MEDS: FUROSEMIDE 20 MG TAB PO SCH (08:25)
[2024-01-02] MEDS: PANTOPRAZOLE 40MG VIAL IV SCH (08:25)
[2024-01-02] MEDS: APIXABAN 5 MG TAB (ELIQUIS) PO SCH (08:25)
[2024-01-02] MEDS: ASPIRIN 81MG ENTERIC TABLET PO SCH (08:25)
[2024-01-02] MEDS: DIGOXIN 0.25 MG TAB PO STA (10:28)
[2024-01-02] MEDS: METOPROLOL TART 25 MG TABLET PO SCH (11:04)
[2024-01-02] MEDS: LORazepam 0.5 MG TAB PO STA (12:09)
[2024-01-02] MEDS: cefTRIAXone SOD 1 GM in D5W MINI-BAG PLUS 50 ML IV SCH (12:46)
[2024-01-02 13:00] VITALS: BP 138/65; TEMP 97.7; O2SAT 99
[2024-01-02] MEDS: ROSUVASTATIN 10 MG TAB (CRESTOR) PO SCH (14:26)
[2024-01-02 16:00] VITALS: BP 150/65; TEMP 97.6; O2SAT 100
[2024-01-02] MEDS: ADVAIR HFA 230/21MCG INHALER INH SCH (18:05)
[2024-01-02 19:21] VITALS: BP 159/80; TEMP 98; O2SAT 100
[2024-01-02] MEDS: HEPARIN DRIP 25,000 UNITS in IV 1 EA IV SCH (19:46)
[2024-01-02] MEDS ORDERED: SYMBICORT 80/4.5MCG INHALER 6GM INH SCH (20:00)
[2024-01-02] MEDS ORDERED: HEPARIN SOD (PORCINE) 5000UNITS/ML 1ML VIAL/SYRINGE IV PRN (20:30)
[2024-01-02] MEDS: TAMSULOSIN 0.4 MG CAP PO SCH (20:39)
[2024-01-03] VITALS (8 sets, daily range): BP systolic 133–156; BP diastolic 60–69; TEMP 97.1–98.7; O2SAT 96–100
[2024-01-03 05:09] LABS: BASO # 0.1 10^3/uL (0.0-0.2); BASO % 0.6 % (0.0-1.0); EOS # 0.4 10^3/uL (0.0-0.5); EOS % 3.6 % (0.0-3.0); HEMATOCRIT 31.6 % (36.0-47.0); LYMPH # 1.2 10^3/uL (1.5-5.0); LYMPH % 12.2 % (24.0-44.0); MEAN CORPUSCULAR HGB CONC 31.6 g/dl (32.0-36.5); MEAN CORPUSCULAR VOLUME 94.9 fl (80.0-96.0); MONO # 0.7 10^3/uL (0.0-0.8); MONO % 6.7 % (2.0-8.0); NEUTROPHILS # 7.8 10^3/uL (1.5-8.5); NEUTROPHILS % 76.5 % (36.0-66.0); PLATELET COUNT, AUTOMATED 343 10^3/uL (150-450); RED BLOOD COUNT 3.33 10^6/uL (4.00-5.40); WHITE BLOOD COUNT 10.1 10^3/uL (4.0-10.0)
[2024-01-03 05:34] LABS: CALCIUM LEVEL 8.4 MG/DL (8.3-10.6); CREATININE FOR GFR 1.25 MG/DL (0.55-1.30); GLOMERULAR FILTRATION RATE 45.4 (>45); POTASSIUM SERUM 3.9 MMOL/L (3.5-5.1)
[2024-01-03] MEDS: TIOTROPIUM INHALER/CAPSULE (SPIRIVA) INH SCH (07:47)
[2024-01-03] MEDS: ONDANSETRON 4MG 2ML VIAL IV PRN (08:58)
[2024-01-04] VITALS (8 sets, daily range): BP systolic 124–160; BP diastolic 60–67; TEMP 97.4–98.6; O2SAT 98–100
[2024-01-04 06:03] LABS: BASO # 0.1 10^3/uL (0.0-0.2); BASO % 0.6 % (0.0-1.0); EOS # 0.5 10^3/uL (0.0-0.5); EOS % 5.6 % (0.0-3.0); HEMATOCRIT 29.9 % (36.0-47.0); HEMOGLOBIN 9.4 g/dl (12.0-15.5); LYMPH # 1.3 10^3/uL (1.5-5.0); LYMPH % 13.9 % (24.0-44.0); MEAN CORPUSCULAR HEMOGLOBIN 29.9 pg (27.0-33.0); MEAN CORPUSCULAR HGB CONC 31.4 g/dl (32.0-36.5); MEAN CORPUSCULAR VOLUME 95.2 fl (80.0-96.0); MONO # 0.6 10^3/uL (0.0-0.8); MONO % 6.5 % (2.0-8.0); NEUTROPHILS # 6.8 10^3/uL (1.5-8.5); PLATELET COUNT, AUTOMATED 305 10^3/uL (150-450); RED BLOOD COUNT 3.14 10^6/uL (4.00-5.40); WHITE BLOOD COUNT 9.4 10^3/uL (4.0-10.0)
[2024-01-04 06:34] LABS: CALCIUM LEVEL 8.5 MG/DL (8.3-10.6); CREATININE FOR GFR 1.15 MG/DL (0.55-1.30); POTASSIUM SERUM 3.3 MMOL/L (3.5-5.1)
[2024-01-04 06:45] LABS: DIGOXIN LEVEL 2.7 NG/ML (0.8-2.0)
[2024-01-04] MEDS: POTASSIUM CHLORIDE 10MEQ SR TABLET PO STA (08:59)
[2024-01-04] MEDS: NS 500 ML IV STA (11:56)
[2024-01-04] MEDS: APIXABAN 5 MG TAB (ELIQUIS) PO SCH (12:52)
[2024-01-04] MEDS: METOPROLOL TART 25 MG TABLET PO SCH (13:05)
[2024-01-05 04:04] VITALS: BP 138/65; TEMP 97.4; O2SAT 100
[2024-01-05 06:08] LABS: BASO # 0.1 10^3/uL (0.0-0.2); BASO % 0.6 % (0.0-1.0); EOS # 0.7 10^3/uL (0.0-0.5); HEMATOCRIT 30.5 % (36.0-47.0); HEMOGLOBIN 9.4 g/dl (12.0-15.5); LYMPH # 1.1 10^3/uL (1.5-5.0); LYMPH % 10.3 % (24.0-44.0); MEAN CORPUSCULAR HEMOGLOBIN 29.3 pg (27.0-33.0); MEAN CORPUSCULAR HGB CONC 30.8 g/dl (32.0-36.5); MONO # 0.9 10^3/uL (0.0-0.8); NEUTROPHILS # 7.8 10^3/uL (1.5-8.5); NEUTROPHILS % 73.6 % (36.0-66.0); PLATELET COUNT, AUTOMATED 303 10^3/uL (150-450); RED BLOOD COUNT 3.21 10^6/uL (4.00-5.40); WHITE BLOOD COUNT 10.6 10^3/uL (4.0-10.0)
[2024-01-05 06:41] LABS: CALCIUM LEVEL 8.7 MG/DL (8.3-10.6); CREATININE FOR GFR 1.11 MG/DL (0.55-1.30); POTASSIUM SERUM 4.1 MMOL/L (3.5-5.1)
[2024-01-05 07:48] VITALS: BP 157/69; TEMP 97.5; O2SAT 99
[2024-01-05 10:00] VITALS: BP 153/70
[2024-01-05 16:13] VITALS: BP 151/69; TEMP 97.7; O2SAT 100
[2024-01-05 20:00] VITALS: BP 141/64; TEMP 96.9; O2SAT 93
[2024-01-05 20:29] VITALS: BP 141/64
[2024-01-06 04:13] VITALS: BP 151/68; TEMP 96.7; O2SAT 95
[2024-01-06 06:53] LABS: BASO # 0.1 10^3/uL (0.0-0.2); BASO % 0.5 % (0.0-1.0); EOS # 0.4 10^3/uL (0.0-0.5); EOS % 4.4 % (0.0-3.0); HEMATOCRIT 29.8 % (36.0-47.0); HEMOGLOBIN 9.4 g/dl (12.0-15.5); LYMPH # 1.2 10^3/uL (1.5-5.0); MEAN CORPUSCULAR HEMOGLOBIN 30.3 pg (27.0-33.0); MEAN CORPUSCULAR HGB CONC 31.5 g/dl (32.0-36.5); MEAN CORPUSCULAR VOLUME 96.1 fl (80.0-96.0); MONO # 0.8 10^3/uL (0.0-0.8); MONO % 7.9 % (2.0-8.0); NEUTROPHILS # 7.4 10^3/uL (1.5-8.5); NEUTROPHILS % 74.8 % (36.0-66.0); PLATELET COUNT, AUTOMATED 293 10^3/uL (150-450); WHITE BLOOD COUNT 9.9 10^3/uL (4.0-10.0)
[2024-01-06 07:25] LABS: BLOOD UREA NITROGEN 18 MG/DL (9-23); CALCIUM LEVEL 8.8 MG/DL (8.3-10.6); CARBON DIOXIDE LEVEL 34 MMOL/L (20-31); CHLORIDE LEVEL 101 MMOL/L (98-107); CREATININE FOR GFR 0.97 MG/DL (0.55-1.30); GLOMERULAR FILTRATION RATE > 60.0 (>45); GLUCOSE, FASTING 91 MG/DL (74-106); POTASSIUM SERUM 4.2 MMOL/L (3.5-5.1); SODIUM LEVEL 141 MMOL/L (136-145)
[2024-01-06 08:00] VITALS: BP 166/70; TEMP 97.2; O2SAT 99
[2024-01-06] MEDS: CEFDINIR 300 MG CAP (OMNICEF) PO SCH (08:14)
[2024-01-06 08:39] VITALS: BP 130/60
[2024-01-06] MEDS: FUROSEMIDE 20 MG TAB PO SCH (09:44)
[2024-01-06 10:37] VITALS: BP 134/66
[2024-01-06] MEDS ORDERED: CEFD300CAP PO (10:41)
[2024-01-06] MEDS ORDERED: ELIQ5TAB PO (10:41)
== END 2024-01-06 13:17 | disposition home health service (06) | DRG 309 ==
LOC: M ED 11:02 → EDBD 11:02 → M ED INP 23:43 → M PCU 01-02 05:33
PROVIDERS: ADMIT Preventive Medicine Undersea and Hyperbaric Medicine; ATTEND Internal Medicine
DX: I49.5 Sick sinus syndrome (principal); I50.32 Chronic diastolic (congestive) heart failure; J96.11 Chronic respiratory failure with hypoxia; I13.0 Hypertensive heart and chronic kidney disease with heart failure and stage 1 through stage 4 chronic kidney disease, or unspecified chronic kidney disease; I48.21 Permanent atrial fibrillation; E87.6 Hypokalemia; J44.9 Chronic obstructive pulmonary disease, unspecified; E78.5 Hyperlipidemia, unspecified; N18.30 Chronic kidney disease, stage 3 unspecified; G89.29 Other chronic pain; R33.9 Retention of urine, unspecified; M54.9 Dorsalgia, unspecified; I27.20 Pulmonary hypertension, unspecified; R42 Dizziness and giddiness; I45.5 Other specified heart block; R63.0 Anorexia; T46.0X5A Adverse effect of cardiac-stimulant glycosides and drugs of similar action, initial encounter; I95.1 Orthostatic hypotension; K29.70 Gastritis, unspecified, without bleeding; R53.1 Weakness; R62.7 Adult failure to thrive; K76.0 Fatty (change of) liver, not elsewhere classified; N30.90 Cystitis, unspecified without hematuria; B95.5 Unspecified streptococcus as the cause of diseases classified elsewhere; Z99.81 Dependence on supplemental oxygen; Z98.41 Cataract extraction status, right eye; Z98.42 Cataract extraction status, left eye; Z87.81 Personal history of (healed) traumatic fracture; Z87.891 Personal history of nicotine dependence; Z79.01 Long term (current) use of anticoagulants; Z79.899 Other long term (current) drug therapy

== ENCOUNTER → 2024-01-12 | Outpatient (CLI) | payer MEDICARE, OTHER ==
[~2024-01-12] MED LIST changes: +OXYC1TAB23 PO
== END ==
LOC: M SOG 08:00
PROVIDERS: ATTEND Physician Assistant
DX: Z47.89 Encounter for other orthopedic aftercare (principal)

== ENCOUNTER 2024-01-30 12:11 | Inpatient (IN) | payer MEDICARE, OTHER ==
[~2024-01-30] VITALS: Ht 160 cm; Wt 56.2 kg
[2024-01-30 13:03] LABS: BASO # 0.1 10^3/uL (0.0-0.2); BASO % 0.7 % (0.0-1.0); EOS # 0.1 10^3/uL (0.0-0.5); HEMATOCRIT 32.8 % (36.0-47.0); HEMOGLOBIN 10.2 g/dl (12.0-15.5); LYMPH # 1.3 10^3/uL (1.5-5.0); LYMPH % 15.3 % (24.0-44.0); MEAN CORPUSCULAR HEMOGLOBIN 29.5 pg (27.0-33.0); MEAN CORPUSCULAR HGB CONC 31.1 g/dl (32.0-36.5); MEAN CORPUSCULAR VOLUME 94.8 fl (80.0-96.0); MONO # 0.5 10^3/uL (0.0-0.8); MONO % 5.6 % (2.0-8.0); NEUTROPHILS # 6.6 10^3/uL (1.5-8.5); NEUTROPHILS % 77.2 % (36.0-66.0); PLATELET COUNT, AUTOMATED 262 10^3/uL (150-450); RED BLOOD COUNT 3.46 10^6/uL (4.00-5.40); WHITE BLOOD COUNT 8.6 10^3/uL (4.0-10.0)
[2024-01-30 13:18] LABS: ERYTHROCYTE SEDIMENTATION RATE 42 mm/hr (0-30)
[2024-01-30 13:25] LABS: CPK CREATINE PHOSPHOKINASE 33 U/L (34-145)
[2024-01-30 13:28] LABS: INR 1.3; PARTIAL THROMBOPLASTIN TIME 29.9 SECONDS (24.8-34.2); PROTHROMBIN TIME 15.8 SECONDS (12.5-14.5)
[2024-01-30 13:35] LABS: BLOOD UREA NITROGEN 16 MG/DL (9-23); CALCIUM LEVEL 9.2 MG/DL (8.3-10.6); CARBON DIOXIDE LEVEL 36 MMOL/L (20-31); CHLORIDE LEVEL 100 MMOL/L (98-107); CK-MB VALUE MASS < 1.0 NG/ML (<3.6); CREATININE FOR GFR 1.13 MG/DL (0.55-1.30); FREE T4 1.44 NG/DL (0.89-1.76); GLUCOSE, FASTING 102 MG/DL (74-106); MB/CK RELATIVE INDEX 3.03 (< OR =4); POTASSIUM SERUM 2.8 MMOL/L (3.5-5.1); SODIUM LEVEL 140 MMOL/L (136-145); THYROID STIMULATING HORMONE 0.473 uIU/ML (0.55-4.78)
[2024-01-30] MEDS: POTASSIUM CHLORIDE 10MEQ SR TABLET PO ONE (13:53)
[2024-01-30] MEDS: KCL 10MEQ/100ML SWI (KRUN) 10 MEQ in IV 1 EA IV ONE ×2 (13:53→16:15)
[2024-01-30] MEDS: dilTIAZem 25MG/5ML VIAL IV STA (14:40)
[2024-01-30 16:31] LABS: MAGNESIUM LEVEL 1.9 MG/DL (1.8-2.4)
[2024-01-30] MEDS ORDERED: ACET-897 PO (17:34)
[2024-01-30] MEDS ORDERED: METO50TA7 PO (17:58)
[2024-01-30] MEDS ORDERED: HOME MED LIST COMPLETE! XX SCH (18:00)
[2024-01-30] MEDS: cefTRIAXone SOD 1 GM in D5W MINI-BAG PLUS 50 ML IV SCH (18:20)
[2024-01-30 20:55] VITALS: BP 160/92; TEMP 97.5; O2SAT 98
[2024-01-30] MEDS ORDERED: METOPROLOL SUCC *XL* 25MG TAB (TopROL *XL*) PO SCH (21:00)
[2024-01-30] MEDS: METOPROLOL TART 25 MG TABLET PO SCH (21:17)
[2024-01-30] MEDS: APIXABAN 5 MG TAB (ELIQUIS) PO SCH (21:18)
[2024-01-30] MEDS: POTASSIUM CHLORIDE 10MEQ SR TABLET PO SCH (21:18)
[2024-01-30] MEDS: FUROSEMIDE 40MG/4ML VIAL IV SCH (21:19)
[2024-01-31] MEDS: ACETAMINOPHEN TAB 650MG DOSE (2X325MG) PO PRN (03:37)
[2024-01-31 04:05] VITALS: BP 131/81; TEMP 97.7; O2SAT 97
[2024-01-31 05:59] LABS: HEMATOCRIT 31.5 % (36.0-47.0); HEMOGLOBIN 9.9 g/dl (12.0-15.5); MEAN CORPUSCULAR HEMOGLOBIN 29.7 pg (27.0-33.0); MEAN CORPUSCULAR HGB CONC 31.4 g/dl (32.0-36.5); MEAN CORPUSCULAR VOLUME 94.6 fl (80.0-96.0); PLATELET COUNT, AUTOMATED 249 10^3/uL (150-450); RED BLOOD COUNT 3.33 10^6/uL (4.00-5.40); WHITE BLOOD COUNT 8.2 10^3/uL (4.0-10.0)
[2024-01-31 06:00] LABS: BASO # 0.1 10^3/uL (0.0-0.2); BASO % 0.8 % (0.0-1.0); EOS # 0.2 10^3/uL (0.0-0.5); EOS % 1.9 % (0.0-3.0); HEMATOCRIT 31.1 % (36.0-47.0); HEMOGLOBIN 9.8 g/dl (12.0-15.5); LYMPH # 1.3 10^3/uL (1.5-5.0); MEAN CORPUSCULAR HEMOGLOBIN 29.7 pg (27.0-33.0); MEAN CORPUSCULAR HGB CONC 31.5 g/dl (32.0-36.5); MEAN CORPUSCULAR VOLUME 94.2 fl (80.0-96.0); MONO # 0.5 10^3/uL (0.0-0.8); MONO % 6.8 % (2.0-8.0); NEUTROPHILS # 5.9 10^3/uL (1.5-8.5); NEUTROPHILS % 74.1 % (36.0-66.0); PLATELET COUNT, AUTOMATED 255 10^3/uL (150-450); WHITE BLOOD COUNT 7.9 10^3/uL (4.0-10.0)
[2024-01-31 06:28] LABS: ALBUMIN 2.8 G/DL (3.2-5.2); BILIRUBIN,TOTAL 0.6 MG/DL (0.3-1.2); CALCIUM LEVEL 9.4 MG/DL (8.3-10.6); CREATININE FOR GFR 1.16 MG/DL (0.55-1.30); GLOMERULAR FILTRATION RATE 49.5 (>45); POTASSIUM SERUM 3.3 MMOL/L (3.5-5.1); TOTAL PROTEIN 5.5 G/DL (5.7-8.2)
[2024-01-31 06:29] LABS: CALCIUM LEVEL 9.4 MG/DL (8.3-10.6); CREATININE FOR GFR 1.18 MG/DL (0.55-1.30); GLOMERULAR FILTRATION RATE 48.5 (>45); MAGNESIUM LEVEL 1.9 MG/DL (1.8-2.4); POTASSIUM SERUM 3.2 MMOL/L (3.5-5.1)
[2024-01-31 08:35] VITALS: BP 142/71
[2024-01-31] MEDS ORDERED: ENOXAPARIN 40MG/0.4ML SYRINGE (J1650 PER 10MG) SC SCH (09:00)
[2024-01-31] MEDS ORDERED: FUROSEMIDE 40 MG TAB PO SCH (09:00)
[2024-01-31] MEDS ORDERED: K-TA1TAB PO (11:36)
[2024-01-31] MEDS ORDERED: CEFD300CAP PO (11:37)
[2024-01-31 12:00] VITALS: BP 155/85; TEMP 97.7; O2SAT 98
[2024-01-31] MEDS: FUROSEMIDE 40MG/4ML VIAL IV SCH (14:00)
[2024-01-31] MEDS: ROSUVASTATIN 10 MG TAB (CRESTOR) PO SCH (15:00)
== END 2024-01-31 16:01 | disposition home or self-care (01) | DRG 563 ==
LOC: EDBD 12:11 → M ED 12:11 → M ED INP 17:33 → M MSPAV 20:54
PROVIDERS: ADMIT Hospitalist; ATTEND Hospitalist
DX: S82.64XA Nondisplaced fracture of lateral malleolus of right fibula, initial encounter for closed fracture (principal); I50.32 Chronic diastolic (congestive) heart failure; L03.115 Cellulitis of right lower limb; J44.9 Chronic obstructive pulmonary disease, unspecified; I48.91 Unspecified atrial fibrillation; I27.81 Cor pulmonale (chronic); I11.0 Hypertensive heart disease with heart failure; Z96.641 Presence of right artificial hip joint; Z87.891 Personal history of nicotine dependence; Z79.01 Long term (current) use of anticoagulants; Z79.899 Other long term (current) drug therapy; Z99.81 Dependence on supplemental oxygen; Z91.048 Other nonmedicinal substance allergy status; E87.6 Hypokalemia; X58.XXXA Exposure to other specified factors, initial encounter; Y92.9 Unspecified place or not applicable; Y93.9 Activity, unspecified

== ENCOUNTER 2024-03-22 18:03 | Emergency (ER) | payer MEDICARE, OTHER ==
[~2024-03-22] VITALS: Ht 160 cm; Wt 55.7 kg
[~2024-03-22 18:03] MED LIST changes: +ACET-897 PO; +K-TA1TAB PO; +METO50TA7 PO
[2024-03-22 18:18] VITALS: BP 176/80; TEMP 97.7; O2SAT 100
== END 2024-03-22 21:17 | disposition left against medical advice (07) ==
LOC: M ED 18:03
DX: Z53.21 Procedure and treatment not carried out due to patient leaving prior to being seen by health care provider (principal)

== ENCOUNTER 2024-08-15 06:11 | Day surgery (SDC) | payer MEDICARE, OTHER ==
[~2024-08-15] VITALS: Ht 157.5 cm; Wt 58.3 kg
[~2024-08-15 06:11] MED LIST changes: +AMLO1TAB24 PO; -CYPR4TA PO; +CYPR4TAB36 PO; +LIDOCAINE 3.5 % 1ML OPHTH TOPICAL GEL OU ONE; -ROSU20TA61 PO; +ROSU20TA86 PO
[2024-08-15] MEDS ORDERED: TOBRADEX OPHTH OINT 3.5 GM As Ordered ONE (06:40)
[2024-08-15] MEDS: LIDOCAINE 2% W/EPINEPHRINE 20ML VIAL **PRES FREE As Ordered ONE (06:40)
[2024-08-15 06:45] VITALS: BP 157/78; TEMP 97.3; O2SAT 98
[2024-08-15] MEDS ORDERED: MIDAZOLAM INJ 2MG/2ML VIAL As Ordered ONE (07:12)
[2024-08-15] MEDS ORDERED: fentaNYL 100 MCG/2 ML INJECTION As Ordered ONE (07:12)
== END 2024-08-15 09:05 | disposition home or self-care (01) ==
LOC: M SDC 06:11
PROVIDERS: ATTEND Ophthalmology
DX: L98.9 Disorder of the skin and subcutaneous tissue, unspecified (principal); I48.91 Unspecified atrial fibrillation; I11.0 Hypertensive heart disease with heart failure; I50.9 Heart failure, unspecified; J44.9 Chronic obstructive pulmonary disease, unspecified; E78.00 Pure hypercholesterolemia, unspecified; Z79.899 Other long term (current) drug therapy; Z79.01 Long term (current) use of anticoagulants; Z79.51 Long term (current) use of inhaled steroids; Z91.048 Other nonmedicinal substance allergy status; Z90.711 Acquired absence of uterus with remaining cervical stump; Z87.891 Personal history of nicotine dependence
CPT/HCPCS: 11440; 88305; J2250; J3010

== ENCOUNTER 2025-02-26 06:46 | Emergency (ER) | payer MEDICARE, OTHER ==
[~2025-02-26] VITALS: Ht 160 cm; Wt 70.0 kg
[~2025-02-26 06:46] MED LIST changes: +AMLO-751 PO; -AMLO10TA PO; -FLOM0.4C39 PO; -LIDOCAINE 3.5 % 1ML OPHTH TOPICAL GEL OU ONE; +TAMS-18 PO
[2025-02-26 07:29] LABS: BASO # 0.1 10^3/uL (0.0-0.2); BASO % 1.0 % (0.0-1.0); EOS # 0.1 10^3/uL (0.0-0.5); EOS % 1.3 % (0.0-3.0); LYMPH # 1.2 10^3/uL (1.5-5.0); LYMPH % 14.3 % (24.0-44.0); MONO # 0.5 10^3/uL (0.0-0.8); MONO % 5.5 % (2.0-8.0); NEUTROPHILS # 6.5 10^3/uL (1.5-8.5); NEUTROPHILS % 77.7 % (36.0-66.0); PLATELET COUNT, AUTOMATED 260 10^3/uL (150-450)
[2025-02-26 07:41] LABS: INR 1.14
[2025-02-26 07:57] LABS: CALCIUM LEVEL 9.8 MG/DL (8.3-10.6); CARBON DIOXIDE LEVEL 32.0 MMOL/L (20-31); CHLORIDE LEVEL 99.0 MMOL/L (98-107); CREATININE FOR GFR 1.55 MG/DL (0.55-1.30); GLOMERULAR FILTRATION RATE 36.0 (>45); POTASSIUM SERUM 4.2 MMOL/L (3.5-5.1); SODIUM LEVEL 141.0 MMOL/L (136-145)
[2025-02-26] MEDS ORDERED: HOME MED LIST COMPLETE! XX SCH (09:05)
[2025-02-26] MEDS ORDERED: ISOVUE-370 76% 100 ML VIAL As Ordered ONE (09:17)
[2025-02-26] MEDS: NS 500 ML IV ONE (11:20)
[2025-02-26] MEDS: NS (Normal Saline) 0.9% 1,000 ML IV ONE (13:10)
[2025-02-26 16:00] VITALS: BP 120/55; TEMP 97.2; O2SAT 99
== END 2025-02-26 16:13 | disposition home or self-care (01) ==
LOC: M ED 06:46 → EDBD 06:46 → M ED 16:13
DX: E86.0 Dehydration (principal); I95.1 Orthostatic hypotension; I48.91 Unspecified atrial fibrillation; J44.9 Chronic obstructive pulmonary disease, unspecified; I12.9 Hypertensive chronic kidney disease with stage 1 through stage 4 chronic kidney disease, or unspecified chronic kidney disease; E78.5 Hyperlipidemia, unspecified; Z87.891 Personal history of nicotine dependence
CPT/HCPCS: 70450; 70496; 70498; 71045; 80048; 85025; 85610; 93005; 93041; 94760; 96361; 96374; 99285; J2060; Q9967

== ENCOUNTER 2025-03-13 12:25 | Emergency (ER) | payer MEDICARE, OTHER ==
[2025-03-13 12:57] LABS: BASO # 0.1 10^3/uL (0.0-0.2); BASO % 0.4 % (0.0-1.0); EOS # 0.1 10^3/uL (0.0-0.5); EOS % 0.6 % (0.0-3.0); LYMPH # 1.1 10^3/uL (1.5-5.0); LYMPH % 9.5 % (24.0-44.0); MONO # 0.5 10^3/uL (0.0-0.8); MONO % 4.4 % (2.0-8.0); NEUTROPHILS # 9.5 10^3/uL (1.5-8.5); NEUTROPHILS % 84.7 % (36.0-66.0); PLATELET COUNT, AUTOMATED 276 10^3/uL (150-450)
[2025-03-13 13:27] LABS: ALT/SGPT 25 U/L (7.0-40); AST/SGOT 23 U/L (<34); CALCIUM LEVEL 9.7 MG/DL (8.3-10.6); CARBON DIOXIDE LEVEL 31 MMOL/L (20-31); CHLORIDE LEVEL 99 MMOL/L (98-107); CREATININE FOR GFR 1.48 MG/DL (0.55-1.30); GLOMERULAR FILTRATION RATE 38.1 (>45); POTASSIUM SERUM 4.1 MMOL/L (3.5-5.1); SODIUM LEVEL 141 MMOL/L (136-145)
[2025-03-13] MEDS: NS 500 ML IV ONE (16:03)
[2025-03-13 16:29] LABS: KETONE, URINE AUTO RFX NEGATIVE (NEGATIVE); LEUKOCYTE ESTERASE UR AUTO RFX NEGATIVE (NEGATIVE); NITRITE, URINE AUTO RFX NEGATIVE (NEGATIVE); RBC, URINE AUTO RFX 0 /HPF (0-3); SQUAM EPITHELIAL CELL UR AURFX 0 /HPF (0-6); WBC, URINE AUTO RFX 0 /HPF (0-3)
[2025-03-13 16:32] LABS: CK-MB VALUE MASS < 1.0 NG/ML (<3.6)
[2025-03-13 16:33] LABS: CPK CREATINE PHOSPHOKINASE 21 U/L (34-145)
[2025-03-13 16:36] LABS: FREE T4 1.56 NG/DL (0.89-1.76)
[2025-03-13] MEDS ORDERED: HOME MED LIST COMPLETE! XX SCH (16:45)
[2025-03-13] MEDS ORDERED: FURO20TA2 PO (16:45)
[2025-03-13 17:11] LABS: CK-MB VALUE MASS < 1.0 NG/ML (<3.6)
[2025-03-13 17:13] LABS: CPK CREATINE PHOSPHOKINASE 33 U/L (34-145)
[2025-03-13] MEDS: ASPIRIN 81 MG CHEWABLE TABLET PO ONE (18:09)
[2025-03-13] MEDS: NS (Normal Saline) 0.9% 1,000 ML IV ONE (20:00)
[2025-03-13 22:15] VITALS: BP 127/70; TEMP 98.1; O2SAT 100
== END 2025-03-13 22:28 | disposition short-term general hospital (02) ==
LOC: M ED 12:25 → EDBD 12:25 → M ED 22:28
DX: I65.22 Occlusion and stenosis of left carotid artery (principal); R42 Dizziness and giddiness; R26.2 Difficulty in walking, not elsewhere classified; I25.2 Old myocardial infarction; I50.22 Chronic systolic (congestive) heart failure; I11.0 Hypertensive heart disease with heart failure; I48.91 Unspecified atrial fibrillation; E78.00 Pure hypercholesterolemia, unspecified; J44.9 Chronic obstructive pulmonary disease, unspecified; Z91.048 Other nonmedicinal substance allergy status; Z79.01 Long term (current) use of anticoagulants; Z79.899 Other long term (current) drug therapy
CPT/HCPCS: 70450; 71045; 80053; 81001; 82550; 82553; 84439; 84443; 84484; 85025; 93005; 96361; 96374; 96375; 99285; J2060